=== PATIENT | male | born 1955 | race Caucasian/White ===

== ENCOUNTER 2016-11-12 00:33 | Emergency (ER) | payer MEDICARE ==
[2016-11-12 01:43] VITALS: BP 189/85
== END 2016-11-12 04:00 | disposition left against medical advice (07) ==
LOC: ER 00:33
DX: Z53.21 Procedure and treatment not carried out due to patient leaving prior to being seen by health care provider (principal)

== ENCOUNTER 2017-03-14 14:25 | Emergency (ER) | payer MEDICARE ==
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
[2017-03-14 16:35] LABS: ABSOLUTE BASOPHILS # (AUTO) 0.1 10^3/uL (0.0-0.2); ABSOLUTE EOSINOPHILS # (AUTO) 0.1 10^3/uL (0.0-0.6); ABSOLUTE LYMPHOCYTES (AUTO) 0.9 10^3/uL (0.5-4.7); ABSOLUTE MONOCYTES (AUTO) 0.7 10^3/uL (0.1-1.4); ABSOLUTE NEUT (AUTO) 6.6 10^3/uL (1.7-8.2); BASOPHILS % (AUTO) 0.9 % (0-2); EOSINOPHILS % (AUTO) 1.3 % (0-6); HEMATOCRIT 40.1 % (37.9-51.0); HEMOGLOBIN 13.3 g/dL (13.5-17.0); LYMPHOCYTES % (AUTO) 10.5 % (13-45); MEAN CORPUSCULAR HEMOGLOBIN 29.5 pg (27.0-33.4); MEAN CORPUSCULAR HGB CONC 33.2 g/dL (32.0-36.0); MEAN CORPUSCULAR VOLUME 89 fl (80-97); MONOCYTES % (AUTO) 8.5 % (3-13); PLATELET COUNT 389 10^3/uL (150-450); RED BLOOD COUNT 4.52 10^6/uL (4.35-5.55); RED CELL DISTRIBUTION WIDTH 15.3 % (11.5-14.0); SEGMENTED NEUTROPHILS % (AUTO) 78.8 % (42-78); TOTAL CELLS COUNTED % (AUTO) 100 %; WHITE BLOOD COUNT 8.3 10^3/uL (4.0-10.5)
--- NOTE | 2017-03-14 16:35 | RADIOLOGY REPORT (SQ) ---
EXAM DESCRIPTION: CT HEAD WITHOUT COMPLETED DATE/TIME: 03/14/2017 4:23 pm REASON FOR STUDY: altered COMPARISON: CT brain 06/07/2015 TECHNIQUE: Axial images acquired through the brain without intravenous contrast. Images reviewed wi th bone, brain and subdural windows. Images stored on PACS. All CT scanners at this facility use dose modulation, iterative reconstruction, and/or weight based d osing when appropriate to reduce radiation dose to as low as reasonably achievable (ALARA). [facility]: Dose Right [facility]: CareDose [facility]: Dose Right [facility]: Teradose 4D [facility]: Smart Technologies RADIATION DOSE: CT Rad equipment meets quality standard of care and radiation dose reduction techniq ues were employed. CTDIvol: 64.6 mGy. DLP: 1163 mGy-cm. mGy. LIMITATIONS: Motion artifact, particularly on images through the posterior fossa FINDINGS: VENTRICLES: Normal size and contour. CEREBRUM: No masses. No hemorrhage. No midline shift. No evidence for acute infarction. Normal gra y/white matter differentiation. No areas of low density in the white matter. CEREBELLUM: Motion artifact on images through the posterior fossa. Suspect an old lacunar infarct in the right middle cerebellar peduncle axial image 11. No gross hemorrhage in the posterior fossa or impingement on the 4th ventricle. EXTRAAXIAL SPACES: No fluid collections. No masses. ORBITS AND GLOBE: No intra- or extraconal masses. Normal contour of globe without masses. CALVARIUM: No fracture. PARANASAL SINUSES: No fluid or mucosal thickening. SOFT TISSUES: No mass or hematoma. OTHER: No other significant finding. IMPRESSION: Motion artifact. No acute changes. 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 EVIDENCE OF ACUTE STROKE: NO. COMMENT: Quality ID # [id number]: Final reports with documentation of one or more dose reduction techniques (e.g., Automated exposure control, adjustment of the mA and/or kV according to patient size, use of iterative reconstruction technique) TECHNICAL DOCUMENTATION: JOB ID: [id number]- All Rights Reserved
--- NOTE | 2017-03-14 16:48 | RADIOLOGY REPORT (SQ) ---
EXAM DESCRIPTION: CHEST PA/LAT COMPLETED DATE/TIME: 03/14/2017 4:39 pm REASON FOR STUDY: cough COMPARISON: AP chest 06/07/2015 EXAM PARAMETERS: NUMBER OF VIEWS: two views TECHNIQUE: Digital Frontal and Lateral radiographic views of the chest acquired. RADIATION DOSE: NA LIMITATIONS: none FINDINGS: LUNGS AND PLEURA: No opacities, masses or pneumothorax. No pleural effusion. MEDIASTINUM AND HILAR STRUCTURES: No masses or contour abnormalities. HEART AND VASCULAR STRUCTURES: Heart normal size. No evidence for failure. BONES: No acute findings. HARDWARE: None in the chest. OTHER: No other significant finding. IMPRESSION: NO SIGNIFICANT RADIOGRAPHIC FINDING IN THE CHEST. TECHNICAL DOCUMENTATION: JOB ID: [id number] [employer]- All Rights Reserved
[2017-03-14 16:55] LABS: ALANINE AMINOTRANSFERASE 27 U/L (21-72); ALBUMIN 3.5 g/dL (3.5-5.0); ALKALINE PHOSPHATASE 110 U/L (38-126); ANION GAP 9 (5-19); ASPARTATE AMINO TRANSFERASE 39 U/L (17-59); BILIRUBIN,DIRECT 0.4 mg/dL (0.0-0.4); BILIRUBIN,TOTAL 0.6 mg/dL (0.2-1.3); BLOOD UREA NITROGEN 47 mg/dL (7-20); CALCIUM 9.4 mg/dL (8.4-10.2); CARBON DIOXIDE 23 mmol/L (22-30); CHLORIDE 105 mmol/L (98-107); GLUCOSE 112 mg/dL (75-110); POTASSIUM 5.5 mmol/L (3.6-5.0); SODIUM 137.1 mmol/L (137-145); TOTAL PROTEIN 7.2 g/dL (6.3-8.2)
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
[2017-03-14] MEDS ORDERED: NORMAL SALINE 1000 ML 1,000 ML IV ONE (17:11)
[2017-03-14 17:40] LABS: CREATINE KINASE MB 4.27 ng/mL (<4.55)
[2017-03-14 17:43] LABS: TROPONIN I 0.05 ng/mL
[2017-03-14 17:54] LABS: APPEARANCE,URINE SLIGHTLY-CLOUDY; BILIRUBIN,URINE NEGATIVE (NEGATIVE); COLOR,URINE YELLOW; GLUCOSE, URINE 50 mg/dL (NEGATIVE); KETONES,URINE TRACE mg/dL (NEGATIVE); LEUKOCYTE ESTERASE,URINE NEGATIVE (NEGATIVE); NITRITE,URINE NEGATIVE (NEGATIVE); PROTEIN,URINE >=500 mg/dL (NEGATIVE); URINE SPECIFIC GRAVITY 1.013; UROBILINOGEN,URINE NEGATIVE mg/dL (<2.0)
[2017-03-14 18:09] LABS: URINE AMPHETAMINES SCREEN NEGATIVE; URINE BARBITURATES SCREEN NEGATIVE; URINE BENZODIAZEPINES SCREEN NEGATIVE; URINE COCAINE SCREEN NEGATIVE; URINE MARIJUANA (THC) SCREEN NEGATIVE; URINE METHADONE SCREEN NEGATIVE; URINE PHENCYCLIDINE SCREEN NEGATIVE
--- NOTE | 2017-03-14 19:56 | EKG REPORT ---
SEVERITY:- ABNORMAL ECG - SINUS RHYTHM CONSIDER LEFT VENTRICULAR HYPERTROPHY BORDERLINE INFERIOR Q WAVES ABNORMAL T, CONSIDER ISCHEMIA, LATERAL LEADS VS LVH RELATED : Confirmed by: Madalyn Walker 14-Mar-2017 19:55:30
[2017-03-14] MEDS ORDERED: CLONIDINE HCL 0.1 MG TABLET PO ONE (20:08)
[2017-03-14 20:44] LABS: ANION GAP 7 (5-19); BLOOD UREA NITROGEN 49 mg/dL (7-20); CALCIUM 8.8 mg/dL (8.4-10.2); CARBON DIOXIDE 23 mmol/L (22-30); CHLORIDE 106 mmol/L (98-107); GLUCOSE 148 mg/dL (75-110); POTASSIUM 4.7 mmol/L (3.6-5.0); SODIUM 136.2 mmol/L (137-145)
[2017-03-15] MEDS ORDERED: ACETAMINOPHEN 325 MG TABLET PO ONE (00:46)
--- NOTE | 2017-03-15 08:25 | ER Document Report ---
Doctor's Note Notes: 03/15/17 08:46 61-year-old male evaluted as the rounding physician for our psychiatric patients , I have reviewed the chart, vitals, lab work. Patient has been examined and noted to be well appearing . I am awaiting mental health in put. Repeat lab work has been ordered I am also awaiting family's presentation
[2017-03-15 09:24] LABS: ALANINE AMINOTRANSFERASE 22 U/L (21-72); ALBUMIN 3.4 g/dL (3.5-5.0); ALKALINE PHOSPHATASE 102 U/L (38-126); ANION GAP 8 (5-19); ASPARTATE AMINO TRANSFERASE 32 U/L (17-59); BILIRUBIN,DIRECT 0.3 mg/dL (0.0-0.4); BILIRUBIN,TOTAL 0.6 mg/dL (0.2-1.3); BLOOD UREA NITROGEN 47 mg/dL (7-20); CALCIUM 9.1 mg/dL (8.4-10.2); CARBON DIOXIDE 24 mmol/L (22-30); CHLORIDE 105 mmol/L (98-107); GLUCOSE 189 mg/dL (75-110); POTASSIUM 5.1 mmol/L (3.6-5.0); SODIUM 137.1 mmol/L (137-145)
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
[2017-03-15] MEDS ORDERED: HALOPERIDOL 5 MG TABLET PO SCH (10:15)
[2017-03-15] MEDS ORDERED: BENZTROPINE MESYLATE 1 MG TABLET PO SCH (10:15)
[2017-03-15] MEDS ORDERED: CLONIDINE HCL 0.1 MG TABLET PO SCH (10:15)
[2017-03-15] MEDS: BENZTROPINE MESYLATE 1 MG TABLET PO SCH (10:43)
[2017-03-15] MEDS ORDERED: HALOPERIDOL 5 MG TABLET PO ONE (11:00)
[2017-03-15] MEDS: CLONIDINE HCL 0.1 MG TABLET PO SCH ×2 (13:33→18:28)
[2017-03-15] MEDS: HALOPERIDOL 5 MG TABLET PO SCH (18:04)
[2017-03-16] MEDS: CLONIDINE HCL 0.1 MG TABLET PO SCH ×3 (09:34→18:24)
[2017-03-16] MEDS: HALOPERIDOL 5 MG TABLET PO SCH ×2 (09:34→18:24)
--- NOTE | 2017-03-16 09:39 | ER Document Report ---
Doctor's Note Notes: 03/16/17 09:38 As the rounding physician for our social patients, I have reviewed the chart, vitals, lab work. Patient has been examined and noted to be stable . I am awaiting mental health in put.
[2017-03-16] MEDS: BENZTROPINE MESYLATE 1 MG TABLET PO SCH (11:11)
--- NOTE | 2017-03-16 15:27 | PSYCHOLOGICAL NOTE ---
Psych Note - Psych Note Psych Note: Reason for consult: Altered Mental Status Consents given: None Patient is a 61 year old male who was brought to the Emergency Department by EMS. Patient was found by neighbors wandering around his house. Patient again explained he was locked out of his house and said he has issues with the locking mechanisms on his door and that's how he became locked out of his house. Patient denied he was evicted or locked out of his home by anyone else. He reported he has an issue of cleanliness at his house. He stated the freezer, refrigerator and stove do not work and his food becomes spoiled because he has no way to keep it. He stated he was "elias to be alive." He reported his car was parked in front of his house and it "wasn't doing good right now either." Patient made a statement this railroad accountant could not hear about medication. When this railroad accountant asked what he said he threw his fork into his eggs and stated "You keep asking about medicine!" Patient became agitated and wanted to eat his breakfast. Subsequent to leaving the room, the patient started making grunting noises and was angrily talking to himself in a low tone. Patient was more amenable after eating breakfast. Patient seems focused on his living situation but appears considerably clearer today. Patient's neighbor contacted the Emergency Department. She reported she was the neighbor who called EMS for the patient. She stated the patient visits her daily and she was worried about him because he had not returned. She reported the patient showed up at her house without shoes or a shirt on and sat on her chair outside and would not respond when she asked him if he was okay. She stated the patient was not evicted he had just locked himself out of his house. She stated when the patient stood up and began walking towards his home he had a very unsteady gait and almost fell, which is why she called EMS. Due to the patient's report of his living conditions (appliances not working, issues with running water, filth, being rat infested) a report was made to [facility]. The APS worker gathered the information and stated she would respond, via letter, to let us know the outcome of the report being taken. Referral was made to Emergency Department discharge nurse for a social consult to assist patient with living situation concerns. Patient was alert and oriented to person, place, time and circumstance. Mood was somewhat guarded with congruent affect. Patient denied suicidal/homicidal ideation, intent or plan. He did appear to be responding to internal stimuli as evidenced by not being able to maintain appropriate eye contact but patient was able to stay on topic more consistently. Patient continues to vacillate between engaging with this railroad accountant and becoming agitated by questions, but again his agitation is lessened. Thought processes were disorganized and tangential. Conversational speech was slow for rate, tone and prosody. Intellectual abilities were estimated in the average range. Insight, judgment and impulse control were fair. Although patient continues to have some response to internal stimuli and continues to be guarded, it is believed he is at baseline for his mental health. 1. 295.90 (F20.9) Schizophrenia Impression/Plan: Recommend rescind of IVC. Patient is psychiatrically clear. He no longer meets [place] G.S 122C IVC criteria. Patient denied suicidal/homicidal ideation, intent or plan. Patient is not considered a danger to himself or others at this time. Patient was encouraged to follow up with a community provider to continue medications once he is discharged from the hospital. Medication recommendations continue as Haldol 5mg BID, Cogentin 1mg daily and Clonidine 0.1mg TID. It is recommended for the patient to establish care in the community with a provider. Although patient continues to have some response to internal stimuli and continues to be guarded, it is believed he is at baseline for his mental health. Consulted with Dr. Burns regarding the care and management of this patient. ED physician in agreement with recommendation and disposition.
--- NOTE | 2017-03-17 09:37 | ER Document Report ---
Doctor's Note Notes: 03/17/17 09:37 As the rounding physician for our social patients, I have reviewed the chart, vitals, lab work. Patient has been examined and noted to be stable . I am awaiting mental health in put.
[2017-03-17] MEDS: BENZTROPINE MESYLATE 1 MG TABLET PO SCH (10:13)
[2017-03-17] MEDS: HALOPERIDOL 5 MG TABLET PO SCH (10:13)
[2017-03-17] MEDS: CLONIDINE HCL 0.1 MG TABLET PO SCH (10:14)
[2017-03-17 11:22] VITALS: BP 187/86
== END 2017-03-17 11:15 | disposition home or self-care (01) ==
LOC: ER 14:25
DX: F20.9 Schizophrenia, unspecified (principal); I10 Essential (primary) hypertension; N28.9 Disorder of kidney and ureter, unspecified; F17.210 Nicotine dependence, cigarettes, uncomplicated; Z60.2 Problems related to living alone; Z88.0 Allergy status to penicillin
CPT/HCPCS: 93005; 99285; 96360; 36415; 82553; 80307 ×2; 82550; 85025; 80048; 80053; 81001; 84484; 71046; 70450; 93010; A9270 ×11; J7030

== ENCOUNTER 2017-03-17 23:44 | Emergency (ER) | payer MEDICARE ==
--- NOTE | 2017-03-18 02:16 | RADIOLOGY REPORT (SQ) ---
EXAM DESCRIPTION: FOOT RIGHT COMPLETE CLINICAL HISTORY: pain COMPARISON: None. FINDINGS: 3 views of the right foot. No acute fracture or dislocation. Normal osseous mineralization. No destructive osseous lesions. No radiopaque foreign body. Atherosclerotic vascular calcification. IMPRESSION: No acute fracture or dislocation.
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
[2017-03-18] MEDS ORDERED: HALOPERIDOL 5 MG TABLET PO SCH (03:45)
[2017-03-18] MEDS ORDERED: CLONIDINE HCL 0.1 MG TABLET PO SCH (03:45)
[2017-03-18 03:58] LABS: ABSOLUTE BASOPHILS # (AUTO) 0.1 10^3/uL (0.0-0.2); ABSOLUTE EOSINOPHILS # (AUTO) 0.2 10^3/uL (0.0-0.6); ABSOLUTE LYMPHOCYTES (AUTO) 0.8 10^3/uL (0.5-4.7); ABSOLUTE MONOCYTES (AUTO) 0.8 10^3/uL (0.1-1.4); ABSOLUTE NEUT (AUTO) 6.5 10^3/uL (1.7-8.2); BASOPHILS % (AUTO) 0.9 % (0-2); EOSINOPHILS % (AUTO) 2.2 % (0-6); HEMATOCRIT 35.3 % (37.9-51.0); HEMOGLOBIN 11.7 g/dL (13.5-17.0); LYMPHOCYTES % (AUTO) 10.1 % (13-45); MEAN CORPUSCULAR HEMOGLOBIN 29.4 pg (27.0-33.4); MEAN CORPUSCULAR HGB CONC 33.1 g/dL (32.0-36.0); MEAN CORPUSCULAR VOLUME 89 fl (80-97); MONOCYTES % (AUTO) 9.3 % (3-13); PLATELET COUNT 360 10^3/uL (150-450); RED BLOOD COUNT 3.98 10^6/uL (4.35-5.55); RED CELL DISTRIBUTION WIDTH 15.1 % (11.5-14.0); SEGMENTED NEUTROPHILS % (AUTO) 77.5 % (42-78); TOTAL CELLS COUNTED % (AUTO) 100 %; WHITE BLOOD COUNT 8.4 10^3/uL (4.0-10.5)
[2017-03-18 04:09] LABS: ALANINE AMINOTRANSFERASE 34 U/L (21-72); ALBUMIN 3.6 g/dL (3.5-5.0); ALKALINE PHOSPHATASE 99 U/L (38-126); ANION GAP 10 (5-19); ASPARTATE AMINO TRANSFERASE 26 U/L (17-59); BILIRUBIN,DIRECT 0.2 mg/dL (0.0-0.4); BILIRUBIN,TOTAL 0.2 mg/dL (0.2-1.3); BLOOD UREA NITROGEN 52 mg/dL (7-20); CALCIUM 9.2 mg/dL (8.4-10.2); CARBON DIOXIDE 25 mmol/L (22-30); CHLORIDE 106 mmol/L (98-107); GLUCOSE 143 mg/dL (75-110); POTASSIUM 5.7 mmol/L (3.6-5.0); SODIUM 140.7 mmol/L (137-145); TOTAL PROTEIN 7.3 g/dL (6.3-8.2)
[2017-03-18 04:15] LABS: ACETAMINOPHEN < 10 ug/mL (10-30); ALCOHOL < 10 mg/dL (NONE DETECTED); SALICYLATE < 1.0 mg/dL (2.0-20.0)
[2017-03-18 04:25] LABS: APPEARANCE,URINE CLEAR; BILIRUBIN,URINE NEGATIVE (NEGATIVE); COLOR,URINE STRAW; GLUCOSE, URINE 50 mg/dL (NEGATIVE); KETONES,URINE NEGATIVE (NEGATIVE); LEUKOCYTE ESTERASE,URINE NEGATIVE (NEGATIVE); NITRITE,URINE NEGATIVE (NEGATIVE); PROTEIN,URINE 100 mg/dL (NEGATIVE); URINE SPECIFIC GRAVITY 1.005; UROBILINOGEN,URINE NEGATIVE mg/dL (<2.0)
[2017-03-18 04:32] LABS: URINE AMPHETAMINES SCREEN NEGATIVE; URINE BARBITURATES SCREEN NEGATIVE; URINE BENZODIAZEPINES SCREEN NEGATIVE; URINE COCAINE SCREEN NEGATIVE; URINE MARIJUANA (THC) SCREEN NEGATIVE; URINE METHADONE SCREEN NEGATIVE; URINE PHENCYCLIDINE SCREEN NEGATIVE
[2017-03-18] MEDS ORDERED: NORMAL SALINE 1000 ML 1,000 ML IV ONE (05:04)
[2017-03-18] MEDS ORDERED: BENZTROPINE MESYLATE 1 MG TABLET PO SCH (10:00)
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
--- NOTE | 2017-03-18 12:02 | EKG REPORT ---
SEVERITY:- ABNORMAL ECG - SINUS RHYTHM LEFT VENTRICULAR HYPERTROPHY ST ELEVATION SUGGESTS PERICARDITIS : Confirmed by: Madalyn Walker 18-Mar-2017 12:00:47
--- NOTE | 2017-03-18 12:10 | ER Document Report ---
Doctor's Note Notes: 03/18/17 12:08 Medical rounds: Patient evaluated briefly prior to discharge. Psychosocial evaluation and recommendations noted. Patient is alert, in no distress, vital signs are stable. He verbalizes multiple minor somatic complaints, none of which appeared to constitute an emergency medical condition. He is medically stable and will be discharged home with FS referral. He has prescriptions for medication pursuant to his discharge yesterday.
[2017-03-18 12:21] VITALS: BP 172/66
== END 2017-03-18 12:20 | disposition home or self-care (01) ==
LOC: ER 23:44
DX: F20.9 Schizophrenia, unspecified (principal); I10 Essential (primary) hypertension; T46.5X6A Underdosing of other antihypertensive drugs, initial encounter; Z91.14 Patient's other noncompliance with medication regimen; S90.812A Abrasion, left foot, initial encounter; S90.811A Abrasion, right foot, initial encounter; X58.XXXA Exposure to other specified factors, initial encounter; Z88.0 Allergy status to penicillin
CPT/HCPCS: 93005; 99285; 36415; 80307 ×4; 85025; 80053; 81001; 73630; 93010; A9270 ×3

== ENCOUNTER 2017-09-01 13:03 | Emergency (ER) | payer MEDICARE ==
[2017-09-01] MEDS ORDERED: METOCLOPRAMIDE HCL INJ/PF 10 MG/2 ML SDV IV ONE (13:36)
[2017-09-01] MEDS ORDERED: MORPHINE SULFATE 10 MG/ML INJ IV ONE (13:36)
[2017-09-01] MEDS ORDERED: NORMAL SALINE 1000 ML 1,000 ML IV ONE (13:37)
--- NOTE | 2017-09-01 13:37 | ER Document Report ---
ED GI/ - General Chief Complaint: Nausea/Vomiting/Diarrhea Stated Complaint: NAUSEA Time Seen by Provider: 09/01/17 13:32 Mode of Arrival: Ambulatory Information source: Patient Notes: Patient is a 61-year-old male with a history of schizophrenia who presents to the ER today from home for chills, nausea, vomiting and diarrhea since yesterday. Patient admits to abdominal pain "all over." Patient does not know if he has had a fever but has felt hot and cold with his chills. Patient has had 4 episodes of vomiting over the past day and at least 5 episodes of diarrhea that has been watery. He denies any recent antibiotics, he denies any abdominal history such as Crohn's or ulcerative colitis, he denies blood in his vomit or stool. TRAVEL OUTSIDE OF THE [place] IN LAST 30 DAYS: No - Related Data Allergies/Adverse Reactions: Penicillins Allergy (Verified 03/18/17 04:13) Past Medical History - General Information source: Patient - Social History Smoking Status: Current Every Day Smoker Chew tobacco use (# tins/day): No Frequency of alcohol use: None Drug Abuse: None Family History: Reviewed & Not Pertinent Patient has suicidal ideation: No Patient has homicidal ideation: No - Past Medical History Cardiac Medical History: Reports: Hx Hypertension Renal/ Medical History: Denies: Hx Peritoneal Dialysis Psychiatric Medical History: Reports: Hx Schizophrenia Past Surgical History: Reports: Hx Orthopedic Surgery - Immunizations Hx Diphtheria, Pertussis, Tetanus Vaccination: - unk Review of Systems - Review of Systems Constitutional: See HPI EENT: No symptoms reported Cardiovascular: No symptoms reported Respiratory: No symptoms reported Gastrointestinal: See HPI Genitourinary: No symptoms reported Male Genitourinary: No symptoms reported Musculoskeletal: No symptoms reported Skin: No symptoms reported Hematologic/Lymphatic: No symptoms reported Neurological/Psychological: No symptoms reported Physical Exam - Vital signs Vitals: Temp Pulse Resp BP Pulse Ox 98.1 F 81 22 H 142/87 H 95 09/01/17 13:10 09/01/17 13:10 09/01/17 13:10 09/01/17 13:10 09/01/17 13:10 - Notes Notes: PHYSICAL EXAMINATION: GENERAL: Having chills, otherwise in no acute distress. HEAD: Atraumatic, normocephalic. EYES: Pupils equal round and reactive to light, extraocular movements intact, sclera anicteric, conjunctiva are normal. ENT: ear canals without erythema or foreign body, TMs pearly kapoor with good bony landmarks, nares patent, oropharynx clear without exudates. Moist mucous membranes. Airway patent NECK: Normal range of motion, supple without lymphadenopathy LUNGS: CTAB and equal. No wheezes rales or rhonchi. HEART: Regular rate and rhythm without murmurs ABDOMEN: Soft, no tenderness. No guarding, no rebound BACK: no vertebral tenderness, normal ROM GI/: no CVA tenderness EXTREMITIES: Normal range of motion, no pitting edema. No cyanosis. NEUROLOGICAL: Cranial nerves grossly intact. Normal sensory/motor exams. PSYCH: Normal mood, normal affect. SKIN: Warm, Dry, normal turgor, no rashes or lesions noted Course - Re-evaluation Re-evalutation: 09/01/17 16:14 Patient feels better after pain medication, nausea medication and IV fluids. Patient is gotten up multiple times and walked by himself to the bathroom without any issues. Patient has a completely benign abdominal exam, normal white blood cell count although he does have some elevated bands. I believe that patient has a viral syndrome. I did offer admission and he declines stating that he feels better and would like to go home. I will send him home with nausea medication and advised that he drink plenty of fluids. He is to return with any worsening symptoms. 09/02/17 08:15 - Vital Signs Vital signs: Temp Pulse Resp BP Pulse Ox 101.8 F H 80 24 H 127/65 H 92 09/01/17 17:09 09/01/17 17:09 09/01/17 17:09 09/01/17 17:09 09/01/17 17:09 - Laboratory Result Diagrams: 09/01/17 13:54 09/01/17 13:54 Laboratory results interpreted by me: 09/01/17 09/01/17 09/01/17 13:54 13:54 15:12 RDW 14.8 H Seg Neuts % (Manual) 86 H Band Neutrophils % 10 H Lymphocytes % (Manual) 1 L Abs Neuts (Manual) 9.1 H Abs Lymphs (Manual) 0.1 L Sodium 146.2 H Potassium 5.2 H Chloride 111 H BUN 50 H Creatinine 2.54 H Est GFR ( Amer) 31 L Est GFR (Non-Af Amer) 26 L Glucose 154 H Urine Protein >=500 H Urine Glucose (UA) 50 H Urine Blood SMALL H Discharge - Discharge Clinical Impression: Nausea vomiting and diarrhea Condition: Stable Disposition: HOME, SELF-CARE Instructions: Diarrhea, Nonspecific ([facility]), Viral Syndrome ([facility]), Vomiting ([facility]) Additional Instructions: Return immediately for any new or worsening symptoms. Follow up with primary care provider, call tomorrow to make followup appointment. Drink plenty of fluids. Prescriptions: Ondansetron [Zofran Odt 4 mg Tablet] 1 - 2 tab PO Q4H PRN #15 tab.rapdis PRN Reason: For Nausea/Vomiting
[2017-09-01 14:14] LABS: HEMATOCRIT 41.3 % (37.9-51.0); HEMOGLOBIN 13.6 g/dL (13.5-17.0); MEAN CORPUSCULAR HEMOGLOBIN 29.5 pg (27.0-33.4); MEAN CORPUSCULAR HGB CONC 33.1 g/dL (32.0-36.0); MEAN CORPUSCULAR VOLUME 89 fl (80-97); PLATELET COUNT 288 10^3/uL (150-450); RED BLOOD COUNT 4.62 10^6/uL (4.35-5.55); RED CELL DISTRIBUTION WIDTH 14.8 % (11.5-14.0); WHITE BLOOD COUNT 9.5 10^3/uL (4.0-10.5)
[2017-09-01 14:33] LABS: ABSOLUTE LYMPHOCYTES# (MANUAL) 0.1 10^3/uL (0.5-4.7); ABSOLUTE MONOCYTES # (MANUAL) 0.3 10^3/uL (0.1-1.4); ABSOLUTE NEUTROPHILS# (MANUAL) 9.1 10^3/uL (1.7-8.2); BAND NEUTROPHILS % (MANUAL) 10 % (3-5); BASOPHILS % (MANUAL) 0 % (0-2); EOSINOPHILS % (MANUAL) 0 % (0-6); LYMPHOCYTES % (MANUAL) 1 % (13-45); MONOCYTES % (MANUAL) 3 % (3-13); SEGMENTED NEUTROPHILS % (MAN) 86 % (42-78); TOTAL CELLS COUNTED 100
[2017-09-01 14:36] LABS: ANISOCYTOSIS SLIGHT; OVALOCYTES SLIGHT; POIKILOCYTOSIS SLIGHT; TOXIC GRANULATION SLIGHT; TOXIC VACUOLATION PRESENT
[2017-09-01 14:37] LABS: PLATELET COMMENT ADEQUATE
[2017-09-01 14:45] LABS: ANION GAP 12 (5-19); BLOOD UREA NITROGEN 50 mg/dL (7-20); CALCIUM 8.8 mg/dL (8.4-10.2); CARBON DIOXIDE 23 mmol/L (22-30); CHLORIDE 111 mmol/L (98-107); GLUCOSE 154 mg/dL (75-110); LIPASE 168.2 U/L (23-300); POTASSIUM 5.2 mmol/L (3.6-5.0); SODIUM 146.2 mmol/L (137-145)
[2017-09-01 15:29] LABS: APPEARANCE,URINE CLEAR; BILIRUBIN,URINE NEGATIVE (NEGATIVE); COLOR,URINE YELLOW; GLUCOSE, URINE 50 mg/dL (NEGATIVE); KETONES,URINE NEGATIVE (NEGATIVE); LEUKOCYTE ESTERASE,URINE NEGATIVE (NEGATIVE); NITRITE,URINE NEGATIVE (NEGATIVE); PROTEIN,URINE >=500 mg/dL (NEGATIVE); URINE SPECIFIC GRAVITY 1.012; UROBILINOGEN,URINE NEGATIVE mg/dL (<2.0)
--- NOTE | 2017-09-01 16:43 | RADIOLOGY REPORT (SQ) ---
EXAM DESCRIPTION: CHEST SINGLE VIEW COMPLETED DATE/TIME: 09/01/2017 4:24 pm REASON FOR STUDY: n/v/ bandemia COMPARISON: February 2017 EXAM PARAMETERS: NUMBER OF VIEWS: One view. TECHNIQUE: Single frontal radiographic view of the chest acquired. RADIATION DOSE: NA LIMITATIONS: None. FINDINGS: LUNGS AND PLEURA: No opacities, masses or pneumothorax. No pleural effusion. MEDIASTINUM AND HILAR STRUCTURES: No masses. Contour normal. HEART AND VASCULAR STRUCTURES: The configuration of the heart mediastinal structures is unchanged. BONES: No acute findings. HARDWARE: None in the chest. OTHER: No other significant finding. IMPRESSION: NO ACUTE RADIOGRAPHIC FINDING IN THE CHEST. TECHNICAL DOCUMENTATION: JOB ID: [id number] [employer]- All Rights Reserved Reading location - IP/workstation name: [email or web address]
[2017-09-01] MEDS ORDERED: ACETAMINOPHEN 325 MG TABLET PO ONE (17:06)
[2017-09-01 17:16] VITALS: BP 127/65
== END 2017-09-01 17:35 | disposition home or self-care (01) ==
LOC: ER 13:03
DX: R11.2 Nausea with vomiting, unspecified (principal); R19.7 Diarrhea, unspecified; F17.200 Nicotine dependence, unspecified, uncomplicated; I10 Essential (primary) hypertension; Z88.0 Allergy status to penicillin
CPT/HCPCS: 99284; 96361; 96374; 96375; 36415; 87040; 83605; 83690; 85025; 80048; 81001; 71045; A9270; J2765; J2270; J7030

== ENCOUNTER 2018-01-03 06:40 | Inpatient (IN) | payer MEDICARE ==
[2018-01-03 07:04] LABS: ABSOLUTE BASOPHILS # (AUTO) 0.1 10^3/uL (0.0-0.2); ABSOLUTE EOSINOPHILS # (AUTO) 0.2 10^3/uL (0.0-0.6); ABSOLUTE LYMPHOCYTES (AUTO) 1.8 10^3/uL (0.5-4.7); ABSOLUTE MONOCYTES (AUTO) 1.2 10^3/uL (0.1-1.4); ABSOLUTE NEUT (AUTO) 8.4 10^3/uL (1.7-8.2); BASOPHILS % (AUTO) 0.6 % (0-2); HEMATOCRIT 40.5 % (37.9-51.0); HEMOGLOBIN 13.3 g/dL (13.5-17.0); LYMPHOCYTES % (AUTO) 15.2 % (13-45); MEAN CORPUSCULAR VOLUME 91 fl (80-97); MONOCYTES % (AUTO) 10.4 % (3-13); PLATELET COUNT 306 10^3/uL (150-450); RED BLOOD COUNT 4.45 10^6/uL (4.35-5.55); RED CELL DISTRIBUTION WIDTH 15.4 % (11.5-14.0); SEGMENTED NEUTROPHILS % (AUTO) 71.8 % (42-78); TOTAL CELLS COUNTED % (AUTO) 100 %; WHITE BLOOD COUNT 11.7 10^3/uL (4.0-10.5)
--- NOTE | 2018-01-03 07:24 | RADIOLOGY REPORT (SQ) ---
EXAM DESCRIPTION: XR CHEST 1 VIEW COMPLETED DATE/TME: 01/03/2018 06:43 CLINICAL HISTORY: 62 years Male, cp COMPARISON:09/01/2017 NUMBER OF VIEWS/TECHNIQUE: 1/AP FINDINGS: Adequate lung volume, clear parenchyma, normal cardiac silhouette, atherosclerosis, and intact bony thorax. IMPRESSION: No acute cardiopulmonary findings.
--- NOTE | 2018-01-03 07:35 | ER Document Report ---
ED General - General Chief Complaint: Chest Pain Stated Complaint: CHEST PAIN Time Seen by Provider: 01/03/18 07:28 TRAVEL OUTSIDE OF THE [place] IN LAST 30 DAYS: No - HPI Patient complains to provider of: Chest pain Notes: Patient coming in for chest pain radiating to his back starting approximately 1/ 2 hours prior to arrival. Patient does have a history of schizophrenia patient otherwise upon my discussion is a no x3 however does travel off making the HPI process somewhat difficult. Patient denies any trauma denies any fever chills nausea by diarrhea. Patient denies any cardiac issues in the past. Patient states PCP is in the [facility] states he is here living with his daughter. Denies any illicit drugs denies any smoking denies any alcohol. Patient otherwise resting comfortably upon my evaluation trying to place on the gown. This provided assist patient with placing on the ground. Patient is currently states chest pain-free denies any exacerbating or relieving factors of chest pain. Denies any improvement of chest pain with the nitroglycerin however states pain spontaneously resolved upon here in ER - Related Data Allergies/Adverse Reactions: Penicillins Allergy (Verified 01/03/18 08:13) Past Medical History - Social History Smoking Status: Current Every Day Smoker Family History: Reviewed & Not Pertinent Patient has suicidal ideation: No Patient has homicidal ideation: No - Past Medical History Cardiac Medical History: Reports: Hx Hypertension Renal/ Medical History: Denies: Hx Peritoneal Dialysis Psychiatric Medical History: Reports: Hx Schizophrenia Past Surgical History: Reports: Hx Orthopedic Surgery - Immunizations Hx Diphtheria, Pertussis, Tetanus Vaccination: - unk Review of Systems - Review of Systems Constitutional: No symptoms reported EENT: No symptoms reported Cardiovascular: Chest pain Respiratory: No symptoms reported Gastrointestinal: No symptoms reported Genitourinary: No symptoms reported Male Genitourinary: No symptoms reported Musculoskeletal: No symptoms reported Skin: No symptoms reported Hematologic/Lymphatic: No symptoms reported Neurological/Psychological: No symptoms reported -: Yes All other systems reviewed and negative Physical Exam - Vital signs Vitals: Pulse Ox 99 01/03/18 06:43 Interpretation: Normal - General General appearance: Appears well, Alert - HEENT Head: Normocephalic, Atraumatic Eyes: Normal Pupils: PERRL - Respiratory Respiratory status: No respiratory distress Chest status: Nontender Breath sounds: Normal Chest palpation: Normal - Cardiovascular Rhythm: Regular Heart sounds: Normal auscultation Murmur: No - Abdominal Inspection: Normal Distension: No distension Bowel sounds: Normal Tenderness: Nontender Organomegaly: No organomegaly - Back Back: Normal, Nontender - Extremities General upper extremity: Normal inspection, Nontender, Normal color, Normal ROM , Normal temperature General lower extremity: Normal inspection, Nontender, Normal color, Normal ROM , Normal temperature, Normal weight bearing. No: Feliciano's sign - Neurological Neuro grossly intact: Yes Cognition: Normal Orientation: AAOx4 Aislinn Coma Scale Eye Opening: Spontaneous [place]islinn Coma Scale Verbal: Oriented Aislinn Coma Scale Motor: Obeys Commands Ramey Coma Scale Total: 15 Speech: Normal Motor strength normal: LUE, RUE, LLE, RLE Sensory: Normal - Psychological Associated symptoms: Normal affect, Normal mood - Skin Skin Temperature: Warm Skin Moisture: Dry Skin Color: Normal Course - Re-evaluation Re-evalutation: 01/03/18 11:42 Patient presents today with chest pain stating going to his back. Patient states happened approximately an hour prior to arrival. Patient does have a history of schizophrenia and is somewhat difficult. Patient otherwise is pain- free upon my evaluation. Patient states that he does not take any medications at this time patient does have a history of hypertensive urgency in the past has been admitted and signed out AGAINST MEDICAL ADVICE. Patient states his primary care physician is at the "[facility]" patient states he is down here living with his daughter. Patient concerning for possible aneurysm or dissection discussed the case with the radiologist Dr. Rosas initially recommend dry scanning to look for any acute abnormality. CT scan of the chest abdomen and pelvis was performed without oral contrast or IV contrast showing no acute abnormality. Patient's troponin is otherwise negative patient remains chest pain-free discussed with the hospitalist Dr. Watson who did come down evaluate patient is still concerned about a possible dissection recommend an MRA. Dr. Rubio has ordered the MRA however the patient is unable to complete the necessary form by himself because of his underlying schizophrenia. Patient family members have been contacted. I discussed this with Dr. Campbell who states that now he would not accept the patient for admission until the MRA is performed that he ordered. Discussed with Dr. Rosas was able to review all the read radiological studies showing no metal in the patient's head chest or abdomen and recommended that we go ahead with the test. I discussed with the certified hyperbaric technologist who agrees I will sign off on the form personally as Dr. Rosas has cleared the patient for MRI 01/03/18 15:[address] Rubio will admit the patient - Vital Signs Vital signs: Temp Pulse Resp BP Pulse Ox 97.9 F 60 22 H 212/90 H 98 01/03/18 06:55 01/03/18 06:55 01/03/18 14:31 01/03/18 14:31 01/03/18 14:46 - Laboratory Result Diagrams: 01/03/18 06:50 01/03/18 06:50 Laboratory results interpreted by me: 01/03/18 01/03/18 01/03/18 06:50 06:50 06:50 WBC 11.7 H Hgb 13.3 L RDW 15.4 H Absolute Neutrophils 8.4 H Potassium 5.1 H Chloride 108 H BUN 50 H Creatinine 2.09 H Est GFR ( Amer) 39 L Est GFR (Non-Af Amer) 32 L Glucose 207 H ALT 14 L Urine Protein >=500 H Urine Glucose (UA) 50 H Urine Blood SMALL H Salicylates Acetaminophen 01/03/18 06:50 WBC Hgb RDW Absolute Neutrophils Potassium Chloride BUN Creatinine Est GFR ( Amer) Est GFR (Non-Af Amer) Glucose ALT Urine Protein Urine Glucose (UA) Urine Blood Salicylates < 1.0 L Acetaminophen < 10 L Critical Care Note - Critical Care Note Total time excluding time spent on procedures (mins): 35 Comments: Multiple evaluation patient with chest pain elevated blood pressure Discharge - Discharge Clinical Impression: Chest pain, rule out acute myocardial infarction, Hypertensive urgency Schizophrenia Qualifiers: Schizophrenia type: unspecified Qualified Code(s): F20.9 - Schizophrenia, unspecified Chronic renal failure Qualifiers: Chronic kidney disease stage: unspecified stage Qualified Code(s): N18.9 - Chronic kidney disease, unspecified Hypertension Qualifiers: Hypertension type: unspecified Qualified Code(s): I10 - Essential (primary) hypertension Disposition: ADMITTED OBSERVATION Admitting Provider: Sudarshan watson Unit Admitted: [facility]
[2018-01-03] MEDS ORDERED: NORMAL SALINE 500 ML IV ONE (07:36)
[2018-01-03 07:48] LABS: CREATINE KINASE MB 3.62 ng/mL (<4.55); TROPONIN I 0.023 ng/mL
[2018-01-03 07:54] LABS: ALANINE AMINOTRANSFERASE 14 U/L (21-72); ALBUMIN 3.8 g/dL (3.5-5.0); ALKALINE PHOSPHATASE 121 U/L (38-126); ANION GAP 11 (5-19); ASPARTATE AMINO TRANSFERASE 23 U/L (17-59); BILIRUBIN,DIRECT 0.3 mg/dL (0.0-0.4); BILIRUBIN,TOTAL 0.4 mg/dL (0.2-1.3); BLOOD UREA NITROGEN 50 mg/dL (7-20); CALCIUM 9.2 mg/dL (8.4-10.2); CARBON DIOXIDE 24 mmol/L (22-30); CHLORIDE 108 mmol/L (98-107); GLUCOSE 207 mg/dL (75-110); POTASSIUM 5.1 mmol/L (3.6-5.0); SODIUM 142.8 mmol/L (137-145)
[2018-01-03 07:55] LABS: CREATINE KINASE 128 U/L (55-170); TOTAL PROTEIN 7.8 g/dL (6.3-8.2)
[2018-01-03 08:06] LABS: APPEARANCE,URINE CLEAR; BILIRUBIN,URINE NEGATIVE (NEGATIVE); COLOR,URINE STRAW; GLUCOSE, URINE 50 mg/dL (NEGATIVE); KETONES,URINE NEGATIVE (NEGATIVE); LEUKOCYTE ESTERASE,URINE NEGATIVE (NEGATIVE); NITRITE,URINE NEGATIVE (NEGATIVE); PROTEIN,URINE >=500 mg/dL (NEGATIVE); URINE SPECIFIC GRAVITY 1.013; UROBILINOGEN,URINE NEGATIVE mg/dL (<2.0)
[2018-01-03 08:34] LABS: ALCOHOL < 10 mg/dL (NONE DETECTED)
[2018-01-03 08:35] LABS: ACETAMINOPHEN < 10 ug/mL (10-30); SALICYLATE < 1.0 mg/dL (2.0-20.0)
[2018-01-03 09:30] LABS: URINE AMPHETAMINES SCREEN NEGATIVE; URINE BARBITURATES SCREEN NEGATIVE; URINE COCAINE SCREEN NEGATIVE; URINE MARIJUANA (THC) SCREEN NEGATIVE; URINE METHADONE SCREEN NEGATIVE; URINE PHENCYCLIDINE SCREEN NEGATIVE
--- NOTE | 2018-01-03 09:30 | RADIOLOGY REPORT (SQ) ---
EXAM DESCRIPTION: CT CHEST WITHOUT; CT ABD/PELVIS NO ORAL OR IV COMPLETED DATE/TIME: 01/03/2018 9:09 am REASON FOR STUDY: chest back pain psychiatric patient, poor historian, evaluate for aortic aneurysm chest pain, back pain, low back pain COMPARISON: AP chest 01/03/2018 TECHNIQUE: CT scan of the chest performed without intravenous contrast using helical scanning techni que. Images reviewed with lung, soft tissue and bone windows. Reconstructed coronal and sagittal MPR images reviewed. All images stored on PACS. CT scan of the abdomen and pelvis performed without intravenous contrast and withoutoral contrast usi ng helical scanning technique with dynamic intravenous contrast injection. Images reviewed with lung , soft tissue and bone windows. Reconstructed coronal and sagittal MPR images reviewed. All images stored on PACS. All CT scanners at this facility use dose modulation, iterative reconstruction, and/or weight based d osing when appropriate to reduce radiation dose to as low as reasonably achievable (ALARA). [facility]: Dose Right [facility]: CareDose [facility]: Dose Right [facility]: Teradose 4D [facility]: Smart SocialGlimpz RADIATION DOSE: CT Rad equipment meets quality standard of care and radiation dose reduction techniq ues were employed. CTDIvol: 5.0 mGy. DLP: 409 mGy-cm. mGy. LIMITATIONS: No IV contrast, elevated creatinine and greater than 2.0 FINDINGS: CHEST: AXILLAE: No adenopathy. CHEST WALL: No masses. No subcutaneous air. LUNGS: No nodules or masses. No pneumothorax. No infiltrates. Mild upper lobe hyperinflation from obstructive lung disease PLEURA: No effusions. No calcifications. THYROID: No masses or significant asymmetry. HILAR AND MEDIASTINAL STRUCTURES: No identified masses or abnormal nodes. AORTA AND GREAT VESSELS: Descending thoracic aorta is 3.7 cm in diameter. Ascending thoracic aorta 4 .2 cm in diameter, could correlate with aortic stenosis or insufficiency. Thoracic aortic dissection cannot entirely be excluded by today's study, given the lack of IV contrast. These findings were di scussed with Dr. Hardin. HEART: No pericardial effusion. Moderate Coronary artery calcifications HARDWARE AND LIFELINES: None. BONES: No significant finding. OTHER: No other significant finding. ABDOMEN AND PELVIS: LIVER: Normal size. No masses. No dilated ducts. SPLEEN: Normal size. No focal lesions. PANCREAS: No masses. No significant calcifications. No adjacent inflammation or peripancreatic flui d collections. Pancreatic duct not dilated. GALLBLADDER: No identified stones by CT criteria. No inflammatory changes to suggest cholecystitis. ADRENAL GLANDS: No significant masses or asymmetry. RIGHT KIDNEY AND URETER: No solid masses. Assessment limited by lack of IV contrast. No significant calcifications. No hydronephrosis or hydroureter. LEFT KIDNEY AND URETER: No solid masses. Assessment limited by lack of IV contrast. No significant calcifications. No hydronephrosis or hydroureter. AORTA AND VESSELS: No infrarenal abdominal aortic aneurysm. RETROPERITONEUM: No retroperitoneal adenopathy, hemorrhage or masses. APPENDIX: Normal. LARGE AND SMALL BOWEL: No dilatation. No masses. No wall thickening. ABDOMINAL WALL: Left lower quadrant inguinal hernia containing nonobstructed sigmoid colon. PERITONEAL CAVITY: No free air. No free fluid. No peritoneal implants or masses. PELVIS: No mass or free fluid. Normal bladder. BONES: No significant or acute findings. OTHER: These findings were discussed with Dr. Hardin. IMPRESSION: No acute findings over the chest abdomen or pelvis. TECHNICAL DOCUMENTATION: JOB ID: [id number] Quality ID # [id number]: Final reports with documentation of one or more dose reduction techniques (e.g., Au tomated exposure control, adjustment of the mA and/or kV according to patient size, use of iterative reconstruction technique) 2010 [employer]- All Rights Reserved Reading location - IP/workstation name: [email or web address]
[2018-01-03 09:58] LABS: URINE BENZODIAZEPINES SCREEN NEGATIVE
--- NOTE | 2018-01-03 10:32 | EKG REPORT ---
SEVERITY:- NORMAL ECG - SINUS RHYTHM : Confirmed by: Madalyn Walker 03-Jan-2018 10:32:17
[2018-01-03] MEDS ORDERED: CLONIDINE HCL 0.1 MG TABLET PO ONE (11:09)
[2018-01-03] MEDS ORDERED: LORAZEPAM INJ 2 MG/1 ML VIAL IV ONE (11:44)
--- NOTE | 2018-01-03 12:57 | RADIOLOGY REPORT (SQ) ---
EXAM DESCRIPTION: MRA CHEST WITHOUT COMPLETED DATE/TIME: 01/03/2018 12:44 pm REASON FOR STUDY: MRA thoraci aorta,r/o dissection, discussed w/ Dr Cruz chest pain radiating through to the back, unable to give IV contrast because of elevated creatinine COMPARISON: Noncontrast CT chest abdomen pelvis earlier today TECHNIQUE: Set T1 and T2 weighted rapid motion attenuation sequences were utilized through the chest and abdomen to evaluate for thoracic aortic dissection. CONTRAST TYPE AND DOSE: No gadolinium contrast given RENAL FUNCTION: Estimated GFR 32 LIMITATIONS: None. FINDINGS: No MR evidence of acute thoracic aortic dissection. Mild luminal irregularity of the dist al thoracic aorta related to atherosclerotic calcification along the distal descending thoracic aorta . Limited imaging of the abdominal aorta to the iliac bifurcation was performed. No MR evidence of acu te dissection. No pleural or pericardial effusions. No ascites. IMPRESSION: No MR evidence of thoracic or abdominal aortic dissection Report called to Dr. Hernandez TECHNICAL DOCUMENTATION: JOB ID: [id number] [employer]- All Rights Reserved Reading location - IP/workstation name: [email or web address]
[2018-01-03] MEDS ORDERED: NITROGLYCERIN/D5W 50 MG/250 ML RTUINJ IV PRN (13:24)
[2018-01-03] MEDS: HEPARIN SOD (PORCINE) 5,000 UNIT/ML 1 ML SYRINGE SUBCUT SCH (13:51)
[2018-01-03] MEDS ORDERED: LABETALOL HCL INJ 20 MG/4 ML DISP.SYRIN IV ONE ×2 (15:52→15:57)
--- NOTE | 2018-01-03 16:00 | PSYCHOLOGICAL NOTE ---
Psych Note - Psych Note Date seen by psych provider: 01/03/18 Time seen by psych provider: 14:35 Psych Note: Reason for Consult: schizophrenia; not on meds, unreliable historian Patient presents today with chest pain stating going to his back. Clinician attempted to evaluate patient however patient was administered Ativan for his MRI. Patient's speech was mumbled and mostly unintelligible. Patient was asked if he has an outpatient mental health provider and he stated "yes" and then pointed to the sitter and said "her." It is unclear if the patient is altered from the Ativan or his mental health diagnosis as patient does have a significant mental health history. Medication recommendations per [facility]'s contracted psychiatrist Dr. Tena JACKSON are as follows Haldol 5mg twice daily Cogentin 1mg daily Clonidine 0.1mg three times daily 295.90 (F20.9) Schizophrenia Impression/plan: Patient is recommended for IVC petition for overnight mental health observation. Patient has a long history of schizophrenia and noncompliance with medications. Patient is currently unable to engage in mental health evaluation. Medication recommendations have been provided patient will be reevaluated first thing in the morning. Dr. Burns was consulted and the care management this patient; attending physician is agreement with recommendations and disposition.
[2018-01-03] MEDS ORDERED: HALOPERIDOL LACTATE INJ 5 MG/1 ML VIAL IV PRN (16:19)
[2018-01-03] MEDS: NICARDIPINE HCL RTU, ISO-OS 20 MG/200 ML RTUINJ IV PRN ×2 (17:14→20:43)
--- NOTE | 2018-01-03 17:23 | PDOC H&P ---
History of Present Illness Admission Date/PCP: 01/03/18 13:32 Patient complains of: chest pain History of Present Illness: Mr. Marie is a 62 year old male with a PMH of hypertension, CKD and schizophrenia who presented with chest pain. Patient is a poor historian. Upon my encounter in the ER room, he was lying down in bed using his cellphone but not in acute distress. Upon questioning, he says that he has been having chest pain and back pain. When asked to describe the chest pain, he says "it's just pain and the back pain" pointing to his upper mid back. He is not able to express if the chest pain radiates to the back. He denies SOB or palpitations. In the ER, blood pressure was elevated at 210/120. He denies dizziness or diaphoresis. He says he does not take any medications. Due to severely elevated blood pressures with complaints of chest and back pain, MRA of the chest was pursued and has ruled out a dissection. His troponins are mildly elevated at 0.02. Past Medical History Cardiac Medical History: Reports: Hypertension Psychiatric History Note: schizophrenia Past Surgical History Past Surgical History: Reports: Orthopedic Surgery Social History Smoking Status: Current Every Day Smoker Frequency of Alcohol Use: None Hx Recreational Drug Use: No Drugs: None Hx Prescription Drug Abuse: No Family History Family History: Reviewed & Not Pertinent Parental Family History Reviewed: Yes - no premature CAD Children Family History Reviewed: No Sibling(s) Family History Reviewed.: No Medication/Allergy Home Medications: No Home Medications 01/03/18 Allergies/Adverse Reactions: Penicillins Allergy (Verified 01/03/18 08:13) Review of Systems All systems: reviewed and no additional remarkable complaints except as stated - as mentioned in HPI Physical Exam Vital Signs: Temp Pulse Resp BP Pulse Ox 97.9 F 60 22 H 238/98 H 98 01/03/18 06:55 01/03/18 06:55 01/03/18 13:01 01/03/18 13:49 01/03/18 13:01 Intake & Output 01/02/18 01/03/18 01/04/18 06:59 06:59 06:59 Output Total 350 Balance -350 General appearance: PRESENT: no acute distress, well-developed, well-nourished Head exam: PRESENT: atraumatic, normocephalic Eye exam: PRESENT: conjunctiva pink, EOMI, PERRLA. ABSENT: scleral icterus Ear exam: PRESENT: normal external ear exam Mouth exam: PRESENT: moist, tongue midline Neck exam: ABSENT: carotid bruit, JVD, lymphadenopathy, thyromegaly Respiratory exam: PRESENT: clear to auscultation lyn. ABSENT: rales, rhonchi, wheezes Cardiovascular exam: PRESENT: RRR. ABSENT: diastolic murmur, rubs, systolic murmur Pulses: PRESENT: normal dorsalis pedis pul GI/Abdominal exam: PRESENT: normal bowel sounds, soft. ABSENT: distended, guarding, mass, organolmegaly, rebound, tenderness Rectal exam: PRESENT: deferred Neurological exam: PRESENT: alert, awake, oriented to person, oriented to place Psychiatric exam: PRESENT: anxious Results Impressions: Chest X-Ray 01/03/18 06:43 IMPRESSION: No acute cardiopulmonary findings. Abdomen/Pelvis CT 01/03/18 08:48 IMPRESSION: No acute findings over the chest abdomen or pelvis. Chest CT 01/03/18 08:48 IMPRESSION: No acute findings over the chest abdomen or pelvis. Chest MRA 01/03/18 11:01 IMPRESSION: No MR evidence of thoracic or abdominal aortic dissection Report called to Dr. Hernandez Assessment & Plan - Diagnosis (1) Hypertensive urgency Is this a current diagnosis for this admission?: Yes Plan: Patient was given a dose of clonidine in the ER but blood pressures remain elevated in the 200 systolic. Will start patient on nitro drip. Addendum; Patient's blood pressures were not controlled with nitro drip. BP went up to the 220s systolic whil on nitro drip. Will add nicardipine drip and will transfer patient to ICU. (2) Chest pain Is this a current diagnosis for this admission?: Yes Plan: Aortic dissection ruled out. Troponin is mildly elevated at 0.02. EKG is only remarkable for mild T wave inversion on aVL but not on contiguous leads. Will continue to cycle troponins and EKG. Will consult cardiology. (3) Schizophrenia Qualifiers: Schizophrenia type: unspecified Qualified Code(s): F20.9 - Schizophrenia, unspecified Is this a current diagnosis for this admission?: Yes Plan: Will consult psych for further evaluation and recommendations. - Time Time Spent: 30 to 50 Minutes
--- NOTE | 2018-01-03 19:21 | PDOC CONSULTATION ---
Consultation Consult Date: 01/03/18 Attending physician:: SILVIA HERNANDEZ Consult reason:: Chest pain and severe hypertension History of Present Illness Admission Date/PCP: 01/03/18 13:32 Patient complains of: Denies any complaints at this time History of Present Illness: QUANG VELAZQUEZ is a 62 year old male, a poor historian. Upon my encounter in the ER room, he was lying down in bed using his cellphone but not in acute distress. Upon questioning, he says that he has been having chest pain and back pain. When asked to describe the chest pain, he says "it's just pain and the back pain" pointing to his upper mid back. He is not able to express if the chest pain radiates to the back. He denies SOB or palpitations. In the ER, blood pressure was elevated at 210/120. He denies dizziness or diaphoresis. He says he does not take any medications. Due to severely elevated blood pressures with complaints of chest and back pain, MRA of the chest was pursued and has ruled out a dissection. His troponins are mildly elevated at 0.02. This history obtained by Hospitalist was reviewed. Patient was seen at around 6 PM. At that time he was noted to be comfortable. He actually denied any chest pain. He was not very keen on giving a history and was going to sleep each time I asked him any questions. It seems he has gotten some Ativan. He looked comfortable without any shortness of breath. Past Medical History Cardiac Medical History: Reports: Hypertension Past Surgical History Past Surgical History: Reports: Orthopedic Surgery Social History Information Source: Patient Smoking Status: Current Every Day Smoker Frequency of Alcohol Use: None Hx Recreational Drug Use: No Drugs: None Hx Prescription Drug Abuse: No - Advance Directive Resuscitation Status: Full Code Family History Family History: Reviewed & Not Pertinent Parental Family History Reviewed: Yes Children Family History Reviewed: Yes Sibling(s) Family History Reviewed.: Yes Medication/Allergy Home Medications: No Home Medications 01/03/18 Allergies/Adverse Reactions: Penicillins Allergy (Verified 01/03/18 08:13) Review of Systems Review of Systems: Please see history of present illness and past medical history as wall. Constitutional: No fever or chills reported. Head : No recent chronic headaches, recent head injury. Eyes: No recent eye pain, diplopia, redness, discharge, acute visual changes. Ears: No recent chronic ear pain, acute hearing loss, ear discharge. Oral cavity: No recent ulcerations, bleeding, oral cavity discomfort. Neck: No recent acute neck pain reported. Hematologic: No recent easy bruising or bleeding. Lymphatic: No recent lymph node enlargement reported. Cardiovascular system review: See history of present illness. Respiratory system review: No hemoptysis or blood clots in the lungs reported. Mild Shortness of breath on exertion Gastrointestinal system review: Negative for any recent acute hematemesis, melena. Genitourinary system review: No recent acute or chronic hematuria, flank pain, UTI etc. reported. Skin system review: Negative for any recent abnormal bruising, no rash, no pruritus reported. Neurologic: No prior history of strokes, mini strokes, seizure disorder. Psychologic: History of schizophrenia and bipolar disorder. Musculoskeletal: Minor aches and pains reported. No acute joint swelling reported. Endocrine: No recent polyuria, polydipsia, recent heat or cold intolerance. Physical Exam Vital Signs: Temp Pulse Resp BP Pulse Ox 99.4 F 77 26 H 162/85 H 97 01/03/18 15:13 01/03/18 18:00 01/03/18 18:00 01/03/18 18:00 01/03/18 18:00 Intake & Output 01/02/18 01/03/18 01/04/18 06:59 06:59 06:59 Intake Total 107 Output Total 450 Balance -343 Weight 67.3 kg Exam: GENERAL: well-nourished and in no acute distress. Alert and oriented x3 HEAD: Atraumatic, normocephalic. EYES: VANESA, sclera anicteric, conjunctiva are normal. ENT: Moist mucous membranes. No oral ulcerations or bleeding gums noted. No obvious ear, nose or throat abnormalities noted. NECK: supple without lymphadenopathy. Trachea is central. No cervical or axillary lymphadenopathy noted. Carotids are 2+, JVD WNL LUNGS: Breath sounds clear bilaterally. No wheezes rales or rhonchi noted. No significant dullness noted on percussion. CHEST: Palpation of the chest wall shows no significant chest wall tenderness. 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 ABDOMEN: Soft, no significant tenderness appreciated, normoactive bowel sounds. No guarding, no rebound. No rigidity noted . No masses appreciated. EXTREMITIES: Pedal pulses are 1-2+, no calf tenderness noted. No clubbing or cyanosis. negative pedal edema noted NEUROLOGICAL: Focused neurological exam showed no significant neurologic deficit. Normal speech, no focal weakness appreciated. PSYCH: Judgment and insight not checked. Patient mood seems to be normal but referred to psychiatrist note.. SKIN: No significant ecchymosis, skin is noted to be warm. MUSCULOSKELETAL EXAM: No significant acute joint swelling noted. Results EKG Comments: Sinus rhythm, no acute ST-T wave changes are noted Impressions: Chest X-Ray 01/03/18 06:43 IMPRESSION: No acute cardiopulmonary findings. Abdomen/Pelvis CT 01/03/18 08:48 IMPRESSION: No acute findings over the chest abdomen or pelvis. Chest CT 01/03/18 08:48 IMPRESSION: No acute findings over the chest abdomen or pelvis. Chest MRA 01/03/18 11:01 IMPRESSION: No MR evidence of thoracic or abdominal aortic dissection Report called to Dr. Hernandez Assessment & Plan - Diagnosis (1) Chest pain Is this a current diagnosis for this admission?: Yes (2) Hypertensive emergency Is this a current diagnosis for this admission?: Yes (3) Schizophrenia Qualifiers: Schizophrenia type: unspecified Qualified Code(s): F20.9 - Schizophrenia, unspecified Is this a current diagnosis for this admission?: Yes (4) Troponin level elevated Is this a current diagnosis for this admission?: Yes (5) Renal insufficiency Is this a current diagnosis for this admission?: Yes - Notes Notes: Chest pain: Patient does have risk factor. Will schedule patient for a nuclear stress test. Follow EKGs and cardiac enzymes. Hypertensive emergency: Blood pressure currently coming under better control. Beta-lópez, RAF inhibitor/ARB are preferred. Could use IV labetalol, Cardene drip etc. if needed. Schizophrenia: Patient being monitored by psychiatrist in hospital. Troponin I elevated: Will order a 2D echo. Patient also to have a stress test. Renal insufficiency: Possibly related to hypertensive kidney disease. May consider evaluation with ultrasound. - Time Time Spent: 30 to 50 Minutes - CODE STATUS was discussed, patient remains full code. Surrogate decision-maker not identified by the patient. Multiple medical problems were addressed. More than 50% of the time spent coordinating care, discussing management plans with involved caregivers. Management plans discussed with involved personnels. Medical decision making was of moderate to high complexity, patient's has multiple comorbidities. Medications reviewed and adjusted accordingly: Yes
--- NOTE | 2018-01-03 20:12 | EKG REPORT ---
SEVERITY:- NORMAL ECG - SINUS RHYTHM : Confirmed by: Madalyn Walker 03-Jan-2018 20:11:12
[2018-01-03] MEDS ORDERED: BENZTROPINE MESYLATE 1 MG TABLET PO SCH (22:00)
[2018-01-03] MEDS: HALOPERIDOL 5 MG TABLET PO SCH (22:36)
[2018-01-03] MEDS: CLONIDINE HCL 0.1 MG TABLET PO SCH (22:36)
[2018-01-04] MEDS: HEPARIN SOD (PORCINE) 5,000 UNIT/ML 1 ML SYRINGE SUBCUT SCH ×2 (00:22→14:45)
[2018-01-04] MEDS: NICARDIPINE HCL RTU, ISO-OS 20 MG/200 ML RTUINJ IV PRN ×2 (00:22→04:42)
[2018-01-04] MEDS: CLONIDINE HCL 0.1 MG TABLET PO SCH (06:35)
--- NOTE | 2018-01-04 08:08 | Physician Advisory Note ---
Physician Advisor ProgressNote .: Pursuant to the plan for Adri Yepez, I have reviewed the medical record for this patient. Physician Advisor Statement: Please document, if you agree: 1. "CP, likely due to " 2. If CP is felt to be due to angina caused by severe HTN, rather than due to some other cause, then dx of "hypertensive emergency, causing angina", rather than simply "hypertensive urgency", may capture more fully the pt severity. 3. "CKD stage 3-4" (GFR baseline = 20s-30s) 4. Medical necessity: if not felt safe for d/c home later today after testing , please document the ongoing clinical reasons/concerns, & may change to Inpt status. Thanks! CK
[2018-01-04] MEDS: HALOPERIDOL 5 MG TABLET PO SCH (09:32)
[2018-01-04] MEDS ORDERED: ASPIRIN 81 MG TABLET, CHEWABLE PO SCH (10:00)
--- NOTE | 2018-01-04 10:00 | EKG REPORT ---
SEVERITY:- ABNORMAL ECG - SINUS RHYTHM LEFT VENTRICULAR HYPERTROPHY ANTERIOR ST ELEVATION, PROBABLY DUE TO LVH : Confirmed by: Madalyn Walker 04-Jan-2018 09:59:57
--- NOTE | 2018-01-04 11:54 | PDOC DISCHARGE SUMMARY ---
General - Admit/Disc Date/PCP Admission Date/Primary Care Provider: 01/03/18 13:32 Discharge Date: 01/04/18 - Discharge Diagnosis (1) Chest pain Is this a current diagnosis for this admission?: Yes Summary: Patient's chest pain and back pain at the time of admission most likely represented angina secondary to his hypertensive emergency causing left heart strain and relative ischemia. With control of his blood pressure patient's chest pain is resolved completely and has not recurred since admission. Serial cardiac enzymes and EKGs were negative for acute cardiac injury or ischemia. (2) Hypertensive emergency Is this a current diagnosis for this admission?: Yes Summary: Patient was admitted to the ICU and started on nicardipine and nitroglycerin intravenous infusions for control of his blood pressure. These were gradually weaned and discontinued. Patient was started on amlodipine 10 mg p.o. daily for his hypertension prior to discharge. This will need to be reevaluated in follow-up with his primary care provider or the [facility] in 1-2 weeks. (3) Troponin level elevated Is this a current diagnosis for this admission?: Yes Summary: Patient was noted to have a elevated troponin level in the emergency room. His troponin levels have remained stable throughout his hospital course and the elevated troponin is most likely due to his chronic renal insufficiency and possibly due to some increased cardiac strain due to his hypertensive emergency. (4) Chronic renal failure Is this a current diagnosis for this admission?: Yes Summary: Patient has chronic renal failure with a stable creatinine of approximately 2.0. Due to his chronic renal failure a mild elevation of his troponin is present chronically and presents a diagnostic dilemma when evaluating patient for acute chest pain. (5) Schizophrenia Is this a current diagnosis for this admission?: Yes Summary: Mr. Velazquez discontinued his antipsychotic medications at some time prior to coming to the emergency room for evaluation. The duration of the patient's self prescribed medication holiday is unknown. Patient was restarted on Haldol and Cogentin during his hospital course and has been behaviorally and emotionally stable since initiation of therapy. - Additional Information Resuscitation Status: Full Code Discharge Diet: Regular Discharge Activity: Activity As Tolerated, Walk Frequently Prescriptions: Amlodipine Besylate [Norvasc 10 mg Tablet] 10 mg PO QHS #30 tablet Aspirin [Aspirin 81 mg Chewable Tablet] 81 mg PO QHS 30 Days #30 tab.chew Benztropine Mesylate [Cogentin 1 mg Tablet] 1 mg PO QHS 30 Days #30 tablet Haloperidol [Haldol 5 mg Tablet] 5 mg PO QHS 30 Days #30 tablet Home Medications: Amlodipine Besylate [Norvasc 10 mg Tablet] 10 mg PO QHS #30 tablet 01/04/18 Aspirin [Aspirin 81 mg Chewable Tablet] 81 mg PO QHS 30 Days #30 tab.chew Benztropine Mesylate [Cogentin 1 mg Tablet] 1 mg PO QHS 30 Days #30 tablet 01/04 Haloperidol [Haldol 5 mg Tablet] 5 mg PO QHS 30 Days #30 tablet 01/04/18 History of Present Illness Patient complains of: Chest pain History of Present Illness: QUANG VELAZQUEZ is a 62 year old male who presented to the emergency room with a history of chest pain beginning approximately 30 minutes prior to his arrival. Mr. Velazquez was a poor historian and described the pain as "a hurt" in the center part of his chest and in the upper thoracic area of the back. He was able to rate the pain as a 3 on a scale of 1-5 using a picture model. He denied accompanying symptoms such as dyspnea, palpitations, nausea, vomiting and syncope. He further denied prior similar episodes and he had not identified any aggravating or ameliorating factors for his chest pain and/or back pain. In the ER, blood pressure was elevated at 210/120. Due to the severely elevated blood pressures with complaints of chest and back pain, MRA of the chest was pursued and has ruled out a dissection. His troponins were mildly elevated at 0.02. He denied taking any medications at home with the time of his admission. He recently moved to the area and is living with his daughter. Hospital Course Hospital Course: After admission to the ICU patient was treated with IV infusions of nicardipine and nitroglycerin. His blood pressure was controlled and the IV infusions were gradually discontinued. He had initially been treated with clonidine orally and this was discontinued in favor of amlodipine 10 mg p.o. daily. His chest pain resolved in the emergency room, and has not recurred since admission. He is emotional and behavioral status have been well controlled with Haldol 5 mg twice daily and Cogentin 1 mg daily administered orally throughout last night and this morning. Because of his excellent response to therapy he was felt to be ready for discharge to home in improved and stable condition. Patient will follow up with the [facility] in 1-2 weeks for reevaluation and further treatment as required. Patient will be rechecked by psychiatry prior to discharge and additional psychiatric follow-up may be recommended. Physical Exam Vital Signs: Temp Pulse Resp BP Pulse Ox 98.3 F 61 22 H 141/55 H 96 01/04/18 10:00 01/04/18 10:00 01/04/18 10:00 01/04/18 10:00 01/04/18 10:00 Intake & Output 01/02/18 01/03/18 01/04/18 23:59 23:59 23:59 Intake Total 405 902 Output Total 1225 1100 Balance -820 -198 Weight 67.3 kg 67.8 kg General appearance: PRESENT: no acute distress, cooperative Head exam: PRESENT: atraumatic, normocephalic Eye exam: PRESENT: conjunctiva pink. ABSENT: nystagmus, scleral icterus Mouth exam: PRESENT: neck supple Neck exam: ABSENT: thyromegaly, tracheal deviation Respiratory exam: PRESENT: [place] [id number], symmetrical, unlabored Cardiovascular exam: PRESENT: RRR. ABSENT: clicks, diastolic murmur, gallop, rubs, systolic murmur Vascular exam: PRESENT: normal capillary refill. ABSENT: pallor GI/Abdominal exam: PRESENT: normal bowel sounds, soft Rectal exam: PRESENT: deferred Extremities exam: ABSENT: joint swelling, pedal edema Musculoskeletal exam: PRESENT: full ROM, normal inspection Neurological exam: PRESENT: alert, awake, oriented to person, oriented to place , oriented to time, oriented to situation Psychiatric exam: PRESENT: flat affect, normal mood Skin exam: ABSENT: jaundice, rash, urticaria Results Laboratory Results: 01/03/18 20:10 Troponin I 0.063 EKG Comments: EKG showed a normal sinus rhythm at 66 bpm with left ventricular hypertrophy and associated left ventricular strain. Impressions: Chest X-Ray 01/03/18 06:43 IMPRESSION: No acute cardiopulmonary findings. Abdomen/Pelvis CT 01/03/18 08:48 IMPRESSION: No acute findings over the chest abdomen or pelvis. Chest CT 01/03/18 08:48 IMPRESSION: No acute findings over the chest abdomen or pelvis. Chest MRA 01/03/18 11:01 IMPRESSION: No MR evidence of thoracic or abdominal aortic dissection Report called to Dr. Hernandez Qualifiers - * PATIENT BEING DISCHARGED WITH ANY OF THE FOLLOWING DIAGNOSIS: No Plan Discharge Plan: Discharged home in improved and stable condition. Time Spent: Greater than 30 Minutes
--- NOTE | 2018-01-04 13:53 | PSYCHOLOGICAL NOTE ---
Psych Note - Psych Note Date seen by psych provider: 01/04/18 Time seen by psych provider: 13:15 Psych Note: Reason for Consult: schizophrenia; not on meds, unreliable historian Patient presents today with chest pain stating going to his back. Patient reports that he does not have an outpatient provider and does not need one. Patient is noted to be very irritable not wanting to answer questions. He discloses that when EMS came to his home that all they seem to do is keep asking questions and he had difficulty answering them. He reports that he is tired of talking and just wants to go home. He continued to report that he does have things to do and while some other people may not be busy he is. He discloses he no longer lives with his daughter and has not for a very long time. Patient is alert and orientated to person, place, time and circumstance. Mood is irritable with congruent affect. Patient denies suicidal and homicidal ideation. Delusions are absent behaviors congruent with an intact reality based presentation i.e. organized and linear thought process. Eye contact was well-maintained. Conversational speech was short and clearly communicated his irritability. Intellectual abilities appear to be within the average range. Attention and concentration are fair. Insight, judgment, impulse control are fair. Medication recommendations per [facility]'s contracted psychiatrist Dr. Tena JACKSON are as follows Haldol 5mg twice daily Cogentin 1mg daily Clonidine 0.1mg three times daily 295.90 (F20.9) Schizophrenia Impression/plan: Patient is recommended for rescind of IVC and is clinically considered cleared from acute psychiatric services. Patient has a long history of schizophrenia and noncompliance with medications. Patient is recommended to continue medication recommendations and follow-up with outpatient services to continue treatment for his mental health. Patient is recommended to have a mobile crisis, IFS, contact information in case of emergencies. At this time patient is able to do his ADLs, last time he was seen by behavioral health team was almost 11 months ago (03/18/2017) and only needed emergency department services once in August (09/01/2017). Patient is organized and linear and while irritable is not demonstrating and behaviours indicating he is responding to internal stimuli. He does not meet IVC criteria per [place] GS 122C. Dr. Burns was consulted and the care management this patient; attending physician is agreement with recommendations and disposition.
[2018-01-04 15:09] VITALS: BP 164/82
--- NOTE | 2018-01-04 20:38 | PDOC PROGRESS REPORT ---
Subjective Progress Note for:: 01/04/18 Subjective:: Patient seems to be doing better with gradual improvement. Pt is denying any chest arm or neck discomfort. Patient denying any PND, orthopnea. Patient denied any sustained palpitations, dizziness, syncope, near syncope. Patient denying any fever chills. Patient denying any other significant discomfort. Patient is maintaining sinus rhythm. Review of systems: Rest review of systems negative. Medications: Medications have been reviewed. Reason For Visit: CHEST PAIN Physical Exam Vital Signs: Temp Pulse Resp BP Pulse Ox 98.2 F 64 22 H 164/82 H 97 01/04/18 15:08 01/04/18 15:08 01/04/18 15:08 01/04/18 15:08 01/04/18 15:08 Intake & Output 01/03/18 01/04/18 01/05/18 06:59 06:59 06:59 Intake Total 937 660 Output Total 1925 1000 Balance -988 -340 Weight 67.8 kg Exam: GENERAL: well-nourished and in no acute distress. Alert and oriented x3 HEAD: Atraumatic, normocephalic. EYES: VANESA, sclera anicteric, conjunctiva are normal. ENT: Moist mucous membranes. No oral ulcerations or bleeding gums noted. No obvious ear, nose or throat abnormalities noted. NECK: supple without lymphadenopathy. Trachea is central. No cervical or axillary lymphadenopathy noted. Carotids are 2+, JVD WNL LUNGS: Breath sounds clear bilaterally. No wheezes rales or rhonchi noted. No significant dullness noted on percussion. CHEST: Palpation of the chest wall shows no significant chest wall tenderness. 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 ABDOMEN: Soft, no significant tenderness appreciated, normoactive bowel sounds. No guarding, no rebound. No rigidity noted . No masses appreciated. EXTREMITIES: Pedal pulses are 1-2+, no calf tenderness noted. No clubbing or cyanosis. negative pedal edema noted NEUROLOGICAL: Focused neurological exam showed no significant neurologic deficit. Normal speech, no focal weakness appreciated. PSYCH: Patient has schizophrenia. Judgment and insight not checked. SKIN: No significant ecchymosis, skin is noted to be warm. MUSCULOSKELETAL EXAM: No significant acute joint swelling noted. Results Laboratory Results: 01/03/18 20:10 Troponin I 0.063 EKG Comments: Shows sinus rhythm without any sustained tachycardia or bradycardia. Impressions: Chest X-Ray 01/03/18 06:43 IMPRESSION: No acute cardiopulmonary findings. Abdomen/Pelvis CT 01/03/18 08:48 IMPRESSION: No acute findings over the chest abdomen or pelvis. Chest CT 01/03/18 08:48 IMPRESSION: No acute findings over the chest abdomen or pelvis. Chest MRA 01/03/18 11:01 IMPRESSION: No MR evidence of thoracic or abdominal aortic dissection Report called to Dr. Hernandez Assessment & Plan - Diagnosis (1) Chest pain Is this a current diagnosis for this admission?: Yes (2) Hypertensive emergency Is this a current diagnosis for this admission?: Yes (3) Schizophrenia Qualifiers: Schizophrenia type: unspecified Qualified Code(s): F20.9 - Schizophrenia, unspecified Is this a current diagnosis for this admission?: Yes (4) Troponin level elevated Is this a current diagnosis for this admission?: Yes (5) Renal insufficiency Is this a current diagnosis for this admission?: Yes - Notes Notes: 2D echocardiogram was performed. These results were discussed with the patient. 2D echocardiogram shows relatively well-preserved LVEF without any significant valvular abnormalities. Patient questions were answered. Patient was scheduled for a nuclear stress test but he was not very keen on pursuing it. Patient can follow-up with me as an outpatient. Currently stable for discharge from cardiac standpoint. Chest pain: Patient does have risk factor. Will schedule patient for a nuclear stress test. Follow EKGs and cardiac enzymes. Hypertensive emergency: Blood pressure currently under control. Beta-lópez, RAF inhibitor/ARB are preferred. Schizophrenia: Patient being monitored by psychiatrist in hospital. Troponin I elevated: [place] to be related to severe hypertension. EKGs were noted to be without acute ST-T wave changes. 2D echo results were noted to be satisfactory. Patient chest pain history was very inconsistent and has actually been denying at times. Patient does not want to pursue a stress test and is being discharged home. He can follow-up with me in the office if he wishes. Renal insufficiency: Possibly related to hypertensive kidney disease. May consider evaluation with ultrasound. - Time Time with patient: Greater than 35 minutes - More than 50% of the time spent coordinating care, discussing management plans with involved caregivers. Management plans discussed with involved personnels. Medical decision making was of moderate to high complexity, patient's has multiple comorbidities. Medications reviewed and adjusted accordingly: Yes
--- NOTE | 2018-01-05 11:08 | XCELERA REPORT ---
[address] [address] Transthoracic Echocardiogram Report Name: QUANG VELAZQUEZ Age: 62 yrs Gender: Male : 1955 Patient Status: In[facility] Study Date: 01/04/2018 12:19 PM Procedure: A complete two-dimensional transthoracic echocardiogram was performed (2D, M-mode, spectral and color flow Doppler). The study was technically adequate with some images being suboptimal in quality. Reason For Study: CP Ordering Physician: MADALYN CORRAL Performed By: Elizabeth Up Interpretation Summary The left ventricular ejection fraction is normal. There is mild concentric left ventricular hypertrophy. The left ventricle is grossly normal size. Doppler measurements suggest pseudonormalized left ventricular relaxation, which is associated with grade II/IV or mild to moderate diastolic dysfunction Wall motion cannot be accurately commented on, but no definite regional wall motion abnormalities noted. The right ventricular systolic function is normal. Borderline right ventricular enlargement. The left atrial size is normal. Borderline right atrial enlargement. There is a trace amount of mitral regurgitation There is no mitral valve stenosis. There is a trace amount of aortic regurgitation There is no aortic valve stenosis There is a trace to mild amount of tricuspid regurgitation Right ventricular systolic pressure is at the upper limits of normal The aortic root is not well visualized but is probably normal size. The inferior vena cava appeared normal and decreased > 50% with respiration (RAP 5-10 mmHg) Minimal pericardial effusion. MMode/2D Measurements & Calculations RVDd: 3.3 cm LVIDd: 4.9 cm FS: 40.2 % Ao root diam: 3.4 cm IVSd: 1.4 cm LVIDs: 2.9 cm EDV(Teich): 110.6 ml Ao root area: 8.9 cm2 LVPWd: 1.1 cm ESV(Teich): 32.3 ml EF(Teich): 70.8 % Doppler Measurements & Calculations MV E max pawan: MV dec slope: Ao V2 max: AI max pawan: 65.0 cm/sec 135.1 cm/sec 158.7 cm/sec MV A max pawan: 259.5 cm/sec2 Ao max PG: AI max P.0 cm/sec MV dec time: 7.3 mmHg 10.1 mmHg MV E/A: 0.79 0.25 sec AI dec slope: 87.3 cm/sec2 AI P1/2t: 532.4 msec LV V1 max PG: PA V2 max: TR max pawan: 5.1 mmHg 106.7 cm/sec 260.6 cm/sec LV V1 max: PA max P.6 mmHg TR max P.4 cm/sec 27.2 mmHg Left Ventricle The left ventricle is grossly normal size. There is mild concentric left ventricular hypertrophy. The left ventricular ejection fraction is normal. Doppler measurements suggest pseudonormalized left ventricular relaxation, which is associated with grade II/IV or mild to moderate diastolic dysfunction. Wall motion cannot be accurately commented on, but no definite regional wall motion abnormalities noted. Right Ventricle Borderline right ventricular enlargement. There is normal right ventricular wall thickness. The right ventricular systolic function is normal. Atria Borderline right atrial enlargement. The left atrial size is normal. Interarterial septum not well visualized and not well dopplered. Cannot comment on ASD/PFO presence. Mitral Valve The mitral valve leaflets are sclerotic, but show no functional abnormalities. There is no mitral valve stenosis. There is a trace amount of mitral regurgitation. Aortic Valve The aortic valve is not well visualized secondary to technical limitations. There is no aortic valve stenosis. There is a trace amount of aortic regurgitation. Tricuspid Valve The tricuspid valve is not well visualized, but is grossly normal. There is no tricuspid stenosis. There is a trace to mild amount of tricuspid regurgitation. Right ventricular systolic pressure is at the upper limits of normal. Pulmonic Valve The pulmonic valve is not well visualized. Great Vessels The aortic root is not well visualized but is probably normal size. The inferior vena cava appeared normal and decreased > 50% with respiration (RAP 5-10 mmHg). Effusions Minimal pericardial effusion. : MADALYN CORRAL > Madalyn Corral
== END 2018-01-04 15:25 | disposition home or self-care (01) | DRG 305 ==
LOC: ER 06:40 → UNDOADMOB 10:39 → EH 10:39 → OBSVTOIN 13:32 → 3S 15:01 → ICU 17:07
PROVIDERS: ADMIT Internal Medicine; ATTEND Internal Medicine
DX: I16.1 Hypertensive emergency (principal); I20.8 Other forms of angina pectoris; R07.89 Other chest pain; I12.9 Hypertensive chronic kidney disease with stage 1 through stage 4 chronic kidney disease, or unspecified chronic kidney disease; N18.9 Chronic kidney disease, unspecified; F20.9 Schizophrenia, unspecified; Z79.82 Long term (current) use of aspirin; Z79.899 Other long term (current) drug therapy; F17.200 Nicotine dependence, unspecified, uncomplicated; Z88.0 Allergy status to penicillin
CPT/HCPCS: 36415; 71045; 71250; 74176; 80053; 80307; 81001; 82550; 82553; 83690; 84484; 85025; 90471; 90686; 93005; 93010; 93306; 96361; 96374; 99291; C8910; G0008; J1630; J1644; J2060; J3490; J7040

== ENCOUNTER 2018-01-25 06:30 | Inpatient (IN) | payer MEDICARE ==
[2018-01-25] MEDS ORDERED: NORMAL SALINE 500 ML IV ONE (07:44)
[2018-01-25] MEDS ORDERED: ONDANSETRON HCL INJ/PF 4 MG/2 ML SDV IV ONE ×2 (07:44→11:02)
--- NOTE | 2018-01-25 07:59 | ER Document Report ---
ED General - General Chief Complaint: Nausea/Vomiting/Diarrhea Stated Complaint: DIARRHEA Time Seen by Provider: 01/25/18 07:15 Mode of Arrival: Medic Information source: Patient Notes: Patient is a 62-year-old male who presents to the emergency department via EMS for chief complaint of nausea and vomiting since yesterday. Patient reports he has vomited at least 8 times and has had an equal amount of diarrhea. Patient did not receive any intervention by EMS. Patient arrives actively vomiting. Patient denies any blood in his emesis or stools. TRAVEL OUTSIDE OF THE [place] IN LAST 30 DAYS: No - Related Data Allergies/Adverse Reactions: Penicillins Allergy (Verified 01/03/18 08:13) Past Medical History - General Information source: Patient - Social History Smoking Status: Current Every Day Smoker Drug Abuse: None Family History: Reviewed & Not Pertinent Patient has suicidal ideation: No Patient has homicidal ideation: No - Past Medical History Cardiac Medical History: Reports: Hx Hypertension Renal/ Medical History: Reports: Other - CKD. Denies: Hx Peritoneal Dialysis Psychiatric Medical History: Reports: Hx Schizophrenia Past Surgical History: Reports: Hx Orthopedic Surgery - Immunizations Hx Diphtheria, Pertussis, Tetanus Vaccination: - unk Review of Systems - Review of Systems Cardiovascular: Chest pain Respiratory: denies: Cough, Short of breath Gastrointestinal: Diarrhea, Nausea, Vomiting. denies: Blood streaked bowels, Blood in vomit -: Yes All other systems reviewed and negative Physical Exam - Vital signs Vitals: Resp 23 H 01/25/18 06:52 - Notes Notes: PHYSICAL EXAMINATION: GENERAL: No acute distress. HEAD: Atraumatic, normocephalic. EYES: Pupils equal round and reactive to light, extraocular movements intact, sclera anicteric, conjunctiva are normal. ENT: Nares patent, oropharynx clear without exudates. Moist mucous membranes. NECK: Normal range of motion, supple without lymphadenopathy LUNGS: Breath sounds clear to auscultation bilaterally and equal. No wheezes rales or rhonchi. HEART: Regular rate and rhythm without murmurs ABDOMEN: Soft, nontender, nondistended abdomen. No guarding, no rebound. No masses appreciated. Musculoskeletal: Normal range of motion, no pitting or edema. No cyanosis. NEUROLOGICAL: Cranial nerves grossly intact. Normal speech, normal gait. Normal sensory, motor exams PSYCH: Normal mood, normal affect. SKIN: Warm, Dry, normal turgor, no rashes or lesions noted. Course - Re-evaluation Re-evalutation: Patient is a poor historian however he continues to have active vomiting in the emergency department. He has leukocytosis of 26,000. He has significantly elevated BUN and creatinine which he has had in the past however this is higher than it was on recent admission. He has hyperkalemia with a potassium of 5.7. I will initiate IV calcium gluconate, IV dextrose, IV insulin and Kayexalate. Patient does not appear to be in any acute distress and in between vomiting he is sitting up doing something on his phone. His vital signs are stable. His EKG is unchanged from previous, no peaked T waves are noted despite his hyperkalemia. 01/25/18 11:[address] Balderas who agrees to accept patient for admission. - Vital Signs Vital signs: Temp Pulse Resp BP Pulse Ox 97.6 F 64 24 H 137/65 H 96 01/25/18 13:53 01/25/18 13:53 01/25/18 13:53 01/25/18 13:53 01/25/18 13:53 - Laboratory Result Diagrams: 01/25/18 14:50 01/25/18 14:50 Laboratory results interpreted by me: 01/25/18 01/25/18 01/25/18 06:59 06:59 08:30 WBC 26.6 H RBC 3.96 L Hgb 12.0 L Hct 35.5 L RDW 14.3 H Plt Count 800 H Seg Neuts % (Manual) 90 H Band Neutrophils % 6 H Lymphocytes % (Manual) 1 L Monocytes % (Manual) 2 L Metamyelocytes % 1 H Abs Neuts (Manual) 25.8 H Abs Lymphs (Manual) 0.3 L Potassium 5.6 H Carbon Dioxide 21 L BUN 56 H Creatinine 2.38 H Est GFR ( Amer) 33 L Est GFR (Non-Af Amer) 28 L Glucose 221 H POC Glucose ALT 20 L Albumin 3.3 L Urine Protein 30 H Urine Urobilinogen 2.0 H 01/25/18 09:36 WBC RBC Hgb Hct RDW Plt Count Seg Neuts % (Manual) Band Neutrophils % Lymphocytes % (Manual) Monocytes % (Manual) Metamyelocytes % Abs Neuts (Manual) Abs Lymphs (Manual) Potassium Carbon Dioxide BUN Creatinine Est GFR ( Amer) Est GFR (Non-Af Amer) Glucose POC Glucose 210 H ALT Albumin Urine Protein Urine Urobilinogen Discharge - Discharge Clinical Impression: Dehydration, Kidney function abnormal Vomiting Qualifiers: Vomiting type: unspecified Vomiting Intractability: unspecified Nausea presence : with nausea Qualified Code(s): R11.2 - Nausea with vomiting, unspecified Diarrhea Qualifiers: Diarrhea type: presumed infectious Qualified Code(s): R19.7 - Diarrhea, unspecified Condition: Stable Disposition: ADMITTED INPATIENT Admitting Provider: Hospitalist Unit Admitted: Telemetry
[2018-01-25 08:03] LABS: HEMATOCRIT 35.5 % (37.9-51.0); MEAN CORPUSCULAR HEMOGLOBIN 30.2 pg (27.0-33.4); MEAN CORPUSCULAR HGB CONC 33.7 g/dL (32.0-36.0); MEAN CORPUSCULAR VOLUME 90 fl (80-97); PLATELET COUNT 800 10^3/uL (150-450); RED BLOOD COUNT 3.96 10^6/uL (4.35-5.55); RED CELL DISTRIBUTION WIDTH 14.3 % (11.5-14.0); WHITE BLOOD COUNT 26.6 10^3/uL (4.0-10.5)
[2018-01-25 08:19] LABS: ALANINE AMINOTRANSFERASE 20 U/L (21-72); ALBUMIN 3.3 g/dL (3.5-5.0); ALKALINE PHOSPHATASE 119 U/L (38-126); ANION GAP 15 (5-19); ASPARTATE AMINO TRANSFERASE 22 U/L (17-59); BILIRUBIN,DIRECT 0.3 mg/dL (0.0-0.4); BILIRUBIN,TOTAL 0.3 mg/dL (0.2-1.3); BLOOD UREA NITROGEN 56 mg/dL (7-20); CARBON DIOXIDE 21 mmol/L (22-30); CHLORIDE 102 mmol/L (98-107); GLUCOSE 221 mg/dL (75-110); LIPASE 203.2 U/L (23-300); POTASSIUM 5.6 mmol/L (3.6-5.0); SODIUM 138.4 mmol/L (137-145); TOTAL PROTEIN 7.4 g/dL (6.3-8.2)
[2018-01-25 08:31] LABS: ABSOLUTE LYMPHOCYTES# (MANUAL) 0.3 10^3/uL (0.5-4.7); ABSOLUTE MONOCYTES # (MANUAL) 0.5 10^3/uL (0.1-1.4); ABSOLUTE NEUTROPHILS# (MANUAL) 25.8 10^3/uL (1.7-8.2); BAND NEUTROPHILS % (MANUAL) 6 % (3-5); BASOPHILS % (MANUAL) 0 % (0-2); EOSINOPHILS % (MANUAL) 0 % (0-6); LYMPHOCYTES % (MANUAL) 1 % (13-45); METAMYELOCYTES % (MANUAL) 1 % (0); MONOCYTES % (MANUAL) 2 % (3-13); SEGMENTED NEUTROPHILS % (MAN) 90 % (42-78); TOTAL CELLS COUNTED 100
[2018-01-25 08:32] LABS: ANISOCYTOSIS SLIGHT; OVALOCYTES 1+; PLATELET COMMENT INCREASED; POIKILOCYTOSIS 1+; POLYCHROMASIA SLIGHT; ROULEAUX 1+; TEAR DROP CELLS 1+
[2018-01-25 08:55] LABS: APPEARANCE,URINE CLEAR; BILIRUBIN,URINE NEGATIVE (NEGATIVE); COLOR,URINE YELLOW; GLUCOSE, URINE NEGATIVE (NEGATIVE); KETONES,URINE NEGATIVE (NEGATIVE); LEUKOCYTE ESTERASE,URINE NEGATIVE (NEGATIVE); NITRITE,URINE NEGATIVE (NEGATIVE); PROTEIN,URINE 30 mg/dL (NEGATIVE); URINE SPECIFIC GRAVITY 1.011
[2018-01-25] MEDS ORDERED: DEXTROSE 50%-WATER 25 GM/50 ML DISP.SYRIN IV ONE (09:19)
[2018-01-25] MEDS ORDERED: INSULIN REG, HUMAN 100 UNIT/ML 3 ML VIAL (PYX) IV ONE (09:19)
[2018-01-25] MEDS ORDERED: SODIUM POLYSTYRENE SULFONATE 15 GM/60 ML PO ONE (09:19)
[2018-01-25] MEDS ORDERED: CALCIUM GLUCONATE 1000 MG/10 ML INJ IV ONE (09:20)
[2018-01-25] MEDS ORDERED: NORMAL SALINE 1000 ML 1,000 ML IV ONE (09:20)
--- NOTE | 2018-01-25 11:22 | EKG REPORT ---
SEVERITY:- BORDERLINE ECG - SINUS RHYTHM BORDERLINE ST ELEVATION, INFERIOR LEADS : Confirmed by: Madalyn Walker 25-Jan-2018 11:22:32
[2018-01-25] MEDS ORDERED: ACETAMINOPHEN 325 MG TABLET PO PRN (12:57)
[2018-01-25] MEDS ORDERED: PROMETHAZINE HCL 25 MG TABLET PO PRN (13:11)
--- NOTE | 2018-01-25 13:45 | PDOC H&P ---
History of Present Illness Admission Date/PCP: 01/25/18 12:11 Patient complains of: Nausea, vomiting vomiting and diarrhea History of Present Illness: QUANG VELAZQUEZ is a 62 year old male who is a poor historian. Reports nausea , vomiting and diarrhea over the last 1-2 days. He went through a story about the places he is eaten but this onset did not seem to specifically correspond to any particular meal. He denies fever. He was also recently admitted to this hospital on January 03 for chest pain. (Workup was negative). During that hospitalization he was also seen by psychiatry who restarted his medication regimen of Cogentin and haloperidol for schizophrenia. Past Medical History Cardiac Medical History: Reports: Hypertension Cardiac History Note: Recent cardiac workup negative for myocardial infarction Pulmonary Medical History: Reports: None EENT Medical History: Reports: None Neurological Medical History: Reports: None Endocrine Medical History: Reports: None Renal/ Medical History: Reports: Chronic Kidney Disease Malignancy Medical History: Reports: None GI Medical History: Reports: None Musculoskeltal Medical History: Reports: Arthritis Skin Medical History: Reports: None Psychiatric Medical History: Reports: Other - Schizophrenia Traumatic Medical History: Reports: None Hematology: Reports: None Infectious Medical History: Reports: None Past Surgical History Past Surgical History: Reports: Orthopedic Surgery Social History Information Source: Patient - Patient is a poor historian. Lives with: Alone - I believe Smoking Status: Current Every Day Smoker Frequency of Alcohol Use: None Hx Recreational Drug Use: No Drugs: None Hx Prescription Drug Abuse: No - Advance Directive Resuscitation Status: Full Code Surrogate healthcare decision maker:: Unknown at this time Family History Family History: Reviewed & Not Pertinent Parental Family History Reviewed: Yes Children Family History Reviewed: Yes Sibling(s) Family History Reviewed.: Yes Medication/Allergy Home Medications: Amlodipine Besylate [Norvasc 10 mg Tablet] 10 mg PO QHS #30 tablet 01/04/18 Aspirin [Aspirin 81 mg Chewable Tablet] 81 mg PO QHS 30 Days #30 tab.chew Benztropine Mesylate [Cogentin 1 mg Tablet] 1 mg PO QHS 30 Days #30 tablet 01/04 Haloperidol [Haldol 5 mg Tablet] 5 mg PO QHS 30 Days #30 tablet 01/04/18 Allergies/Adverse Reactions: Penicillins Allergy (Verified 01/03/18 08:13) Review of Systems Review of Systems: Patient is a poor historian with a history of schizophrenia. Review of systems is limited. Constitutional: PRESENT: anorexia, fatigue, weakness Nose, Mouth, and Throat: PRESENT: other - Very poor dentition. Also reports soreness in his neck anteriorly. Cardiovascular: PRESENT: chest pain Gastrointestinal: PRESENT: abdominal pain, diarrhea, nausea, vomiting Integumentary: ABSENT: lesions Neurological: PRESENT: abnormal speech - Dysarthric Endocrine: PRESENT: cold intolerance Hematologic/Lymphatic: ABSENT: easy bleeding, easy bruising, lymphadenopathy Physical Exam Vital Signs: Temp Pulse Resp BP Pulse Ox 98.6 F 21 H 122/56 L 96 01/25/18 07:01 01/25/18 13:01 01/25/18 13:01 01/25/18 13:01 Intake & Output 01/24/18 01/25/18 01/26/18 06:59 06:59 06:59 Weight 67.8 kg General appearance: PRESENT: cooperative, mild distress, thin, well-developed Head exam: PRESENT: atraumatic, normocephalic Eye exam: PRESENT: conjunctiva pale, EOMI. ABSENT: scleral icterus Ear exam: PRESENT: normal external ear exam Mouth exam: PRESENT: dry mucosa, tongue midline Teeth exam: PRESENT: poor dentation Neck exam: PRESENT: carotid bruit - Faint on the right, lymphadenopathy - Soft slightly enlarged submandibular lymph node on the right Respiratory exam: PRESENT: clear to auscultation lyn, symmetrical, unlabored. ABSENT: chest wall tenderness, rales, rhonchi, wheezes Cardiovascular exam: PRESENT: RRR, +S1, +S2, systolic murmur - 3/6 Pulses: PRESENT: normal carotid pulses, normal radial pulses, normal dorsalis pedis pul GI/Abdominal exam: PRESENT: normal bowel sounds, soft, tenderness - Minimal diffuse nonspecific. ABSENT: distended, guarding, rebound Extremities exam: PRESENT: other - Decreased muscle mass. ABSENT: pedal edema Musculoskeletal exam: PRESENT: ambulatory Neurological exam: PRESENT: alert, awake, oriented to person, oriented to place , oriented to situation, other - Mild dysarthria Psychiatric exam: PRESENT: flat affect. ABSENT: agitated, anxious Focused psych exam: ABSENT: delusional, restlessness Skin exam: PRESENT: dry, normal color, warm Results Laboratory Results: Remarkable abnormal labs include potassium of 5.6, elevated glucose with elevated BUN and creatinine and an estimated GFR of 28. Platelet count is 800 with a white blood cell count of 26,000 and hemoglobin of 12. Assessment & Plan - Diagnosis (1) Dehydration Is this a current diagnosis for this admission?: Yes Plan: The patient appeared clinically dehydrated. He does have an elevated BUN and creatinine. He has received 2 L of fluid in the emergency department. He will continue on normal saline at 150 mL an hour. Recheck laboratory studies and follow blood pressure. (2) Diarrhea Qualifiers: Diarrhea type: presumed infectious Qualified Code(s): R19.7 - Diarrhea, unspecified Is this a current diagnosis for this admission?: Yes Plan: The patient does report eating at several places that he thinks might have been suspicious. Is somewhat hard to tell as he is not a good historian. I have ordered a stool for culture. Despite high white count at this time I do not have a focus of infection and so I I am holding off on antibiotic therapy. (3) Vomiting Qualifiers: Vomiting type: unspecified Vomiting Intractability: unspecified Nausea presence: with nausea Qualified Code(s): R11.2 - Nausea with vomiting, unspecified Is this a current diagnosis for this admission?: Yes Plan: With aggressive hydration he seems to be somewhat better. I have added Pepcid and antiemetics are available. (4) Chronic renal failure Qualifiers: Chronic kidney disease stage: unspecified stage Qualified Code(s): N18.9 - Chronic kidney disease, unspecified (5) Hypertension Qualifiers: Hypertension type: essential hypertension Qualified Code(s): I10 - Essential (primary) hypertension Is this a current diagnosis for this admission?: Yes Plan: He does have history of hypertension. I will continue his amlodipine at this time and monitor his blood pressure. (6) Schizophrenia Qualifiers: Schizophrenia type: unspecified Qualified Code(s): F20.9 - Schizophrenia, unspecified Is this a current diagnosis for this admission?: Yes Plan: Evidently the patient has a history of schizophrenia. He was seen by psychiatry in December during his recent admission. He was started on his " home medication regimen" of Cogentin 1 mg at bedtime and Haldol 5 mg at bedtime. (7) Leucocytosis Qualifiers: Leukocytosis type: bandemia Qualified Code(s): D72.825 - Bandemia Is this a current diagnosis for this admission?: Yes Plan: Significant left shift. There is no obvious focus of infection. I have ordered a urine culture and stool culture as well as blood cultures. This could be stress reaction from his acute illness. We will continue to monitor his white blood cell count at this time. (8) Hyperkalemia Is this a current diagnosis for this admission?: Yes Plan: His serum potassium was 5.6 on admission. He does have underlying chronic kidney failure. He was given IV fluids as well as glucose and insulin in the emergency department. I will recheck his potassium and follow it closely. - Time Time Spent: 50 to 70 Minutes Smoking Cessation Education: 3 to 10 minutes Medications reviewed and adjusted accordingly: Yes - Plan Summary Plan Summary: Patient will be admitted to observation status. Hopefully with aggressive fluids and negative cultures he will feel better and discharge tomorrow.
[2018-01-25] MEDS: NORMAL SALINE 1000 ML 1,000 ML IV PRN (14:18)
[2018-01-25] MEDS ORDERED: ENOXAPARIN SODIUM INJ 40 MG/0.4 ML DISP.SYRIN SUBCUT SCH (15:00)
[2018-01-25 15:27] LABS: HEMATOCRIT 30.9 % (37.9-51.0); HEMOGLOBIN 10.5 g/dL (13.5-17.0); MEAN CORPUSCULAR VOLUME 88 fl (80-97); PLATELET COUNT 780 10^3/uL (150-450); RED CELL DISTRIBUTION WIDTH 14.1 % (11.5-14.0)
[2018-01-25 15:36] LABS: ANION GAP 11 (5-19); BLOOD UREA NITROGEN 52 mg/dL (7-20); CALCIUM 8.5 mg/dL (8.4-10.2); CARBON DIOXIDE 24 mmol/L (22-30); CHLORIDE 106 mmol/L (98-107); GLUCOSE 179 mg/dL (75-110); SODIUM 140.5 mmol/L (137-145)
[2018-01-25 15:46] LABS: APPEARANCE,URINE CLEAR; BILIRUBIN,URINE NEGATIVE (NEGATIVE); COLOR,URINE YELLOW; GLUCOSE, URINE NEGATIVE (NEGATIVE); KETONES,URINE NEGATIVE (NEGATIVE); LEUKOCYTE ESTERASE,URINE NEGATIVE (NEGATIVE); NITRITE,URINE NEGATIVE (NEGATIVE); PROTEIN,URINE 30 mg/dL (NEGATIVE); URINE SPECIFIC GRAVITY 1.013; UROBILINOGEN,URINE NEGATIVE mg/dL (<2.0)
[2018-01-25 16:07] LABS: WHITE BLOOD COUNT 33.4 10^3/uL (4.0-10.5)
[2018-01-25] MEDS ORDERED: VANCOMYCIN HCL 0 MG in DEXTROSE 5%-WATER 250 ML IV NR (16:30)
[2018-01-25] MEDS: CEFTAZIDIME PENTAHYDRATE 1 GM in DEXTROSE 5%-WATER 50 ML IV SCH (17:10)
[2018-01-25] MEDS: ENOXAPARIN SODIUM INJ 30 MG/0.3 ML DISP.SYRIN SUBCUT SCH (17:15)
[2018-01-25] MEDS ORDERED: VANCOMYCIN HCL 1,500 MG in DEXTROSE 5%-WATER 250 ML IV ONE (17:30)
--- NOTE | 2018-01-25 18:11 | RADIOLOGY REPORT (SQ) ---
EXAM DESCRIPTION: CHEST 2 VIEWS COMPLETED DATE/TIME: 01/25/2018 5:30 pm REASON FOR STUDY: leukocytosis, r/o pneu COMPARISON: 01/03/2018 EXAM PARAMETERS: NUMBER OF VIEWS: two views TECHNIQUE: Digital Frontal and Lateral radiographic views of the chest acquired. RADIATION DOSE: NA LIMITATIONS: none FINDINGS: LUNGS AND PLEURA: There is left lower lobe infiltrate consistent with pneumonia. Lung fie lds are otherwise clear. No effusions or pneumothorax. MEDIASTINUM AND HILAR STRUCTURES: No masses or contour abnormalities. HEART AND VASCULAR STRUCTURES: Heart normal size. No evidence for failure. BONES: No acute findings. HARDWARE: None in the chest. OTHER: No other significant finding. IMPRESSION: Left lower lobe pneumonia. TECHNICAL DOCUMENTATION: JOB ID: [id number] [employer]- All Rights Reserved Reading location - IP/workstation name: [email or web address]
[2018-01-25] MEDS ORDERED: LORAZEPAM INJ 2 MG/1 ML VIAL ONE (21:40)
[2018-01-25] MEDS ORDERED: HALOPERIDOL LACTATE INJ 5 MG/1 ML VIAL IV PRN (21:43)
[2018-01-25] MEDS: AMLODIPINE BESYLATE 10 MG TABLET PO SCH (21:45)
[2018-01-25] MEDS: FAMOTIDINE 20 MG TABLET PO SCH (21:45)
[2018-01-25] MEDS: HALOPERIDOL 5 MG TABLET PO SCH (21:48)
[2018-01-25] MEDS: ASPIRIN 81 MG TABLET, CHEWABLE PO SCH (21:48)
[2018-01-25] MEDS: BENZTROPINE MESYLATE 1 MG TABLET PO SCH (21:51)
[2018-01-25] MEDS ORDERED: LORAZEPAM INJ 2 MG/1 ML VIAL IV ONE (22:00)
[2018-01-26] MEDS: NORMAL SALINE 1000 ML 1,000 ML IV PRN (02:30)
[2018-01-26 07:16] LABS: ABSOLUTE BASOPHILS # (AUTO) 0.1 10^3/uL (0.0-0.2); ABSOLUTE EOSINOPHILS # (AUTO) 0.2 10^3/uL (0.0-0.6); ABSOLUTE LYMPHOCYTES (AUTO) 0.9 10^3/uL (0.5-4.7); ABSOLUTE MONOCYTES (AUTO) 0.9 10^3/uL (0.1-1.4); ABSOLUTE NEUT (AUTO) 15.1 10^3/uL (1.7-8.2); BASOPHILS % (AUTO) 0.4 % (0-2); EOSINOPHILS % (AUTO) 1.3 % (0-6); HEMATOCRIT 28.2 % (37.9-51.0); HEMOGLOBIN 9.3 g/dL (13.5-17.0); LYMPHOCYTES % (AUTO) 5.1 % (13-45); MEAN CORPUSCULAR HEMOGLOBIN 29.6 pg (27.0-33.4); MEAN CORPUSCULAR HGB CONC 33.1 g/dL (32.0-36.0); MEAN CORPUSCULAR VOLUME 89 fl (80-97); MONOCYTES % (AUTO) 5.2 % (3-13); PLATELET COUNT 615 10^3/uL (150-450); RED BLOOD COUNT 3.15 10^6/uL (4.35-5.55); RED CELL DISTRIBUTION WIDTH 13.9 % (11.5-14.0); TOTAL CELLS COUNTED % (AUTO) 100 %; WHITE BLOOD COUNT 17.2 10^3/uL (4.0-10.5)
[2018-01-26 07:39] LABS: ANION GAP 10 (5-19); BLOOD UREA NITROGEN 46 mg/dL (7-20); CALCIUM 7.8 mg/dL (8.4-10.2); CARBON DIOXIDE 21 mmol/L (22-30); CHLORIDE 108 mmol/L (98-107); GLUCOSE 134 mg/dL (75-110); PHOSPHORUS 3.5 mg/dL (2.5-4.5); POTASSIUM 5.1 mmol/L (3.6-5.0); SODIUM 139.2 mmol/L (137-145)
[2018-01-26] MEDS: FAMOTIDINE 20 MG TABLET PO SCH ×2 (12:41→22:08)
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
[2018-01-26] MEDS: ENOXAPARIN SODIUM INJ 30 MG/0.3 ML DISP.SYRIN SUBCUT SCH (19:14)
[2018-01-26] MEDS: CEFTAZIDIME PENTAHYDRATE 1 GM in DEXTROSE 5%-WATER 50 ML IV SCH (20:05)
[2018-01-26] MEDS: AMLODIPINE BESYLATE 10 MG TABLET PO SCH (22:06)
[2018-01-26] MEDS: ASPIRIN 81 MG TABLET, CHEWABLE PO SCH (22:06)
[2018-01-26] MEDS: HALOPERIDOL 5 MG TABLET PO SCH (22:06)
[2018-01-26] MEDS: BENZTROPINE MESYLATE 1 MG TABLET PO SCH (22:07)
[2018-01-26] MEDS: VANCOMYCIN HCL 1,000 MG in DEXTROSE 5%-WATER 250 ML IV SCH (22:08)
[2018-01-27] MEDS: ENOXAPARIN SODIUM INJ 30 MG/0.3 ML DISP.SYRIN SUBCUT SCH (09:44)
[2018-01-27] MEDS: FAMOTIDINE 20 MG TABLET PO SCH ×2 (09:44→21:40)
[2018-01-27 10:51] LABS: PATH REVIEW PATHOLOGIST REVIEWED
[2018-01-27] MEDS: CLONIDINE HCL 0.1 MG TABLET PO SCH ×2 (13:29→21:39)
[2018-01-27 15:26] LABS: HEMATOCRIT 33.4 % (37.9-51.0); MEAN CORPUSCULAR HEMOGLOBIN 29.7 pg (27.0-33.4); MEAN CORPUSCULAR HGB CONC 32.9 g/dL (32.0-36.0); MEAN CORPUSCULAR VOLUME 90 fl (80-97); PLATELET COUNT 730 10^3/uL (150-450); RED CELL DISTRIBUTION WIDTH 14.2 % (11.5-14.0); WHITE BLOOD COUNT 16.9 10^3/uL (4.0-10.5)
[2018-01-27] MEDS: CEFTAZIDIME PENTAHYDRATE 1 GM in DEXTROSE 5%-WATER 50 ML IV SCH (17:39)
[2018-01-27] MEDS: BENZTROPINE MESYLATE 1 MG TABLET PO SCH (21:39)
[2018-01-27] MEDS: ASPIRIN 81 MG TABLET, CHEWABLE PO SCH (21:39)
[2018-01-27] MEDS: HALOPERIDOL 5 MG TABLET PO SCH (21:39)
[2018-01-27] MEDS: AMLODIPINE BESYLATE 10 MG TABLET PO SCH (21:40)
[2018-01-27] MEDS: VANCOMYCIN HCL 1,000 MG in DEXTROSE 5%-WATER 250 ML IV SCH (21:49)
[2018-01-28] MEDS: CLONIDINE HCL 0.1 MG TABLET PO SCH ×3 (05:10→21:10)
[2018-01-28 07:28] LABS: ABSOLUTE EOSINOPHILS # (AUTO) 0.1 10^3/uL (0.0-0.6); ABSOLUTE LYMPHOCYTES (AUTO) 0.8 10^3/uL (0.5-4.7); ABSOLUTE MONOCYTES (AUTO) 0.6 10^3/uL (0.1-1.4); BASOPHILS % (AUTO) 0.1 % (0-2); EOSINOPHILS % (AUTO) 1.5 % (0-6); HEMATOCRIT 29.3 % (37.9-51.0); HEMOGLOBIN 9.6 g/dL (13.5-17.0); LYMPHOCYTES % (AUTO) 9.2 % (13-45); MEAN CORPUSCULAR HEMOGLOBIN 29.4 pg (27.0-33.4); MEAN CORPUSCULAR HGB CONC 32.9 g/dL (32.0-36.0); MEAN CORPUSCULAR VOLUME 90 fl (80-97); PLATELET COUNT 635 10^3/uL (150-450); RED BLOOD COUNT 3.27 10^6/uL (4.35-5.55); RED CELL DISTRIBUTION WIDTH 13.8 % (11.5-14.0); SEGMENTED NEUTROPHILS % (AUTO) 82.2 % (42-78); TOTAL CELLS COUNTED % (AUTO) 100 %; WHITE BLOOD COUNT 8.6 10^3/uL (4.0-10.5)
[2018-01-28 08:53] LABS: ALANINE AMINOTRANSFERASE 16 U/L (21-72); ALBUMIN 2.3 g/dL (3.5-5.0); ALKALINE PHOSPHATASE 65 U/L (38-126); ANION GAP 10 (5-19); ASPARTATE AMINO TRANSFERASE 9 U/L (17-59); BILIRUBIN,DIRECT 0.1 mg/dL (0.0-0.4); BILIRUBIN,TOTAL 0.1 mg/dL (0.2-1.3); BLOOD UREA NITROGEN 38 mg/dL (7-20); CALCIUM 7.8 mg/dL (8.4-10.2); CARBON DIOXIDE 24 mmol/L (22-30); CHLORIDE 104 mmol/L (98-107); GLUCOSE 126 mg/dL (75-110); POTASSIUM 5.5 mmol/L (3.6-5.0); SODIUM 137.9 mmol/L (137-145); TOTAL PROTEIN 5.4 g/dL (6.3-8.2)
[2018-01-28] MEDS: ENOXAPARIN SODIUM INJ 30 MG/0.3 ML DISP.SYRIN SUBCUT SCH (09:01)
[2018-01-28] MEDS: FAMOTIDINE 20 MG TABLET PO SCH ×2 (09:01→21:10)
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
[2018-01-28] MEDS ORDERED: NORMAL SALINE 1000 ML 1,000 ML IV ONE (16:23)
--- NOTE | 2018-01-28 16:25 | PDOC PROGRESS REPORT ---
Subjective Progress Note for:: 01/28/18 - seen on rounds this morning Subjective:: patient is difficult to speak with as he keep interrupting everytime i try to explain something to him. discussed about his care . discussed about his pneumonia and continued medication. he showed me a inguinal hernia. tells me that he's had it for years now. tells me his surgeon in [place] has known about it. i advised that we can get surgery here evaluate it- he told me doesn' t want consult- tells me to call his surgeon in [place]- i called surgeon- the surgeon in [place] is his eye doctor - they do not know anything about his inguinal hernia. i told this to patient and he doesn't want a surgery consult here Reason For Visit: LEUCOCYTOSIS,SCHIZOPHRENIA Physical Exam Vital Signs: Temp Pulse Resp BP Pulse Ox 97.6 F 58 L 16 143/66 H 100 01/28/18 11:16 01/28/18 11:16 01/28/18 11:16 01/28/18 11:16 01/28/18 11:16 Intake & Output 01/27/18 01/28/18 01/29/18 06:59 06:59 06:59 Intake Total 300 2467 Balance 300 2467 Weight 147 lb 14.883 oz 147 lb 14.883 oz General appearance: PRESENT: no acute distress, disheveled Head exam: PRESENT: atraumatic, normocephalic Eye exam: PRESENT: EOMI. ABSENT: scleral icterus Ear exam: PRESENT: normal external ear exam Mouth exam: PRESENT: moist, tongue midline Teeth exam: PRESENT: poor dentation Neck exam: ABSENT: tracheal deviation Respiratory exam: PRESENT: clear to auscultation lyn, symmetrical Cardiovascular exam: PRESENT: +S1, +S2 Pulses: PRESENT: +2 pedal pulses bilateral GI/Abdominal exam: PRESENT: normal bowel sounds, soft. ABSENT: tenderness Gentrourinary exam: PRESENT: other - left sided inguinal hernia noted- limited exam- he told me not to touch it Extremities exam: ABSENT: pedal edema Neurological exam: PRESENT: alert, awake, oriented to person, oriented to place , oriented to time, oriented to situation, CN II-XII grossly intact Skin exam: PRESENT: dry, warm Results Laboratory Results: 01/28/18 06:26 01/28/18 06:26 01/28/18 01/28/18 06:26 06:26 WBC 8.6 RBC 3.27 L Hgb 9.6 L Hct 29.3 L MCV 90 MCH 29.4 MCHC 32.9 RDW 13.8 Plt Count 635 H Seg Neutrophils % 82.2 H Lymphocytes % 9.2 L Monocytes % 7.0 Eosinophils % 1.5 Basophils % 0.1 Absolute Neutrophils 7.0 Absolute Lymphocytes 0.8 Absolute Monocytes 0.6 Absolute Eosinophils 0.1 Absolute Basophils 0.0 Sodium 137.9 Potassium 5.5 H Chloride 104 Carbon Dioxide 24 Anion Gap 10 BUN 38 H Creatinine 1.50 H Est GFR ( Amer) 57 L Est GFR (Non-Af Amer) 47 L Glucose 126 H Calcium 7.8 L Total Bilirubin 0.1 L AST 9 L ALT 16 L Alkaline Phosphatase 65 Total Protein 5.4 L Albumin 2.3 L Impressions: Chest X-Ray 01/25/18 00:00 IMPRESSION: Left lower lobe pneumonia. Assessment & Plan - Diagnosis (1) Dehydration Is this a current diagnosis for this admission?: Yes (2) Left lower lobe pneumonia Qualifiers: Pneumonia type: due to unspecified organism Qualified Code(s): J18.1 - Lobar pneumonia, unspecified organism Is this a current diagnosis for this admission?: Yes (3) Chronic renal failure Qualifiers: Chronic kidney disease stage: unspecified stage Qualified Code(s): N18.9 - Chronic kidney disease, unspecified Is this a current diagnosis for this admission?: Yes (4) Hypertension Qualifiers: Hypertension type: essential hypertension Qualified Code(s): I10 - Essential (primary) hypertension Is this a current diagnosis for this admission?: Yes (5) Schizophrenia Qualifiers: Schizophrenia type: unspecified Qualified Code(s): F20.9 - Schizophrenia, unspecified Is this a current diagnosis for this admission?: Yes (7) Hyperkalemia Is this a current diagnosis for this admission?: Yes - Plan Summary Plan Summary: LLL PNA- c/w fortaz and Vanco for now. BCx so far negative. HTN- stable c/w norvasc schizophrenia- on cogentin and haldol- i have contacted psych to evaluate his meds for any changes that are necessary- he has no physicians he follows at this time inguinal hernia- i offered him surgery consult but he declines it at this time- will talk to him about it tomorrow. hyperkalemia- will give IV fluid bolus and repeat labs in AM
[2018-01-28] MEDS: CEFTAZIDIME PENTAHYDRATE 1 GM in DEXTROSE 5%-WATER 50 ML IV SCH (17:30)
[2018-01-28] MEDS: AMLODIPINE BESYLATE 10 MG TABLET PO SCH (21:10)
[2018-01-28] MEDS: BENZTROPINE MESYLATE 1 MG TABLET PO SCH (21:10)
[2018-01-28] MEDS: ASPIRIN 81 MG TABLET, CHEWABLE PO SCH (21:10)
[2018-01-28] MEDS: VANCOMYCIN HCL 1,000 MG in DEXTROSE 5%-WATER 250 ML IV SCH (21:11)
[2018-01-28] MEDS: HALOPERIDOL 5 MG TABLET PO SCH (21:11)
[2018-01-29] MEDS: CLONIDINE HCL 0.1 MG TABLET PO SCH ×3 (05:08→21:26)
[2018-01-29] MEDS: FAMOTIDINE 20 MG TABLET PO SCH ×2 (09:26→21:26)
[2018-01-29] MEDS: ENOXAPARIN SODIUM INJ 30 MG/0.3 ML DISP.SYRIN SUBCUT SCH (09:26)
[2018-01-29 09:31] LABS: ANION GAP 12 (5-19); BLOOD UREA NITROGEN 39 mg/dL (7-20); CALCIUM 8.1 mg/dL (8.4-10.2); CARBON DIOXIDE 23 mmol/L (22-30); CHLORIDE 105 mmol/L (98-107); GLUCOSE 148 mg/dL (75-110); POTASSIUM 5.4 mmol/L (3.6-5.0); SODIUM 140.1 mmol/L (137-145)
[2018-01-29] MEDS ORDERED: NORMAL SALINE 1000 ML 500 ML IV ONE (10:46)
[2018-01-29] MEDS: MAGNESIUM SULFATE/D5W 1 GM/100 ML RTUPB IV SCH ×2 (10:48→13:36)
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
[2018-01-29] MEDS: LEVOFLOXACIN 750 MG TABLET PO SCH (12:19)
[2018-01-29] MEDS ORDERED: CALCIUM GLUCONATE 1000 MG/10 ML INJ IV ONE (16:38)
--- NOTE | 2018-01-29 16:39 | PDOC PROGRESS REPORT ---
Subjective Progress Note for:: 01/29/18 - Seen on rounds this morning Subjective:: Went to see patient this morning and he was pleasant and he had no complaints with me. He denies chest pain, shortness of breath, abdominal pain or nausea or vomiting. Reason For Visit: LEUCOCYTOSIS,SCHIZOPHRENIA Physical Exam Vital Signs: Temp Pulse Resp BP Pulse Ox 97.7 F 73 20 147/59 H 97 01/29/18 15:36 01/29/18 15:36 01/29/18 15:36 01/29/18 15:36 01/29/18 15:36 Intake & Output 01/28/18 01/29/18 01/30/18 06:59 06:59 06:59 Intake Total 2467 3568 600 Balance 2467 3568 600 Weight 147 lb 14.883 oz 148 lb 9.465 oz General appearance: PRESENT: no acute distress Head exam: PRESENT: atraumatic, normocephalic Eye exam: PRESENT: EOMI. ABSENT: conjunctival injection, scleral icterus Ear exam: PRESENT: normal external ear exam Mouth exam: PRESENT: tongue midline Teeth exam: PRESENT: poor dentation Neck exam: ABSENT: tracheal deviation Respiratory exam: PRESENT: clear to auscultation lyn, symmetrical Cardiovascular exam: PRESENT: +S1, +S2 GI/Abdominal exam: PRESENT: normal bowel sounds, soft, other - I did not examine his inguinal hernia today. ABSENT: tenderness Extremities exam: ABSENT: pedal edema Neurological exam: PRESENT: alert, awake, oriented to person, oriented to place , oriented to time, oriented to situation, CN II-XII grossly intact Skin exam: PRESENT: dry, warm Results Laboratory Results: 01/28/18 06:26 01/29/18 08:23 Sodium 140.1 Potassium 5.4 H Chloride 105 Carbon Dioxide 23 Anion Gap 12 BUN 39 H Creatinine 1.78 H Est GFR ( Amer) 47 L Est GFR (Non-Af Amer) 39 L Glucose 148 H Calcium 8.1 L Magnesium 1.2 L* Impressions: Chest X-Ray 01/25/18 00:00 IMPRESSION: Left lower lobe pneumonia. Assessment & Plan - Diagnosis (1) Dehydration Is this a current diagnosis for this admission?: Yes (2) Left lower lobe pneumonia Qualifiers: Pneumonia type: due to unspecified organism Qualified Code(s): J18.1 - Lobar pneumonia, unspecified organism Is this a current diagnosis for this admission?: Yes (3) Chronic renal failure Qualifiers: Chronic kidney disease stage: unspecified stage Qualified Code(s): N18.9 - Chronic kidney disease, unspecified Is this a current diagnosis for this admission?: Yes (4) Hypertension Qualifiers: Hypertension type: essential hypertension Qualified Code(s): I10 - Essential (primary) hypertension Is this a current diagnosis for this admission?: Yes (5) Schizophrenia Qualifiers: Schizophrenia type: unspecified Qualified Code(s): F20.9 - Schizophrenia, unspecified Is this a current diagnosis for this admission?: Yes (7) Hyperkalemia Is this a current diagnosis for this admission?: Yes (8) Hypomagnesemia Is this a current diagnosis for this admission?: Yes - Plan Summary Plan Summary: LLL PNA-I have discontinued his IV Fortaz and Vanco. I have started on Levaquin p.o. in the hopes of discharging him soon HTN- stable c/w norvasc schizophrenia- on cogentin and haldol- i have contacted psych to evaluate his meds for any changes that are necessary-psych did evaluate him and I appreciate their assistance. They have not made any recommendations or changes to his medications. Will continue as noted above inguinal hernia-yesterday I offered him surgery consult but he declined it at this time-I did mention this to him again today and he has not made up his mind about seeing a surgeon. hyperkalemia-his potassium level is still elevated-I will give him some IV fluids today and if it does not correct I will give him some Kayexalate. At this time he is not complaining of any chest pain. I will consider giving him some calcium gluconate for cardioprotection Hypomagnesemia-I gave him 2 g IV magnesium and start him on magnesium 400 mg twice daily.
[2018-01-29 16:47] LABS: ANION GAP 13 (5-19); BLOOD UREA NITROGEN 38 mg/dL (7-20); CALCIUM 8.2 mg/dL (8.4-10.2); CARBON DIOXIDE 23 mmol/L (22-30); CHLORIDE 105 mmol/L (98-107); GLUCOSE 92 mg/dL (75-110); POTASSIUM 4.6 mmol/L (3.6-5.0); SODIUM 141.4 mmol/L (137-145)
[2018-01-29] MEDS: MAGNESIUM OXIDE 400 MG TABLET PO SCH (17:50)
[2018-01-29] MEDS: BENZTROPINE MESYLATE 1 MG TABLET PO SCH (21:26)
[2018-01-29] MEDS: HALOPERIDOL 5 MG TABLET PO SCH (21:26)
[2018-01-29] MEDS: AMLODIPINE BESYLATE 10 MG TABLET PO SCH (21:26)
[2018-01-29] MEDS: ASPIRIN 81 MG TABLET, CHEWABLE PO SCH (21:26)
[2018-01-29 23:27] LABS: VANCOMYCIN,TROUGH 11.5 ug/mL (5.0-20.0)
[2018-01-30] MEDS: CLONIDINE HCL 0.1 MG TABLET PO SCH ×3 (05:28→21:26)
--- NOTE | 2018-01-30 08:40 | RADIOLOGY REPORT (SQ) ---
EXAM DESCRIPTION: CHEST SINGLE VIEW COMPLETED DATE/TIME: 01/30/2018 7:42 am REASON FOR STUDY: follow up LLL pneumonia COMPARISON: 01/25/2018 EXAM PARAMETERS: NUMBER OF VIEWS: One view. TECHNIQUE: Single frontal radiographic view of the chest acquired. RADIATION DOSE: NA LIMITATIONS: None. FINDINGS: LUNGS AND PLEURA: Unchanged heterogeneous opacity of the left lower lobe and mild elevatio n of left hemidiaphragm. MEDIASTINUM AND HILAR STRUCTURES: No masses. Contour normal. HEART AND VASCULAR STRUCTURES: Heart normal in size. Normal vasculature. BONES: No acute findings. HARDWARE: None in the chest. OTHER: No other significant finding. IMPRESSION: Unchanged heterogeneous opacity of the left lower lobe and mild elevation of left hemidi aphragm, in keeping with infection or aspiration. Radiographic findings of pneumonia may require 6-8 weeks for complete resolution and should be followed at that interval to ensure complete radiographi c resolution. TECHNICAL DOCUMENTATION: JOB ID: [id number] [employer] ([employer] All Rights Reserved Reading location - IP/workstation name: [email or web address]
[2018-01-30] MEDS: FAMOTIDINE 20 MG TABLET PO SCH ×2 (10:01→21:26)
[2018-01-30] MEDS: ENOXAPARIN SODIUM INJ 30 MG/0.3 ML DISP.SYRIN SUBCUT SCH (10:01)
[2018-01-30] MEDS: MAGNESIUM OXIDE 400 MG TABLET PO SCH ×2 (10:01→17:13)
[2018-01-30] MEDS: LEVOFLOXACIN 750 MG TABLET PO SCH (10:01)
--- NOTE | 2018-01-30 13:28 | PDOC PROGRESS REPORT ---
Subjective Progress Note for:: 01/30/18 - Seen on rounds this morning Subjective:: Went to see patient this morning and he was laying in bed comfortably and was not in distress. Today he tells me that his daughter's house might have bugs in the room and they might be bedbugs. He asked me if it is a good idea to get some medications from [employer] to kill those bedbugs. Today I asked him about his inguinal hernia and if he wants to be consulted by surgery in the hospital. He tells me that he spoke with his daughter and they do not want to be consulted at this time until he knows which surgery is rehabilitation technician. I told him that the nurse will tell him what surgeon rehabilitation technician and he can talk to his daughter about whether he wants to be consulted or not and let me know. Reason For Visit: LEUCOCYTOSIS,SCHIZOPHRENIA Physical Exam Vital Signs: Temp Pulse Resp BP Pulse Ox 98.4 F 63 16 132/58 H 100 01/30/18 11:45 01/30/18 11:45 01/30/18 11:45 01/30/18 11:45 01/30/18 11:45 Intake & Output 01/29/18 01/30/18 01/31/18 06:59 06:59 06:59 Intake Total 3568 1439 Balance 3568 1439 Weight 148 lb 9.465 oz 148 lb 12.992 oz General appearance: PRESENT: no acute distress Head exam: PRESENT: atraumatic, normocephalic Eye exam: PRESENT: EOMI. ABSENT: conjunctival injection, scleral icterus Ear exam: PRESENT: normal external ear exam Mouth exam: PRESENT: tongue midline Neck exam: ABSENT: tracheal deviation Respiratory exam: PRESENT: clear to auscultation lyn, symmetrical Pulses: PRESENT: +2 pedal pulses bilateral GI/Abdominal exam: PRESENT: normal bowel sounds, soft. ABSENT: tenderness Extremities exam: ABSENT: pedal edema Neurological exam: PRESENT: alert, awake, oriented to person, oriented to place , oriented to time, oriented to situation, CN II-XII grossly intact Psychiatric exam: PRESENT: flat affect Results Laboratory Results: 01/28/18 06:26 01/29/18 16:18 01/29/18 01/30/18 16:18 08:20 Sodium 141.4 Potassium 4.6 Chloride 105 Carbon Dioxide 23 Anion Gap 13 BUN 38 H Creatinine 1.54 H Est GFR ( Amer) 55 L Est GFR (Non-Af Amer) 46 L Glucose 92 Calcium 8.2 L Magnesium 1.6 Impressions: Chest X-Ray 01/30/18 06:00 IMPRESSION: Unchanged heterogeneous opacity of the left lower lobe and mild elevation of left hemidiaphragm, in keeping with infection or aspiration. Radiographic findings of pneumonia may require 6-8 weeks for complete resolution and should be followed at that interval to ensure complete radiographic resolution. Assessment & Plan - Diagnosis (1) Dehydration Is this a current diagnosis for this admission?: Yes (2) Left lower lobe pneumonia Qualifiers: Pneumonia type: due to unspecified organism Qualified Code(s): J18.1 - Lobar pneumonia, unspecified organism Is this a current diagnosis for this admission?: Yes (3) Chronic renal failure Qualifiers: Chronic kidney disease stage: unspecified stage Qualified Code(s): N18.9 - Chronic kidney disease, unspecified Is this a current diagnosis for this admission?: Yes (4) Hypertension Qualifiers: Hypertension type: essential hypertension Qualified Code(s): I10 - Essential (primary) hypertension Is this a current diagnosis for this admission?: Yes (5) Schizophrenia Qualifiers: Schizophrenia type: unspecified Qualified Code(s): F20.9 - Schizophrenia, unspecified Is this a current diagnosis for this admission?: Yes (7) Hyperkalemia Is this a current diagnosis for this admission?: Yes (8) Hypomagnesemia Is this a current diagnosis for this admission?: Yes - Plan Summary Plan Summary: LLL PNA-I have discontinued his IV Fortaz and Vanco. I have started on Levaquin p.o. from 01/29/18 in the hopes of discharging him soon. I did get a repeat chest x-ray but did not show any improvement in the recommend repeat chest x-ray in 1-2 months for resolution. Cultures have remained negative. HTN- stable c/w norvasc schizophrenia- on cogentin and haldol- i have contacted psych to evaluate his meds for any changes that are necessary-psych did evaluate him and I appreciate their assistance. They have not made any recommendations or changes to his medications. inguinal hernia-he has left-sided hernia-I am not sure how long he has had it for-he does not seem to be in pain as he does not ask for any pain medicine. Once again I have asked him today if he would be okay for me to consult a surgeon for an evaluation but once again he has declined. Initially he has told me that he does not want any surgeons to be seen in the hospital. I did explain that the hernia may get strangulated or incarcerated in cause infection and he will lead to . He tells me that his surgeon in [place] had looked at it and it is fine. I did call the surgeon in [place] with a number he provided but this was an novelty chain maker office. I have asked him again today whether he wants to be seen by a surgeon here and he told me that his daughter and him decided that they do not want to consultation without knowing which surgeon it is. I told him that the nurse will tell him which surgeon is available today and then he should talk with his daughter about consultation. I encouraged him to get a consultation while he is here but he seems to be very reluctant. Psychiatry has deemed him appropriate with his mentation and coherence and hence I am unable to consult a surgeon without his permission. hyperkalemia-resolved at this time after IV fluid administration. At this time he is not complaining of any chest pain. I did give him some calcium gluconate yesterday for cardioprotection Hypomagnesemia-resolved. I gave him 2 g IV magnesium and start him on magnesium 400 mg twice daily. I think we can consider discharging him in 1-2 days if he remains asymptomatic and stable.
[2018-01-30] MEDS: HALOPERIDOL 5 MG TABLET PO SCH (21:26)
[2018-01-30] MEDS: BENZTROPINE MESYLATE 1 MG TABLET PO SCH (21:26)
[2018-01-30] MEDS: ASPIRIN 81 MG TABLET, CHEWABLE PO SCH (21:26)
[2018-01-30] MEDS: AMLODIPINE BESYLATE 10 MG TABLET PO SCH (21:26)
[2018-01-31] MEDS: CLONIDINE HCL 0.1 MG TABLET PO SCH (05:31)
--- NOTE | 2018-01-31 09:49 | PDOC CONSULTATION ---
Consultation Consult Date: 01/31/18 Consult reason:: Left inguinal hernia History of Present Illness Admission Date/PCP: 01/26/18 16:03 Patient complains of: Left inguinal hernia History of Present Illness: QUANG VELAZQUEZ is a 62 year old male Patient has a left inguinal hernia by physical exam. Because of patient's paranoid schizophrenia, he cannot provide a reliable HPI. Past Medical History Cardiac Medical History: Reports: Hypertension Pulmonary Medical History: Reports: None EENT Medical History: Reports: None Neurological Medical History: Reports: None Endocrine Medical History: Reports: None Renal/ Medical History: Reports: Chronic Kidney Disease, Other - CKD Malignancy Medical History: Reports: None GI Medical History: Reports: None Musculoskeltal Medical History: Reports: Arthritis Skin Medical History: Reports: None Psychiatric Medical History: Reports: Bipolar Disorder, Other - Schizophrenia Traumatic Medical History: Reports: None Hematology: Reports: None Infectious Medical History: Reports: None Past Surgical History Past Surgical History: Reports: Orthopedic Surgery Social History Lives with: Alone - I believe Smoking Status: Current Every Day Smoker Frequency of Alcohol Use: None Hx Recreational Drug Use: No Drugs: None Hx Prescription Drug Abuse: No - Advance Directive Resuscitation Status: Full Code Family History Family History: Reviewed & Not Pertinent Parental Family History Reviewed: Yes Children Family History Reviewed: Yes Sibling(s) Family History Reviewed.: Yes Medication/Allergy Home Medications: Amlodipine Besylate [Norvasc 10 mg Tablet] 10 mg PO QHS #30 tablet 01/04/18 Aspirin [Aspirin 81 mg Chewable Tablet] 81 mg PO QHS 30 Days #30 tab.chew Benztropine Mesylate [Cogentin 1 mg Tablet] 1 mg PO QHS 30 Days #30 tablet 01/04 Haloperidol [Haldol 5 mg Tablet] 5 mg PO QHS 30 Days #30 tablet 01/04/18 Allergies/Adverse Reactions: Penicillins Allergy (Verified 01/03/18 08:13) Review of Systems ROS unobtainable: Due to mental status, Other - Patient has paranoid schizophrenia and cannot provide a reliable review of systems Physical Exam Vital Signs: Temp Pulse Resp BP Pulse Ox 97.5 F 63 17 155/70 H 100 01/31/18 07:28 01/31/18 07:28 01/31/18 07:28 01/31/18 07:28 01/31/18 07:28 Intake & Output 01/30/18 01/31/18 02/01/18 06:59 06:59 06:59 Intake Total 1439 2165 Balance 1439 2165 Weight 67.5 kg 66.8 kg General appearance: PRESENT: no acute distress, other - Patient walking around the hallways. No acute distress Respiratory exam: PRESENT: other - Clear to auscultation bilaterally Cardiovascular exam: PRESENT: other - No murmur gallop GI/Abdominal exam: PRESENT: other - Abdomen not distended no peritoneal signs no rigidity. Rectal exam: PRESENT: deferred Gentrourinary exam: PRESENT: other - Penis circumcised; right testicle in the lower hemiscrotum Left hemiscrotum full of chronically incarcerated tissue, omentum versus portion of sigmoid colon. Is unable to reduce incarceration Results Laboratory Results: 01/28/18 06:26 01/29/18 16:18 Impressions: Chest X-Ray 01/30/18 06:00 IMPRESSION: Unchanged heterogeneous opacity of the left lower lobe and mild elevation of left hemidiaphragm, in keeping with infection or aspiration. Radiographic findings of pneumonia may require 6-8 weeks for complete resolution and should be followed at that interval to ensure complete radiographic resolution. Assessment & Plan - Diagnosis (1) Inguinal hernia of left side without obstruction or gangrene Is this a current diagnosis for this admission?: Yes Plan: Impression: Chronic, incarcerated left inguinal hernia in 62-year-old schizophrenic male recently hospitalized for dehydration and acute renal failure Recommendations 1. This is a chronic nonacute left inguinal hernia with incarceration. He can be managed on an outpatient basis. Patient can follow-up with Dr. Donato [facility] in the future after discharge from the hospital and acute medical issues stabilized.
[2018-01-31] MEDS ORDERED: DOCUSATE SODIUM 100 MG CAPSULE PO SCH (10:00)
[2018-01-31] MEDS: LEVOFLOXACIN 750 MG TABLET PO SCH (10:35)
[2018-01-31] MEDS: ENOXAPARIN SODIUM INJ 30 MG/0.3 ML DISP.SYRIN SUBCUT SCH (10:39)
[2018-01-31] MEDS: MAGNESIUM OXIDE 400 MG TABLET PO SCH (10:39)
[2018-01-31] MEDS: FAMOTIDINE 20 MG TABLET PO SCH (10:39)
[2018-01-31 12:11] VITALS: BP 166/68
--- NOTE | 2018-01-31 15:43 | PDOC DISCHARGE SUMMARY ---
General - Admit/Disc Date/PCP Admission Date/Primary Care Provider: 01/26/18 16:03 Discharge Date: 01/31/18 - Discharge Diagnosis (1) Hyperkalemia Is this a current diagnosis for this admission?: Yes Summary: Resolved with vitamin supplementation (2) Hypomagnesemia Is this a current diagnosis for this admission?: Yes Summary: Resolved with supplementation (3) Left lower lobe pneumonia Is this a current diagnosis for this admission?: Yes Summary: Completed a 7-day course of antibiotics - Additional Information Resuscitation Status: Full Code Discharge Diet: As Tolerated Discharge Activity: Activity As Tolerated, No Driving, No Lifting/Push/Pulling Home Medications: Amlodipine Besylate [Norvasc 10 mg Tablet] 10 mg PO QHS #30 tablet 01/04/18 Aspirin [Aspirin 81 mg Chewable Tablet] 81 mg PO QHS 30 Days #30 tab.chew Benztropine Mesylate [Cogentin 1 mg Tablet] 1 mg PO QHS 30 Days #30 tablet 01/04 Haloperidol [Haldol 5 mg Tablet] 5 mg PO QHS 30 Days #30 tablet 01/04/18 Docusate Sodium [Colace 100 mg Capsule] 100 mg PO DAILY capsule 01/31/18 History of Present Illness History of Present Illness: QUANG VELAZQUEZ is a 62 year old male who is a poor historian. Reports nausea , vomiting and diarrhea over the last 1-2 days. He went through a story about the places he is eaten but this onset did not seem to specifically correspond to any particular meal. He denies fever. He was also recently admitted to this hospital on January 03 for chest pain. (Workup was negative). During that hospitalization he was also seen by psychiatry who restarted his medication regimen of Cogentin and haloperidol for schizophrenia. Hospital Course Hospital Course: He had some electrolyte disturbances that were corrected with supplementation. He was put on empiric antibiotics and subsequently switched to Levaquin orally. Cultures were negative. He is completed a 7-day course of treatment. He had an inguinal hernia which is been a chronic issue surgery consultation was obtained but it was determined that this could be followed up as an outpatient and so this was arranged. He was discharged home with family in good condition. Physical Exam Vital Signs: Temp Pulse Resp BP Pulse Ox 97.5 F 63 17 138/72 H 100 01/31/18 11:47 01/31/18 11:47 01/31/18 11:47 01/31/18 11:47 01/31/18 11:47 Intake & Output 01/30/18 01/31/18 02/01/18 06:59 06:59 06:59 Intake Total 1439 2165 Balance 1439 2165 Weight 67.5 kg 66.8 kg General appearance: PRESENT: no acute distress Respiratory exam: PRESENT: clear to auscultation lyn, symmetrical Pulses: PRESENT: +2 pedal pulses bilateral GI/Abdominal exam: PRESENT: normal bowel sounds, soft. ABSENT: tenderness Extremities exam: ABSENT: pedal edema Neurological exam: PRESENT: alert, awake, oriented to person, oriented to place , ambulatory Psychiatric exam: PRESENT: flat affect, tangential speech and thought pattern Results Laboratory Results: 01/28/18 06:26 01/29/18 16:18 Impressions: Chest X-Ray 01/30/18 06:00 IMPRESSION: Unchanged heterogeneous opacity of the left lower lobe and mild elevation of left hemidiaphragm, in keeping with infection or aspiration. Radiographic findings of pneumonia may require 6-8 weeks for complete resolution and should be followed at that interval to ensure complete radiographic resolution. Qualifiers - * PATIENT BEING DISCHARGED WITH ANY OF THE FOLLOWING DIAGNOSIS: No
== END 2018-01-31 12:30 | disposition home or self-care (01) | DRG 195 ==
LOC: ER 06:30 → EH 12:11 → INTOOBSV 12:11 → 4W 13:48 → OBSVTOIN 01-26 16:03 → 4N 01-27 19:21
PROVIDERS: ADMIT Internal Medicine; ATTEND Internal Medicine
DX: J18.1 Lobar pneumonia, unspecified organism (principal); R11.2 Nausea with vomiting, unspecified; R19.7 Diarrhea, unspecified; E87.5 Hyperkalemia; E86.0 Dehydration; I12.9 Hypertensive chronic kidney disease with stage 1 through stage 4 chronic kidney disease, or unspecified chronic kidney disease; N18.9 Chronic kidney disease, unspecified; E83.42 Hypomagnesemia; K40.90 Unilateral inguinal hernia, without obstruction or gangrene, not specified as recurrent; D72.825 Bandemia; F20.9 Schizophrenia, unspecified; F17.210 Nicotine dependence, cigarettes, uncomplicated; Z60.2 Problems related to living alone
CPT/HCPCS: 36415; 71045; 71046; 80048; 80053; 80202; 81001; 82962; 83690; 83735; 84100; 85025; 85027; 87040; 87086; 93005; 93010; 96361; 96374; 96375; 96376; 99285; G0378; J0610; J0713; J1630; J1650; J1815; J2060; J2405; J3370; J3475; J3490; J7030; J7040; J7060

== ENCOUNTER 2018-02-02 22:22 | Emergency (ER) | payer MEDICARE ==
--- NOTE | 2018-02-03 00:38 | ER Document Report ---
ED Medical Screen (RME) - General Chief Complaint: Abdominal Pain Stated Complaint: ABDOMINAL PAIN Time Seen by Provider: 02/03/18 00:34 Notes: 62-year-old male comes emergency department for chief complaint of upper abdominal pain and nausea since yesterday. States she vomited once. States pain is in his left upper abdomen. Denies chest pain, shortness of breath, fever. He denies any surgeries or medical history. He denies any other complaints. Denies alcohol or drug use. TRAVEL OUTSIDE OF THE [place] IN LAST 30 DAYS: No - Related Data Allergies/Adverse Reactions: Penicillins Allergy (Verified 01/03/18 08:13) Past Medical History - Past Medical History Cardiac Medical History: Reports: Hx Hypertension Renal/ Medical History: Denies: Hx Peritoneal Dialysis Musculoskeltal Medical History: Reports Hx Arthritis Psychiatric Medical History: Reports: Hx Bipolar Disorder, Hx Schizophrenia Past Surgical History: Reports: Hx Orthopedic Surgery - Immunizations Hx Diphtheria, Pertussis, Tetanus Vaccination: - unk History of Influenza Vaccine for 11/2016 - 04/2017 Season: Yes Influenza Administration Date for 11/2016 - 04/2017 Season: 11/22/17 Physical Exam - Vital signs Vitals: Temp Pulse Resp BP Pulse Ox 98.0 F 70 20 163/61 H 97 02/02/18 23:13 02/02/18 23:13 02/02/18 23:13 02/02/18 23:13 02/02/18 23:13 - General General appearance: Other - Very unkempt, slightly unsteady on his feet - Cardiovascular Rhythm: Regular. No: Tachycardia Heart sounds: Normal auscultation, S1 appreciated, S2 appreciated - Abdominal Inspection: Normal Tenderness: Nontender Course - Vital Signs Vital signs: Temp Pulse Resp BP Pulse Ox 98.0 F 70 20 163/61 H 97 02/02/18 23:13 02/02/18 23:13 02/02/18 23:13 02/02/18 23:13 02/02/18 23:13
[2018-02-03 01:40] LABS: ABSOLUTE BASOPHILS # (AUTO) 0.1 10^3/uL (0.0-0.2); ABSOLUTE EOSINOPHILS # (AUTO) 0.9 10^3/uL (0.0-0.6); ABSOLUTE LYMPHOCYTES (AUTO) 1.3 10^3/uL (0.5-4.7); ABSOLUTE MONOCYTES (AUTO) 1.8 10^3/uL (0.1-1.4); ABSOLUTE NEUT (AUTO) 10.9 10^3/uL (1.7-8.2); BASOPHILS % (AUTO) 0.5 % (0-2); EOSINOPHILS % (AUTO) 5.9 % (0-6); HEMATOCRIT 30.7 % (37.9-51.0); HEMOGLOBIN 10.1 g/dL (13.5-17.0); LYMPHOCYTES % (AUTO) 8.4 % (13-45); MEAN CORPUSCULAR HEMOGLOBIN 29.1 pg (27.0-33.4); MEAN CORPUSCULAR HGB CONC 32.9 g/dL (32.0-36.0); MEAN CORPUSCULAR VOLUME 88 fl (80-97); MONOCYTES % (AUTO) 12.2 % (3-13); PLATELET COUNT 589 10^3/uL (150-450); RED BLOOD COUNT 3.48 10^6/uL (4.35-5.55); RED CELL DISTRIBUTION WIDTH 14.2 % (11.5-14.0); TOTAL CELLS COUNTED % (AUTO) 100 %
[2018-02-03 01:53] LABS: ALANINE AMINOTRANSFERASE 24 U/L (21-72); ALKALINE PHOSPHATASE 89 U/L (38-126); ANION GAP 12 (5-19); ASPARTATE AMINO TRANSFERASE 17 U/L (17-59); BILIRUBIN,DIRECT 0.2 mg/dL (0.0-0.4); BILIRUBIN,TOTAL 0.2 mg/dL (0.2-1.3); BLOOD UREA NITROGEN 53 mg/dL (7-20); CALCIUM 8.5 mg/dL (8.4-10.2); CARBON DIOXIDE 24 mmol/L (22-30); CHLORIDE 103 mmol/L (98-107); GLUCOSE 251 mg/dL (75-110); LIPASE 135.5 U/L (23-300); POTASSIUM 5.3 mmol/L (3.6-5.0); TOTAL PROTEIN 6.3 g/dL (6.3-8.2)
--- NOTE | 2018-02-03 04:45 | ER Document Report ---
ED General - General Chief Complaint: Abdominal Pain Stated Complaint: ABDOMINAL PAIN Time Seen by Provider: 02/03/18 00:34 Notes: Patient is a 62-year-old male who presents with complaint of intermittent abdominal pain in the suprapubic region. No vomiting. No diarrhea. No fevers. He was recently discharged from hospital after being treated for possible pneumonia for 7 days. He says he still has a mild cough but no recurrent fevers. He does have some previous psychiatric illness history per the hospital admission records. He says he is not currently seeing a doctor. Says he wants to be seen because of some of the intermittent abdominal pain. No chest pain. No shortness of breath. He is currently pain-free at this time. Patient does have a large left-sided inguinal hernia which she has had for a long time. This was evaluated by Dr. Sewell that his most recent admission. He supposed to see the surgery clinic on the to arrange for possible outpatient surgery. TRAVEL OUTSIDE OF THE [place] IN LAST 30 DAYS: No - Related Data Allergies/Adverse Reactions: Penicillins Allergy (Verified 01/03/18 08:13) Past Medical History - Social History Smoking Status: Unknown if Ever Smoked Frequency of alcohol use: None Drug Abuse: None Family History: Reviewed & Not Pertinent Patient has suicidal ideation: No Patient has homicidal ideation: No - Past Medical History Cardiac Medical History: Reports: Hx Hypertension Renal/ Medical History: Denies: Hx Peritoneal Dialysis Musculoskeletal Medical History: Reports Hx Arthritis Psychiatric Medical History: Reports: Hx Bipolar Disorder, Hx Schizophrenia Past Surgical History: Reports: Hx Orthopedic Surgery - Immunizations Hx Diphtheria, Pertussis, Tetanus Vaccination: - unk Review of Systems - Review of Systems Notes: My Normal Review Basic REVIEW OF SYSTEMS: CONSTITUTIONAL : Denies fever, chills, or sweats. Denies recent illness. CARDIOVASCULAR: Denies chest pain. RESPIRATORY: Mild intermittent cough. GASTROINTESTINAL: Intermittent periumbilical abdominal pain. Some nausea. No vomiting. GENITOURINARY: Denies difficulty urinating, painful urination, burning, frequency, or blood in urine. MUSCULOSKELETAL: Denies neck or back pain or joint pain or swelling. SKIN: Denies rash or skin lesions. NEUROLOGICAL: Denies altered mental status or loss of consciousness. Denies headache. Denies weakness or paralysis or loss of use of either side. Denies problems with gait or speech. Denies sensory or motor loss. PSYCHIATRIC: Denies anxiety or stress or depression. ALL OTHER SYSTEMS REVIEWED AND NEGATIVE. Physical Exam - Vital signs Vitals: Temp Pulse Resp BP Pulse Ox 98.0 F 70 20 163/61 H 97 02/02/18 23:13 02/02/18 23:13 02/02/18 23:13 02/02/18 23:13 02/02/18 23:13 - Notes Notes: General Appearance: Well nourished, alert, cooperative, no acute distress, no obvious discomfort. Well-appearing. Vitals: reviewed, See vital signs table. Head: no swelling or tenderness to the head Eyes: PERRL, EOMI, Conjuctiva clear Mouth: No decreasd moisture Throat: No tonsillar inflammation, No airway obstruction, No lymphadenopathy Lungs: No wheezing, No rales, No rhonci, No accessory muscle use, good air exchange bilaterally. Heart: Normal rate, Regular rythm, No murmur, no rub Abdomen: Normal BS, soft, No rigidity, no reproducible pain to palpation of the abdomen., No guarding, no rebound, no abdominal masses, no organomegaly Extremities: strength 5/5 in all extremities, good pulses in all extremities, no swelling or tenderness in the extremities, no edema. Skin: warm, dry, appropriate color, no rash Neuro: speech clear, oriented x 3, normal affect, responds appropriately to questions. Course - Re-evaluation Re-evalutation: 02/03/18 04:44 Reevaluation patient is currently sleeping. I did wake him up to talk to him. He continues to deny any recurrent pain. The only thing pending is a urinalysis. He says he does have to urinate. He is going to the bathroom to give us a urine sample. 02/03/18 06:23 02/03/18 06:43 I was going to discharge patient on reevaluation but he said he had some recurrence of pain on reassessment of his abdomen.. Reassessed his hernia. His hernia remains soft. I am able to partially reduce it. It is not significantly tender to palpation. The skin color over the hernia is normal- appearing. I obtain a CT scan. CT scan does not show any evidence of obstruction of the hernia. There is no inflammation. There is no evidence of intra-abdominal infection. Even though the patient has some repeat dull pain on examination it seems very mild as I have to push very hard over his left lower quadrant cause any pain. Remainder of his abdomen is nontender. At this time I feel the patient is safe to be discharged home. On the CT scan did mention some continued recurrence of what appears to be pneumonia in the left lower lobe. I think this is more likely scarring however being that he is having some recurrent leukocytosis we will place him on doxycycline. Reviewing his records it appears that he has a history of recurrent leukocytosis and that his last admission was as high as 33,000. He has an upcoming appointment with the clinic on the . Informed to keep this appointment but to have a low threshold to return to the ER if he has recurrent worsening pain in his abdomen , vomiting, fevers, any difficulty breathing, or if he feels unwell. Patient says he does not have a lot of money for antibiotic and therefore I told him I would print off a good Rx prescription at the cheapest local pharmacy to help him out. He is agreeable with this. Dictation of this chart was performed using voice recognition software; therefore, there may be some unintended grammatical errors. - Vital Signs Vital signs: Temp Pulse Resp BP Pulse Ox 98.5 F 70 17 178/87 H 96 02/03/18 01:18 02/02/18 23:13 02/03/18 04:31 02/03/18 04:31 02/03/18 06:00 - Laboratory Result Diagrams: 02/03/18 01:20 02/03/18 01:20 Laboratory results interpreted by me: 02/03/18 02/03/18 02/03/18 01:20 01:20 04:49 WBC 15.0 H RBC 3.48 L Hgb 10.1 L Hct 30.7 L RDW 14.2 H Plt Count 589 H Lymphocytes % 8.4 L Absolute Neutrophils 10.9 H Absolute Monocytes 1.8 H Absolute Eosinophils 0.9 H Potassium 5.3 H BUN 53 H Creatinine 1.95 H Est GFR ( Amer) 42 L Est GFR (Non-Af Amer) 35 L Glucose 251 H Albumin 3.0 L Urine Protein 30 H Discharge - Discharge Clinical Impression: Renal insufficiency, Inguinal hernia of left side without obstruction or gangrene Abdominal pain Qualifiers: Abdominal location: left lower quadrant Qualified Code(s): R10.32 - Left lower quadrant pain Leucocytosis Qualifiers: Leukocytosis type: unspecified Qualified Code(s): D72.829 - Elevated white blood cell count, unspecified Condition: Good Disposition: HOME, SELF-CARE Additional Instructions: Your blood work shows just a slightly elevated white blood cell count. Looking through your records it appears that you have a recurring elevated white blood cell count. You still have some evidence of pneumonia on your CT scan. This could just be related to your recent pneumonia however being that you do have a recurrent elevated white blood cell count we will place you back on an antibiotic called doxycycline. You have been given the first dose here. I printed off a coupon for you to use to fill the prescription at [facility]. This appeared to be the least expensive pharmacy in the area. Please follow-up with the surgery clinic on the as already scheduled. Please return to ER immediately if you have worsening abdominal pain, vomiting, or increasing pain in your hernia. Please return to the ER immediately if you have difficulty breathing. Doxycycline will make your skin more sensitive to the sun so please make sure you keep your skin covered or wear sunscreen whenever out in the sun. Prescriptions: Doxycycline Hyclate 100 mg PO BID #14 capsule Referrals: MADIHA SEWELL MD [ACTIVE STAFF] - 02/07/18
[2018-02-03 05:06] LABS: APPEARANCE,URINE CLEAR; BILIRUBIN,URINE NEGATIVE (NEGATIVE); COLOR,URINE COLORLESS; GLUCOSE, URINE NEGATIVE (NEGATIVE); KETONES,URINE NEGATIVE (NEGATIVE); LEUKOCYTE ESTERASE,URINE NEGATIVE (NEGATIVE); NITRITE,URINE NEGATIVE (NEGATIVE); PROTEIN,URINE 30 mg/dL (NEGATIVE); URINE SPECIFIC GRAVITY 1.008; UROBILINOGEN,URINE NEGATIVE mg/dL (<2.0)
--- NOTE | 2018-02-03 06:23 | RADIOLOGY REPORT (SQ) ---
EXAM DESCRIPTION: CT ABDOMEN PELVIS WITHOUT IV CONTRAST COMPLETED DATE/TME: 02/03/2018 05:27 CLINICAL HISTORY: 62 years, Male, LLQ abdominal pain. No surgical hx. COMPARISON: 01/03/2018 CT TECHNIQUE: 451 Images stored on PACS. All CT scanners at this facility use dose modulation, iterative reconstruction, and/or weight based dosing when appropriate to reduce radiation dose to as low as reasonably achievable (ALARA). [facility]: Dose Right [facility]: CareDose [facility]: Dose Right [facility]: Teradose 4D [facility]: [employer] LIMITATIONS: None. FINDINGS: Limited evaluation of the lung bases shows reticulonodular changes in the lung bases bilaterally and in the lingula with more extensive consolidative change in the posterior left lung base, worrisome for pneumonia. Tiny left pleural effusion. Osseous structures are grossly intact. Limited evaluation of the liver, spleen, adrenal glands, pancreas is unremarkable. The gallbladder is present. Rather extensive atheromatous changes are noted. Calcifications in the regions of the renal pelves bilaterally are likely vascular. No obstructing calculus or hydronephrosis. Large amount of stool in the colon. No gross evidence for bowel obstruction. Left inguinal hernia containing a portion of colon. Normal appendix. No free air or free fluid.. IMPRESSION: Vascular calcifications of the kidneys are noted however no discrete urinary tract calculus or hydronephrosis. Rather extensive atheromatous changes. Large amount of stool in the colon. Left inguinal hernia containing a portion of colon. No gross evidence for bowel obstruction. Reticulonodular changes in the lung bases bilaterally with more dense consolidative change in the posterior left lung base, worrisome for pneumonia. Tiny left pleural effusion. TECHNICAL DOCUMENTATION: Quality ID # [id number]: Final reports with documentation of one or more dose reduction techniques (e.g., Automated exposure control, adjustment of the mA and/or kV according to patient size, use of iterative reconstruction technique) copyright 2011 [employer]- All Rights Reserved
[2018-02-03] MEDS ORDERED: DOXYCYCLINE HYCLATE 100 MG TABLET PO ONE (06:36)
[2018-02-03 07:15] VITALS: BP 127/85
--- NOTE | 2018-02-03 21:27 | EKG REPORT ---
SEVERITY:- BORDERLINE ECG - SINUS RHYTHM BORDERLINE ST ELEVATION, INFERIOR LEADS : Confirmed by: Maeve Hayward MD 03-Feb-2018 21:26:24
== END 2018-02-03 07:00 | disposition home or self-care (01) ==
LOC: ER 22:22
DX: N28.9 Disorder of kidney and ureter, unspecified (principal); K40.90 Unilateral inguinal hernia, without obstruction or gangrene, not specified as recurrent; R10.32 Left lower quadrant pain; D72.829 Elevated white blood cell count, unspecified; R10.9 Unspecified abdominal pain; R10.30 Lower abdominal pain, unspecified; R05 Cough; I10 Essential (primary) hypertension
CPT/HCPCS: 93005; 99284; 36415; 83690; 85025; 80053; 81001; 84484; 74176; 93010; A9270

== ENCOUNTER 2018-10-07 21:12 | Emergency (ER) | payer MEDICARE ==
--- NOTE | 2018-10-07 21:38 | ER Document Report ---
ED General - General Chief Complaint: Foot Pain Stated Complaint: FOOT PAIN Time Seen by Provider: 10/07/18 21:23 TRAVEL OUTSIDE OF THE [place] IN LAST 30 DAYS: No - HPI Notes: 62-year-old male with a history of schizophrenia, presents with left foot pain and swelling. Patient also complains of groin swelling. Patient is a poor historian, apparently was at a bus stop, thinks he stepped on a snake but in dicates to me was wearing thick soled boots that are up to his lower calf. When questioned more at length he indicates he has had some pain and swelling in his left foot and has had some antibiotics for before. Also has left groin pain and swelling has been ongoing for several months. His history of prior hernia repair but thinks it is on the other side. Moderate intensity, gradual onset, nonradiating. No vomiting, no fever. Worse with weightbearing. - Related Data Allergies/Adverse Reactions: Penicillins Allergy (Verified 01/03/18 08:13) Past Medical History - Social History Smoking Status: Unknown if Ever Smoked Family History: Reviewed & Not Pertinent Patient has suicidal ideation: No Patient has homicidal ideation: No - Past Medical History Cardiac Medical History: Reports: Hx Hypertension Renal/ Medical History: Denies: Hx Peritoneal Dialysis Musculoskeletal Medical History: Reports Hx Arthritis Psychiatric Medical History: Reports: Hx Bipolar Disorder, Hx Schizophrenia Past Surgical History: Reports: Hx Orthopedic Surgery - Immunizations Hx Diphtheria, Pertussis, Tetanus Vaccination: - unk Review of Systems - Review of Systems Notes: Review of systems as in the history of present illness, otherwise negative x 10 systems. Physical Exam - Notes Notes: General: Well developed . HEENT: Normocephalic, atraumatic. Pupils equal round reactive to light. No JVD. Chest: No trauma. Respiratory: Good air exchange, normal excursion. Cardiac: Regular rhythm. No murmurs or gallops. Abdomen: Soft, benign. Nondistended. Nontender. There is a large left inguinal hernia that is easily reducible. No edema, erythema or induration. Back: No asymmetry or gross abnormality. Motor: Grossly normal power and tone. Neurologic: Alert, nonfocal. Cranial nerves II-12 are intact. Sensation intact. Vascular: Well perfused. Normal peripheral pulses. Skin: No petechiae or purpura. Extremities: Both feet are dirty. Left foot has some mild erythema distally over the dorsum. No open wound. No evidence of puncture wound. No abscess. Course - Re-evaluation Re-evalutation: 10/07/18 21:37 Well-appearing male with easily reducible hernia, no indication for emergent surgical work-up or evaluation. I instructed him with regard to the signs and symptoms of incarcerated hernia. With regard to his foot, difficult to ascertain if he has chronic inflammation and swelling versus an early cellulitis or an occult fracture. We will proceed with plain films, basic labs, reevaluate. 10/07/18 22:54 Labs reviewed. CBC unremarkable. Chemistries unremarkable except for mild renal insufficiency which is worse than a comparison from approximate 1 year ago. I see no medications that are nephrotoxic. Patient clinically appears to be dry and I suspect is not hydrating as appropriate. I see no indication for hospital admission at this time. He is received IV fluids in the ED, is encouraged to increase his fluid intake and will follow closely as an outpatient for recheck. X-ray of his foot shows no foreign body, no fracture. Wear the side of caution and cover for possible cellulitis. - Laboratory Result Diagrams: 10/07/18 21:40 10/07/18 21:40 Laboratory results interpreted by me: 10/07/18 10/07/18 21:40 21:40 RDW 15.3 H Monocytes % 14.4 H Sodium 136.3 L BUN 54 H Creatinine 2.46 H Est GFR ( Amer) 32 L Est GFR (Non-Af Amer) 27 L Glucose 127 H Discharge - Discharge Clinical Impression: Renal insufficiency Cellulitis Qualifiers: Site of cellulitis: extremity Laterality: left Condition: Stable Disposition: HOME, SELF-CARE Instructions: Cellulitis ([facility]), Dehydration ([facility]) Prescriptions: Cephalexin Monohydrate [Keflex 500 mg Capsule] 500 mg PO Q6H 7 Days #28 capsule
[2018-10-07 22:02] LABS: ABSOLUTE BASOPHILS # (AUTO) 0.1 10^3/uL (0.0-0.2); ABSOLUTE EOSINOPHILS # (AUTO) 0.2 10^3/uL (0.0-0.6); ABSOLUTE LYMPHOCYTES (AUTO) 1.3 10^3/uL (0.5-4.7); ABSOLUTE MONOCYTES (AUTO) 1.1 10^3/uL (0.1-1.4); ABSOLUTE NEUT (AUTO) 4.7 10^3/uL (1.7-8.2); BASOPHILS % (AUTO) 0.9 % (0-2); EOSINOPHILS % (AUTO) 3.2 % (0-6); HEMATOCRIT 43.9 % (37.9-51.0); HEMOGLOBIN 14.6 g/dL (13.5-17.0); LYMPHOCYTES % (AUTO) 17.6 % (13-45); MEAN CORPUSCULAR HEMOGLOBIN 29.2 pg (27.0-33.4); MEAN CORPUSCULAR HGB CONC 33.3 g/dL (32.0-36.0); MEAN CORPUSCULAR VOLUME 88 fl (80-97); MONOCYTES % (AUTO) 14.4 % (3-13); PLATELET COUNT 261 10^3/uL (150-450); RED CELL DISTRIBUTION WIDTH 15.3 % (11.5-14.0); SEGMENTED NEUTROPHILS % (AUTO) 63.9 % (42-78); TOTAL CELLS COUNTED % (AUTO) 100 %; WHITE BLOOD COUNT 7.3 10^3/uL (4.0-10.5)
--- NOTE | 2018-10-07 22:13 | RADIOLOGY REPORT (SQ) ---
XR FOOT 3 OR MORE VIEWS CLINICAL STATEMENT: Pain and swelling COMPARISON: None FINDINGS: Bony alignment is anatomic. There is no fracture or dislocation. The soft tissues are unremarkable. No radiopaque foreign body. No evidence for subcutaneous emphysema. IMPRESSION: No fracture. No suspicious findings.
[2018-10-07 22:16] LABS: ANION GAP 10 (5-19); BLOOD UREA NITROGEN 54 mg/dL (7-20); CALCIUM 9.1 mg/dL (8.4-10.2); CARBON DIOXIDE 22 mmol/L (22-30); CHLORIDE 104 mmol/L (98-107); GLUCOSE 127 mg/dL (75-110); POTASSIUM 4.9 mmol/L (3.6-5.0)
[2018-10-07] MEDS ORDERED: RINGERS SOLUTION,LACTATED 1,000 ML IV ONE (22:37)
== END 2018-10-07 23:55 | disposition home or self-care (01) ==
LOC: ER 21:12
DX: N28.9 Disorder of kidney and ureter, unspecified (principal); L03.116 Cellulitis of left lower limb; M79.672 Pain in left foot; I10 Essential (primary) hypertension; K40.90 Unilateral inguinal hernia, without obstruction or gangrene, not specified as recurrent; Z88.0 Allergy status to penicillin
CPT/HCPCS: 36415; 80048; 85025; 99284

== ENCOUNTER 2019-02-06 05:53 | Inpatient (IN) | payer MEDICARE ==
[2019-02-06] MEDS ORDERED: NORMAL SALINE 1000 ML 1,000 ML IV ONE ×2 (06:22→13:00)
[2019-02-06] MEDS ORDERED: ONDANSETRON HCL INJ/PF 4 MG/2 ML SDV IV ONE (06:22)
[2019-02-06] MEDS ORDERED: PANTOPRAZOLE SODIUM 40 MG VIAL IV ONE (06:31)
[2019-02-06 06:55] LABS: HEMATOCRIT 18.2 % (37.9-51.0); MEAN CORPUSCULAR HEMOGLOBIN 27.9 pg (27.0-33.4); MEAN CORPUSCULAR HGB CONC 30.7 g/dL (32.0-36.0); MEAN CORPUSCULAR VOLUME 91 fl (80-97); PLATELET COUNT 451 10^3/uL (150-450); RED CELL DISTRIBUTION WIDTH 15.8 % (11.5-14.0); WHITE BLOOD COUNT 15.7 10^3/uL (4.0-10.5)
[2019-02-06 06:56] LABS: INTERNATIONAL RATION (INR) 1.22; PROTHROMBIN TIME 15.5 SEC (11.4-15.4)
[2019-02-06 06:57] LABS: PARTIAL THROMBOPLASTIN TIME 39.5 SEC (23.5-35.8)
[2019-02-06 07:09] LABS: ALKALINE PHOSPHATASE 81 U/L (38-126); ASPARTATE AMINO TRANSFERASE 22 U/L (17-59); BILIRUBIN,DIRECT 0.3 mg/dL (0.0-0.4); BILIRUBIN,TOTAL 0.4 mg/dL (0.2-1.3); BLOOD UREA NITROGEN 95 mg/dL (7-20); CALCIUM 8.8 mg/dL (8.4-10.2); GLUCOSE 347 mg/dL (75-110); TOTAL PROTEIN 6.1 g/dL (6.3-8.2)
[2019-02-06 07:14] LABS: CHLORIDE 108 mmol/L (98-107)
[2019-02-06 07:16] LABS: HEMOGLOBIN 5.6 g/dL (13.5-17.0)
[2019-02-06 07:19] LABS: ALCOHOL < 10 mg/dL (NONE DETECTED)
[2019-02-06 07:21] LABS: ANION GAP 21 (5-19)
[2019-02-06 07:22] LABS: ABSOLUTE LYMPHOCYTES# (MANUAL) 2.4 10^3/uL (0.5-4.7); ABSOLUTE MONOCYTES # (MANUAL) 1.6 10^3/uL (0.1-1.4); ANISOCYTOSIS 1+; BAND NEUTROPHILS % (MANUAL) 3 % (3-5); BASOPHILS % (MANUAL) 0 % (0-2); EOSINOPHILS % (MANUAL) 0 % (0-6); LYMPHOCYTES % (MANUAL) 15 % (13-45); MONOCYTES % (MANUAL) 10 % (3-13); NUCLEATED RED BLOOD CELLS 1 /100 WBC (0); SEGMENTED NEUTROPHILS % (MAN) 72 % (42-78); TOTAL CELLS COUNTED 100
[2019-02-06 07:23] LABS: CARBON DIOXIDE 9 mmol/L (22-30); PLATELET COMMENT INCREASED; POTASSIUM 6.4 mmol/L (3.6-5.0)
[2019-02-06] MEDS ORDERED: NORMAL SALINE 250 ML IV PRN (07:57)
[2019-02-06] MEDS ORDERED: CALCIUM GLUCONATE 1000 MG/10 ML INJ IV ONE ×2 (08:09→13:53)
[2019-02-06 08:20] LABS: APPEARANCE,URINE SLIGHTLY-CLOUDY; BILIRUBIN,URINE NEGATIVE (NEGATIVE); COLOR,URINE YELLOW; GLUCOSE, URINE 50 mg/dL (NEGATIVE); KETONES,URINE NEGATIVE (NEGATIVE); LEUKOCYTE ESTERASE,URINE NEGATIVE (NEGATIVE); NITRITE,URINE NEGATIVE (NEGATIVE); PROTEIN,URINE 100 mg/dL (NEGATIVE); URINE SPECIFIC GRAVITY 1.013; UROBILINOGEN,URINE NEGATIVE mg/dL (<2.0)
[2019-02-06] MEDS: NORMAL SALINE 250 ML IV PRN (08:29)
--- NOTE | 2019-02-06 08:45 | RADIOLOGY REPORT (SQ) ---
EXAM DESCRIPTION: CHEST SINGLE VIEW COMPLETED DATE/TIME: 02/06/2019 8:11 am REASON FOR STUDY: sepsis COMPARISON: 01/30/2018. EXAM PARAMETERS: NUMBER OF VIEWS: One view. TECHNIQUE: Single frontal radiographic view of the chest acquired. RADIATION DOSE: NA LIMITATIONS: None. FINDINGS: LUNGS AND PLEURA: No opacities, masses or pneumothorax. No pleural effusion. MEDIASTINUM AND HILAR STRUCTURES: No masses. Contour normal. HEART AND VASCULAR STRUCTURES: Heart normal in size. Normal vasculature. BONES: No acute findings. HARDWARE: None in the chest. OTHER: No other significant finding. IMPRESSION: NO ACUTE RADIOGRAPHIC FINDING IN THE CHEST. TECHNICAL DOCUMENTATION: JOB ID: [id number] [employer]- All Rights Reserved Reading location - IP/workstation name: [email or web address]
[2019-02-06 13:19] LABS: HEMATOCRIT 20.2 % (37.9-51.0); MEAN CORPUSCULAR HGB CONC 33.2 g/dL (32.0-36.0); PLATELET COUNT 429 10^3/uL (150-450); RED BLOOD COUNT 2.31 10^6/uL (4.35-5.55); RED CELL DISTRIBUTION WIDTH 14.7 % (11.5-14.0); WHITE BLOOD COUNT 18.1 10^3/uL (4.0-10.5)
[2019-02-06 13:20] LABS: HEMOGLOBIN 6.7 g/dL (13.5-17.0)
[2019-02-06 13:27] LABS: MEAN CORPUSCULAR VOLUME 87 fl (80-97)
[2019-02-06 13:34] LABS: ANION GAP 10 (5-19); BLOOD UREA NITROGEN 100 mg/dL (7-20); CALCIUM 8.3 mg/dL (8.4-10.2); CARBON DIOXIDE 18 mmol/L (22-30); CHLORIDE 110 mmol/L (98-107); GLUCOSE 243 mg/dL (75-110)
[2019-02-06 13:50] LABS: POTASSIUM 6.8 mmol/L (3.6-5.0)
[2019-02-06] MEDS ORDERED: DEXTROSE 50%-WATER 25 GM/50 ML DISP.SYRIN IV ONE (13:53)
[2019-02-06] MEDS ORDERED: INSULIN REG, HUMAN 100 UNIT/ML 3 ML VIAL (PYX) IV ONE (13:54)
[2019-02-06] MEDS ORDERED: SODIUM POLYSTYRENE SULFONATE 15 GM/60 ML PO ONE (14:08)
--- NOTE | 2019-02-06 14:09 | ER Document Report ---
Entered by KAMALA CEDILLO SCRIBE 02/06/19 0628 Acting as scribe for:BYRON RICHTER DO ED General - General Chief Complaint: Nausea/Vomiting/Diarrhea Stated Complaint: DIARRHEA Time Seen by Provider: 02/06/19 06:20 Mode of Arrival: Ambulatory Information source: Patient Notes: This 63-year-old male patient presents via EMS to the emergency department today with complaints of nausea, vomiting, and diarrhea which has been going on for the last several days per patient. Nursing notes state that as soon as the patient arrived here, he immediately went to bathroom, having diarrhea and vomiting. Patient is disheveled and appears very unkempt. Patient is a very poor historian so history is limited. TRAVEL OUTSIDE OF THE [place] IN LAST 30 DAYS: No - Related Data Allergies/Adverse Reactions: Penicillins Allergy (Verified 01/03/18 08:13) Home Medications: ASA Past Medical History - General Information source: Patient - Social History Smoking Status: Current Every Day Smoker Cigarette use (# per day): Yes Chew tobacco use (# tins/day): No Drug Abuse: None Lives with: Family Family History: Reviewed & Not Pertinent Patient has suicidal ideation: No Patient has homicidal ideation: No - Past Medical History Cardiac Medical History: Reports: Hx Hypertension Musculoskeletal Medical History: Reports Hx Arthritis Psychiatric Medical History: Reports: Hx Bipolar Disorder, Hx Schizophrenia Past Surgical History: Reports: Hx Orthopedic Surgery - Immunizations Hx Diphtheria, Pertussis, Tetanus Vaccination: - unk Review of Systems - Review of Systems Constitutional: No symptoms reported EENT: No symptoms reported Cardiovascular: No symptoms reported Respiratory: No symptoms reported Gastrointestinal: See HPI, Abdominal pain, Diarrhea, Nausea, Vomiting Genitourinary: No symptoms reported Male Genitourinary: No symptoms reported Musculoskeletal: No symptoms reported Skin: See HPI, Change in color Hematologic/Lymphatic: No symptoms reported Neurological/Psychological: No symptoms reported -: Yes All other systems reviewed and negative Physical Exam - Vital signs Vitals: Pulse BP 91 153/63 H 02/06/19 06:09 02/06/19 06:09 Interpretation: Other - hypothermic - General General appearance: Alert Notes: Chronically ill-appearing - HEENT Head: Normocephalic, Atraumatic Mucous membranes: Dry - Respiratory Respiratory status: No respiratory distress Breath sounds: Normal - Cardiovascular Rhythm: Regular - Abdominal Inspection: Normal Tenderness: Nontender - Back Back: Normal, Nontender - Extremities General upper extremity: Normal inspection, Normal ROM General lower extremity: Normal ROM, Normal weight bearing - Neurological Neuro grossly intact: Yes Cognition: Confused [place] Coma Scale Eye Opening: Spontaneous [place] Coma Scale Verbal: Confused [place] Coma Scale Motor: Obeys Commands [place] Coma Scale Total: 14 Speech: Normal Motor strength normal: LUE, RUE, LLE, RLE - Psychological Associated symptoms: Confused - Skin Skin Temperature: Cool Skin Moisture: Dry Skin Color: Pale Course - Re-evaluation Re-evalutation: 02/06/19 08:[address] Bergman about admission to the ICU, he is unsure if there are any available ICU beds, states he will discuss with milk house worker. 02/06/19 09:56 Dr. Bergman is continuing to work on getting ICU bed. 02/06/19 12:49 No ICU bed. 02/06/19 14:09 Patient is a 63-year-old male that came in apparently from home. He initially was unable to provide much history. Patient states that he felt very weak and had had some vomiting. Coffee-ground emesis in room. Hemoglobin of 5.6. Patient with MARCE and hyperkalemia. Given calcium gluconate and fluids. Repeat potassium ordered but it was not done until after his blood transfusion. Repeat potassium is 6.8. Kayexalate, D50, insulin, calcium gluconate ordered. Patient is feeling better at this time. He is asking for a phone cosmetic sales consultant and if he can shave. Hypothermia has resolved with bear hugger. Per records, it appears the patient has had some renal insufficiency before, but not this bad. Gomez catheter placed and patient is putting out urine without any difficulty. Consultation has been done with Dr. Goodwin who will evaluate the patient. I have also spoken with Dr. Sewell who will scope the patient and is to remain n.p.o. Unfortunately, there have not been beds in the ICU. Dr. Bergman however has accepted the patient and will work on getting a bed in the ICU. Improving at the time of admission. I have ordered a repeat chemistry as the patient received his hyperkalemia cocktail at 1407. Vital signs have been stable. - Vital Signs Vital signs: Temp Pulse Resp BP Pulse Ox 98.4 F 84 22 H 129/56 H 100 02/06/19 09:40 02/06/19 09:40 02/06/19 13:01 02/06/19 14:36 02/06/19 14:36 - Laboratory Result Diagrams: 02/06/19 13:05 02/06/19 13:05 Laboratory results interpreted by me: 02/06/19 02/06/19 02/06/19 06:08 06:20 06:20 WBC 15.7 H RBC 2.00 L Hgb 5.6 L Hct 18.2 L MCHC 30.7 L RDW 15.8 H Plt Count 451 H Abs Neuts (Manual) 11.8 H Abs Monocytes (Manual) 1.6 H PT APTT Potassium 6.4 H* Chloride 108 H Carbon Dioxide 9 L* Anion Gap 21 H BUN 95 H Creatinine 3.40 H Est GFR ( Amer) 22 L Est GFR (MDRD) Non-Af 18 L Glucose 347 H POC Glucose 290 H Lactic Acid (Sepsis) Calcium Total Protein 6.1 L Albumin 3.0 L Urine Protein Urine Glucose (UA) Urine Blood Salicylates Crossmatch 02/06/19 02/06/19 02/06/19 06:20 06:20 06:20 WBC RBC Hgb Hct MCHC RDW Plt Count Abs Neuts (Manual) Abs Monocytes (Manual) PT 15.5 H APTT 39.5 H Potassium Chloride Carbon Dioxide Anion Gap BUN Creatinine Est GFR ( Amer) Est GFR (MDRD) Non-Af Glucose POC Glucose Lactic Acid (Sepsis) 11.6 H Calcium Total Protein Albumin Urine Protein Urine Glucose (UA) Urine Blood Salicylates Crossmatch See Detail 02/06/19 02/06/19 02/06/19 06:20 07:48 10:04 WBC RBC Hgb Hct MCHC RDW Plt Count Abs Neuts (Manual) Abs Monocytes (Manual) PT APTT Potassium Chloride Carbon Dioxide Anion Gap BUN Creatinine Est GFR ( Amer) Est GFR (MDRD) Non-Af Glucose POC Glucose Lactic Acid (Sepsis) 2.2 H Calcium Total Protein Albumin Urine Protein 100 H Urine Glucose (UA) 50 H Urine Blood SMALL H Salicylates 1.1 L Crossmatch 02/06/19 02/06/19 02/06/19 12:22 13:05 13:05 WBC 18.1 H RBC 2.31 L Hgb 6.7 L Hct 20.2 L MCHC RDW 14.7 H Plt Count Abs Neuts (Manual) Abs Monocytes (Manual) PT APTT Potassium 6.8 H* Chloride 110 H Carbon Dioxide 18 L Anion Gap BUN 100 H Creatinine 2.86 H Est GFR ( Amer) 27 L Est GFR (MDRD) Non-Af 22 L Glucose 243 H POC Glucose 299 H Lactic Acid (Sepsis) Calcium 8.3 L Total Protein Albumin Urine Protein Urine Glucose (UA) Urine Blood Salicylates Crossmatch 02/06/19 14:14 WBC RBC Hgb Hct MCHC RDW Plt Count Abs Neuts (Manual) Abs Monocytes (Manual) PT APTT Potassium Chloride Carbon Dioxide Anion Gap BUN Creatinine Est GFR ( Amer) Est GFR (MDRD) Non-Af Glucose POC Glucose 247 H Lactic Acid (Sepsis) Calcium Total Protein Albumin Urine Protein Urine Glucose (UA) Urine Blood Salicylates Crossmatch Critical Care Note - Critical Care Note Total time excluding time spent on procedures (mins): 60 - Evaluation and management of multiple system problems including acute renal insufficiency and GI bleed, coordination with specialist, coordination of admission Discharge - Discharge Clinical Impression: Hyperkalemia, Dehydration, Acute encephalopathy, Anemia requiring transfusions Acute renal failure Qualifiers: Acute renal failure type: unspecified Qualified Code(s): N17.9 - Acute kidney failure, unspecified Schizophrenia Qualifiers: Schizophrenia type: unspecified Qualified Code(s): F20.9 - Schizophrenia, unspecified GI bleed Qualifiers: GI bleed type/associated pathology: unspecified gastrointestinal hemorrhage type Qualified Code(s): K92.2 - Gastrointestinal hemorrhage, unspecified Condition: Stable Disposition: ADMITTED INPATIENT Admitting Provider: Pacheco (Java Xml Developer) Unit Admitted: ICU I personally performed the services described in the documentation, reviewed and edited the documentation which was dictated to the scribe in my presence, and it accurately records my words and actions.
[2019-02-06] MEDS ORDERED: DEXTROSE 5%-1/2 NORMAL SALINE 1,000 ML IV ONE (16:23)
[2019-02-06 16:38] LABS: ANION GAP 11 (5-19); BLOOD UREA NITROGEN 92 mg/dL (7-20); CALCIUM 8.6 mg/dL (8.4-10.2); CARBON DIOXIDE 17 mmol/L (22-30); CHLORIDE 115 mmol/L (98-107); GLUCOSE 84 mg/dL (75-110)
[2019-02-06 16:45] LABS: POTASSIUM 5.6 mmol/L (3.6-5.0)
[2019-02-06] MEDS ORDERED: DIPHENHYDRAMINE HCL 50 MG/ML VIAL ONE (17:15)
[2019-02-06] MEDS ORDERED: ONDANSETRON HCL INJ/PF 4 MG/2 ML SDV ONE (17:15)
[2019-02-06] MEDS ORDERED: FENTANYL CITRATE INJ/PF 100 MCG/2 ML AMPUL ONE (17:16)
[2019-02-06] MEDS ORDERED: NALOXONE HCL INJ/PF 0.4 MG/1 ML SDV ONE (17:17)
[2019-02-06] MEDS ORDERED: EPINEPHRINE INJ 1 MG/10 ML DISP.SYRIN ONE (17:17)
[2019-02-06] MEDS ORDERED: FLUMAZENIL INJ 0.5 MG/5 ML VIAL ONE (17:17)
[2019-02-06] MEDS ORDERED: GLUCAGON,HUMAN RECOMB 1 MG INJ ONE (17:17)
[2019-02-06] MEDS: MIDAZOLAM 2 MG/2 ML INJ ONE ×2 (17:53→18:03)
--- NOTE | 2019-02-06 18:34 | Operative Report ---
Operative Report DATE OF SURGERY: 02/06/19 PREOPERATIVE DIAGNOSIS: 1. Acute GI bleed. 2. Blood loss anemia. 3. history of schizophrenia POSTOPERATIVE DIAGNOSIS: Same;. 1. Grade 1 esophageal varices. 2. Mild antritis. 3. No upper endoscopic evidence of bleeding source OPERATION: Upper endoscopy, biopsy of gastric antrum SURGEON: MADIHA ALEXANDER ANESTHESIA: Moderate Sedation TISSUE REMOVED OR ALTERED: Mucosal biopsy of antrum COMPLICATIONS: none ESTIMATED BLOOD LOSS: None INTRAOPERATIVE FINDINGS: See below PROCEDURE: Patient was taken to the floor where monitoring devices were attached. Is placed in left lateral decubitus position. Surgical plan and surgical timeout were conducted. Oral mouthpiece inserted. The flexible adult upper endoscope was advanced to the oropharynx, down the esophagus through the stomach into the duodenum without difficulty. First and second portions of the duodenum were normal. The scope was withdrawn to the pylorus which was essentially unremarkable. Of note there was no evidence of bleeding ,tumor, or polyp. The scope was retroflexed in the stomach and there was no evidence of pathology in the cardia. There is a small hiatal hernia. There was mild gastritis of the antrum. A random biopsy was chosen of the gastric antrum and sent for ADRIANA testing. The scope was brought back through the GE junction which was at 40 cm from the incisor. There was no significant inflammation. There were grade 1 esophageal varix but no evidence of bleeding or clot. The scope was withdrawn from the patient's oropharynx. He tolerated the procedure well. Findings: Esophageal varix, grade 1; mild gastritis; no evidence of acute gastrointestinal bleeding source identified Recommendations: 1. Support patient, transfuse as indicated; correct metabolic abnormalities 2. Will sign off for now; reconsult surgery if further endoscopic evaluation warranted. 3. The above discussed with Dr. Jordan Bergman
[2019-02-06 23:01] LABS: HEMATOCRIT 18.5 % (37.9-51.0); MEAN CORPUSCULAR HEMOGLOBIN 28.5 pg (27.0-33.4); MEAN CORPUSCULAR HGB CONC 32.5 g/dL (32.0-36.0); MEAN CORPUSCULAR VOLUME 88 fl (80-97); PLATELET COUNT 392 10^3/uL (150-450); RED CELL DISTRIBUTION WIDTH 14.7 % (11.5-14.0); WHITE BLOOD COUNT 12.2 10^3/uL (4.0-10.5)
[2019-02-06 23:23] LABS: ANION GAP 11 (5-19); BLOOD UREA NITROGEN 81 mg/dL (7-20); CALCIUM 8.1 mg/dL (8.4-10.2); CARBON DIOXIDE 18 mmol/L (22-30); CHLORIDE 112 mmol/L (98-107); GLUCOSE 212 mg/dL (75-110); PHOSPHORUS 3.9 mg/dL (2.5-4.5); POTASSIUM 4.8 mmol/L (3.6-5.0)
[2019-02-06 23:43] LABS: URINE CREATININE 53.8 mg/dL (22-328)
[2019-02-07 00:01] LABS: ANION GAP 9 (5-19); BLOOD UREA NITROGEN 81 mg/dL (7-20); CALCIUM 8.2 mg/dL (8.4-10.2); CARBON DIOXIDE 19 mmol/L (22-30); CHLORIDE 113 mmol/L (98-107); GLUCOSE 210 mg/dL (75-110)
[2019-02-07 00:22] LABS: ERYTHROCYTE SEDIMENTATION RATE > 120 mm/hr (0-20)
[2019-02-07] MEDS ORDERED: NORMAL SALINE 250 ML IV PRN (00:31)
--- NOTE | 2019-02-07 00:31 | EKG REPORT ---
SEVERITY:- ABNORMAL ECG - SINUS RHYTHM NONSPECIFIC INTRAVENTRICULAR CONDUCTION DELAY BORDERLINE ST DEPRESSION, LATERAL LEADS LVH : Confirmed by: Madalyn Walker 07-Feb-2019 00:30:46
[2019-02-07] MEDS ORDERED: DEXTROSE 40% GEL 15 GM TUBE PO PRN ×4 (01:12→05:48)
[2019-02-07] MEDS ORDERED: GLUCAGON,HUMAN RECOMB 1 MG INJ SUBCUT PRN (01:12)
[2019-02-07] MEDS ORDERED: DEXTROSE 50%-WATER 25 GM/50 ML DISP.SYRIN IV PRN ×4 (01:12→05:48)
[2019-02-07] MEDS: NORMAL SALINE 250 ML IV PRN (01:34)
[2019-02-07] MEDS: PANTOPRAZOLE SODIUM 40 MG VIAL IV SCH ×3 (02:50→22:58)
[2019-02-07] MEDS ORDERED: GLUCAGON,HUMAN RECOMB 1 MG INJ IM PRN (05:48)
[2019-02-07] MEDS: INSULIN REG, HUMAN 100 UNIT/ML 3 ML VIAL (PYX) SUBCUT SCH ×3 (06:55→17:08)
--- NOTE | 2019-02-07 09:09 | CRITICAL CARE ADMISSION REPORT ---
HPI Date:: 02/06/19 Time:: 21:30 Reason for ICU Reason:: Acute anemia due to blood loss vs hemolysis, MARCE on CKD HPI: Mr. east is a 63-year-old male with a past medical history of hypertension, CKD, bipolar/schizophrenia, and current smoking tobacco abuse who presented with complaints of several days nausea, vomiting, diarrhea. Work-up in the ED demonstrated acute anemia with a hemoglobin of 5.6 for which the patient received 1 PRBC, with hemoglobin improvement to 6.7. Also with MARCE on CKD with the presence of hyperkalemia potassium 6.8 for which the patient was treated with insulin, D50, calcium and the potassium improved to 5.6. Patient denies chest pain or shortness of breath. Vital signs: Heart rate 77, BP 152/70, RR 14, 100% on room air and patient is in no acute distress. An EGD was performed by surgery demonstrating a nonbleeding grade 1 varix as well as mild gastritis. History obtained from:: ER physician, medical record, and patient (though extremely poor historian) - Diagnosis/Plan (1) Acute kidney injury superimposed on chronic kidney disease Is this a current diagnosis for this admission?: Yes Plan: Hydration with IV fluids. Repeat BMP PRN to trend serum BUN and creatinine. Gomez already in place by ED in setting of suspected GIB, strict I&O q1 hour. Monitor for electrolyte abnormalities. (2) Gastritis Qualifiers: Gastritis type: unspecified gastritis Chronicity: acute Gastritis bleeding: without bleeding Qualified Code(s): K29.00 - Acute gastritis without bleeding Is this a current diagnosis for this admission?: Yes Plan: PPI twice daily x48 hours, then evaluate for ongoing therapy based on clinical picture at that time. Monitor H&H, hematemesis, and abdominal pain. (3) Hyperglycemia Is this a current diagnosis for this admission?: Yes Plan: Start Accu-Cheks and insulin sliding scale for glucose control with goal less than 180 (4) Anemia requiring transfusions Is this a current diagnosis for this admission?: Yes Plan: Check H&H as needed to keep hemoglobin greater than 7, transfuse as needed. May need to target a hemoglobin of 8 depending on how briskly patient is losing/destroying red blood cells. Check ESR, haptoglobin, LDH evaluating for hemolysis. Has 2-20-gauge peripheral IVs in place; will place 18-gauge to have at least 1 large-bore IV access in case of emergency. Ideally, 2 large-bore IVs greater than 18-gauge would be preferred. No need for central line at this time. (5) Dehydration Is this a current diagnosis for this admission?: Yes Plan: Appears to be improving with hydration fluids and crystalloid boluses patient has already received. We will continue to monitor renal panel. Making good urine Via Gomez, strict I&O every hour (6) GI bleed Qualifiers: GI bleed type/associated pathology: unspecified gastrointestinal hemorrhage type Qualified Code(s): K92.2 - Gastrointestinal hemorrhage, unspecified Is this a current diagnosis for this admission?: Yes Plan: Suspect possible GI bleed, EGD with mild gastritis and grade 1 varix with no evidence of bleeding at this time. May need colonoscopy; will continue to evaluate Trend H&H, PPI twice daily for 48 hours with reevaluation at that time. Monitor for frequency of bowel movements with characteristics to identify melena or hematochezia. Monitor for further episodes of hematemesis. Patient has reportedly not had any further vomiting or diarrhea since initial presentation to the ED. (7) Hyperkalemia Is this a current diagnosis for this admission?: Yes Plan: Continue to trend BMP to follow renal function and potassium level. May require further medical management of hyperkalemia and potentially need hemodialysis if worsening (though anticipate that will not be the case hydration and staying on top of anemia). We will recheck another metabolic panel now to ensure potassium is not increasing at this time. (8) Diarrhea Qualifiers: Diarrhea type: presumed infectious Qualified Code(s): R19.7 - Diarrhea, unspecified Is this a current diagnosis for this admission?: Yes Plan: Has had no further episodes of diarrhea since initial presentation to ED. Patient denies recent antibiotic use. Will monitor for melena and hematochezia in setting of possible GI bleed. (9) Vomiting Qualifiers: Vomiting type: unspecified Vomiting Intractability: unspecified Nausea presence: with nausea Qualified Code(s): R11.2 - Nausea with vomiting, unspecified Is this a current diagnosis for this admission?: Yes Plan: Monitor for hematemesis. Avoid excessive retching as able. Will monitor need for antiemetics as needed. 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 (not acute) Neurological Medical History: Reports: None Renal/ Medical History: Reports: Chronic Kidney Disease Malignancy Medical History: Reports: None GI Medical History: Reports: None Musculoskeltal Medical History: Reports: Arthritis Skin Medical History: Reports: None Psychiatric Medical History: Reports: Schizoaffective Disorder Traumatic Medical History: Reports: None Hematology: Reports: Anemia - in CKD Infectious Medical History: Reports: None Past Surgical History Past Surgical History: Reports: Orthopedic Surgery Social/Family History - Social History Lives with: Alone Smoking Status: Current Every Day Smoker - 1/2 PPD Frequency of Alcohol Use: None Hx Recreational Drug Use: No Drugs: None Hx Prescription Drug Abuse: No - Medication/Allergies Home Medications: No Home Medications 02/06/19 Allergies/Adverse Reactions: Penicillins Allergy (Verified 01/03/18 08:13) Review of Systems ROS unobtainable: Other - ROS unreliable as patient answers with "I'm not sure" to nearly every single possible symptom. Will go with nausea/vomiting/diarrhea as symptoms given witnessed in ED. Gastrointestinal: PRESENT: diarrhea - denies recent antibiotic use, nausea, vomiting Physical Exam Vital Signs: Temp Pulse Resp BP Pulse Ox 98.8 F 64 7 L 157/77 H 100 02/07/19 07:30 02/07/19 07:30 02/07/19 07:30 02/07/19 07:10 02/07/19 07:30 Intake & Output 02/06/19 02/07/19 02/08/19 06:59 06:59 06:59 Intake Total 3906 360 Output Total 1135 Balance 2771 360 Weight 78.471 kg 73.7 kg Weight/Height Weight 73.7 kg Height 5 ft 11 in General appearance: PRESENT: no acute distress, cooperative, thin Head exam: PRESENT: atraumatic, normocephalic Eye exam: PRESENT: conjunctiva pink, EOMI, PERRLA - though unable to identify how many fingers holding up when testing left eye, confirming likely remote visual deficit as he reported.. ABSENT: scleral icterus Ear exam: PRESENT: normal external ear exam Mouth exam: PRESENT: moist, neck supple, tongue midline Teeth exam: PRESENT: poor dentation - only 3 teeth remaining Throat exam: ABSENT: post pharyngeal erythema, tonsillar erythema, tonsillar exudate Neck exam: PRESENT: full ROM. ABSENT: JVD, lymphadenopathy, tenderness, tracheal deviation Respiratory exam: PRESENT: clear to auscultation lyn, unlabored. ABSENT: accessory muscle use Cardiovascular exam: PRESENT: RRR, +S1, +S2. ABSENT: clicks, diastolic murmur, gallop, rubs, systolic murmur Pulses: PRESENT: normal carotid pulses, normal radial pulses, +2 pedal pulses bilateral Vascular exam: PRESENT: normal capillary refill, pallor GI/Abdominal exam: PRESENT: normal bowel sounds, soft. ABSENT: distended, tenderness Rectal exam: PRESENT: black stool Gentrourinary exam: PRESENT: indwelling catheter. ABSENT: ecchymosis, erythema, testicular tenderness Extremities exam: PRESENT: full ROM. ABSENT: calf tenderness, pedal edema, tenderness Musculoskeletal exam: PRESENT: full ROM, normal inspection. ABSENT: tenderness Neurological exam: PRESENT: alert, awake, oriented to person, oriented to place, oriented to situation, CN II-XII grossly intact Psychiatric exam: PRESENT: appropriate affect. ABSENT: homicidal ideation, suicidal ideation Skin exam: PRESENT: dry, pallor, warm. ABSENT: jaundice - Gomez catheter placed in ED Laboratory/Radiographs Laboratory Results: 02/06/19 23:27 02/06/19 23:27 02/06/19 02/06/19 02/06/19 06:20 13:05 13:05 WBC 18.1 H RBC 2.31 L Hgb 6.7 L Hct 20.2 L MCV 87 D MCH 29.0 MCHC 33.2 RDW 14.7 H Plt Count 429 Sodium 137.5 Potassium 6.8 H* Chloride 110 H Carbon Dioxide 18 L Anion Gap 10 BUN 100 H Creatinine 2.86 H Est GFR ( Amer) 27 L Glucose 243 H Calcium 8.3 L Phosphorus Magnesium Blood Type A POSITIVE Antibody Screen NEGATIVE 02/06/19 02/06/19 02/06/19 15:55 22:35 22:35 WBC 12.2 H RBC 2.10 L Hgb 6.0 L Hct 18.5 L MCV 88 MCH 28.5 MCHC 32.5 RDW 14.7 H Plt Count 392 Sodium 142.5 140.6 Potassium 5.6 H D 4.8 Chloride 115 H 112 H Carbon Dioxide 17 L 18 L Anion Gap 11 11 BUN 92 H 81 H Creatinine 2.84 H 2.72 H Est GFR ( Amer) 27 L 29 L Glucose 84 212 H Calcium 8.6 8.1 L Phosphorus 3.9 Magnesium 1.8 Blood Type Antibody Screen 02/06/19 02/06/19 23:27 23:27 WBC Cancelled RBC Cancelled Hgb Cancelled Hct Cancelled MCV Cancelled MCH Cancelled MCHC Cancelled RDW Cancelled Plt Count Cancelled Sodium 140.7 Potassium 5.0 Chloride 113 H Carbon Dioxide 19 L Anion Gap 9 BUN 81 H Creatinine 2.68 H Est GFR ( Amer) 29 L Glucose 210 H Calcium 8.2 L Phosphorus Magnesium Blood Type Antibody Screen Impressions: Chest X-Ray 02/06/19 00:00 IMPRESSION: NO ACUTE RADIOGRAPHIC FINDING IN THE CHEST. All labs, radiographs, diagnostic studies and EKGs were personally reviewed: Yes Critical Time Critical Time (minutes): 70 -: The care of a critically ill patient is dynamic. This note represents a static moment in the admission process. orders and treatments may be given simulataneously and urgentl, and time is not medical device sales representative of the treatment process. This patient requires Critical Care secondary to life threating organ or limb dysfunction. Without the need for Critical Care services, the patient is at risk for increasid mortality and morbidity.
[2019-02-07] MEDS ORDERED: WATER FOR INJECTION,STERILE 1,000 ML with SODIUM BICARBONATE 125 MEQ IV PRN ×2 (10:08)
[2019-02-07 10:29] LABS: INTERNATIONAL RATION (INR) 1.15; PROTHROMBIN TIME 14.8 SEC (11.4-15.4)
[2019-02-07 10:30] LABS: HEMATOCRIT 24.3 % (37.9-51.0); MEAN CORPUSCULAR HEMOGLOBIN 29.8 pg (27.0-33.4); MEAN CORPUSCULAR HGB CONC 34.2 g/dL (32.0-36.0); MEAN CORPUSCULAR VOLUME 87 fl (80-97); PARTIAL THROMBOPLASTIN TIME 34.1 SEC (23.5-35.8); RED BLOOD COUNT 2.78 10^6/uL (4.35-5.55); RED CELL DISTRIBUTION WIDTH 14.5 % (11.5-14.0); WHITE BLOOD COUNT 11.6 10^3/uL (4.0-10.5)
[2019-02-07 10:42] LABS: HEMOGLOBIN 8.3 g/dL (13.5-17.0)
[2019-02-07 10:46] LABS: ABSOLUTE LYMPHOCYTES# (MANUAL) 0.7 10^3/uL (0.5-4.7); ABSOLUTE MONOCYTES # (MANUAL) 0.5 10^3/uL (0.1-1.4); BASOPHILS % (MANUAL) 1 % (0-2); EOSINOPHILS % (MANUAL) 2 % (0-6); LYMPHOCYTES % (MANUAL) 6 % (13-45); MONOCYTES % (MANUAL) 4 % (3-13); NUCLEATED RED BLOOD CELLS 1 /100 WBC (0); SEGMENTED NEUTROPHILS % (MAN) 87 % (42-78); TOTAL CELLS COUNTED 100
[2019-02-07 10:50] LABS: ANISOCYTOSIS SLIGHT; POLYCHROMASIA SLIGHT; RBC MORPHOLOGY COMMENT NORMO-CYTIC/CHROMIC
[2019-02-07 10:51] LABS: PLATELET COMMENT ADEQUATE
[2019-02-07 10:52] LABS: PLATELET COUNT 365 10^3/uL (150-450)
[2019-02-07 11:01] LABS: ANION GAP 9 (5-19); BLOOD UREA NITROGEN 66 mg/dL (7-20); CALCIUM 8.1 mg/dL (8.4-10.2); CARBON DIOXIDE 18 mmol/L (22-30); CHLORIDE 115 mmol/L (98-107); GLUCOSE 150 mg/dL (75-110); POTASSIUM 4.7 mmol/L (3.6-5.0)
[2019-02-07 11:06] LABS: ABSOLUTE RETICS # 0.107 10^6/uL (0.028-0.122)
--- NOTE | 2019-02-07 14:45 | PDOC CONSULTATION ---
Consultation Consult Date: 02/07/19 Provider Consulted: Sparkle GOODWIN Consult reason:: MARCE History of Present Illness Admission Date/PCP: 02/06/19 14:27 POOJA TAYLOR MD History of Present Illness: QUANG VELAZQUEZ is a 63-year-old male with a past medical history of hypertension, CKD, bipolar/schizophrenia, and current smoking tobacco. He came to the hospital for several days of nausea, vomiting and diarrhea. Unfortunately he was not able to give an exact amount of days. In the ED he was found to be anemic with a hemoglobin of 5.6. He had also an MARCE on CKD with a creatinine of 3.2. Baseline looks to be 1.9 to 2.4. Potassium was also elevated at 6.8. Bicarb of 9. He was treated with insulin, D50, calcium and kayexelate. The potassium improved to 5.6. On recheck bicarb had also improved to 18. He was then given 1 PRBC, with hemoglobin improvement to 6.7. He has been receiving IV NS for the MARCE. In the hospital surgery was consulted for concerns of a GI bleed. An EGD was performed by surgery demonstrating a nonbleeding grade 1 varix as well as mild gastritis. Today his creatinine is down to 2.5. Potassium is 4.8. Hemoglobin is up to 8.3 after a 2 unit transfusion of PRBC. He denies chest pain, SOB. He still claims to have some nausea and diarrhea. History is questionable due to poor mental state. 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 (not acute) Neurological Medical History: Reports: None Denies: Seizures Complications of Diabetes: Reports: None Renal/ Medical History: Denies: Hematuria Malignancy Medical History: Reports: None GI Medical History: Reports: None Musculoskeltal Medical History: Reports: Arthritis Skin Medical History: Reports: None Psychiatric Medical History: Reports: Bipolar Disorder, Schizoaffective Disorder Traumatic Medical History: Reports: None Infectious Medical History: Reports: None Past Surgical History Past Surgical History: Reports: Orthopedic Surgery Social History Lives with: Alone Smoking Status: Current Every Day Smoker - 1/2 PPD Electronic Cigarette use?: No Frequency of Alcohol Use: None Hx Recreational Drug Use: No Drugs: None Hx Prescription Drug Abuse: No - Advance Directive Resuscitation Status: Full Code Family History Family History: Other Parental Family History Reviewed: Yes - poor historian Children Family History Reviewed: Unknown Sibling(s) Family History Reviewed.: Unknown Medication/Allergy Home Medications: RX: No Home Medications 02/06/19 Allergies/Adverse Reactions: Penicillins Allergy (Verified 01/03/18 08:13) Review of Systems Constitutional: ABSENT: anorexia, chills, fever(s), weakness Cardiovascular: ABSENT: chest pain, dyspnea on exertion, edema, orthropnea, palpitations Respiratory: ABSENT: cough, dyspnea Gastrointestinal: PRESENT: diarrhea, nausea, vomiting. ABSENT: abdominal pain, constipation Genitourinary: ABSENT: difficulty urinating, dysuria Neurological: ABSENT: dizziness, numbness, weakness Physical Exam Vital Signs: Temp Pulse Resp BP Pulse Ox 99.1 F 64 20 167/78 H 99 02/07/19 12:10 02/07/19 12:00 02/07/19 12:10 02/07/19 12:10 02/07/19 12:10 Intake & Output 02/06/19 02/07/19 02/08/19 06:59 06:59 06:59 Intake Total 3906 360 Output Total 1135 895 Balance 2771 -535 Weight 78.471 kg 73.7 kg General appearance: PRESENT: no acute distress, disheveled Mouth exam: PRESENT: dry mucosa, neck supple. ABSENT: moist Neck exam: ABSENT: JVD, tracheal deviation Respiratory exam: PRESENT: clear to auscultation lyn. ABSENT: accessory muscle use, crackles, rales, rhonchi, wheezes Cardiovascular exam: PRESENT: RRR, +S1, +S2 GI/Abdominal exam: PRESENT: soft. ABSENT: tenderness Extremities exam: ABSENT: pedal edema, tenderness, +1 edema, +2 edema Neurological exam: PRESENT: alert, awake, oriented to person, oriented to place, oriented to time, other - AOx3- was mentally order of words and thought process were abnormal Psychiatric exam: PRESENT: unusual affect, other - abnormal thought process. Skin exam: PRESENT: dry, intact, warm Results Laboratory Results: 02/07/19 10:08 02/07/19 10:08 02/06/19 02/06/19 02/06/19 06:20 15:55 22:35 WBC 12.2 H RBC 2.10 L Hgb 6.0 L Hct 18.5 L MCV 88 MCH 28.5 MCHC 32.5 RDW 14.7 H Plt Count 392 Seg Neutrophils % Retic Count (auto) Sodium 142.5 Potassium 5.6 H D Chloride 115 H Carbon Dioxide 17 L Anion Gap 11 BUN 92 H Creatinine 2.84 H Est GFR ( Amer) 27 L Glucose 84 Calcium 8.6 Phosphorus Magnesium Blood Type A POSITIVE Antibody Screen NEGATIVE 02/06/19 02/06/19 02/06/19 22:35 23:27 23:27 WBC Cancelled RBC Cancelled Hgb Cancelled Hct Cancelled MCV Cancelled MCH Cancelled MCHC Cancelled RDW Cancelled Plt Count Cancelled Seg Neutrophils % Retic Count (auto) Sodium 140.6 140.7 Potassium 4.8 5.0 Chloride 112 H 113 H Carbon Dioxide 18 L 19 L Anion Gap 11 9 BUN 81 H 81 H Creatinine 2.72 H 2.68 H Est GFR ( Amer) 29 L 29 L Glucose 212 H 210 H Calcium 8.1 L 8.2 L Phosphorus 3.9 Magnesium 1.8 Blood Type Antibody Screen 02/07/19 02/07/19 10:08 10:08 WBC 11.6 H RBC 2.78 L Hgb 8.3 L D Hct 24.3 L MCV 87 MCH 29.8 MCHC 34.2 RDW 14.5 H Plt Count 365 Seg Neutrophils % Not Reportable Retic Count (auto) 3.90 H Sodium 141.7 Potassium 4.7 Chloride 115 H Carbon Dioxide 18 L Anion Gap 9 BUN 66 H Creatinine 2.53 H Est GFR ( Amer) 31 L Glucose 150 H Calcium 8.1 L Phosphorus Magnesium Blood Type Antibody Screen Impressions: Chest X-Ray 02/06/19 00:00 IMPRESSION: NO ACUTE RADIOGRAPHIC FINDING IN THE CHEST. Assessment & Plan - Diagnosis (1) Acute kidney injury superimposed on chronic kidney disease Is this a current diagnosis for this admission?: Yes Plan: Nonoliguric MARCE due to dehydration. Looks to have underlining CKD4 related to HTN and possible DM. Patient claimed to have had long standing diabetes. Looks to have a baseline around 1.9 to 2.4. Near baseline. Still look dehydrated today. Continue on IV sterile water with bicarb drip to continue to hydrate. Follow up with labs in the AM. If at baseline then nephrology will be signing off on this case. please do not hesitate to consult back if he starts to worsen. (2) Dehydration Is this a current diagnosis for this admission?: Yes Plan: continue on current IV fluids (3) Hyperkalemia Is this a current diagnosis for this admission?: Yes Plan: Looks to have resolved. Most likely do to MARCE and dehydration. Continue to monitor with labs. Place on a renal diet. (4) Schizophrenia Qualifiers: Schizophrenia type: unspecified Qualified Code(s): F20.9 - Schizophrenia, unspecified Plan: per critical care (5) Diarrhea Qualifiers: Diarrhea type: presumed infectious Qualified Code(s): R19.7 - Diarrhea, unspecified Is this a current diagnosis for this admission?: Yes Plan: per critical care (6) Hypertension Qualifiers: Hypertension type: essential hypertension Qualified Code(s): I10 - Essential (primary) hypertension Plan: looks to be mostly controlled. (7) Metabolic acidosis Plan: continue on bicarb drip. When he is less nauseated he should be able to tolerate PO sodium bicarb. (8) Anemia requiring transfusions Is this a current diagnosis for this admission?: Yes Plan: follow up with labs, possible need from procrit with where his kidney function is at. (9) Gastritis Qualifiers: Gastritis type: unspecified gastritis Chronicity: acute Gastritis bleeding: without bleeding Qualified Code(s): K29.00 - Acute gastritis without bleeding Is this a current diagnosis for this admission?: Yes Plan: per critical care - Notes Notes: case was discussed with Dr. Goodwin.
--- NOTE | 2019-02-07 19:44 | Progress Note ---
Provider Note Provider Note: I personally saw and examined the patient after discussion with nurse practitioner Harry Edwards. Discussed case, care, findings and plan with SINDI Edwards. In agreement with those findings and his critical care admission note. I also evaluate the patient due to the complex nature of his anemia. Patient has a history of questionable schizophrenia and possible extensive alcohol and tobacco use. He is difficult to obtain a history from and any history he does give is not always concordant or congruent. He had an EGD yesterday which was positive for varicosities, grade 1, which were not bleeding and mild gastritis. This may have led to chronic anemia. His potassium has improved as well as his creatinine. He is undergoing work-up for hemolytic anemia and we await haptoglobin, LDH, ANCA. His ESR is extremely elevated raising the possibility of malignancy. We will check perfunctory tumor markers in preparation for colonoscopy. No need for dialysis. Total critical care time, in addition to SINDI Edwards, 45 minutes.
[2019-02-08] MEDS: INSULIN REG, HUMAN 100 UNIT/ML 3 ML VIAL (PYX) SUBCUT SCH ×3 (00:15→12:33)
[2019-02-08 03:34] LABS: ABSOLUTE BASOPHILS # (AUTO) 0.2 10^3/uL (0.0-0.2); ABSOLUTE EOSINOPHILS # (AUTO) 0.1 10^3/uL (0.0-0.6); ABSOLUTE LYMPHOCYTES (AUTO) 1.1 10^3/uL (0.5-4.7); ABSOLUTE MONOCYTES (AUTO) 1.3 10^3/uL (0.1-1.4); ABSOLUTE RETICS # 0.144 10^6/uL (0.028-0.122); BASOPHILS % (AUTO) 1.3 % (0-2); EOSINOPHILS % (AUTO) 0.9 % (0-6); HEMATOCRIT 26.8 % (37.9-51.0); HEMOGLOBIN 9.1 g/dL (13.5-17.0); LYMPHOCYTES % (AUTO) 9.4 % (13-45); MEAN CORPUSCULAR HEMOGLOBIN 29.9 pg (27.0-33.4); MEAN CORPUSCULAR VOLUME 88 fl (80-97); MONOCYTES % (AUTO) 11.4 % (3-13); PLATELET COUNT 413 10^3/uL (150-450); RED BLOOD COUNT 3.05 10^6/uL (4.35-5.55); RED CELL DISTRIBUTION WIDTH 14.7 % (11.5-14.0); RETICULOCYTE COUNT (AUTO) 4.72 % (0.66-2.85); TOTAL CELLS COUNTED % (AUTO) 100 %; WHITE BLOOD COUNT 11.8 10^3/uL (4.0-10.5)
[2019-02-08 03:55] LABS: ANION GAP 10 (5-19); BLOOD UREA NITROGEN 51 mg/dL (7-20); CALCIUM 8.1 mg/dL (8.4-10.2); CARBON DIOXIDE 23 mmol/L (22-30); CHLORIDE 109 mmol/L (98-107); GLUCOSE 116 mg/dL (75-110); IRON(TIBC) 21.8 ug/dL (49-181); PHOSPHORUS 3.6 mg/dL (2.5-4.5); POTASSIUM 4.4 mmol/L (3.6-5.0)
--- NOTE | 2019-02-08 08:25 | Progress Note ---
Provider Note Provider Note: Date/Time of encounter: 02/06/19 at 21:30 pm
[2019-02-08] MEDS ORDERED: HYDRALAZINE HCL INJ/PF 20 MG/1 ML SDV IV ONE (11:00)
[2019-02-08] MEDS: ZINC SULFATE 220 MG CAPSULE PO SCH (11:52)
[2019-02-08] MEDS: PANTOPRAZOLE SODIUM 40 MG VIAL IV SCH ×2 (11:53→21:45)
[2019-02-08] MEDS: THIAMINE HCL 500 MG in NORMAL SALINE 250 ML IV SCH ×2 (11:54→21:40)
[2019-02-08] MEDS: AMLODIPINE BESYLATE 5 MG TABLET PO SCH ×2 (11:55→21:43)
[2019-02-08] MEDS: FOLIC ACID 1 MG TABLET PO SCH (11:55)
[2019-02-08 12:22] LABS: ANION GAP 9 (5-19); BLOOD UREA NITROGEN 42 mg/dL (7-20); CARBON DIOXIDE 24 mmol/L (22-30); CHLORIDE 105 mmol/L (98-107); GLUCOSE 126 mg/dL (75-110); POTASSIUM 4.2 mmol/L (3.6-5.0)
--- NOTE | 2019-02-08 19:54 | PDOC CRITICAL CARE PROG REPORT ---
General Date:: 02/08/19 ICU Day:: 2 Hospital Day:: 2 Resuscitation Status: Full Code Events in the past 12 to 24 Hours:: Patient's creatinine has improved and he is maintaining strong urine output. Questionable history of schizophrenia and psychiatric disorders. Review of systems relevant to events:: Haptoglobin is not significantly low but reticulocyte count is high. Had no further GI bleeding. His hemoglobin has remained stable. Reason for ICU Addmission:: Acute anemia due to blood loss vs hemolysis, MARCE on CKD Physical Exam Vital Signs: Temp Pulse Resp BP Pulse Ox 100.0 F 72 27 H 150/66 H 100 02/08/19 13:00 02/08/19 15:00 02/08/19 18:00 02/08/19 17:42 02/08/19 18:00 Intake & Output 02/07/19 02/08/19 02/09/19 06:59 06:59 06:59 Intake Total 3906 2240 Output Total 1135 2905 755 Balance 2771 -665 -755 Weight 73.7 kg 74 kg Weight/Height Weight 74 kg Height 5 ft 11 in General appearance: PRESENT: no acute distress, disheveled, thin, well- developed, well-nourished Head exam: PRESENT: atraumatic, normocephalic Eye exam: PRESENT: conjunctiva pink, EOMI, PERRLA. ABSENT: conjunctival injection, nystagmus, scleral icterus Ear exam: PRESENT: normal external ear exam Mouth exam: PRESENT: moist, neck supple Neck exam: ABSENT: carotid bruit, JVD, lymphadenopathy, thyromegaly Respiratory exam: PRESENT: clear to auscultation lyn, unlabored. ABSENT: rales, rhonchi, tachypnea, wheezes Cardiovascular exam: PRESENT: RRR. ABSENT: diastolic murmur, rubs, systolic murmur Pulses: PRESENT: +1 pedal pulses bilateral GI/Abdominal exam: PRESENT: normal bowel sounds, soft. ABSENT: distended, guarding, mass, organolmegaly, rebound, tenderness Gentrourinary exam: PRESENT: indwelling catheter Extremities exam: ABSENT: pedal edema Musculoskeletal exam: ABSENT: deformity, dislocation Neurological exam: PRESENT: alert, awake, oriented to person, oriented to place, oriented to time, oriented to situation, CN II-XII grossly intact. ABSENT: motor sensory deficit Psychiatric exam: PRESENT: unusual affect. ABSENT: agitated, anxious Focused psych exam: ABSENT: pressured speech, psychomotor agitation, restlessness Skin exam: PRESENT: dry, intact, warm. ABSENT: cyanosis, mottled, normal color, rash Tubes/Lines: PRESENT: Other - Gomez catheter Laboratory/Radiographs Laboratory Results: 02/08/19 03:24 02/08/19 11:47 02/08/19 02/08/19 02/08/19 03:24 03:24 03:24 WBC 11.8 H RBC 3.05 L Hgb 9.1 L Hct 26.8 L MCV 88 MCH 29.9 MCHC 34.0 RDW 14.7 H Plt Count 413 Seg Neutrophils % 77.0 Retic Count (auto) 4.72 H Sodium 142.2 Potassium 4.4 Chloride 109 H Carbon Dioxide 23 Anion Gap 10 BUN 51 H Creatinine 2.24 H Est GFR ( Amer) 36 L Glucose 116 H Calcium 8.1 L Phosphorus 3.6 Magnesium 1.8 Iron 21.8 L TIBC 273 % Saturation 8 Ferritin 107.00 Ammonia < 8.7 L Vitamin B12 724.0 Folate 10.70 PTH Intact 02/08/19 02/08/19 03:24 11:47 WBC RBC Hgb Hct MCV MCH MCHC RDW Plt Count Seg Neutrophils % Retic Count (auto) Sodium 138.0 Potassium 4.2 Chloride 105 Carbon Dioxide 24 Anion Gap 9 BUN 42 H Creatinine 2.11 H Est GFR ( Amer) 38 L Glucose 126 H Calcium 8.0 L Phosphorus Magnesium Iron TIBC % Saturation Ferritin Ammonia Vitamin B12 Folate PTH Intact 137.7 H Impressions: Chest X-Ray 02/06/19 00:00 IMPRESSION: NO ACUTE RADIOGRAPHIC FINDING IN THE CHEST. All labs, radiographs, diagnostic studies and EKGs were personally reviewed: Yes In addition, reports of radiographic and diagnostic studies were read: Yes Assessment and Plan - Diagnosis (1) Acute encephalopathy Is this a current diagnosis for this admission?: Yes Plan: Improved. Appears to be at altered normal baseline state (2) Acute kidney injury superimposed on chronic kidney disease Is this a current diagnosis for this admission?: Yes Plan: Resolving. Continue free water intake. (3) Anemia requiring transfusions Is this a current diagnosis for this admission?: Yes Plan: No further bleeding. Plan is for colonoscopy which may be suitable as outpatient if no further issues occur. Had mild gastritis and non-bleeding grade 1 varices (4) Dehydration Is this a current diagnosis for this admission?: Yes (5) Gastritis Qualifiers: Gastritis type: unspecified gastritis Chronicity: acute Gastritis bleeding: without bleeding Qualified Code(s): K29.00 - Acute gastritis without bleeding Is this a current diagnosis for this admission?: Yes Plan: BID protonix (6) Metabolic acidosis Is this a current diagnosis for this admission?: Yes Plan: Resolved (7) Schizophrenia Qualifiers: Schizophrenia type: unspecified Qualified Code(s): F20.9 - Schizophrenia, unspecified Is this a current diagnosis for this admission?: Yes (8) Hypertension Qualifiers: Hypertension type: essential hypertension Qualified Code(s): I10 - Essential (primary) hypertension Is this a current diagnosis for this admission?: Yes Plan Summary: Patient's hemoglobin hematocrit have improved and he is no longer requiring any transfusion therapy. He has a history of alcohol use and schizophrenia in the past. He is at his normal altered baseline state. Have not been in contact with any family or caretakers however he states that his daughter would be the person he would want a contact if he were incapacitated.. The plan was to ultimately have colonoscopy especially if his hemoglobin hematocrit continued to decline. This is not been the case and patient may actually be a candidate for outpatient however given his schizophrenia and his altered baseline mental state it may be best that he have colonoscopy while he is an inpatient. His reticulocyte count is elevated there is no evidence of schistocytes and his haptoglobin is not excessively low. This appears to be indicative of blood loss anemia. He will will most definitely need a evaluation of the lower GI tract. Patient met suitability for downgrade. He will need antihypertensives which we have started. His renal failure has improved significantly and we have started free water and encourage p.o. intake. Need drug abuse social worker for safety before discharge. Critical Time Critical Time (minutes): 0 - [id number] Level of Care: MEDICAL Anticipated discharge: Acute Rehab Within: within 48 hours -: 1. The care of a critical patient is a dynamic process. This note is a route service representative synopsis but static in nature. The timeframe for treatments given in order is not necessary the actual time these treatments may have been done. 2. This patient requires critical care secondary to ongoing requirements for therapy not offered or safe outside the critical care environment. Transfer to a lower level of care with altered life or limb morbidity and mortality. 3. Multidisciplinary rounds completed. 4. ABCDE bundle addressed.
--- NOTE | 2019-02-09 03:59 | Progress Note ---
Provider Note Provider Note: Date/Time of Encounter: 02/06/19 at 21:30 pm HPI: Mr. Marie is a 63-year-old male with a past medical history of hypertension, CKD, bipolar/schizophrenia, and current smoking tobacco abuse who presented with complaints of several days nausea, vomiting, diarrhea. Work-up in the ED demon strated acute anemia with a hemoglobin of 5.6 for which the patient received 1 PRBC, with hemoglobin improvement to 6.7. Also with MARCE on CKD with the presence of hyperkalemia potassium 6.8 for which the patient was treated with insulin, D50, calcium and the potassium improved to 5.6. Patient denies chest pain or shortness of breath. An EGD was performed by surgery demonstrating a nonbleeding grade 1 varix as well as mild gastritis. ICU team was asked by ED physician to evaluate Mr. Marie for possible admission to the ICU, for which he was seen at 21:30 pm on 02/06/19. During the encounter, Mr Marie' vital signs were as follows: Heart rate 77, BP 152/70, RR 14, 100% on room air and patient is in no acute distress. He reportedly has not experienced any further nausea/vomiting/diarrhea since doing so immediately upon presentation to the ED. He is alert, conversive though a poor historian, lungs are clear to auscultation, s1s2 heart sounds with no M/R/G, normoactive bowel sounds without any abdominal tenderness to palpation, 2+ palpable radial/DP/PT pulses bilaterally. Reports "I feel fine" without any apparent distress. Patient does not appear to meet ICU criteria at this time, but repeating labs would provide further insight to ensure no continuing hyperkalemia or downtrending of H&H again. Plan: -repeat H&H, platelet count-if Hgb decreases from post-transfusion 6.7, will admit to ICU for serial H&H with blood transfusions prn -hemolytic anemia workup -repeat BMP assessing renal function & serum K+ -once labs result, will reevaluate patient in person and discuss with ED provider Update following above plan: Hgb decreased to 6, platelets continue to downtrend though not precipitously, potassium holding at 4.8 with BUN/Cr slowly improving. Will go ahead and admit patient to ICU and transfuse 2 PRBC's, repeating H&H post-transfusion.
[2019-02-09 04:12] LABS: ABSOLUTE BASOPHILS # (AUTO) 0.1 10^3/uL (0.0-0.2); ABSOLUTE EOSINOPHILS # (AUTO) 0.1 10^3/uL (0.0-0.6); ABSOLUTE MONOCYTES (AUTO) 1.3 10^3/uL (0.1-1.4); ABSOLUTE NEUT (AUTO) 11.5 10^3/uL (1.7-8.2); BASOPHILS % (AUTO) 0.6 % (0-2); EOSINOPHILS % (AUTO) 0.9 % (0-6); HEMATOCRIT 24.3 % (37.9-51.0); HEMOGLOBIN 8.4 g/dL (13.5-17.0); LYMPHOCYTES % (AUTO) 7.1 % (13-45); MEAN CORPUSCULAR HEMOGLOBIN 29.9 pg (27.0-33.4); MEAN CORPUSCULAR HGB CONC 34.5 g/dL (32.0-36.0); MEAN CORPUSCULAR VOLUME 87 fl (80-97); PLATELET COUNT 406 10^3/uL (150-450); RED BLOOD COUNT 2.81 10^6/uL (4.35-5.55); RED CELL DISTRIBUTION WIDTH 14.6 % (11.5-14.0); SEGMENTED NEUTROPHILS % (AUTO) 82.4 % (42-78); TOTAL CELLS COUNTED % (AUTO) 100 %; WHITE BLOOD COUNT 13.9 10^3/uL (4.0-10.5)
[2019-02-09 04:29] LABS: PHOSPHORUS 3.2 mg/dL (2.5-4.5)
[2019-02-09] MEDS ORDERED: MAGNESIUM SULFATE 4 GM/100 ML RTUPB IV ONE ×2 (05:29→06:00)
[2019-02-09] MEDS: AMLODIPINE BESYLATE 5 MG TABLET PO SCH ×2 (10:06→22:11)
[2019-02-09] MEDS: PANTOPRAZOLE SODIUM 40 MG VIAL IV SCH ×2 (10:06→22:11)
[2019-02-09] MEDS: FOLIC ACID 1 MG TABLET PO SCH (10:06)
[2019-02-09] MEDS: ZINC SULFATE 220 MG CAPSULE PO SCH (10:07)
[2019-02-09] MEDS: THIAMINE HCL 500 MG in NORMAL SALINE 250 ML IV SCH ×2 (10:07→23:37)
--- NOTE | 2019-02-09 14:53 | PDOC CRITICAL CARE PROG REPORT ---
General Date:: 02/09/19 ICU Day:: 3 - Floor status in ICU secondary to capacity Hospital Day:: 3 Resuscitation Status: Full Code Events in the past 12 to 24 Hours:: 02.09.19: Patient's overall status continues to improve and he has been downgraded. Unable to be transferred secondary to capacity issues on medical floor. 02.08.19:Patient's creatinine has improved and he is maintaining strong urine output. Questionable history of schizophrenia and psychiatric disorders. Review of systems relevant to events:: Haptoglobin is not significantly low but reticulocyte count is high. Had no further GI bleeding. His hemoglobin has remained stable. Reason for ICU Addmission:: Acute anemia due to blood loss vs hemolysis, MARCE on CKD Review of systems relevant to events:: Creatinine much improved. Patient's Gomez has been removed without difficulty. Had no further bleeding, hemoglobin/hematocrit have remained stable. Evidence to support hemolytic anemia Reason for ICU Addmission:: Acute anemia due to blood loss vs hemolysis, MARCE on CKD - Medications: Medications reviewed and adjusted accordingly: Yes Physical Exam Vital Signs: Temp Pulse Resp BP Pulse Ox 98.8 F 57 L 21 H 138/83 H 95 02/09/19 08:00 02/09/19 08:00 02/09/19 08:00 02/09/19 08:00 02/09/19 08:00 Intake & Output 02/08/19 02/09/19 02/10/19 06:59 06:59 06:59 Intake Total 2240 1010 Output Total 2905 1840 Balance -665 -830 Weight 74 kg 74.8 kg Weight/Height Weight 74.8 kg Height 5 ft 11 in General appearance: PRESENT: no acute distress, cooperative, disheveled, hard of hearing, thin, well-developed, well-nourished Exam: Pleasant nontoxic 63-year-old male no acute distress awake alert oriented to person, place Head exam: PRESENT: atraumatic, normocephalic Eye exam: PRESENT: conjunctiva pink, EOMI, PERRLA. ABSENT: conjunctival injection, scleral icterus Ear exam: PRESENT: normal external ear exam Mouth exam: PRESENT: moist, neck supple Teeth exam: PRESENT: edentulous - Nearly edentulous, poor dentation Neck exam: ABSENT: carotid bruit, JVD, lymphadenopathy, thyromegaly Respiratory exam: PRESENT: clear to auscultation lyn, unlabored. ABSENT: accessory muscle use, rales, rhonchi, wheezes Cardiovascular exam: PRESENT: RRR. ABSENT: diastolic murmur, rubs, systolic murmur Pulses: PRESENT: +1 pedal pulses bilateral Vascular exam: PRESENT: normal capillary refill. ABSENT: pallor GI/Abdominal exam: PRESENT: normal bowel sounds, soft. ABSENT: distended, guarding, mass, organolmegaly, rebound, tenderness Gentrourinary exam: ABSENT: indwelling catheter Extremities exam: ABSENT: pedal edema, tenderness Musculoskeletal exam: ABSENT: deformity, dislocation Neurological exam: PRESENT: alert, awake, oriented to person, oriented to place, oriented to time, CN II-XII grossly intact. ABSENT: motor sensory deficit, aphasic Psychiatric exam: PRESENT: appropriate affect, normal mood Focused psych exam: ABSENT: pressured speech, psychomotor agitation, restlessness Skin exam: PRESENT: dry, intact, warm. ABSENT: cyanosis, rash Laboratory/Radiographs Laboratory Results: 02/09/19 03:53 02/08/19 11:47 02/08/19 02/09/19 02/09/19 11:47 03:53 03:53 WBC 13.9 H RBC 2.81 L Hgb 8.4 L Hct 24.3 L MCV 87 MCH 29.9 MCHC 34.5 RDW 14.6 H Plt Count 406 Seg Neutrophils % 82.4 H Sodium 138.0 Potassium 4.2 Chloride 105 Carbon Dioxide 24 Anion Gap 9 BUN 42 H Creatinine 2.11 H Est GFR ( Amer) 38 L Glucose 126 H Calcium 8.0 L Phosphorus 3.2 Magnesium 1.4 L Impressions: Chest X-Ray 02/06/19 00:00 IMPRESSION: NO ACUTE RADIOGRAPHIC FINDING IN THE CHEST. All labs, radiographs, diagnostic studies and EKGs were personally reviewed: Yes In addition, reports of radiographic and diagnostic studies were read: Yes Assessment and Plan - Diagnosis (1) Acute encephalopathy Is this a current diagnosis for this admission?: Yes Plan: Resolved. Appears to be at altered normal baseline state (2) Acute kidney injury superimposed on chronic kidney disease Is this a current diagnosis for this admission?: Yes Plan: Resolving. Continue free water intake. (3) Anemia requiring transfusions Is this a current diagnosis for this admission?: Yes Plan: No bleeding since admission. Plan is for colonoscopy which may be suitable as outpatient if no further issues occur. Had mild gastritis and non-bleeding grade 1 varices (4) Dehydration Is this a current diagnosis for this admission?: Yes (5) Gastritis Qualifiers: Gastritis type: unspecified gastritis Chronicity: acute Gastritis bleeding: without bleeding Qualified Code(s): K29.00 - Acute gastritis without bleeding Is this a current diagnosis for this admission?: Yes Plan: Changed to daily protonix (6) Metabolic acidosis Is this a current diagnosis for this admission?: Yes Plan: Resolved. Secondary to acute renal failure (7) Schizophrenia Qualifiers: Schizophrenia type: unspecified Qualified Code(s): F20.9 - Schizophrenia, unspecified Is this a current diagnosis for this admission?: Yes (8) Hypertension Qualifiers: Hypertension type: essential hypertension Qualified Code(s): I10 - Essential (primary) hypertension Is this a current diagnosis for this admission?: Yes Plan Summary: 02.09.19 Patient's condition continues to stabilize. Hemoglobin and hematocrit have not decreased. He was noted to have gastritis on EGD which was mild. His varices were nonbleeding. His blood pressure is controlled with oral medications. He is still in need of an official colonoscopy. CEA level was ordered for today as a baseline. He met suitability for transfer to medical floor and had been downgraded yesterday. Due to medical floor capacity he was unable to be transferred. He has now been accepted to the hospitalist service. Follow-up with nephrology, and possibly hematology as needed. 02.08.19: Patient's hemoglobin hematocrit have improved and he is no longer requiring any transfusion therapy. He has a history of alcohol use and schizophrenia in the past. He is at his normal altered baseline state. Have not been in contact with any family or caretakers however he states that his daughter would be the person he would want a contact if he were incapacitated.. The plan was to ultimately have colonoscopy especially if his hemoglobin hematocrit continued to decline. This is not been the case and patient may actually be a candidate for outpatient however given his schizophrenia and his altered baseline mental state it may be best that he have colonoscopy while he is an inpatient. His reticulocyte count is elevated there is no evidence of schistocytes and his haptoglobin is not excessively low. This appears to be indicative of blood loss anemia. He will will most definitely need a evaluation of the lower GI tract. Patient met suitability for downgrade. He will need antihypertensives which we have started. His renal failure has improved significantly and we have started free water and encourage p.o. intake. Need manager social services for safety before discharge. Critical Time Critical Time (minutes): 0 - [id number] Level of Care: MEDICAL Anticipated discharge: Acute Rehab Within: within 48 hours -: 1. The care of a critical patient is a dynamic process. This note is a client account representative synopsis but static in nature. The timeframe for treatments given in order is not necessary the actual time these treatments may have been done. 2. This patient requires critical care secondary to ongoing requirements for therapy not offered or safe outside the critical care environment. Transfer to a lower level of care with altered life or limb morbidity and mortality. 3. Multidisciplinary rounds completed. 4. ABCDE bundle addressed.
[2019-02-09] MEDS: NORMAL SALINE 1000 ML 1,000 ML IV PRN (16:12)
--- NOTE | 2019-02-09 16:24 | RADIOLOGY REPORT (SQ) ---
EXAM DESCRIPTION: CT ABD/PELVIS NO ORAL OR IV COMPLETED DATE/TIME: 02/09/2019 4:04 pm REASON FOR STUDY: Abd pain COMPARISON: 02/03/2018 TECHNIQUE: CT scan of the abdomen and pelvis performed without intravenous or oral contrast. Images reviewed with lung, soft tissue, and bone windows. Reconstructed coronal and sagittal MPR images revi ewed. All images stored on PACS. All CT scanners at this facility use dose modulation, iterative reconstruction, and/or weight based d osing when appropriate to reduce radiation dose to as low as reasonably achievable (ALARA). [facility]: Dose Right [facility]: CareDose [facility]: Dose Right [facility]: Teradose 4D [facility]: Smart CompassMD RADIATION DOSE: CT Rad equipment meets quality standard of care and radiation dose reduction techniq ues were employed. CTDIvol: 4.7 mGy. DLP: 276 mGy-cm.mGy. LIMITATIONS: None. FINDINGS: LOWER CHEST: Trace pleural effusions. Cardiomegaly. NON-CONTRASTED LIVER, SPLEEN, ADRENALS: Evaluation limited by lack of IV contrast. No identified sign ificant masses. PANCREAS: No masses. No peripancreatic inflammatory changes. GALLBLADDER: No identified stones by CT criteria. No inflammatory changes to suggest cholecystitis. RIGHT KIDNEY AND URETER: No suspicious masses. Assessment limited by lack of IV contrast. Vascular calcifications. No hydronephrosis or hydroureter. LEFT KIDNEY AND URETER: No suspicious masses. Assessment limited by lack of IV contrast. Vascular c alcifications. No hydronephrosis or hydroureter. AORTA AND RETROPERITONEUM: Ectasia. Maximum aortic diameter 2.6 cm. BOWEL AND PERITONEAL CAVITY: No obvious masses or inflammatory changes. No free fluid. APPENDIX: Normal. PELVIS, BLADDER, AND ABDOMINAL WALL:Large left inguinal hernia containing sigmoid colon with divertic ulosis. Subtle inflammatory changes in the dependent hernia sac best seen on series 601, image 31 BONES: Nothing acute. OTHER: No other significant finding. IMPRESSION: Sigmoid diverticulitis within left inguinal hernia. No abscess or obstruction. COMMENT: Quality ID # [id number]: Final reports with documentation of one or more dose reduction techniques (e.g., Automated exposure control, adjustment of the mA and/or kV according to patient size, use of iterative reconstruction technique) TECHNICAL DOCUMENTATION: JOB ID: [id number] [employer]- All Rights Reserved Reading location - IP/workstation name: [email or web address]
--- NOTE | 2019-02-09 16:59 | Progress Note ---
Provider Note Provider Note: Patient was downgraded from ICU today. Case discussed with auditor medical claims. In summary, this is a 63-year-old male who presented with diarrhea and bloody stools. He was noted to be in acute renal failure and was found to have profound hyperkalemia. He was admitted to the ICU for severe hyperkalemia and GI bleed. He underwent EGD by surgery which did not show a definite source of active bleeding But did not show some grade 1 varices. Patient seen and examined. No acute event overnight. He does complain that he still has left-sided abdominal pain. He also reports of chronic discomfort that he feels on his toes. He denies chest pain or shortness of breath. He has very minimal direct tenderness in the left lower quadrant. We will pursue CT of the abdomen and pelvis to evaluate for diverticulitis.
[2019-02-09 17:36] LABS: ANTIMYELOPEROXIDASE (MPO) AB <9.0 U/mL (0.0-9.0); CYTOPLASMIC (C-ANCA) <1:20 titer (Neg:<1:20)
[2019-02-09] MEDS: METRONIDAZOLE 500 MG/NS RTU 500 MG/100 ML RTUPB IV SCH ×2 (17:49→23:38)
[2019-02-09] MEDS: CIPROFLOXACIN 200 MG/D5W RTU 200 MG/100 ML RTUPB IV SCH (22:11)
[2019-02-10] MEDS: NORMAL SALINE 1000 ML 1,000 ML IV PRN (05:12)
[2019-02-10] MEDS: METRONIDAZOLE 500 MG/NS RTU 500 MG/100 ML RTUPB IV SCH ×4 (05:12→23:10)
[2019-02-10] MEDS: PANTOPRAZOLE SODIUM 40 MG TABLET.DR PO SCH (05:12)
[2019-02-10 06:37] LABS: ABSOLUTE EOSINOPHILS # (AUTO) 0.2 10^3/uL (0.0-0.6); ABSOLUTE LYMPHOCYTES (AUTO) 0.9 10^3/uL (0.5-4.7); ABSOLUTE MONOCYTES (AUTO) 1.2 10^3/uL (0.1-1.4); ABSOLUTE NEUT (AUTO) 8.5 10^3/uL (1.7-8.2); BASOPHILS % (AUTO) 0.3 % (0-2); EOSINOPHILS % (AUTO) 1.7 % (0-6); HEMATOCRIT 24.1 % (37.9-51.0); HEMOGLOBIN 8.4 g/dL (13.5-17.0); LYMPHOCYTES % (AUTO) 8.4 % (13-45); MEAN CORPUSCULAR HEMOGLOBIN 29.9 pg (27.0-33.4); MEAN CORPUSCULAR HGB CONC 34.7 g/dL (32.0-36.0); MEAN CORPUSCULAR VOLUME 86 fl (80-97); MONOCYTES % (AUTO) 10.8 % (3-13); PLATELET COUNT 443 10^3/uL (150-450); RED CELL DISTRIBUTION WIDTH 14.8 % (11.5-14.0); SEGMENTED NEUTROPHILS % (AUTO) 78.8 % (42-78); TOTAL CELLS COUNTED % (AUTO) 100 %; WHITE BLOOD COUNT 10.8 10^3/uL (4.0-10.5)
[2019-02-10 07:02] LABS: ANION GAP 7 (5-19); BLOOD UREA NITROGEN 22 mg/dL (7-20); CALCIUM 7.3 mg/dL (8.4-10.2); CARBON DIOXIDE 26 mmol/L (22-30); CHLORIDE 104 mmol/L (98-107); GLUCOSE 151 mg/dL (75-110); POTASSIUM 4.5 mmol/L (3.6-5.0)
[2019-02-10 07:08] LABS: ATYPICAL PANCA <1:20 titer (Neg:<1:20)
[2019-02-10] MEDS: AMLODIPINE BESYLATE 5 MG TABLET PO SCH (09:21)
[2019-02-10] MEDS: FOLIC ACID 1 MG TABLET PO SCH (09:21)
[2019-02-10] MEDS: ZINC SULFATE 220 MG CAPSULE PO SCH (09:21)
[2019-02-10] MEDS: THIAMINE HCL 500 MG in NORMAL SALINE 250 ML IV SCH (09:23)
[2019-02-10] MEDS: CIPROFLOXACIN 200 MG/D5W RTU 200 MG/100 ML RTUPB IV SCH ×2 (09:23→21:57)
--- NOTE | 2019-02-10 12:40 | RADIOLOGY REPORT (SQ) ---
EXAM DESCRIPTION: CHEST SINGLE VIEW COMPLETED DATE/TIME: 02/10/2019 11:07 am REASON FOR STUDY: cough COMPARISON: None. EXAM PARAMETERS: NUMBER OF VIEWS: One view. TECHNIQUE: An AP view of the chest was obtained. RADIATION DOSE: NA LIMITATIONS: None. FINDINGS: LUNGS AND PLEURA: New bibasilar, left greater than right, and pleural and parenchymal opac ities that could represent a combination of pleural fluid, atelectasis and/or consolidation. There i s no pneumothorax. MEDIASTINUM AND HILAR STRUCTURES: No mediastinal or hilar contour abnormality. HEART AND VASCULAR STRUCTURES: Stable cardiac silhouette. BONES: No acute findings. HARDWARE: None in the chest. OTHER: No other finding. IMPRESSION: New bibasilar, left greater than right, pleural and parenchymal opacities that could rep resent a combination of pleural fluid, atelectasis and/or consolidation. TECHNICAL DOCUMENTATION: JOB ID: [id number] [employer]- All Rights Reserved Reading location - IP/workstation name: [email or web address]
--- NOTE | 2019-02-10 15:47 | PDOC PROGRESS REPORT ---
Subjective Progress Note for:: 02/10/19 Subjective:: This is a 63-year-old male who presented with diarrhea and bloody stools. He was noted to be in acute renal failure and was found to have profound hyperkalemia. He was admitted to the ICU for severe hyperkalemia and GI bleed. He underwent EGD by surgery which did not show a definite source of active bleeding but did not show some grade [address] of the abdomen and pelvis done yesterday which showed sigmoid diverticulitis (contained within the left inguinal hernia) likely as cause of his diarrhea and bloody stools. He was started on IV Flagyl and ciprofloxacin. No acute event overnight. No reported hematochezia or melena overnight. His hemoglobin remain stable. Creatinine remains high but continued to improve and trend down. He does complain of cough this morning. Denies chest pain or shortness of breath. He says that his left sided abdominal pain is very minimal today. Reason For Visit: ACUTE BLOOD LOSS ANEMIA,HYPERKALEMIA,MARCE ON CKD Physical Exam Vital Signs: Temp Pulse Resp BP Pulse Ox 98.9 F 61 15 144/62 H 98 02/10/19 00:57 02/10/19 00:57 02/10/19 00:57 02/10/19 00:57 02/10/19 00:57 Intake & Output 02/09/19 02/10/19 02/11/19 06:59 06:59 06:59 Intake Total 1010 2660 835 Output Total 1840 2075 450 Balance -830 585 385 Weight 164 lb 14.492 oz General appearance: PRESENT: no acute distress, well-developed, well-nourished Head exam: PRESENT: atraumatic, normocephalic Eye exam: PRESENT: conjunctiva pink, EOMI, PERRLA. ABSENT: scleral icterus Ear exam: PRESENT: normal external ear exam Mouth exam: PRESENT: moist, tongue midline Neck exam: ABSENT: carotid bruit, JVD, lymphadenopathy, thyromegaly Respiratory exam: PRESENT: clear to auscultation lyn. ABSENT: rales, rhonchi, wheezes Cardiovascular exam: PRESENT: RRR. ABSENT: diastolic murmur, rubs, systolic murmur Pulses: PRESENT: normal dorsalis pedis pul GI/Abdominal exam: PRESENT: normal bowel sounds, soft. ABSENT: distended, guarding, mass, organolmegaly, rebound, tenderness Rectal exam: PRESENT: deferred Extremities exam: PRESENT: full ROM. ABSENT: calf tenderness, clubbing, pedal edema Neurological exam: PRESENT: alert, awake, oriented to person, oriented to place, oriented to time, oriented to situation, CN II-XII grossly intact. ABSENT: motor sensory deficit Results Laboratory Results: 02/10/19 05:49 02/10/19 05:49 02/10/19 02/10/19 05:49 05:49 WBC 10.8 H RBC 2.80 L Hgb 8.4 L Hct 24.1 L MCV 86 MCH 29.9 MCHC 34.7 RDW 14.8 H Plt Count 443 Seg Neutrophils % 78.8 H Sodium 136.7 L Potassium 4.5 Chloride 104 Carbon Dioxide 26 Anion Gap 7 BUN 22 H Creatinine 1.94 H Est GFR ( Amer) 42 L Glucose 151 H Calcium 7.3 L Magnesium 1.9 Impressions: Abdomen/Pelvis CT 02/09/19 00:00 IMPRESSION: Sigmoid diverticulitis within left inguinal hernia. No abscess or obstruction. Chest X-Ray 02/10/19 09:40 IMPRESSION: New bibasilar, left greater than right, pleural and parenchymal op acities that could represent a combination of pleural fluid, atelectasis and/or consolidation. Assessment and Plan - Diagnosis (1) Sigmoid diverticulitis Is this a current diagnosis for this admission?: Yes Plan: CT of the abdomen and pelvis done yesterday which showed sigmoid diverticulitis (contained within the left inguinal hernia). This is the likely cause of his diarrhea and bloody stools. Started on IV Flagyl and ciprofloxacin. He is left paravertebral abdominal pain is very minimal today. No clinical signs of incarceration at this time. Will reconsult surgery if needed. Otherwise this may be closely followed up as outpatient with surgery. (2) Acute renal failure Qualifiers: Acute renal failure type: unspecified Qualified Code(s): N17.9 - Acute kidney failure, unspecified Is this a current diagnosis for this admission?: Yes Plan: Likely prerenal. Improved with IV fluids. Creatinine continue to trend down. (3) GI bleed Qualifiers: GI bleed type/associated pathology: unspecified gastrointestinal hemorrhage type Qualified Code(s): K92.2 - Gastrointestinal hemorrhage, unspecified Is this a current diagnosis for this admission?: Yes Plan: Likely diverticular bleed. S/P 3 units pRBC. Hb has been stable. (4) Acute blood loss anemia Is this a current diagnosis for this admission?: Yes Plan: As per number 3. (5) Hypertension Qualifiers: Hypertension type: essential hypertension Qualified Code(s): I10 - Essential (primary) hypertension Is this a current diagnosis for this admission?: Yes (6) Schizophrenia Qualifiers: Schizophrenia type: unspecified Qualified Code(s): F20.9 - Schizophrenia, unspecified Is this a current diagnosis for this admission?: Yes - Time Time Spent with patient: 25-34 minutes
[2019-02-11] MEDS: PANTOPRAZOLE SODIUM 40 MG TABLET.DR PO SCH (05:44)
[2019-02-11] MEDS: METRONIDAZOLE 500 MG/NS RTU 500 MG/100 ML RTUPB IV SCH ×3 (05:44→17:29)
[2019-02-11 06:48] LABS: ABSOLUTE BASOPHILS # (AUTO) 0.1 10^3/uL (0.0-0.2); ABSOLUTE EOSINOPHILS # (AUTO) 0.4 10^3/uL (0.0-0.6); ABSOLUTE LYMPHOCYTES (AUTO) 0.9 10^3/uL (0.5-4.7); ABSOLUTE MONOCYTES (AUTO) 1.1 10^3/uL (0.1-1.4); ABSOLUTE NEUT (AUTO) 8.2 10^3/uL (1.7-8.2); BASOPHILS % (AUTO) 0.8 % (0-2); EOSINOPHILS % (AUTO) 3.3 % (0-6); HEMATOCRIT 24.6 % (37.9-51.0); HEMOGLOBIN 8.4 g/dL (13.5-17.0); LYMPHOCYTES % (AUTO) 8.7 % (13-45); MEAN CORPUSCULAR HEMOGLOBIN 29.5 pg (27.0-33.4); MEAN CORPUSCULAR HGB CONC 33.9 g/dL (32.0-36.0); MEAN CORPUSCULAR VOLUME 87 fl (80-97); MONOCYTES % (AUTO) 10.6 % (3-13); PLATELET COUNT 450 10^3/uL (150-450); RED BLOOD COUNT 2.83 10^6/uL (4.35-5.55); RED CELL DISTRIBUTION WIDTH 14.7 % (11.5-14.0); SEGMENTED NEUTROPHILS % (AUTO) 76.6 % (42-78); TOTAL CELLS COUNTED % (AUTO) 100 %; WHITE BLOOD COUNT 10.7 10^3/uL (4.0-10.5)
[2019-02-11 07:07] LABS: ANION GAP 8 (5-19); BLOOD UREA NITROGEN 22 mg/dL (7-20); CALCIUM 7.8 mg/dL (8.4-10.2); CARBON DIOXIDE 24 mmol/L (22-30); CHLORIDE 104 mmol/L (98-107); GLUCOSE 168 mg/dL (75-110); POTASSIUM 5.2 mmol/L (3.6-5.0)
[2019-02-11] MEDS: ZINC SULFATE 220 MG CAPSULE PO SCH (09:20)
[2019-02-11] MEDS: FOLIC ACID 1 MG TABLET PO SCH (09:21)
[2019-02-11] MEDS: CIPROFLOXACIN 200 MG/D5W RTU 200 MG/100 ML RTUPB IV SCH ×2 (09:21→22:48)
[2019-02-11] MEDS: AMLODIPINE BESYLATE 5 MG TABLET PO SCH (09:21)
[2019-02-11] MEDS: THIAMINE HCL 100 MG TABLET PO SCH ×2 (09:21→22:48)
--- NOTE | 2019-02-11 11:21 | PDOC PROGRESS REPORT ---
Subjective Progress Note for:: 02/11/19 Subjective:: This is a 63-year-old male who presented with diarrhea and bloody stools. He was noted to be in acute renal failure and was found to have profound hyperkalemia. He was admitted to the ICU for severe hyperkalemia and GI bleed. He underwent EGD by surgery which did not show a definite source of active bleeding but did not show some grade 1 varices. 02/10: CT of the abdomen and pelvis done yesterday which showed sigmoid diverticulitis (contained within the left inguinal hernia) likely as cause of his diarrhea and bloody stools. He was started on IV Flagyl and ciprofloxacin. No reported hematochezia or melena overnight. His hemoglobin remain stable. Creatinine remains high but continued to improve and trend down. He does complain of cough this morning. Denies chest pain or shortness of breath. He says that his left sided abdominal pain is very minimal today. 02/11: No acute event overnight. No recurrence of diarrhea or bloody stools. Denies chest pain or shortness of breath. Denies abdominal pain. Reason For Visit: ACUTE BLOOD LOSS ANEMIA,HYPERKALEMIA,MARCE ON CKD Physical Exam Vital Signs: Temp Pulse Resp BP Pulse Ox 98.3 F 61 17 157/62 H 99 02/11/19 07:59 02/11/19 07:59 02/11/19 07:59 02/11/19 07:59 02/11/19 07:59 Intake & Output 02/10/19 02/11/19 02/12/19 06:59 06:59 06:59 Intake Total 2660 1235 Output Total 2075 800 Balance 585 435 General appearance: PRESENT: no acute distress, well-developed, well-nourished Head exam: PRESENT: atraumatic, normocephalic Eye exam: PRESENT: conjunctiva pink, EOMI, PERRLA. ABSENT: scleral icterus Ear exam: PRESENT: normal external ear exam Mouth exam: PRESENT: moist, tongue midline Neck exam: ABSENT: carotid bruit, JVD, lymphadenopathy, thyromegaly Respiratory exam: PRESENT: clear to auscultation lyn. ABSENT: rales, rhonchi, wheezes Cardiovascular exam: PRESENT: RRR. ABSENT: diastolic murmur, rubs, systolic murmur Pulses: PRESENT: normal dorsalis pedis pul GI/Abdominal exam: PRESENT: normal bowel sounds, soft, other - note of left inguinal hernia. ABSENT: distended, guarding, mass, organolmegaly, rebound, tenderness Rectal exam: PRESENT: deferred Neurological exam: PRESENT: alert, awake, oriented to person, oriented to place, CN II-XII grossly intact. ABSENT: motor sensory deficit Results Laboratory Results: 02/11/19 06:05 02/11/19 06:05 02/11/19 02/11/19 06:05 06:05 WBC 10.7 H RBC 2.83 L Hgb 8.4 L Hct 24.6 L MCV 87 MCH 29.5 MCHC 33.9 RDW 14.7 H Plt Count 450 Seg Neutrophils % 76.6 Sodium 136.1 L Potassium 5.2 H Chloride 104 Carbon Dioxide 24 Anion Gap 8 BUN 22 H Creatinine 1.98 H Est GFR ( Amer) 41 L Glucose 168 H Calcium 7.8 L Impressions: Abdomen/Pelvis CT 02/09/19 00:00 IMPRESSION: Sigmoid diverticulitis within left inguinal hernia. No abscess or obstruction. Chest X-Ray 02/10/19 09:40 IMPRESSION: New bibasilar, left greater than right, pleural and parenchymal opacities that could represent a combination of pleural fluid, atelectasis and/or consolidation. Assessment and Plan - Diagnosis (1) Sigmoid diverticulitis Is this a current diagnosis for this admission?: Yes Plan: 02/10: CT of the abdomen and pelvis done yesterday which showed sigmoid diverticulitis (contained within the left inguinal hernia). This is the likely cause of his diarrhea and bloody stools. Started on IV Flagyl and ciprofloxacin. He is left paravertebral abdominal pain is very minimal today. No clinical signs of incarceration at this time. Will reconsult surgery if needed. Otherwise this may be closely followed up as outpatient with surgery. 02/11: WCB improved. Continue Flagyl and Ciprofloxacin. (2) Acute renal failure Qualifiers: Acute renal failure type: unspecified Qualified Code(s): N17.9 - Acute kidney failure, unspecified Is this a current diagnosis for this admission?: Yes Plan: Likely prerenal. Improved with IV fluids. Creatinine continue to trend down. (3) GI bleed Qualifiers: GI bleed type/associated pathology: unspecified gastrointestinal hemorrhage type Qualified Code(s): K92.2 - Gastrointestinal hemorrhage, unspecified Is this a current diagnosis for this admission?: Yes Plan: Likely diverticular bleed. S/P 3 units pRBC. Hb has been stable. (4) Acute blood loss anemia Is this a current diagnosis for this admission?: Yes Plan: As per number 3. (5) Hypertension Qualifiers: Hypertension type: essential hypertension Qualified Code(s): I10 - Essential (primary) hypertension Is this a current diagnosis for this admission?: Yes (6) Schizophrenia Qualifiers: Schizophrenia type: unspecified Qualified Code(s): F20.9 - Schizophrenia, unspecified Is this a current diagnosis for this admission?: Yes - Time Time Spent with patient: 25-34 minutes
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
[2019-02-12] MEDS: METRONIDAZOLE 500 MG/NS RTU 500 MG/100 ML RTUPB IV SCH ×4 (00:13→17:21)
[2019-02-12] MEDS: PANTOPRAZOLE SODIUM 40 MG TABLET.DR PO SCH (05:51)
[2019-02-12] MEDS: FOLIC ACID 1 MG TABLET PO SCH (10:02)
[2019-02-12] MEDS: THIAMINE HCL 100 MG TABLET PO SCH ×2 (10:02→22:09)
[2019-02-12] MEDS: ZINC SULFATE 220 MG CAPSULE PO SCH (10:02)
[2019-02-12] MEDS: CIPROFLOXACIN 200 MG/D5W RTU 200 MG/100 ML RTUPB IV SCH ×2 (10:02→22:09)
[2019-02-12] MEDS: AMLODIPINE BESYLATE 5 MG TABLET PO SCH (10:02)
[2019-02-12] MEDS: RISPERIDONE 0.25 MG TABLET PO SCH ×2 (12:19→22:09)
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
--- NOTE | 2019-02-12 20:51 | PSYCHOLOGICAL NOTE ---
Psych Note - Psych Note Date seen by psych provider: 02/12/19 Time seen by psych provider: 19:30 Psych Note: Reason for consult: Possible Psych Issue Patient is a 63 year old male admitted into the hospital due to bleeding, nausea, and vomiting concerns. Per nurse report, patient's mental state decompensated between yesterday and today as evidenced by patient "talking to someone in the room." Patient was only oriented to person when he placed phone call to EMS. Chart review conducted. Clinician notes "Oscar" is the focus of patient's conversation. Patient spoke of being worried about Oscar because "he's not feeling good." Patient continued to speak of Oscar going to the [employer], Oscar going to [employer], and Oscar having a nasty home with bugs. Clinician observed tangential thought processes. Patient is not able to answer direct questions. Mood is normal with congruent affect. Patient is in pain due to a medical condition that influences engagement. There is no observed behavior that suggests patient is responding to internal stimuli. Eye contact is appropriate. Conversational speech is pressured and mumbled. DSM Diagnosis: NONE Medication recommendations per [facility] contracted psychiatrist Dr. Tena JACKSON is as follows: Discontinue Risperidone Add Haldol 2.5MG, twice per day Impression/Plan: Patient is cleared from acute psychiatric services. Patient does not meet IVC criteria per [place] GS 122C. At this time, patient's presentation is more likely the result of a medical condition. A review of patient's lab work is suggestive of possible delirium processes induced by anemia. Behavioral health will continue to follow. Dr. Burns was consulted on the care and management of this patient.
[2019-02-13] MEDS: METRONIDAZOLE 500 MG/NS RTU 500 MG/100 ML RTUPB IV SCH ×4 (00:56→18:27)
[2019-02-13] MEDS: PANTOPRAZOLE SODIUM 40 MG TABLET.DR PO SCH (05:19)
[2019-02-13] MEDS: THIAMINE HCL 100 MG TABLET PO SCH ×2 (09:18→22:12)
[2019-02-13] MEDS: FOLIC ACID 1 MG TABLET PO SCH (09:19)
[2019-02-13] MEDS: ZINC SULFATE 220 MG CAPSULE PO SCH (09:19)
[2019-02-13] MEDS: CIPROFLOXACIN 200 MG/D5W RTU 200 MG/100 ML RTUPB IV SCH ×2 (09:19→22:11)
[2019-02-13] MEDS: AMLODIPINE BESYLATE 5 MG TABLET PO SCH (09:19)
[2019-02-13] MEDS: RISPERIDONE 0.25 MG TABLET PO SCH (09:19)
[2019-02-13 14:32] LABS: ABSOLUTE BASOPHILS # (AUTO) 0.1 10^3/uL (0.0-0.2); ABSOLUTE EOSINOPHILS # (AUTO) 0.2 10^3/uL (0.0-0.6); ABSOLUTE LYMPHOCYTES (AUTO) 0.8 10^3/uL (0.5-4.7); ABSOLUTE MONOCYTES (AUTO) 1.4 10^3/uL (0.1-1.4); ABSOLUTE NEUT (AUTO) 10.1 10^3/uL (1.7-8.2); BASOPHILS % (AUTO) 0.7 % (0-2); HEMATOCRIT 27.9 % (37.9-51.0); HEMOGLOBIN 9.2 g/dL (13.5-17.0); LYMPHOCYTES % (AUTO) 6.6 % (13-45); MEAN CORPUSCULAR HEMOGLOBIN 28.7 pg (27.0-33.4); MEAN CORPUSCULAR HGB CONC 32.9 g/dL (32.0-36.0); MEAN CORPUSCULAR VOLUME 87 fl (80-97); MONOCYTES % (AUTO) 10.8 % (3-13); PLATELET COUNT 612 10^3/uL (150-450); SEGMENTED NEUTROPHILS % (AUTO) 79.9 % (42-78); TOTAL CELLS COUNTED % (AUTO) 100 %; WHITE BLOOD COUNT 12.6 10^3/uL (4.0-10.5)
[2019-02-13 14:56] LABS: ANION GAP 13 (5-19); BLOOD UREA NITROGEN 38 mg/dL (7-20); CARBON DIOXIDE 20 mmol/L (22-30); CHLORIDE 100 mmol/L (98-107); GLUCOSE 343 mg/dL (75-110)
[2019-02-13 14:58] LABS: POTASSIUM 6.2 mmol/L (3.6-5.0)
[2019-02-13] MEDS ORDERED: DEXTROSE 50%-WATER 25 GM/50 ML DISP.SYRIN IV ONE (15:02)
[2019-02-13] MEDS ORDERED: INSULIN REG, HUMAN 100 UNIT/ML 3 ML VIAL (PYX) IV ONE (15:02)
[2019-02-13] MEDS ORDERED: CALCIUM GLUCONATE 1000 MG/10 ML INJ IV ONE (15:02)
[2019-02-13] MEDS ORDERED: SODIUM POLYSTYRENE SULFONATE 15 GM/60 ML PO ONE (15:03)
[2019-02-13] MEDS ORDERED: NORMAL SALINE 1000 ML 1,000 ML IV PRN (15:05)
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
--- NOTE | 2019-02-13 15:56 | RADIOLOGY REPORT (SQ) ---
EXAM DESCRIPTION: CHEST SINGLE VIEW COMPLETED DATE/TIME: 02/13/2019 3:33 pm REASON FOR STUDY: reassess pleural effusion COMPARISON: 02/10/2019 EXAM PARAMETERS: NUMBER OF VIEWS: One view. TECHNIQUE: Single frontal radiographic view of the chest acquired. RADIATION DOSE: NA LIMITATIONS: None. FINDINGS: LUNGS AND PLEURA: No opacities, masses or pneumothorax. No pleural effusion. MEDIASTINUM AND HILAR STRUCTURES: No masses. Contour normal. HEART AND VASCULAR STRUCTURES: Heart size is borderline. No pulmonary edema. BONES: No acute findings. HARDWARE: None in the chest. OTHER: No other significant finding. IMPRESSION: Borderline cardiomegaly without pulmonary edema. No significant pleural effusion is pre sent. TECHNICAL DOCUMENTATION: JOB ID: [id number] [employer]- All Rights Reserved Reading location - IP/workstation name: [email or web address]
[2019-02-13] MEDS ORDERED: INSULIN REG, HUMAN 100 UNIT/ML 3 ML VIAL (PYX) ONE (16:30)
[2019-02-13 16:36] LABS: A/G RATIO 0.8 (0.7-1.7); ALBUMIN 2 2.3 g/dL (2.9-4.4); ALPHA-2-GLOBULIN 2 0.9 g/dL (0.4-1.0); BETA GLOBULINS 0.5 g/dL (0.7-1.3); GAMMA GLOBULIN 1.2 g/dL (0.4-1.8); MONOCLONAL SPIKE Not Observed g/dL (Not Observ); PROTEIN TOTAL SERUM 5.3 g/dL (6.0-8.5)
[2019-02-13] MEDS: HALOPERIDOL 5 MG TABLET PO SCH (22:08)
--- NOTE | 2019-02-13 22:32 | EKG REPORT ---
SEVERITY:- ABNORMAL ECG - SINUS RHYTHM SUPRAVENTRICULAR BIGEMINY PROBABLE LVH WITH SECONDARY REPOL ABNRM : Confirmed by: Maeve Hayward MD 13-Feb-2019 22:31:49
[2019-02-14] MEDS: METRONIDAZOLE 500 MG/NS RTU 500 MG/100 ML RTUPB IV SCH ×5 (00:44→23:53)
[2019-02-14] MEDS: PANTOPRAZOLE SODIUM 40 MG TABLET.DR PO SCH (05:11)
[2019-02-14 06:05] LABS: ANION GAP 11 (5-19); BLOOD UREA NITROGEN 40 mg/dL (7-20); CARBON DIOXIDE 23 mmol/L (22-30); CHLORIDE 100 mmol/L (98-107); GLUCOSE 267 mg/dL (75-110); POTASSIUM 5.7 mmol/L (3.6-5.0)
[2019-02-14] MEDS: ZINC SULFATE 220 MG CAPSULE PO SCH (11:19)
[2019-02-14] MEDS: HALOPERIDOL 5 MG TABLET PO SCH ×2 (11:20→22:05)
[2019-02-14] MEDS: THIAMINE HCL 100 MG TABLET PO SCH ×2 (11:20→22:03)
[2019-02-14] MEDS: FOLIC ACID 1 MG TABLET PO SCH (11:20)
[2019-02-14] MEDS: SODIUM POLYSTYRENE SULFONATE 15 GM/60 ML PO SCH ×2 (11:21→22:05)
[2019-02-14] MEDS: CIPROFLOXACIN 200 MG/D5W RTU 200 MG/100 ML RTUPB IV SCH ×2 (11:21→22:03)
[2019-02-14] MEDS: AMLODIPINE BESYLATE 5 MG TABLET PO SCH (11:21)
--- NOTE | 2019-02-14 13:07 | PDOC PROGRESS REPORT ---
Subjective Progress Note for:: 02/14/19 Subjective:: This is a 63-year-old male who presented with diarrhea and bloody stools. He was noted to be in acute renal failure and was found to have profound hyperkalemia. He was admitted to the ICU for severe hyperkalemia and GI bleed. He underwent EGD by surgery which did not show a definite source of active bleeding but did not show some grade 1 varices. 02/14/2019. No acute events overnight. Patient comfortably sitting in bed in no apparent distress, cooperative with physical examination, alert oriented x3, denies any fever, chills, nausea, vomiting, diarrhea, constipation or any urinary symptoms. P.o. tolerant, ambulatory and having normal bladder and bowel movements. Reason For Visit: ACUTE BLOOD LOSS ANEMIA,HYPERKALEMIA,MARCE ON CKD Physical Exam Vital Signs: Temp Pulse Resp BP Pulse Ox 97.6 F 78 16 136/71 H 97 02/14/19 08:00 02/14/19 08:00 02/14/19 08:00 02/14/19 08:00 02/14/19 08:00 Intake & Output 02/13/19 02/14/19 02/15/19 06:59 06:59 06:59 Intake Total 2330 2392 100 Output Total 1200 1100 Balance 1130 1292 100 Weight 69.9 kg 66.2 kg General appearance: PRESENT: no acute distress, well-developed, well-nourished Head exam: PRESENT: atraumatic, normocephalic Neck exam: ABSENT: carotid bruit, JVD, lymphadenopathy, thyromegaly Respiratory exam: PRESENT: clear to auscultation lyn. ABSENT: rales, rhonchi, wheezes Cardiovascular exam: PRESENT: RRR. ABSENT: diastolic murmur, rubs, systolic murmur GI/Abdominal exam: PRESENT: normal bowel sounds, soft. ABSENT: distended, guarding, mass, organolmegaly, rebound, tenderness Neurological exam: PRESENT: alert, awake, oriented to person, oriented to place, oriented to time, CN II-XII grossly intact. ABSENT: motor sensory deficit Results Laboratory Results: 02/13/19 14:15 02/14/19 04:37 02/08/19 02/13/19 02/13/19 03:24 14:15 14:15 WBC 12.6 H RBC 3.20 L Hgb 9.2 L Hct 27.9 L MCV 87 MCH 28.7 MCHC 32.9 RDW 15.0 H Plt Count 612 H Seg Neutrophils % 79.9 H Sodium 132.5 L Potassium 6.2 H* Chloride 100 Carbon Dioxide 20 L Anion Gap 13 BUN 38 H Creatinine 2.33 H Est GFR ( Amer) 34 L Glucose 343 H Calcium 8.0 L Total Protein 5.3 L Albumin 2.3 L 02/13/19 02/14/19 18:11 04:37 WBC RBC Hgb Hct MCV MCH MCHC RDW Plt Count Seg Neutrophils % Sodium 133.5 L Potassium 5.6 H 5.7 H Chloride 100 Carbon Dioxide 23 Anion Gap 11 BUN 40 H Creatinine 2.77 H Est GFR ( Amer) 28 L Glucose 267 H Calcium 8.0 L Total Protein Albumin Impressions: Abdomen/Pelvis CT 02/09/19 00:00 IMPRESSION: Sigmoid diverticulitis within left inguinal hernia. No abscess or obstruction. Chest X-Ray 02/13/19 15:06 IMPRESSION: Borderline cardiomegaly without pulmonary edema. No significant pleural effusion is present. Assessment and Plan - Diagnosis (1) Sigmoid diverticulitis Is this a current diagnosis for this admission?: Yes Plan: Improving. Denies any abdominal pain. Afebrile. WBC 12.6. No bandemia. CT abdomen on admission showed sigmoid diverticulitis (contained within the left inguinal hernia). Day 7 IV antibiotics. Day 7 IV ciprofloxacin. Day 7 IV metronidazole. Continue current regimen. (2) Acute kidney injury superimposed on chronic kidney disease Is this a current diagnosis for this admission?: Yes Plan: Improving. Nonoliguric. Prerenal. Most likely due to dehydration. Baseline creatinine 2-2.5. Does not see a production superintendent as outpatient. Still having persistent hyperkalemia otherwise electrolytes WNL. Continue cautious volume resuscitation guided by volume status. Avoid nephrotoxic meds. Nephrology consulted. Recommendations pending. (3) Acute blood loss anemia Is this a current diagnosis for this admission?: Yes Plan: As per number 3. (4) GI bleed Qualifiers: GI bleed type/associated pathology: unspecified gastrointestinal hemorrhage type Qualified Code(s): K92.2 - Gastrointestinal hemorrhage, unspecified Is this a current diagnosis for this admission?: Yes Plan: Likely diverticular bleed. S/P 3 units pRBC. Hb has been stable. (5) Hyperkalemia Is this a current diagnosis for this admission?: Yes Plan: Persistent hyperkalemia. No EKG changes. Likely due to MARCE/CKD. Continue telemetry, hyperkalemia protocol. CMP tomorrow. (6) Hypertension Qualifiers: Hypertension type: essential hypertension Qualified Code(s): I10 - Essential (primary) hypertension Is this a current diagnosis for this admission?: Yes Plan: Normotensive. Euvolemic. Continue calcium channel blockers. Adjust meds as needed. Outpatient PCP follow-up. (7) Left inguinal hernia Is this a current diagnosis for this admission?: Yes Plan: Evaluated by surgery. Outpatient follow-up for definitive repair. (8) Schizophrenia Qualifiers: Schizophrenia type: unspecified Qualified Code(s): F20.9 - Schizophrenia, unspecified Is this a current diagnosis for this admission?: Yes Plan: Denies any hallucinations, delusions or any internal swelling. Psychiatry has been consulted. Recommendations noted.
[2019-02-14] MEDS ORDERED: FUROSEMIDE INJ/PF 40 MG/4 ML SDV IV ONE (15:16)
--- NOTE | 2019-02-14 15:48 | PDOC PROGRESS REPORT ---
Subjective Progress Note for:: 02/14/19 Subjective:: This is a re-consult due to acute worsening of kidney function. The patient is a 63-year-old gentleman with history of hypertension, chronic kidney disease, bipolar disorder/schizophrenia who was admitted initially for severe dehydration and GI bleed associated with initial acute kidney injury and hyperkalemia. Patient was initially admitted in the intensive care unit. Our physician practice assistant, Roland Calderon has seen the patient on February 07 who assessed the patient to have acute kidney injury most likely secondary to prerenal azotemia due to dehydration with percent things symptoms of nausea, vomiting and diarrhea for several days along with GI bleed. Patient was hydrated. His initial creatinine was 3.4. His baseline creatinine ranges anywhere between 2-2.4. At the time of initial consult the patient's kidney function is already at baseline. Patient had work-up for the GI bleed in the ICU with EGD which showed grade 1 varix but no active bleeding. A CT scan of the abdomen showed large inguinal hernia and diverticulosis. Both kidneys has no note of any masses, hydronephrosis no hydroureter. There were findings also consistent with sigmoid diverticulitis. Patient is currently being treated with IV ciprofloxacin and Flagyl, today is day 7. His diarrhea and hematochezia has resolved. The patient's kidney function was noted to start to elevate again yesterday with BUN of 38, creatinine of 2.33 and EGFR of 28. Today he has a BUN of 40, creatinine of 2.77 with EGFR of 23. He also has been having hyperkalemia for the last couple of days requiring Kayexalate. Today his potassium is 5.7. Patient is not a very good historian and answers question tangentially. Although the nurse told me that he has not really had diarrhea anymore the patient could not tell me that. He did complain of some stinging in urination. He has some cough with sputum production. He admits that he has been drinking mostly juices. He said he is eating. He also has left leg swelling which I was told has been there since for the last few days and patient confirms is been there probably since admission. He has a large left inguinal hernia for which surgery was consulted but since it is reducible no surgical recommendation was made. The patient is making some urine about 11 100-12 100 daily but looking at his intake and output balance the patient has been on positive fluid balance since admission. His chest x-ray recently is clear without any pulmonary congestion. His blood pressure is within acceptable limits. During his hospitalization the patient did have protein electrophoresis which showed normal monoclonal spike. He also has negative ANCA serologies. Reason For Visit: HYPERKALEMIA,MARCE ON CKD Physical Exam Vital Signs: Temp Pulse Resp BP Pulse Ox 98.0 F 68 18 140/77 H 99 02/14/19 12:00 02/14/19 12:00 02/14/19 12:00 02/14/19 12:00 02/14/19 12:00 Intake & Output 02/13/19 02/14/19 02/15/19 06:59 06:59 06:59 Intake Total 2330 2392 780 Output Total 1200 1100 200 Balance 1130 1292 580 Weight 69.9 kg 66.2 kg Exam: General appearance: PRESENT: no acute distress, cooperative, well-developed, well-nourished Head exam: PRESENT: atraumatic, normocephalic Eye exam: PRESENT: conjunctiva pale, PERRLA. ABSENT: scleral icterus Neck exam: ABSENT: JVD Respiratory exam: PRESENT: Normal breath sounds. ABSENT: crackles, rales, rhonchi, unlabored, wheezes Cardiovascular exam: PRESENT: Regular rate rhythm -+S1, +S2. ABSENT: diastolic murmur, systolic murmur GI/Abdominal exam: PRESENT: normal bowel sounds, soft. ABSENT: guarding, mass, tenderness Extremities exam: Significant grade 2 left lower extremity edema and almost trace to 1 no edema on the right lower extremity Neurological exam: PRESENT: alert, awake, oriented to person, place and time. Answers questions but sometimes tangentially. Skin exam: PRESENT: dry, warm, Cardiovascular exam: PRESENT: RRR, +S1, +S2 GI/Abdominal exam: PRESENT: soft. ABSENT: tenderness Results Laboratory Results: 02/13/19 14:15 02/14/19 04:37 02/08/19 02/13/19 02/14/19 03:24 18:11 04:37 Sodium 133.5 L Potassium 5.6 H 5.7 H Chloride 100 Carbon Dioxide 23 Anion Gap 11 BUN 40 H Creatinine 2.77 H Est GFR ( Amer) 28 L Glucose 267 H Calcium 8.0 L Total Protein 5.3 L Albumin 2.3 L Impressions: Abdomen/Pelvis CT 02/09/19 00:00 IMPRESSION: Sigmoid diverticulitis within left inguinal hernia. No abscess or obstruction. Chest X-Ray 02/13/19 15:06 IMPRESSION: Borderline cardiomegaly without pulmonary edema. No significant pleural effusion is present. Assessment & Plan - Diagnosis (1) Acute kidney injury superimposed on chronic kidney disease Is this a current diagnosis for this admission?: Yes Plan: The patient has initial prerenal azotemia on admission. The patient is nonoliguric and is currently on positive fluid balance since admission. There does not seem to be any acute precipitating factors for the acute worsening of kidney function for the last couple of days. Initial CT scan of the abdomen showed no hydronephrosis. I will order urinalysis, urine eosinophils and urine microalbumin to creatinine ratio. Will order strict intake and output. The patient does have some lower extremity edema so I will give the patient a dose of Lasix 40 mg IV today. We will continue to monitor kidney function and electrolytes. No indication for renal replacement therapy at this time. (2) Hyperkalemia Is this a current diagnosis for this admission?: Yes Plan: Hospitalist has been managing this and has been giving the patient Kayexalate. I ordered a 1 dose of Lasix which can help the potassium as well. (3) Sigmoid diverticulitis Is this a current diagnosis for this admission?: Yes Plan: Continue IV ciprofloxacin and Flagyl per hospitalist. (4) Edema of left lower extremity Is this a current diagnosis for this admission?: Yes Plan: Need to rule out DVT versus obstructive venous flow because of the large left inguinal hernia. Will order Doppler of the lower extremities. (5) Hyponatremia Is this a current diagnosis for this admission?: Yes Plan: Possibly due to mild hypervolemic state. (6) Secondary hyperparathyroidism (of renal origin) Is this a current diagnosis for this admission?: Yes Plan: Mild. Monitor for now. (7) Acute blood loss anemia Is this a current diagnosis for this admission?: Yes Plan: With associated iron deficiency anemia. (8) GI bleed Qualifiers: GI bleed type/associated pathology: unspecified gastrointestinal hemorrhage type Qualified Code(s): K92.2 - Gastrointestinal hemorrhage, unspecified Is this a current diagnosis for this admission?: Yes Plan: Resolved. Status post EGD with grade [address] scan of the abdomen also showed diverticulosis. (9) Hyperglycemia Is this a current diagnosis for this admission?: Yes Plan: The patient has not been diagnosed with diabetes mellitus but his blood sugars has been elevated during his hospitalization. I think patient needs to be evaluated for diabetes. Will defer to the primary hospitalist service. (10) Hypertension Qualifiers: Hypertension type: essential hypertension Qualified Code(s): I10 - Essential (primary) hypertension Is this a current diagnosis for this admission?: Yes Plan: Currently acceptable. (11) Reducible left inguinal hernia Is this a current diagnosis for this admission?: Yes Plan: Evaluated by surgery. No surgery recommendation for now. (12) Schizophrenia Qualifiers: Schizophrenia type: unspecified Qualified Code(s): F20.9 - Schizophrenia, unspecified Is this a current diagnosis for this admission?: Yes - Time Time with patient: Greater than 35 minutes
[2019-02-14 17:02] LABS: APPEARANCE,URINE CLEAR; BILIRUBIN,URINE NEGATIVE (NEGATIVE); COLOR,URINE STRAW; GLUCOSE, URINE 150 mg/dL (NEGATIVE); KETONES,URINE NEGATIVE (NEGATIVE); LEUKOCYTE ESTERASE,URINE TRACE (NEGATIVE); NITRITE,URINE NEGATIVE (NEGATIVE); PROTEIN,URINE 100 mg/dL (NEGATIVE); URINE SPECIFIC GRAVITY 1.006; UROBILINOGEN,URINE NEGATIVE mg/dL (<2.0)
[2019-02-14 17:51] LABS: EOSINOPHIL SMEAR NO EOSINOPHILS SEEN; SPECIMEN TYPE URINE
--- NOTE | 2019-02-14 23:13 | RADIOLOGY REPORT (SQ) ---
EXAM DESCRIPTION: Left lower extremity venous duplex 02/14/2019 10:11 PM [facility] CLINICAL HISTORY: 63 years, 63 years, Left leg swelling COMPARISON: None TECHNIQUE: Utilizing a linear array transducer, real-time ultrasound evaluation of the left lower extremity was performed. Color Doppler imaging was used to assess vascular flow. FINDINGS: The left common femoral and proximal/mid/distal superficial femoral veins are normal in caliber and compressibility. There is normal directional flow. The left popliteal vein is normal in appearance. There is normal directional flow and normal compressibility. IMPRESSION: No evidence of left lower extremity deep venous thrombosis.
[2019-02-15] MEDS: PANTOPRAZOLE SODIUM 40 MG TABLET.DR PO SCH (05:41)
[2019-02-15] MEDS: METRONIDAZOLE 500 MG/NS RTU 500 MG/100 ML RTUPB IV SCH ×3 (05:41→18:10)
[2019-02-15 05:48] LABS: ABSOLUTE BASOPHILS # (AUTO) 0.1 10^3/uL (0.0-0.2); ABSOLUTE EOSINOPHILS # (AUTO) 0.2 10^3/uL (0.0-0.6); ABSOLUTE LYMPHOCYTES (AUTO) 0.9 10^3/uL (0.5-4.7); ABSOLUTE MONOCYTES (AUTO) 1.5 10^3/uL (0.1-1.4); ABSOLUTE NEUT (AUTO) 7.8 10^3/uL (1.7-8.2); BASOPHILS % (AUTO) 0.6 % (0-2); EOSINOPHILS % (AUTO) 2.3 % (0-6); HEMATOCRIT 26.1 % (37.9-51.0); HEMOGLOBIN 8.8 g/dL (13.5-17.0); LYMPHOCYTES % (AUTO) 8.7 % (13-45); MEAN CORPUSCULAR HEMOGLOBIN 28.8 pg (27.0-33.4); MEAN CORPUSCULAR HGB CONC 33.6 g/dL (32.0-36.0); MEAN CORPUSCULAR VOLUME 86 fl (80-97); MONOCYTES % (AUTO) 14.1 % (3-13); PLATELET COUNT 576 10^3/uL (150-450); RED BLOOD COUNT 3.04 10^6/uL (4.35-5.55); RED CELL DISTRIBUTION WIDTH 15.1 % (11.5-14.0); SEGMENTED NEUTROPHILS % (AUTO) 74.3 % (42-78); TOTAL CELLS COUNTED % (AUTO) 100 %; WHITE BLOOD COUNT 10.6 10^3/uL (4.0-10.5)
[2019-02-15 06:02] LABS: ANION GAP 13 (5-19); BLOOD UREA NITROGEN 41 mg/dL (7-20); CALCIUM 7.7 mg/dL (8.4-10.2); CARBON DIOXIDE 24 mmol/L (22-30); CHLORIDE 98 mmol/L (98-107); GLUCOSE 290 mg/dL (75-110); POTASSIUM 4.8 mmol/L (3.6-5.0)
[2019-02-15] MEDS: CIPROFLOXACIN 200 MG/D5W RTU 200 MG/100 ML RTUPB IV SCH ×2 (10:07→22:55)
[2019-02-15] MEDS: THIAMINE HCL 100 MG TABLET PO SCH ×2 (10:07→22:54)
[2019-02-15] MEDS: AMLODIPINE BESYLATE 5 MG TABLET PO SCH (10:08)
[2019-02-15] MEDS: HALOPERIDOL 5 MG TABLET PO SCH ×2 (10:08→22:54)
[2019-02-15] MEDS: ZINC SULFATE 220 MG CAPSULE PO SCH (10:08)
[2019-02-15] MEDS: FOLIC ACID 1 MG TABLET PO SCH (10:09)
[2019-02-15] MEDS ORDERED: FUROSEMIDE INJ/PF 40 MG/4 ML SDV IV ONE (10:44)
--- NOTE | 2019-02-15 10:55 | PDOC PROGRESS REPORT ---
Subjective Progress Note for:: 02/15/19 Subjective:: Patient complains of pain all over his right arm with an obvious infiltration of his IV site. He has increased urine output with the IV Lasix I gave yesterday amounting to 2375 mL. His venous Doppler showed no DVT on his left leg. He has no new complaints. Reason For Visit: ACUTE BLOOD LOSS ANEMIA,HYPERKALEMIA,MARCE ON CKD Physical Exam Vital Signs: Temp Pulse Resp BP Pulse Ox 98.3 F 70 19 133/65 H 100 02/15/19 07:51 02/15/19 07:51 02/15/19 07:51 02/15/19 07:51 02/15/19 07:51 Intake & Output 02/14/19 02/15/19 02/16/19 06:59 06:59 06:59 Intake Total 2392 1860 100 Output Total 1100 2375 Balance 1292 -515 100 Weight 66.2 kg 63 kg Exam: General appearance: PRESENT: no acute distress, cooperative, well-developed, well-nourished Head exam: PRESENT: atraumatic, normocephalic Eye exam: PRESENT: conjunctiva pale, PERRLA. ABSENT: scleral icterus Neck exam: ABSENT: JVD Respiratory exam: PRESENT: Normal breath sounds. ABSENT: crackles, rales, rhonchi, unlabored, wheezes Cardiovascular exam: PRESENT: Regular rate rhythm -+S1, +S2. ABSENT: diastolic murmur, systolic murmur GI/Abdominal exam: PRESENT: normal bowel sounds, soft. ABSENT: guarding, mass, tenderness Extremities exam: Improved left lower extremity grade 1 pitting edema, right arm is swollen due to IV infiltration with erythematous area on his right forearm Neurological exam: PRESENT: alert, awake, oriented to person, place and time. Skin exam: PRESENT: dry, warm, Cardiovascular exam: PRESENT: RRR, +S1, +S2 GI/Abdominal exam: PRESENT: soft. ABSENT: tenderness Results Laboratory Results: 02/15/19 05:19 02/15/19 05:19 02/14/19 02/15/19 02/15/19 16:27 05:19 05:19 WBC 10.6 H RBC 3.04 L Hgb 8.8 L Hct 26.1 L MCV 86 MCH 28.8 MCHC 33.6 RDW 15.1 H Plt Count 576 H Seg Neutrophils % 74.3 Sodium 134.8 L Potassium 4.8 Chloride 98 Carbon Dioxide 24 Anion Gap 13 BUN 41 H Creatinine 2.51 H Est GFR ( Amer) 31 L Glucose 290 H Calcium 7.7 L Urine Color STRAW Urine Appearance CLEAR Urine pH 7.0 Ur Specific [place] 1.006 Urine Protein 100 H Urine Glucose (UA) 150 H Urine Ketones NEGATIVE Urine Blood NEGATIVE Urine Nitrite NEGATIVE Ur Leukocyte Esterase TRACE H Urine WBC (Auto) 0 Impressions: Abdomen/Pelvis CT 02/09/19 00:00 IMPRESSION: Sigmoid diverticulitis within left inguinal hernia. No abscess or obstruction. Chest X-Ray 02/13/19 15:06 IMPRESSION: Borderline cardiomegaly without pulmonary edema. No significant pleural effusion is present. Venous Doppler Study 02/14/19 15:20 IMPRESSION: No evidence of left lower extremity deep venous thrombosis. Assessment & Plan - Diagnosis (1) Acute kidney injury superimposed on chronic kidney disease Is this a current diagnosis for this admission?: Yes Plan: The patient has initial prerenal azotemia on admission due to GI symptoms. The patient is non-oliguric and is currently on positive fluid balance since admission. There does not seem to be any acute precipitating factors for the a cute worsening of kidney function for the last couple of days. Initial CT scan of the abdomen showed no hydronephrosis. His urinalysis showed minimal protein of 100, glucose of 150 and no blood. Uri ne eosinophils is negative. Urine microalbumin to creatinine ratio is pending. Kidney function is a little improved today compared to yesterday with improvement of urine output. I will given another dose of Lasix 40 mg IV x1 dose today. No indication for renal replacement therapy at this time. Continue to monitor kidney function and electrolytes. (2) Hyperkalemia Is this a current diagnosis for this admission?: Yes Plan: Resolved. (3) Sigmoid diverticulitis Is this a current diagnosis for this admission?: Yes Plan: Continue IV ciprofloxacin and Flagyl per hospitalist. (4) Edema of left lower extremity Is this a current diagnosis for this admission?: Yes Plan: No DVT per Doppler. Improved with some diuresis. Patient also has a note of large left reducible inguinal hernia. (5) Hyponatremia Is this a current diagnosis for this admission?: Yes Plan: Possibly due to mild hypervolemic state. Slightly improved today. (6) Secondary hyperparathyroidism (of renal origin) Is this a current diagnosis for this admission?: Yes Plan: Mild. Monitor for now. (7) Diabetes mellitus type 2 in nonobese Is this a current diagnosis for this admission?: Yes Plan: New diagnosis. Hemoglobin A1c of 7.3. I think patient needs to be initiated on some medications. Will defer this to the hospitalist service. (8) Acute blood loss anemia Is this a current diagnosis for this admission?: Yes Plan: With associated iron deficiency anemia. (9) GI bleed Qualifiers: GI bleed type/associated pathology: unspecified gastrointestinal hemorrhage type Qualified Code(s): K92.2 - Gastrointestinal hemorrhage, unspecified Is this a current diagnosis for this admission?: Yes Plan: Resolved. Status post EGD with grade [address] scan of the abdomen also showed diverticulosis. (10) Hypertension Qualifiers: Hypertension type: essential hypertension Qualified Code(s): I10 - Essential (primary) hypertension Is this a current diagnosis for this admission?: Yes Plan: Currently acceptable. (11) Reducible left inguinal hernia Is this a current diagnosis for this admission?: Yes Plan: Evaluated by surgery. No surgery recommendation for now. (12) Schizophrenia Qualifiers: Schizophrenia type: unspecified Qualified Code(s): F20.9 - Schizophrenia, unspecified Is this a current diagnosis for this admission?: Yes - Time Time with patient: 15-25 minutes
--- NOTE | 2019-02-15 11:27 | PDOC PROGRESS REPORT ---
Subjective Progress Note for:: 02/15/19 Subjective:: This is a 63-year-old male who presented with diarrhea and bloody stools. He was noted to be in acute renal failure and was found to have profound hyperkalemia. He was admitted to the ICU for severe hyperkalemia and GI bleed. He underwent EGD by surgery which did not show a definite source of active bleeding but did not show some grade 1 varices. 02/14/2019. No acute events overnight. Patient comfortably sitting in bed in no apparent distress, cooperative with physical examination, alert oriented x3, denies any fever, chills, nausea, vomiting, diarrhea, constipation or any urinary symptoms. P.o. tolerant, ambulatory and having normal bladder and bowel movements. 02/15/2019. No acute events overnight. Patient comfortably sitting in bed, complaining of left lower extremity edema and mild pain otherwise denies any fever, chills, nausea, vomiting, diarrhea, constipation or any urinary symptoms. Reason For Visit: ACUTE BLOOD LOSS ANEMIA,HYPERKALEMIA,MARCE ON CKD Physical Exam Vital Signs: Temp Pulse Resp BP Pulse Ox 98.3 F 70 19 133/65 H 100 02/15/19 07:51 02/15/19 07:51 02/15/19 07:51 02/15/19 07:51 02/15/19 07:51 Intake & Output 02/14/19 02/15/19 02/16/19 06:59 06:59 06:59 Intake Total 2392 1860 100 Output Total 1100 2375 Balance 1292 -515 100 Weight 66.2 kg 63 kg General appearance: PRESENT: no acute distress, well-developed, well-nourished Head exam: PRESENT: atraumatic, normocephalic Respiratory exam: PRESENT: clear to auscultation lyn. ABSENT: rales, rhonchi, wheezes Cardiovascular exam: PRESENT: RRR. ABSENT: diastolic murmur, rubs, systolic murmur Pulses: PRESENT: normal dorsalis pedis pul Extremities exam: PRESENT: full ROM, tenderness - Left lower extremity below- knee tenderness., +1 edema - Left lower extremity below-knee.. ABSENT: calf tenderness, clubbing, pedal edema Neurological exam: PRESENT: alert, awake, oriented to person, oriented to place, CN II-XII grossly intact. ABSENT: motor sensory deficit Results Laboratory Results: 02/15/19 05:19 02/15/19 05:19 02/14/19 02/15/19 02/15/19 16:27 05:19 05:19 WBC 10.6 H RBC 3.04 L Hgb 8.8 L Hct 26.1 L MCV 86 MCH 28.8 MCHC 33.6 RDW 15.1 H Plt Count 576 H Seg Neutrophils % 74.3 Sodium 134.8 L Potassium 4.8 Chloride 98 Carbon Dioxide 24 Anion Gap 13 BUN 41 H Creatinine 2.51 H Est GFR ( Amer) 31 L Glucose 290 H Calcium 7.7 L Urine Color STRAW Urine Appearance CLEAR Urine pH 7.0 Ur Specific [place] 1.006 Urine Protein 100 H Urine Glucose (UA) 150 H Urine Ketones NEGATIVE Urine Blood NEGATIVE Urine Nitrite NEGATIVE Ur Leukocyte Esterase TRACE H Urine WBC (Auto) 0 Impressions: Abdomen/Pelvis CT 02/09/19 00:00 IMPRESSION: Sigmoid diverticulitis within left inguinal hernia. No abscess or obstruction. Chest X-Ray 02/13/19 15:06 IMPRESSION: Borderline cardiomegaly without pulmonary edema. No significant pleural effusion is present. Venous Doppler Study 02/14/19 15:20 IMPRESSION: No evidence of left lower extremity deep venous thrombosis. Assessment and Plan - Diagnosis (1) Sigmoid diverticulitis Is this a current diagnosis for this admission?: Yes Plan: Improving. Denies any abdominal pain. Afebrile. WBC 10. No bandemia. CT abdomen on admission showed sigmoid diverticulitis (contained within the left inguinal hernia). Day 8 IV antibiotics. Day 8 IV ciprofloxacin. Day 8 IV metronidazole. Continue current regimen. (2) Acute kidney injury superimposed on chronic kidney disease Is this a current diagnosis for this admission?: Yes Plan: Improving. Nonoliguric. Prerenal. Most likely due to dehydration. Baseline creatinine 2-2.5. Does not see a fiber optics engineer as outpatient. Electrolytes WNL. Continue cautious volume resuscitation guided by volume status. Avoid nephrotoxic meds. Nephrology consulted. Recommendations noted. (3) GI bleed Qualifiers: GI bleed type/associated pathology: unspecified gastrointestinal hemorrhage type Qualified Code(s): K92.2 - Gastrointestinal hemorrhage, unspecified Is this a current diagnosis for this admission?: Yes Plan: Likely diverticular bleed. S/P 3 units pRBC. Hb has been stable. (4) Acute blood loss anemia Is this a current diagnosis for this admission?: Yes Plan: As per number 3. (5) Hyperkalemia Is this a current diagnosis for this admission?: Yes Plan: Resolved. Likely due to MARCE/CKD. Continue telemetry. CMP tomorrow. (6) Hypertension Qualifiers: Hypertension type: essential hypertension Qualified Code(s): I10 - Es sential (primary) hypertension Is this a current diagnosis for this admission?: Yes Plan: Normotensive. Euvolemic. Continue calcium channel blockers. Adjust meds as needed. Outpatient PCP follow-up. (7) Left inguinal hernia Is this a current diagnosis for this admission?: Yes Plan: Evaluated by surgery. Outpatient follow-up for definitive repair. (8) Schizophrenia Qualifiers: Schizophrenia type: unspecified Qualified Code(s): F20.9 - Schizophrenia, unspecified Is this a current diagnosis for this admission?: Yes Plan: Denies any hallucinations, delusions or any internal swelling. Psychiatry has been consulted. Recommendations noted. (9) Edema of left lower extremity Is this a current diagnosis for this admission?: Yes Plan: Improving. Venous Doppler negative for DVT. Likely due to poor venous return caused by large left-sided reducible inguinal hernia. Continue ambulation and extremity elevation for mechanical DVT prophylaxis. No oral anticoagulation due to GI bleed. (10) Diabetes mellitus type 2 in nonobese Is this a current diagnosis for this admission?: Yes Plan: Newly diagnosed. Hemoglobin A1c 7.6. Diabetic diet, long-acting insulin, sliding scale insulin, pre-meal insulin, h ypoglycemia protocol, Accu-Chek. Not a candidate for metformin due to MARCE/CKD. Diabetic education. (11) Hyponatremia Is this a current diagnosis for this admission?: Yes Plan: Improving. CMP tomorrow.
[2019-02-16] MEDS: METRONIDAZOLE 500 MG/NS RTU 500 MG/100 ML RTUPB IV SCH ×3 (00:53→14:24)
[2019-02-16 05:26] LABS: ABSOLUTE BASOPHILS # (AUTO) 0.1 10^3/uL (0.0-0.2); ABSOLUTE EOSINOPHILS # (AUTO) 0.1 10^3/uL (0.0-0.6); ABSOLUTE LYMPHOCYTES (AUTO) 0.8 10^3/uL (0.5-4.7); ABSOLUTE MONOCYTES (AUTO) 1.4 10^3/uL (0.1-1.4); EOSINOPHILS % (AUTO) 1.4 % (0-6); HEMATOCRIT 26.2 % (37.9-51.0); HEMOGLOBIN 8.9 g/dL (13.5-17.0); LYMPHOCYTES % (AUTO) 8.7 % (13-45); MEAN CORPUSCULAR HEMOGLOBIN 29.5 pg (27.0-33.4); MEAN CORPUSCULAR HGB CONC 34.1 g/dL (32.0-36.0); MEAN CORPUSCULAR VOLUME 87 fl (80-97); MONOCYTES % (AUTO) 14.5 % (3-13); PLATELET COUNT 582 10^3/uL (150-450); RED BLOOD COUNT 3.02 10^6/uL (4.35-5.55); RED CELL DISTRIBUTION WIDTH 15.1 % (11.5-14.0); SEGMENTED NEUTROPHILS % (AUTO) 74.4 % (42-78); TOTAL CELLS COUNTED % (AUTO) 100 %; WHITE BLOOD COUNT 9.4 10^3/uL (4.0-10.5)
[2019-02-16] MEDS: PANTOPRAZOLE SODIUM 40 MG TABLET.DR PO SCH (05:53)
[2019-02-16 06:48] LABS: ANION GAP 12 (5-19); BLOOD UREA NITROGEN 39 mg/dL (7-20); CALCIUM 8.2 mg/dL (8.4-10.2); CARBON DIOXIDE 24 mmol/L (22-30); CHLORIDE 96 mmol/L (98-107); POTASSIUM 4.9 mmol/L (3.6-5.0)
[2019-02-16 06:59] LABS: GLUCOSE 451 mg/dL (75-110)
[2019-02-16] MEDS ORDERED: DEXTROSE 40% GEL 15 GM TUBE PO PRN ×2 (07:35)
[2019-02-16] MEDS ORDERED: DEXTROSE 50%-WATER 25 GM/50 ML DISP.SYRIN IV PRN ×2 (07:35)
[2019-02-16] MEDS ORDERED: GLUCAGON,HUMAN RECOMB 1 MG INJ IM PRN (07:35)
[2019-02-16] MEDS: INSULIN REG, HUMAN 100 UNIT/ML 3 ML VIAL (PYX) SUBCUT SCH ×4 (08:57→21:54)
[2019-02-16] MEDS ORDERED: MAGNESIUM SULFATE/D5W 1 GM/100 ML RTUPB IV ONE (09:45)
[2019-02-16] MEDS ORDERED: INSULIN GLARGINE,HUM.REC.ANLOG 1,000 UNIT/10 ML VIAL SUBCUT SCH (10:00)
[2019-02-16] MEDS: HALOPERIDOL 5 MG TABLET PO SCH ×2 (10:39→21:54)
[2019-02-16] MEDS: FOLIC ACID 1 MG TABLET PO SCH (10:39)
[2019-02-16] MEDS: AMLODIPINE BESYLATE 5 MG TABLET PO SCH (10:39)
[2019-02-16] MEDS: THIAMINE HCL 100 MG TABLET PO SCH ×2 (10:39→21:54)
[2019-02-16] MEDS: ZINC SULFATE 220 MG CAPSULE PO SCH (10:43)
--- NOTE | 2019-02-16 11:34 | PDOC PROGRESS REPORT ---
Subjective Progress Note for:: 02/16/19 Subjective:: Patient was asleep when I entered the room but he woke up and answered few questions. He states that he is feeling ill a bit better. He does back to sleep after that. He has made about 1600 mL of urine output for the past 24 hours. Reason For Visit: ACUTE BLOOD LOSS ANEMIA,HYPERKALEMIA,MARCE ON CKD Physical Exam Vital Signs: Temp Pulse Resp BP Pulse Ox 97.8 F 66 18 152/56 H 100 02/16/19 08:00 02/16/19 08:00 02/16/19 08:00 02/16/19 08:00 02/16/19 08:00 Intake & Output 02/15/19 02/16/19 02/17/19 06:59 06:59 06:59 Intake Total 1860 2882 100 Output Total 2375 1600 Balance -515 1282 100 Weight 63 kg 65.9 kg Exam: General appearance: PRESENT: no acute distress, cooperative, well-developed, well-nourished Head exam: PRESENT: atraumatic, normocephalic Eye exam: PRESENT: conjunctiva pale, PERRLA. ABSENT: scleral icterus Neck exam: ABSENT: JVD Respiratory exam: PRESENT: Normal breath sounds. ABSENT: crackles, rales, rhonchi, unlabored, wheezes Cardiovascular exam: PRESENT: Regular rate rhythm -+S1, +S2. ABSENT: diastolic murmur, systolic murmur GI/Abdominal exam: PRESENT: normal bowel sounds, soft. ABSENT: guarding, mass, tenderness Extremities exam: Grade 1 left lower extremity pitting edema Neurological exam: PRESENT: alert, awake, oriented to person, place and time. Skin exam: PRESENT: dry, warm, Cardiovascular exam: PRESENT: RRR, +S1, +S2 GI/Abdominal exam: PRESENT: soft. ABSENT: tenderness Results Laboratory Results: 02/16/19 04:51 02/16/19 06:19 02/16/19 02/16/19 02/16/19 04:51 04:51 06:19 WBC 9.4 RBC 3.02 L Hgb 8.9 L Hct 26.2 L MCV 87 MCH 29.5 MCHC 34.1 RDW 15.1 H Plt Count 582 H Seg Neutrophils % 74.4 Sodium Cancelled 132.2 L Potassium Cancelled 4.9 Chloride Cancelled 96 L Carbon Dioxide Cancelled 24 Anion Gap Cancelled 12 BUN Cancelled 39 H Creatinine Cancelled 2.59 H Est GFR ( Amer) Cancelled 30 L Est GFR (Non-Af Amer) Cancelled Glucose Cancelled 451 H* Calcium Cancelled 8.2 L Magnesium Cancelled 1.5 L Impressions: Abdomen/Pelvis CT 02/09/19 00:00 IMPRESSION: Sigmoid diverticulitis within left inguinal hernia. No abscess or obstruction. Chest X-Ray 02/13/19 15:06 IMPRESSION: Borderline cardiomegaly without pulmonary edema. No significant pleural effusion is present. Venous Doppler Study 02/14/19 15:20 IMPRESSION: No evidence of left lower extremity deep venous thrombosis. Assessment & Plan - Diagnosis (1) Acute kidney injury superimposed on chronic kidney disease Is this a current diagnosis for this admission?: Yes Plan: The patient has initial prerenal azotemia on admission due to GI symptoms. The patient is non-oliguric and is currently on positive fluid balance since admission. There does not seem to be any acute precipitating factors for the acute worsening of kidney function for the last few days. Initial CT scan of the abdomen showed no hydronephrosis. His urinalysis showed minimal protein of 100, glucose of 150 and no blood. Urine eosinophils is negative. Urine microalbumin to creatinine ratio is pending. Kidney function is not significantly change with improvement of urine output. We will start furosemide 40 mg p.o. daily. No indication for renal replacement therapy at this time. Continue to monitor kidney function and electrolytes. (2) Hyperkalemia Is this a current diagnosis for this admission?: Yes Plan: Resolved. (3) Sigmoid diverticulitis Is this a current diagnosis for this admission?: Yes Plan: Continue IV ciprofloxacin and Flagyl per hospitalist. (4) Edema of left lower extremity Is this a current diagnosis for this admission?: Yes Plan: No DVT per Doppler. Improved with some diuresis. Patient also has a note of large left reducible inguinal hernia. (5) Hyponatremia Is this a current diagnosis for this admission?: Yes Plan: Possibly due to mild hypervolemic state. Mild. (6) Secondary hyperparathyroidism (of renal origin) Is this a current diagnosis for this admission?: Yes Plan: Mild. Monitor for now. (7) Diabetes mellitus type 2 in nonobese Is this a current diagnosis for this admission?: Yes Plan: New diagnosis. Hemoglobin A1c of 7.3. I think patient needs to be initiated on some medications. Will defer this to the hospitalist service. (8) Acute blood loss anemia Is this a current diagnosis for this admission?: Yes Plan: With associated iron deficiency anemia. Currently without any active bleeding. I will give a dose of IV Injectafer. (9) GI bleed Qualifiers: GI bleed type/associated pathology: unspecified gastrointestinal hemorrhage type Qualified Code(s): K92.2 - Gastrointestinal hemorrhage, unspecified Is this a current diagnosis for this admission?: Yes Plan: Resolved. Status post EGD with grade [address] scan of the abdomen also showed diverticulosis. (10) Hypertension Qualifiers: Hypertension type: essential hypertension Qualified Code(s): I10 - Essential (primary) hypertension Is this a current diagnosis for this admission?: Yes Plan: Currently acceptable. (11) Reducible left inguinal hernia Is this a current diagnosis for this admission?: Yes Plan: Evaluated by surgery. No surgery recommendation for now. (12) Schizophrenia Qualifiers: Schizophrenia type: unspecified Qualified Code(s): F20.9 - Schizophrenia, unspecified Is this a current diagnosis for this admission?: Yes - Time Time with patient: 15-25 minutes
[2019-02-16] MEDS: CIPROFLOXACIN 200 MG/D5W RTU 200 MG/100 ML RTUPB IV SCH (11:56)
[2019-02-16] MEDS: FUROSEMIDE 40 MG TABLET PO SCH (11:57)
[2019-02-16] MEDS ORDERED: FERRIC CARBOXYMALTOSE 750 MG in NORMAL SALINE 100 ML IV ONE (12:30)
--- NOTE | 2019-02-16 12:43 | PDOC PROGRESS REPORT ---
Subjective Progress Note for:: 02/16/19 Subjective:: This is a 63-year-old male who presented with diarrhea and bloody stools. He was noted to be in acute renal failure and was found to have profound hyperkalemia. He was admitted to the ICU for severe hyperkalemia and GI bleed. He underwent EGD by surgery which did not show a definite source of active bleeding but did not show some grade 1 varices. 02/14/2019. No acute events overnight. Patient comfortably sitting in bed in no apparent distress, cooperative with physical examination, alert oriented x3, denies any fever, chills, nausea, vomiting, diarrhea, constipation or any urinary symptoms. P.o. tolerant, ambulatory and having normal bladder and bowel movements. 02/15/2019. No acute events overnight. Patient comfortably sitting in bed, complaining of left lower extremity edema and mild pain otherwise denies any fever, chills, nausea, vomiting, diarrhea, constipation or any urinary symptoms. 02/16/2019. No acute events overnight. Patient sleeping comfortably, easily arousable, answering questions appropriately, stating that he could not get good sleep last night. Otherwise denies any fever, chills, nausea, vomiting, diarrhea, constipation or any urinary symptoms. Patient is p.o. tolerant, ambulatory and having normal bowel and bladder movements. Reason For Visit: ACUTE BLOOD LOSS ANEMIA,HYPERKALEMIA,MARCE ON CKD Physical Exam Vital Signs: Temp Pulse Resp BP Pulse Ox 97.8 F 66 18 152/56 H 100 02/16/19 08:00 02/16/19 08:00 02/16/19 08:00 02/16/19 08:00 02/16/19 08:00 Intake & Output 02/15/19 02/16/19 02/17/19 06:59 06:59 06:59 Intake Total 1860 2882 200 Output Total 2375 1600 Balance -515 1282 200 Weight 63 kg 65.9 kg General appearance: PRESENT: no acute distress, well-developed, well-nourished Head exam: PRESENT: atraumatic, normocephalic Respiratory exam: PRESENT: clear to auscultation lyn. ABSENT: rales, rhonchi, wheezes Cardiovascular exam: PRESENT: RRR. ABSENT: diastolic murmur, rubs, systolic murmur GI/Abdominal exam: PRESENT: normal bowel sounds, soft. ABSENT: distended, guarding, mass, organolmegaly, rebound, tenderness Extremities exam: PRESENT: full ROM, +1 edema - Left lower extremity below- knee.. ABSENT: calf tenderness, clubbing, pedal edema Neurological exam: PRESENT: alert, awake, oriented to person, oriented to place, CN II-XII grossly intact. ABSENT: motor sensory deficit Results Laboratory Results: 02/16/19 04:51 02/16/19 06:19 02/16/19 02/16/19 02/16/19 04:51 04:51 06:19 WBC 9.4 RBC 3.02 L Hgb 8.9 L Hct 26.2 L MCV 87 MCH 29.5 MCHC 34.1 RDW 15.1 H Plt Count 582 H Seg Neutrophils % 74.4 Sodium Cancelled 132.2 L Potassium Cancelled 4.9 Chloride Cancelled 96 L Carbon Dioxide Cancelled 24 Anion Gap Cancelled 12 BUN Cancelled 39 H Creatinine Cancelled 2.59 H Est GFR ( Amer) Cancelled 30 L Est GFR (Non-Af Amer) Cancelled Glucose Cancelled 451 H* Calcium Cancelled 8.2 L Magnesium Cancelled 1.5 L Impressions: Abdomen/Pelvis CT 02/09/19 00:00 IMPRESSION: Sigmoid diverticulitis within left inguinal hernia. No abscess or obstruction. Chest X-Ray 02/13/19 15:06 IMPRESSION: Borderline cardiomegaly without pulmonary edema. No significant pleural effusion is present. Venous Doppler Study 02/14/19 15:20 IMPRESSION: No evidence of left lower extremity deep venous thrombosis. Assessment and Plan - Diagnosis (1) Sigmoid diverticulitis Is this a current diagnosis for this admission?: Yes Plan: Improving. Denies any abdominal pain. P.o. tolerant. Normal bowel movement. CT abdomen on admission showed sigmoid diverticulitis (contained within the left inguinal hernia). Day 9 IV antibiotics. Day 9 IV ciprofloxacin. Day 9 IV metronidazole. Continue current regimen. (2) Acute kidney injury superimposed on chronic kidney disease Is this a current diagnosis for this admission?: Yes Plan: Improving. Nonoliguric. Creatinine at baseline. Prerenal. Most likely due to dehydration. Baseline creatinine 2-2.5. 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 Electrolytes WNL. Continue cautious volume resuscitation guided by volume status. Avoid nephrotoxic meds. Nephrology consulted. Recommendations noted. (3) GI bleed Qualifiers: GI bleed type/associated pathology: unspecified gastrointestinal hemorrhage type Qualified Code(s): K92.2 - Gastrointestinal hemorrhage, unspecified Is this a current diagnosis for this admission?: Yes Plan: Likely diverticular bleed. S/P 3 units pRBC. Hb has been stable. (4) Acute blood loss anemia Is this a current diagnosis for this admission?: Yes Plan: As per number 3. Started on Injectafer infusion by nephrology. (5) Hyperkalemia Is this a current diagnosis for this admission?: Yes Plan: Resolved. Likely due to MARCE/CKD. Continue telemetry. CMP tomorrow. (6) Hypertension Qualifiers: Hypertension type: essential hypertension Qualified Code(s): I10 - Essential (primary) hypertension Is this a current diagnosis for this admission?: Yes Plan: Normotensive. Euvolemic. Continue calcium channel blockers. Adjust meds as needed. Outpatient PCP follow-up. (7) Left inguinal hernia Is this a current diagnosis for this admission?: Yes Plan: Evaluated by surgery. Reducible. Nontender. Outpatient follow-up for definitive repair. (8) Schizophrenia Qualifiers: Schizophrenia type: unspecified Qualified Code(s): F20.9 - Schizophrenia, unspecified Is this a current diagnosis for this admission?: Yes Plan: Denies any hallucinations, delusions or any internal swelling. Psychiatry has been consulted. Recommendations noted. (9) Edema of left lower extremity Is this a current diagnosis for this admission?: Yes Plan: Improving. Venous Doppler negative for DVT. Likely due to poor venous return caused by large left-sided reducible inguinal hernia. Continue ambulation and extremity elevation for mechanical DVT prophylaxis. No oral anticoagulation due to GI bleed. Patient is ambulatory. (10) Diabetes mellitus type 2 in nonobese Is this a current diagnosis for this admission?: Yes Plan: Newly diagnosed. Hemoglobin A1c 7.6. Diabetic diet, long-acting insulin, sliding scale insulin, pre-meal insulin, hypoglycemia protocol, Accu-Chek. Not a candidate for metformin due to MARCE/CKD. Diabetic education. (11) Hyponatremia Is this a current diagnosis for this admission?: Yes Plan: Improving. CMP tomorrow.
[2019-02-17] MEDS: PANTOPRAZOLE SODIUM 40 MG TABLET.DR PO SCH (05:16)
[2019-02-17 05:35] LABS: ABSOLUTE BASOPHILS # (AUTO) 0.1 10^3/uL (0.0-0.2); ABSOLUTE EOSINOPHILS # (AUTO) 0.2 10^3/uL (0.0-0.6); ABSOLUTE MONOCYTES (AUTO) 1.3 10^3/uL (0.1-1.4); ABSOLUTE NEUT (AUTO) 6.9 10^3/uL (1.7-8.2); BASOPHILS % (AUTO) 0.7 % (0-2); EOSINOPHILS % (AUTO) 2.1 % (0-6); HEMATOCRIT 27.6 % (37.9-51.0); HEMOGLOBIN 9.4 g/dL (13.5-17.0); LYMPHOCYTES % (AUTO) 10.3 % (13-45); MEAN CORPUSCULAR HEMOGLOBIN 29.2 pg (27.0-33.4); MEAN CORPUSCULAR VOLUME 86 fl (80-97); MONOCYTES % (AUTO) 14.1 % (3-13); PLATELET COUNT 604 10^3/uL (150-450); RED BLOOD COUNT 3.21 10^6/uL (4.35-5.55); RED CELL DISTRIBUTION WIDTH 15.1 % (11.5-14.0); SEGMENTED NEUTROPHILS % (AUTO) 72.8 % (42-78); TOTAL CELLS COUNTED % (AUTO) 100 %; WHITE BLOOD COUNT 9.5 10^3/uL (4.0-10.5)
[2019-02-17 05:46] LABS: ANION GAP 12 (5-19); BLOOD UREA NITROGEN 41 mg/dL (7-20); CALCIUM 8.6 mg/dL (8.4-10.2); CARBON DIOXIDE 25 mmol/L (22-30); CHLORIDE 99 mmol/L (98-107); GLUCOSE 269 mg/dL (75-110); POTASSIUM 4.8 mmol/L (3.6-5.0)
[2019-02-17] MEDS: INSULIN REG, HUMAN 100 UNIT/ML 3 ML VIAL (PYX) SUBCUT SCH ×4 (07:43→21:32)
[2019-02-17] MEDS: THIAMINE HCL 100 MG TABLET PO SCH ×2 (09:34→21:32)
[2019-02-17] MEDS: HALOPERIDOL 5 MG TABLET PO SCH ×2 (09:35→21:32)
[2019-02-17] MEDS: AMLODIPINE BESYLATE 5 MG TABLET PO SCH (09:35)
[2019-02-17] MEDS: FOLIC ACID 1 MG TABLET PO SCH (09:35)
[2019-02-17] MEDS: FUROSEMIDE 40 MG TABLET PO SCH (09:35)
[2019-02-17] MEDS: INSULIN GLARGINE,HUM.REC.ANLOG 1,000 UNIT/10 ML VIAL SUBCUT SCH (09:54)
[2019-02-17 10:36] LABS: MICROALBUMIN URINE 211.9 ug/mL (Not Estab.)
[2019-02-17] MEDS ORDERED: CARVEDILOL 6.25 MG TABLET PO ONE (13:45)
--- NOTE | 2019-02-17 17:58 | PDOC PROGRESS REPORT ---
Subjective Progress Note for:: 02/17/19 Subjective:: This is a 63-year-old male who presented with diarrhea and bloody stools. He was noted to be in acute renal failure and was found to have profound hyperkalemia. He was admitted to the ICU for severe hyperkalemia and GI bleed. He underwent EGD by surgery which did not show a definite source of active bleeding but did not show some grade 1 varices. 02/14/2019. No acute events overnight. Patient comfortably sitting in bed in no apparent distress, cooperative with physical examination, alert oriented x3, denies any fever, chills, nausea, vomiting, diarrhea, constipation or any urinary symptoms. P.o. tolerant, ambulatory and having normal bladder and bowel movements. 02/15/2019. No acute events overnight. Patient comfortably sitting in bed, complaining of left lower extremity edema and mild pain otherwise denies any fever, chills, nausea, vomiting, diarrhea, constipation or any urinary symptoms. 02/16/2019. No acute events overnight. Patient sleeping comfortably, easily arousable, answering questions appropriately, stating that he could not get good sleep last night. Otherwise denies any fever, chills, nausea, vomiting, diarrhea, constipation or any urinary symptoms. Patient is p.o. tolerant, ambulatory and having normal bowel and bladder movements. 02/17/2018. No acute events overnight. Patient was going to be discharged home however noted to have uncontrolled blood sugars and diabetic education was provided but unfortunately due to patient's poor vision stated that he could not read the numbers very well and will not be able to accurately administer the right amount of insulin. Unfortunately patient has CKD and not a candidate for oral antidiabetic at this point. It was decided to try to send patient to SNF for the moment. Patient has agreed to stay until transfer to SNF. Reason For Visit: ACUTE BLOOD LOSS ANEMIA,HYPERKALEMIA,MARCE ON CKD Physical Exam Vital Signs: Temp Pulse Resp BP Pulse Ox 98.6 F 64 19 152/93 H 97 02/17/19 13:15 02/17/19 13:15 02/17/19 13:15 02/17/19 13:15 02/17/19 13:15 Intake & Output 02/16/19 02/17/19 02/18/19 06:59 06:59 06:59 Intake Total 2882 929 970 Output Total 1600 1300 Balance 1282 -371 970 Weight 65.9 kg 64.3 kg General appearance: PRESENT: no acute distress, well-developed, well-nourished Head exam: PRESENT: atraumatic, normocephalic Respiratory exam: PRESENT: clear to auscultation lyn. ABSENT: rales, rhonchi, wheezes Cardiovascular exam: PRESENT: RRR. ABSENT: diastolic murmur, rubs, systolic murmur GI/Abdominal exam: PRESENT: normal bowel sounds, soft. ABSENT: distended, guarding, mass, organolmegaly, rebound, tenderness Extremities exam: PRESENT: full ROM, +1 edema - Left lower extremity below the knee. Neurovascularly intact.. ABSENT: calf tenderness, clubbing, pedal edema Neurological exam: PRESENT: alert, awake, oriented to person, oriented to place, CN II-XII grossly intact. ABSENT: motor sensory deficit Results Laboratory Results: 02/17/19 04:43 02/17/19 04:43 02/17/19 02/17/19 04:43 04:43 WBC 9.5 RBC 3.21 L Hgb 9.4 L Hct 27.6 L MCV 86 MCH 29.2 MCHC 34.0 RDW 15.1 H Plt Count 604 H Seg Neutrophils % 72.8 Sodium 136.0 L Potassium 4.8 Chloride 99 Carbon Dioxide 25 Anion Gap 12 BUN 41 H Creatinine 2.64 H Est GFR ( Amer) 30 L Glucose 269 H Calcium 8.6 Impressions: Abdomen/Pelvis CT 02/09/19 00:00 IMPRESSION: Sigmoid diverticulitis within left inguinal hernia. No abscess or obstruction. Chest X-Ray 02/13/19 15:06 IMPRESSION: Borderline cardiomegaly without pulmonary edema. No significant pleural effusion is present. Venous Doppler Study 02/14/19 15:20 IMPRESSION: No evidence of left lower extremity deep venous thrombosis. Assessment and Plan - Diagnosis (1) Sigmoid diverticulitis Is this a current diagnosis for this admission?: Yes Plan: Improving. Denies any abdominal pain. P.o. tolerant. Normal bowel movement. CT abdomen on admission showed sigmoid diverticulitis (contained within the left inguinal hernia). Day 10 IV antibiotics. Day 10 IV ciprofloxacin. Day 10 IV metronidazole. Continue current regimen. (2) Acute kidney injury superimposed on chronic kidney disease Is this a current diagnosis for this admission?: Yes Plan: Improving. Nonoliguric. Creatinine at baseline. Prerenal. Most likely due to dehydration. Baseline creatinine 2-2.5. Does not see a library circulation clerk as outpatient. Electrolytes WNL. Continue cautious volume resuscitation guided by volume status. Avoid nephrotoxic meds. Nephrology consulted. Recommendations noted. (3) GI bleed Qualifiers: GI bleed type/associated pathology: unspecified gastrointestinal hemorrhage type Qualified Code(s): K92.2 - Gastrointestinal hemorrhage, unspecified Is this a current diagnosis for this admission?: Yes Plan: Likely diverticular bleed. S/P 3 units pRBC. Hb has been stable. (4) Acute blood loss anemia Is this a current diagnosis for this admission?: Yes Plan: As per number 3. Started on Injectafer infusion by nephrology. (5) Hyperkalemia Is this a current diagnosis for this admission?: Yes Plan: Resolved. Likely due to MARCE/CKD. Continue telemetry. CMP tomorrow. (6) Hypertension Qualifiers: Hypertension type: essential hypertension Qualified Code(s): I10 - Essential (primary) hypertension Is this a current diagnosis for this admission?: Yes Plan: Euvolemic. Not optimized. Continue Lasix, calcium channel lópez. We will add low-dose beta-blockers. Continue monitoring vitals. Adjust meds as needed. Outpatient PCP follow-up. (7) Left inguinal hernia Is this a current diagnosis for this admission?: Yes Plan: Evaluated by surgery. Reducible. Nontender. Outpatient follow-up for definitive repair. (8) Schizophrenia Qualifiers: Schizophrenia type: unspecified Qualified Code(s): F20.9 - Schizophrenia, unspecified Is this a current diagnosis for this admission?: Yes Plan: Denies any hallucinations, delusions or any internal swelling. Psychiatry has been consulted. Recommendations noted. (9) Edema of left lower extremity Is this a current diagnosis for this admission?: Yes Plan: Improving. Venous Doppler negative for DVT. Likely due to poor venous return caused by large left-sided reducible inguinal hernia. Continue ambulation and extremity elevation for mechanical DVT prophylaxis. No oral anticoagulation due to GI bleed. Patient is ambulatory. (10) Diabetes mellitus type 2 in nonobese Is this a current diagnosis for this admission?: Yes Plan: Newly diagnosed. Hemoglobin A1c 7.6. Diabetic diet, long-acting insulin, sliding scale insulin, pre-meal insulin, hypoglycemia protocol, Accu-Chek. Not a candidate for metformin due to MARCE/CKD. Diabetic education. (11) Hyponatremia Is this a current diagnosis for this admission?: Yes Plan: Improving. CMP tomorrow.
[2019-02-17] MEDS: CARVEDILOL 6.25 MG TABLET PO SCH (21:32)
--- NOTE | 2019-02-17 22:06 | PDOC PROGRESS REPORT ---
Subjective Progress Note for:: 02/17/19 Subjective:: Patient remained stable. His urine output for the last 24 hours is 1300 mL. I started him on oral Lasix which I think he needs to be discharged with. Patient is supposed to go home but he has a problem with insulin administration and so it was deemed that he is better off to be in rehab facility which the vp digital marketing social media and crm is working on. Reason For Visit: ACUTE BLOOD LOSS ANEMIA,HYPERKALEMIA,MARCE ON CKD Physical Exam Vital Signs: Temp Pulse Resp BP Pulse Ox 98.6 F 64 19 152/93 H 97 02/17/19 13:15 02/17/19 13:15 02/17/19 13:15 02/17/19 13:15 02/17/19 13:15 Intake & Output 02/16/19 02/17/19 02/18/19 06:59 06:59 06:59 Intake Total 2882 929 970 Output Total 1600 1300 Balance 1282 -371 970 Weight 65.9 kg 64.3 kg Exam: General appearance: PRESENT: no acute distress, cooperative, well-developed, well-nourished Head exam: PRESENT: atraumatic, normocephalic Eye exam: PRESENT: conjunctiva pale, PERRLA. ABSENT: scleral icterus Neck exam: ABSENT: JVD Respiratory exam: PRESENT: Diminished breath sounds. ABSENT: crackles, rales, rhonchi, unlabored, wheezes Cardiovascular exam: PRESENT: Regular rate rhythm -+S1, +S2. ABSENT: diastolic murmur, systolic murmur GI/Abdominal exam: PRESENT: normal bowel sounds, soft. ABSENT: guarding, mass, tenderness Extremities exam: Unchanged grade 2 left lower extremity pitting edema Neurological exam: PRESENT: alert, awake, oriented to person, place and time. Skin exam: PRESENT: dry, warm, Cardiovascular exam: PRESENT: RRR, +S1, +S2 GI/Abdominal exam: PRESENT: soft. ABSENT: tenderness Results Laboratory Results: 02/17/19 04:43 02/17/19 04:43 02/17/19 02/17/19 04:43 04:43 WBC 9.5 RBC 3.21 L Hgb 9.4 L Hct 27.6 L MCV 86 MCH 29.2 MCHC 34.0 RDW 15.1 H Plt Count 604 H Seg Neutrophils % 72.8 Sodium 136.0 L Potassium 4.8 Chloride 99 Carbon Dioxide 25 Anion Gap 12 BUN 41 H Creatinine 2.64 H Est GFR ( Amer) 30 L Glucose 269 H Calcium 8.6 Impressions: Abdomen/Pelvis CT 02/09/19 00:00 IMPRESSION: Sigmoid diverticulitis within left inguinal hernia. No abscess or obstruction. Chest X-Ray 02/13/19 15:06 IMPRESSION: Borderline cardiomegaly without pulmonary edema. No significant pleural effusion is present. Venous Doppler Study 02/14/19 15:20 IMPRESSION: No evidence of left lower extremity deep venous thrombosis. Assessment & Plan - Diagnosis (1) Acute kidney injury superimposed on chronic kidney disease Is this a current diagnosis for this admission?: Yes Plan: The patient has initial prerenal azotemia on admission due to GI symptoms. The patient is non-oliguric and is currently on positive fluid balance since admission. There does not seem to be any acute precipitating factors for the acute worsening of kidney function for the last few days. Initial CT scan of the abdomen showed no hydronephrosis. His urinalysis showed minimal protein of 100, glucose of 150 and no blood. Urine eosinophils is negative. Urine microalbumin to creatinine ratio is 730.7. Kidney function is not significantly change with improvement of urine output. Yesterday started furosemide 40 mg p.o. daily. No indication for renal replacement therapy at this time. Continue to monitor kidney function and electrolytes. (2) Hyperkalemia Is this a current diagnosis for this admission?: Yes Plan: Resolved. (3) Sigmoid diverticulitis Is this a current diagnosis for this admission?: Yes Plan: Resolved clinically. Treated with ciprofloxacin and metronidazole. (4) Edema of left lower extremity Is this a current diagnosis for this admission?: Yes Plan: No DVT per Doppler. Improved with some diuresis. Patient also has a note of large left reducible inguinal hernia. (5) Hyponatremia Is this a current diagnosis for this admission?: Yes Plan: Resolved. (6) Secondary hyperparathyroidism (of renal origin) Is this a current diagnosis for this admission?: Yes Plan: Mild. Monitor for now. (7) Diabetes mellitus type 2 in nonobese Is this a current diagnosis for this admission?: Yes Plan: New diagnosis. Hemoglobin A1c of 7.3. Patient was a started on insulin. (8) Acute blood loss anemia Is this a current diagnosis for this admission?: Yes Plan: With associated iron deficiency anemia. Currently without any active bleeding. Yesterday he received a dose of IV Injectafer. (9) GI bleed Qualifiers: GI bleed type/associated pathology: unspecified gastrointestinal hemorrhage type Qualified Code(s): K92.2 - Gastrointestinal hemorrhage, unspecified Is this a current diagnosis for this admission?: Yes Plan: Resolved. Status post EGD with grade [address] scan of the abdomen also showed diverticulosis. (10) Hypertension Qualifiers: Hypertension type: essential hypertension Qualified Code(s): I10 - Essential (primary) hypertension Is this a current diagnosis for this admission?: Yes Plan: Currently acceptable. (11) Reducible left inguinal hernia Is this a current diagnosis for this admission?: Yes Plan: Evaluated by surgery. No surgery recommendation for now. (12) Schizophrenia Qualifiers: Schizophrenia type: unspecified Qualified Code(s): F20.9 - Schizophrenia, unspecified Is this a current diagnosis for this admission?: Yes - Time Time with patient: 15-25 minutes
[2019-02-18 05:12] LABS: ABSOLUTE BASOPHILS # (AUTO) 0.1 10^3/uL (0.0-0.2); ABSOLUTE EOSINOPHILS # (AUTO) 0.2 10^3/uL (0.0-0.6); ABSOLUTE LYMPHOCYTES (AUTO) 0.9 10^3/uL (0.5-4.7); ABSOLUTE MONOCYTES (AUTO) 1.3 10^3/uL (0.1-1.4); HEMATOCRIT 27.8 % (37.9-51.0); HEMOGLOBIN 9.5 g/dL (13.5-17.0); LYMPHOCYTES % (AUTO) 9.9 % (13-45); MEAN CORPUSCULAR HEMOGLOBIN 29.2 pg (27.0-33.4); MEAN CORPUSCULAR VOLUME 86 fl (80-97); MONOCYTES % (AUTO) 13.5 % (3-13); PLATELET COUNT 618 10^3/uL (150-450); RED BLOOD COUNT 3.23 10^6/uL (4.35-5.55); RED CELL DISTRIBUTION WIDTH 15.4 % (11.5-14.0); SEGMENTED NEUTROPHILS % (AUTO) 73.6 % (42-78); TOTAL CELLS COUNTED % (AUTO) 100 %; WHITE BLOOD COUNT 9.5 10^3/uL (4.0-10.5)
[2019-02-18] MEDS: PANTOPRAZOLE SODIUM 40 MG TABLET.DR PO SCH (05:14)
[2019-02-18 05:33] LABS: ANION GAP 12 (5-19); BLOOD UREA NITROGEN 45 mg/dL (7-20); CALCIUM 8.8 mg/dL (8.4-10.2); CARBON DIOXIDE 26 mmol/L (22-30); CHLORIDE 99 mmol/L (98-107); GLUCOSE 187 mg/dL (75-110); POTASSIUM 5.5 mmol/L (3.6-5.0)
[2019-02-18] MEDS: INSULIN REG, HUMAN 100 UNIT/ML 3 ML VIAL (PYX) SUBCUT SCH ×4 (07:35→21:10)
[2019-02-18] MEDS: HALOPERIDOL 5 MG TABLET PO SCH ×2 (09:08→21:10)
[2019-02-18] MEDS: FUROSEMIDE 40 MG TABLET PO SCH (09:09)
[2019-02-18] MEDS: THIAMINE HCL 100 MG TABLET PO SCH ×2 (09:09→21:10)
[2019-02-18] MEDS: AMLODIPINE BESYLATE 5 MG TABLET PO SCH (09:09)
[2019-02-18] MEDS: CARVEDILOL 6.25 MG TABLET PO SCH ×2 (09:09→21:10)
[2019-02-18] MEDS: FOLIC ACID 1 MG TABLET PO SCH (09:10)
[2019-02-18] MEDS: INSULIN GLARGINE,HUM.REC.ANLOG 1,000 UNIT/10 ML VIAL SUBCUT SCH (09:10)
--- NOTE | 2019-02-18 10:50 | PDOC PROGRESS REPORT ---
Subjective Progress Note for:: 02/18/19 Subjective:: This is a 63-year-old male who presented with diarrhea and bloody stools. He was noted to be in acute renal failure and was found to have profound hyperkalemia. He was admitted to the ICU for severe hyperkalemia and GI bleed. He underwent EGD by surgery which did not show a definite source of active bleeding but did not show some grade 1 varices. 02/14/2019. No acute events overnight. Patient comfortably sitting in bed in no apparent distress, cooperative with physical examination, alert oriented x3, denies any fever, chills, nausea, vomiting, diarrhea, constipation or any urinary symptoms. P.o. tolerant, ambulatory and having normal bladder and bowel movements. 02/15/2019. No acute events overnight. Patient comfortably sitting in bed, complaining of left lower extremity edema and mild pain otherwise denies any fever, chills, nausea, vomiting, diarrhea, constipation or any urinary symptoms. 02/16/2019. No acute events overnight. Patient sleeping comfortably, easily arousable, answering questions appropriately, stating that he could not get good sleep last night. Otherwise denies any fever, chills, nausea, vomiting, diarrhea, constipation or any urinary symptoms. Patient is p.o. tolerant, ambulatory and having normal bowel and bladder movements. 02/17/2018. No acute events overnight. Patient was going to be discharged home however noted to have uncontrolled blood sugars and diabetic education was provided but unfortunately due to patient's poor vision stated that he could not read the numbers very well and will not be able to accurately administer the right amount of insulin. Unfortunately patient has CKD and not a candidate for oral antidiabetic at this point. It was decided to try to send patient to SNF for the moment. Patient has agreed to stay until transfer to SNF. 02/10/2018. No acute events overnight. Denies any fever, chills, nausea, vomiting, diarrhea, constipation or any urinary symptoms. Blood sugars are improving. Patient pending for placement. Reason For Visit: ACUTE BLOOD LOSS ANEMIA,HYPERKALEMIA,MARCE ON CKD Physical Exam Vital Signs: Temp Pulse Resp BP Pulse Ox 99.5 F 68 16 147/77 H 93 02/18/19 07:41 02/18/19 07:41 02/18/19 07:41 02/18/19 07:41 02/18/19 07:41 Intake & Output 02/17/19 02/18/19 02/19/19 06:59 06:59 06:59 Intake Total 929 1720 Output Total 1300 Balance -371 1720 Weight 64.3 kg 65 kg Results Laboratory Results: 02/18/19 04:36 02/18/19 04:36 02/18/19 02/18/19 04:36 04:36 WBC 9.5 RBC 3.23 L Hgb 9.5 L Hct 27.8 L MCV 86 MCH 29.2 MCHC 34.0 RDW 15.4 H Plt Count 618 H Seg Neutrophils % 73.6 Sodium 136.6 L Potassium 5.5 H Chloride 99 Carbon Dioxide 26 Anion Gap 12 BUN 45 H Creatinine 2.68 H Est GFR ( Amer) 29 L Glucose 187 H Calcium 8.8 Magnesium 1.6 Impressions: Abdomen/Pelvis CT 02/09/19 00:00 IMPRESSION: Sigmoid diverticulitis within left inguinal hernia. No abscess or obstruction. Chest X-Ray 02/13/19 15:06 IMPRESSION: Borderline cardiomegaly without pulmonary edema. No significant pleural effusion is present. Venous Doppler Study 02/14/19 15:20 IMPRESSION: No evidence of left lower extremity deep venous thrombosis. Assessment and Plan - Diagnosis (1) Sigmoid diverticulitis Is this a current diagnosis for this admission?: Yes Plan: Resolved. Denies any abdominal pain. P.o. tolerant. Normal bowel movement. CT abdomen on admission showed sigmoid diverticulitis (contained within the left inguinal hernia). Received 10 days of empiric antibiotics. Received 10 days of ciprofloxacin. Received 10 days of metronidazole. DC antibiotics. Monitor vitals. (2) Acute kidney injury superimposed on chronic kidney disease Is this a current diagnosis for this admission?: Yes Plan: Improving. Nonoliguric. Creatinine at baseline. Prerenal. Most likely due to dehydration. Baseline creatinine 2-2.5. Does not see a fishing boat mate as outpatient. Electrolytes WNL. Continue cautious volume resuscitation guided by volume status. Avoid nephrotoxic meds. Nephrology consulted. Recommendations noted. (3) GI bleed Qualifiers: GI bleed type/associated pathology: unspecified gastrointestinal hemorrhage type Qualified Code(s): K92.2 - Gastrointestinal hemorrhage, unspecified Is this a current diagnosis for this admission?: Yes Plan: Likely diverticular bleed. S/P 3 units pRBC. Hb has been stable. (4) Acute blood loss anemia Is this a current diagnosis for this admission?: Yes Plan: As per number 3. Started on Injectafer infusion by nephrology. (5) Hyperkalemia Is this a current diagnosis for this admission?: Yes Plan: Likely due to MARCE/CKD. Hyperkalemia protocol Continue telemetry. CMP tomorrow. (6) Hypertension Qualifiers: Hypertension type: essential hypertension Qualified Code(s): I10 - Essential (primary) hypertension Is this a current diagnosis for this admission?: Yes Plan: Euvolemic. Not optimized. Continue Lasix, calcium channel lópez. We will add low-dose beta-blockers. Continue monitoring vitals. Adjust meds as needed. Outpatient PCP follow-up. (7) Left inguinal hernia Is this a current diagnosis for this admission?: Yes Plan: Evaluated by surgery. Reducible. Nontender. Outpatient follow-up for definitive repair. (8) Schizophrenia Qualifiers: Schizophrenia type: unspecified Qualified Code(s): F20.9 - Schizophrenia, unspecified Is this a current diagnosis for this admission?: Yes Plan: Denies any hallucinations, delusions or any internal swelling. Psychiatry has been consulted. Recommendations noted. (9) Edema of left lower extremity Is this a current diagnosis for this admission?: Yes Plan: Improving. Venous Doppler negative for DVT. Likely due to poor venous return caused by large left-sided reducible inguinal hernia. Continue ambulation and extremity elevation for mechanical DVT prophylaxis. No oral anticoagulation due to GI bleed. Patient is ambulatory. (10) Diabetes mellitus type 2 in nonobese Is this a current diagnosis for this admission?: Yes Plan: Newly diagnosed. Hemoglobin A1c 7.6. Diabetic diet, long-acting insulin, sliding scale insulin, pre-meal insulin, hypoglycemia protocol, Accu-Chek. Not a candidate for metformin due to MARCE/CKD. Diabetic education. (11) Hyponatremia Is this a current diagnosis for this admission?: Yes Plan: Improving. CMP tomorrow.
[2019-02-18] MEDS ORDERED: SODIUM POLYSTYRENE SULFONATE 15 GM/60 ML PO SCH (22:00)
[2019-02-19] MEDS: PANTOPRAZOLE SODIUM 40 MG TABLET.DR PO SCH (05:52)
[2019-02-19 06:27] LABS: ABSOLUTE BASOPHILS # (AUTO) 0.1 10^3/uL (0.0-0.2); ABSOLUTE EOSINOPHILS # (AUTO) 0.2 10^3/uL (0.0-0.6); ABSOLUTE LYMPHOCYTES (AUTO) 1.1 10^3/uL (0.5-4.7); ABSOLUTE MONOCYTES (AUTO) 1.1 10^3/uL (0.1-1.4); ABSOLUTE NEUT (AUTO) 6.5 10^3/uL (1.7-8.2); BASOPHILS % (AUTO) 1.2 % (0-2); EOSINOPHILS % (AUTO) 2.5 % (0-6); HEMATOCRIT 28.3 % (37.9-51.0); HEMOGLOBIN 9.5 g/dL (13.5-17.0); LYMPHOCYTES % (AUTO) 12.4 % (13-45); MEAN CORPUSCULAR HGB CONC 33.6 g/dL (32.0-36.0); MEAN CORPUSCULAR VOLUME 86 fl (80-97); MONOCYTES % (AUTO) 12.3 % (3-13); PLATELET COUNT 619 10^3/uL (150-450); RED BLOOD COUNT 3.27 10^6/uL (4.35-5.55); RED CELL DISTRIBUTION WIDTH 15.5 % (11.5-14.0); SEGMENTED NEUTROPHILS % (AUTO) 71.6 % (42-78); TOTAL CELLS COUNTED % (AUTO) 100 %; WHITE BLOOD COUNT 9.1 10^3/uL (4.0-10.5)
[2019-02-19 06:53] LABS: ANION GAP 10 (5-19); BLOOD UREA NITROGEN 53 mg/dL (7-20); CALCIUM 8.6 mg/dL (8.4-10.2); CARBON DIOXIDE 26 mmol/L (22-30); CHLORIDE 102 mmol/L (98-107); GLUCOSE 136 mg/dL (75-110); POTASSIUM 5.8 mmol/L (3.6-5.0)
[2019-02-19] MEDS: INSULIN REG, HUMAN 100 UNIT/ML 3 ML VIAL (PYX) SUBCUT SCH ×4 (08:13→21:37)
[2019-02-19] MEDS: FOLIC ACID 1 MG TABLET PO SCH (09:38)
[2019-02-19] MEDS: HALOPERIDOL 5 MG TABLET PO SCH ×2 (09:38→21:37)
[2019-02-19] MEDS: SODIUM POLYSTYRENE SULFONATE 15 GM/60 ML PO SCH ×2 (09:39→21:37)
[2019-02-19] MEDS: CARVEDILOL 6.25 MG TABLET PO SCH ×2 (09:39→21:37)
[2019-02-19] MEDS: THIAMINE HCL 100 MG TABLET PO SCH ×2 (09:40→21:37)
[2019-02-19] MEDS: AMLODIPINE BESYLATE 5 MG TABLET PO SCH (09:40)
[2019-02-19] MEDS: FUROSEMIDE 40 MG TABLET PO SCH (09:40)
[2019-02-19] MEDS: INSULIN GLARGINE,HUM.REC.ANLOG 1,000 UNIT/10 ML VIAL SUBCUT SCH (09:43)
--- NOTE | 2019-02-19 14:47 | PDOC PROGRESS REPORT ---
Subjective Progress Note for:: 02/19/19 Subjective:: This is a 63-year-old male who presented with diarrhea and bloody stools. He was noted to be in acute renal failure and was found to have profound hyperkalemia. He was admitted to the ICU for severe hyperkalemia and GI bleed. He underwent EGD by surgery which did not show a definite source of active bleeding but did not show some grade 1 varices. 02/14/2019. No acute events overnight. Patient comfortably sitting in bed in no apparent distress, cooperative with physical examination, alert oriented x3, denies any fever, chills, nausea, vomiting, diarrhea, constipation or any urinary symptoms. P.o. tolerant, ambulatory and having normal bladder and bowel movements. 02/15/2019. No acute events overnight. Patient comfortably sitting in bed, complaining of left lower extremity edema and mild pain otherwise denies any fever, chills, nausea, vomiting, diarrhea, constipation or any urinary symptoms. 02/16/2019. No acute events overnight. Patient sleeping comfortably, easily arousable, answering questions appropriately, stating that he could not get good sleep last night. Otherwise denies any fever, chills, nausea, vomiting, diarrhea, constipation or any urinary symptoms. Patient is p.o. tolerant, ambulatory and having normal bowel and bladder movements. 02/17/2018. No acute events overnight. Patient was going to be discharged home however noted to have uncontrolled blood sugars and diabetic education was provided but unfortunately due to patient's poor vision stated that he could not read the numbers very well and will not be able to accurately administer the right amount of insulin. Unfortunately patient has CKD and not a candidate for oral antidiabetic at this point. It was decided to try to send patient to SNF for the moment. Patient has agreed to stay until transfer to SNF. 02/18/2018. No acute events overnight. Denies any fever, chills, nausea, vomiting, diarrhea, constipation or any urinary symptoms. Blood sugars are improving. Patient pending for placement. 02/19/2018. No acute events overnight. Denies any fever, chills, nausea, vomiting, diarrhea, constipation or any urinary symptoms. Blood sugars are improving. Patient pending for placement. Reason For Visit: ACUTE BLOOD LOSS ANEMIA,HYPERKALEMIA,MARCE ON CKD Physical Exam Vital Signs: Temp Pulse Resp BP Pulse Ox 97.5 F 78 20 148/63 H 98 02/19/19 11:33 02/19/19 11:33 02/19/19 11:33 02/19/19 11:33 02/19/19 11:33 Intake & Output 02/18/19 02/19/19 02/20/19 06:59 06:59 06:59 Intake Total 1720 2876 600 Output Total 250 Balance 1720 2876 350 Weight 65 kg 65.9 kg General appearance: PRESENT: no acute distress, well-developed, well-nourished Head exam: PRESENT: atraumatic, normocephalic Respiratory exam: PRESENT: clear to auscultation lyn. ABSENT: rales, rhonchi, wheezes Cardiovascular exam: PRESENT: RRR. ABSENT: diastolic murmur, rubs, systolic murmur GI/Abdominal exam: PRESENT: normal bowel sounds, soft, other - Left inguinal hernia, reducible.. ABSENT: distended, guarding, mass, organolmegaly, rebound, tenderness Extremities exam: PRESENT: full ROM, +2 edema - Left lower extremity below the knee., other. ABSENT: calf tenderness, clubbing, pedal edema Neurological exam: PRESENT: alert, awake, oriented to person, oriented to place, CN II-XII grossly intact. ABSENT: motor sensory deficit Results Laboratory Results: 02/19/19 05:50 02/19/19 05:50 02/19/19 02/19/19 05:50 05:50 WBC 9.1 RBC 3.27 L Hgb 9.5 L Hct 28.3 L MCV 86 MCH 29.0 MCHC 33.6 RDW 15.5 H Plt Count 619 H Seg Neutrophils % 71.6 Sodium 137.9 Potassium 5.8 H Chloride 102 Carbon Dioxide 26 Anion Gap 10 BUN 53 H Creatinine 2.61 H Est GFR ( Amer) 30 L Glucose 136 H Calcium 8.6 Impressions: Abdomen/Pelvis CT 02/09/19 00:00 IMPRESSION: Sigmoid diverticulitis within left inguinal hernia. No abscess or obstruction. Chest X-Ray 02/13/19 15:06 IMPRESSION: Borderline cardiomegaly without pulmonary edema. No significant pleural effusion is present. Venous Doppler Study 02/14/19 15:20 IMPRESSION: No evidence of left lower extremity deep venous thrombosis. Assessment and Plan - Diagnosis (1) Acute kidney injury superimposed on chronic kidney disease Is this a current diagnosis for this admission?: Yes Plan: Improving. Nonoliguric. Creatinine at baseline. Prerenal. Most likely due to dehydration. Baseline creatinine 2-2.5. Does not see a machine strap buckler as outpatient. Electrolytes WNL. Continue cautious volume resuscitation guided by volume status. Avoid nephrotoxic meds. Nephrology consulted. Recommendations noted. (2) GI bleed Qualifiers: GI bleed type/associated pathology: unspecified gastrointestinal hemorrhage type Qualified Code(s): K92.2 - Gastrointestinal hemorrhage, unspecified Is this a current diagnosis for this admission?: Yes Plan: Likely diverticular bleed. S/P 3 units pRBC. Hb has been stable. (3) Acute blood loss anemia Is this a current diagnosis for this admission?: Yes Plan: As above. Received 1 dose of Injectafer by machine strap buckler. H&H stable. Monitor H&H. Supportive transfusions. Outpatient PCP and nephrology follow-up. (4) Hyperkalemia Is this a current diagnosis for this admission?: Yes Plan: Likely due to MARCE/CKD. Kayexalate. Low potassium diet. Hyperkalemia protocol. Continue telemetry. CMP tomorrow. (5) Hypertension Qualifiers: Hypertension type: essential hypertension Qualified Code(s): I10 - Essential (primary) hypertension Is this a current diagnosis for this admission?: Yes Plan: Euvolemic. Improving. Not optimized. Continue Lasix, calcium channel lópez. We will add low-dose beta-blockers. Continue monitoring vitals. Adjust meds as needed. Outpatient PCP follow-up. (6) Left inguinal hernia Is this a current diagnosis for this admission?: Yes Plan: Evaluated by surgery. Reducible. Nontender. Outpatient follow-up for definitive repair. (7) Schizophrenia Qualifiers: Schizophrenia type: unspecified Qualified Code(s): F20.9 - Schizophrenia, unspecified Is this a current diagnosis for this admission?: Yes Plan: Denies any hallucinations, delusions or any internal swelling. Psychiatry has been consulted. Recommendations noted. (8) Edema of left lower extremity Is this a current diagnosis for this admission?: Yes Plan: Improving. Venous Doppler negative for DVT. Likely due to poor venous return caused by large left-sided reducible inguinal hernia. Continue ambulation and extremity elevation for mechanical DVT prophylaxis. No oral anticoagulation due to GI bleed. Patient is ambulatory. (9) Diabetes mellitus type 2 in nonobese Is this a current diagnosis for this admission?: Yes Plan: Newly diagnosed. Blood sugars improving. Hemoglobin A1c 7.6. Diabetic diet, long-acting insulin, sliding scale insulin, pre-meal insulin, hypoglycemia protocol, Accu-Chek. Not a candidate for metformin due to MARCE/CKD. Diabetic education. (10) Hyponatremia Is this a current diagnosis for this admission?: Yes Plan: Resolved. (11) Sigmoid diverticulitis Is this a current diagnosis for this admission?: Yes Plan: Resolved. Denies any abdominal pain. P.o. tolerant. Normal bowel movement. CT abdomen on admission showed sigmoid diverticulitis (contained within the left inguinal hernia). Received 10 days of empiric antibiotics. Received 10 days of ciprofloxacin. Received 10 days of metronidazole. DC antibiotics. Monitor vitals. (12) Poor vision Is this a current diagnosis for this admission?: Yes Plan: Chronic. Patient was found to have poor vision when receiving diabetic education. He was stating that he could see did not see the numbers and insulin pen. When asked about his vision is stating that he has had poor vision for a while but has never been evaluated by an clinical asst. Patient will greatly benefit from an ophthalmology visit and possible corrective lenses. Continue supportive measures. Continue fall precautions.
[2019-02-20] MEDS: PANTOPRAZOLE SODIUM 40 MG TABLET.DR PO SCH (05:19)
[2019-02-20 05:55] LABS: ANION GAP 14 (5-19); BLOOD UREA NITROGEN 52 mg/dL (7-20); CALCIUM 8.5 mg/dL (8.4-10.2); CARBON DIOXIDE 26 mmol/L (22-30); CHLORIDE 99 mmol/L (98-107); GLUCOSE 182 mg/dL (75-110)
[2019-02-20 06:16] LABS: POTASSIUM 4.5 mmol/L (3.6-5.0)
[2019-02-20] MEDS: INSULIN REG, HUMAN 100 UNIT/ML 3 ML VIAL (PYX) SUBCUT SCH ×2 (07:18→11:30)
[2019-02-20] MEDS ORDERED: DEXTROSE 40% GEL 15 GM TUBE PO PRN ×6 (08:01→15:50)
[2019-02-20] MEDS ORDERED: DEXTROSE 50%-WATER 25 GM/50 ML DISP.SYRIN IV PRN ×6 (08:01→15:50)
[2019-02-20] MEDS ORDERED: GLUCAGON,HUMAN RECOMB 1 MG INJ IM PRN ×3 (08:01→15:50)
[2019-02-20] MEDS: FUROSEMIDE 40 MG TABLET PO SCH (09:07)
[2019-02-20] MEDS: THIAMINE HCL 100 MG TABLET PO SCH ×2 (09:07→21:24)
[2019-02-20] MEDS: CARVEDILOL 6.25 MG TABLET PO SCH ×2 (09:08→21:24)
[2019-02-20] MEDS: FOLIC ACID 1 MG TABLET PO SCH (09:08)
[2019-02-20] MEDS: HALOPERIDOL 5 MG TABLET PO SCH ×2 (09:09→21:24)
[2019-02-20] MEDS: AMLODIPINE BESYLATE 10 MG TABLET PO SCH (09:15)
[2019-02-20] MEDS ORDERED: INSULIN GLARGINE,HUM.REC.ANLOG 1,000 UNIT/10 ML VIAL SUBCUT SCH ×2 (10:00)
[2019-02-20] MEDS ORDERED: AMLODIPINE BESYLATE 5 MG TABLET PO SCH (10:00)
--- NOTE | 2019-02-20 16:13 | PDOC PROGRESS REPORT ---
Subjective Progress Note for:: 02/20/19 Subjective:: This is a 63-year-old male who presented with diarrhea and bloody stools. He was noted to be in acute renal failure and was found to have profound hyperkalemia. He was admitted to the ICU for severe hyperkalemia and GI bleed. He underwent EGD by surgery which did not show a definite source of active bleeding but did not show some grade 1 varices. 02/14/2019. No acute events overnight. Patient comfortably sitting in bed in no apparent distress, cooperative with physical examination, alert oriented x3, denies any fever, chills, nausea, vomiting, diarrhea, constipation or any urinary symptoms. P.o. tolerant, ambulatory and having normal bladder and bowel movements. 02/15/2019. No acute events overnight. Patient comfortably sitting in bed, complaining of left lower extremity edema and mild pain otherwise denies any fever, chills, nausea, vomiting, diarrhea, constipation or any urinary symptoms. 02/16/2019. No acute events overnight. Patient sleeping comfortably, easily arousable, answering questions appropriately, stating that he could not get good sleep last night. Otherwise denies any fever, chills, nausea, vomiting, diarrhea, constipation or any urinary symptoms. Patient is p.o. tolerant, ambulatory and having normal bowel and bladder movements. 02/17/2018. No acute events overnight. Patient was going to be discharged home however noted to have uncontrolled blood sugars and diabetic education was provided but unfortunately due to patient's poor vision stated that he could not read the numbers very well and will not be able to accurately administer the right amount of insulin. Unfortunately patient has CKD and not a candidate for oral antidiabetic at this point. It was decided to try to send patient to SNF for the moment. Patient has agreed to stay until transfer to SNF. 02/18/2018. No acute events overnight. Denies any fever, chills, nausea, vomiting, diarrhea, constipation or any urinary symptoms. Blood sugars are improving. Patient pending for placement. 02/19/2018. No acute events overnight. Denies any fever, chills, nausea, vomiting, diarrhea, constipation or any urinary symptoms. Blood sugars are improving. Patient pending for placement. 02/20/2019. No acute events overnight. Patient ambulatory, p.o. tolerant having normal bowel and bladder movement. Denies any fever, chills, nausea, vomiting, diarrhea, constipation or any urinary symptoms. Unfortunately patient could not be sent to rehab as he does not qualify. Reason For Visit: ACUTE BLOOD LOSS ANEMIA,HYPERKALEMIA,MARCE ON CKD Physical Exam Vital Signs: Temp Pulse Resp BP Pulse Ox 97.5 F 63 17 137/75 H 98 02/20/19 10:43 02/20/19 10:43 02/20/19 10:43 02/20/19 10:43 02/20/19 10:43 Intake & Output 02/19/19 02/20/19 02/21/19 06:59 06:59 06:59 Intake Total 2876 3020 Output Total 250 Balance 2876 2770 Weight 65.9 kg 52.9 kg General appearance: PRESENT: no acute distress, well-developed, well-nourished Head exam: PRESENT: atraumatic, normocephalic Respiratory exam: PRESENT: clear to auscultation lyn. ABSENT: rales, rhonchi, wheezes Cardiovascular exam: PRESENT: RRR. ABSENT: diastolic murmur, rubs, systolic murmur GI/Abdominal exam: PRESENT: normal bowel sounds, soft. ABSENT: distended, guarding, mass, organolmegaly, rebound, tenderness Neurological exam: PRESENT: alert, awake, oriented to person, CN II-XII grossly intact. ABSENT: motor sensory deficit Results Laboratory Results: 02/19/19 05:50 02/20/19 05:17 02/20/19 05:17 Sodium 138.6 Potassium 4.5 D Chloride 99 Carbon Dioxide 26 Anion Gap 14 BUN 52 H Creatinine 2.68 H Est GFR ( Amer) 29 L Glucose 182 H Calcium 8.5 Impressions: Abdomen/Pelvis CT 02/09/19 00:00 IMPRESSION: Sigmoid diverticulitis within left inguinal hernia. No abscess or obstruction. Chest X-Ray 02/13/19 15:06 IMPRESSION: Borderline cardiomegaly without pulmonary edema. No significant pleural effusion is present. Venous Doppler Study 02/14/19 15:20 IMPRESSION: No evidence of left lower extremity deep venous thrombosis. Assessment and Plan - Diagnosis (1) Diabetes mellitus type 2 in nonobese Is this a current diagnosis for this admission?: Yes Plan: Newly diagnosed. Blood sugars improving. Hemoglobin A1c 7.6. Unfortunately patient cannot be sent home on insulin and as he has poor vision and cannot properly inject himself the right amount of insulin. Patient does has corrective lenses at home as per friend he does not use it. Attempt was made to get his friend to bring his glasses to the hospital so he could get his diabetic education however they could not find it. Patient also has a daughter who will not be able to oversee his insulin administration. Patient's hemoglobin A1c is 7.6 which could be managed with oral hypoglycemic but unfortunately patient has history of CKD. As patient could not be sent to rehab and and family was unable to find his corrective lenses and is not safe for him to go home with insulin with no supervision for his insulin admin istration as he has very poor vision. Will DC insulin and start patient on renally dosed sitagliptin and glipizide. Once blood sugars are optimized patient can hopefully be sent home with oral hypoglycemics to follow-up with PCP for evaluation of his kidney function and adjustment of his insulin dosage. Diabetic diet, sitagliptin, glipizide, sliding scale insulin, pre-meal insulin, hypoglycemia protocol, Accu-Chek. DC long-acting insulin. (2) Acute kidney injury superimposed on chronic kidney disease Is this a current diagnosis for this admission?: Yes Plan: Improving. Nonoliguric. Creatinine at baseline and stable. Prerenal. Most likely due to dehydration. Baseline creatinine 2-2.5. Does not see a forger helper as outpatient. Electrolytes WNL. Continue cautious volume resuscitation guided by volume status. Avoid nephrotoxic meds. Nephrology consulted. Recommendations noted. (3) GI bleed Qualifiers: GI bleed type/associated pathology: unspecified gastrointestinal hemorrhage type Qualified Code(s): K92.2 - Gastrointestinal hemorrhage, unspecified Is this a current diagnosis for this admission?: Yes Plan: Likely diverticular bleed. S/P 3 units pRBC. Hb has been stable. (4) Acute blood loss anemia Is this a current diagnosis for this admission?: Yes Plan: As above. Received 1 dose of Injectafer by forger helper. H&H stable. Monitor H&H. Supportive transfusions. Outpatient PCP and nephrology follow-up. (5) Hyperkalemia Is this a current diagnosis for this admission?: Yes Plan: Likely due to MARCE/CKD. Kayexalate. Low potassium diet. Hyperkalemia protocol. Continue telemetry. CMP tomorrow. (6) Hypertension Qualifiers: Hypertension type: essential hypertension Qualified Code(s): I10 - Essential (primary) hypertension Is this a current diagnosis for this admission?: Yes Plan: Euvolemic. Improving. Not optimized. Continue Lasix, calcium channel lópez. We will add low-dose beta-blockers. Continue monitoring vitals. Adjust meds as needed. Outpatient PCP follow-up. (7) Left inguinal hernia Is this a current diagnosis for this admission?: Yes Plan: Evaluated by surgery. Reducible. Nontender. Outpatient follow-up for definitive repair. (8) Schizophrenia Qualifiers: Schizophrenia type: unspecified Qualified Code(s): F20.9 - Schizophrenia, unspecified Is this a current diagnosis for this admission?: Yes Plan: Denies any hallucinations, delusions or any internal swelling. Psychiatry has been consulted. Recommendations noted. (9) Edema of left lower extremity Is this a current diagnosis for this admission?: Yes Plan: Improving. Venous Doppler negative for DVT. Likely due to poor venous return caused by large left-sided reducible inguinal hernia. Continue ambulation and extremity elevation for mechanical DVT prophylaxis. No oral anticoagulation due to GI bleed. Patient is ambulatory. (10) Hyponatremia Is this a current diagnosis for this admission?: Yes Plan: Resolved. (11) Sigmoid diverticulitis Is this a current diagnosis for this admission?: Yes Plan: Resolved. Denies any abdominal pain. P.o. tolerant. Normal bowel movement. CT abdomen on admission showed sigmoid diverticulitis (contained within the left inguinal hernia). Received 10 days of empiric antibiotics. Received 10 days of ciprofloxacin. Received 10 days of metronidazole. DC antibiotics. Monitor vitals. (12) Poor vision Is this a current diagnosis for this admission?: Yes Plan: Chronic. Apparently patient has corrective lenses at home and as per patient's friend he refuses to use them. Note: Patient was found to have poor vision when receiving diabetic education. He was stating that he could see did not see the numbers and insulin pen. When asked about his vision is stating that he has had poor vision for a while but has never been evaluated by an technical training manager. Continue supportive measures. Continue fall precautions.
[2019-02-20] MEDS: INSULIN LISPRO 100 UNIT/ML 3 ML VIAL SUBCUT SCH ×2 (16:43→21:24)
[2019-02-20] MEDS: GLIPIZIDE 5 MG TABLET PO SCH (16:43)
[2019-02-20] MEDS: SITAGLIPTIN PHOSPHATE 50 MG TABLET PO SCH (16:43)
[2019-02-21] MEDS: PANTOPRAZOLE SODIUM 40 MG TABLET.DR PO SCH (05:54)
[2019-02-21] MEDS: INSULIN LISPRO 100 UNIT/ML 3 ML VIAL SUBCUT SCH ×3 (07:41→17:32)
[2019-02-21] MEDS: GLIPIZIDE 5 MG TABLET PO SCH (08:38)
[2019-02-21] MEDS: FUROSEMIDE 40 MG TABLET PO SCH (09:38)
[2019-02-21] MEDS: THIAMINE HCL 100 MG TABLET PO SCH (09:38)
[2019-02-21] MEDS: HALOPERIDOL 5 MG TABLET PO SCH (09:39)
[2019-02-21] MEDS: CARVEDILOL 6.25 MG TABLET PO SCH (09:39)
[2019-02-21] MEDS: FOLIC ACID 1 MG TABLET PO SCH (09:39)
[2019-02-21] MEDS: AMLODIPINE BESYLATE 10 MG TABLET PO SCH (09:40)
[2019-02-21] MEDS: SITAGLIPTIN PHOSPHATE 50 MG TABLET PO SCH (09:41)
[2019-02-21] MEDS ORDERED: INSULIN LISPRO 100 UNIT/ML 3 ML VIAL SUBCUT ONE (15:30)
[2019-02-21 18:24] VITALS: BP 146/63
--- NOTE | 2019-02-23 18:25 | PDOC DISCHARGE SUMMARY ---
Impression - Admit/DC Date/PCP Admission Date/Primary Care Provider: 02/06/19 14:27 POOJA TAYLOR MD Discharge Date: 02/21/19 - Discharge Diagnosis (1) Diabetes mellitus type 2 in nonobese Is this a current diagnosis for this admission?: Yes (2) Acute kidney injury superimposed on chronic kidney disease Is this a current diagnosis for this admission?: Yes (3) GI bleed Is this a current diagnosis for this admission?: Yes (4) Acute blood loss anemia Is this a current diagnosis for this admission?: Yes (5) Hyperkalemia Is this a current diagnosis for this admission?: Yes (6) Hypertension Is this a current diagnosis for this admission?: Yes (7) Left inguinal hernia Is this a current diagnosis for this admission?: Yes (8) Schizophrenia Is this a current diagnosis for this admission?: Yes (9) Edema of left lower extremity Is this a current diagnosis for this admission?: Yes (10) Hyponatremia Is this a current diagnosis for this admission?: Yes (11) Sigmoid diverticulitis Is this a current diagnosis for this admission?: Yes (12) Poor vision Is this a current diagnosis for this admission?: Yes - Additional Information Resuscitation Status: Full Code Discharge Diet: Diabetic Discharge Activity: Activity As Tolerated Referrals: POOJA TAYLOR MD [Primary Care Provider] - 03/03/19 2:10 pm (PLEASE BRING A PHOTO ID, YOUR MEDICARE CARD AND ALL OF YOUR MEDICATIONS IN THE BOTTLE TO YOUR APPOINTMENT) Prescriptions: Glipizide [Glucotrol 5 mg Tablet] 5 mg PO QAM 30 Days #30 tablet Haloperidol [Haldol 5 mg Tablet] 2.5 mg PO Q12 30 Days #15 tablet Sitagliptin Phosphate [Januvia 50 mg Tablet] 50 mg PO DAILY 30 Days #30 tablet Furosemide [Lasix 40 mg Tablet] 40 mg PO DAILY 30 Days #30 tablet Amlodipine Besylate [Norvasc 10 mg Tablet] 10 mg PO DAILY 30 Days #30 tablet Home Medications: Amlodipine Besylate [Norvasc 10 mg Tablet] 10 mg PO DAILY 30 Days #30 tablet 02/21/19 Furosemide [Lasix 40 mg Tablet] 40 mg PO DAILY 30 Days #30 tablet 02/21/19 Glipizide [Glucotrol 5 mg Tablet] 5 mg PO QAM 30 Days #30 tablet 12/31/19 Haloperidol [Haldol 5 mg Tablet] 2.5 mg PO Q12 30 Days #15 tablet 02/21/19 Sitagliptin Phosphate [Januvia 50 mg Tablet] 50 mg PO DAILY 30 Days #30 tablet 02/21/19 History of Present Illiness History of Present Illness: This is a 63-year-old male who presented with diarrhea and bloody stools. He was noted to be in acute renal failure and was found to have profound hyperkalemia. He was admitted to the ICU for severe hyperkalemia and GI bleed. He underwent EGD by surgery which did not show a definite source of active bleeding but did not show some grade 1 varices. Hospital Course Hospital Course: (1) Diabetes mellitus type 2 in nonobese Newly diagnosed. Blood sugars improving. Hemoglobin A1c 7.6. Unfortunately patient cannot be sent home on insulin and as he has poor vision and cannot properly inject himself the right amount of insulin. Patient does has corrective lenses at home as per friend he does not use it. Attempt was made to get his friend to bring his glasses to the hospital so he could get his diabetic education however they could not find it. Patient also has a daughter who will not be able to oversee his insulin administration. Patient's hemoglobin A1c is 7.6 which could be managed with oral hypoglycemic but unfortunately patient has history of CKD. As patient could not be sent to rehab and and family was unable to find his corrective lenses and is not safe for him to go home with insulin with no supervision for his insulin administration as he has very poor vision. Will DC insulin and start patient on renally dosed sitagliptin and glipizide. Once blood sugars are optimized patient can hopefully be sent home with oral hypoglycemics to follow-up with PCP for evaluation of his kidney function and adjustment of his insulin dosage. Diabetic diet, sitagliptin, glipizide, sliding scale insulin, pre-meal insulin, hypoglycemia protocol, Accu-Chek. DC long-acting insulin. (2) Acute kidney injury superimposed on chronic kidney disease Improving. Nonoliguric. Creatinine at baseline and stable. Prerenal. Most likely due to dehydration. Baseline creatinine 2-2.5. Does not see a power brake operator as outpatient. Electrolytes WNL. Continue cautious volume resuscitation guided by volume status. Avoid nephrotoxic meds. Nephrology consulted. Recommendations noted. (3) GI bleed Likely diverticular bleed. S/P 3 units pRBC. Hb has been stable. (4) Acute blood loss anemia As above. Received 1 dose of Injectafer by power brake operator. H&H stable. Monitor H&H. Supportive transfusions. Outpatient PCP and nephrology follow-up. (5) Hyperkalemia Likely due to MARCE/CKD. Kayexalate. Low potassium diet. Hyperkalemia protocol. Continue telemetry. CMP tomorrow. (6) Hypertension Euvolemic. Improving. Not optimized. Continue Lasix, calcium channel lópez. We will add low-dose beta-blockers. Continue monitoring vitals. Adjust meds as needed. Outpatient PCP follow-up. (7) Left inguinal hernia Evaluated by surgery. Reducible. Nontender. Outpatient follow-up for definitive repair. (8) Schizophrenia Denies any hallucinations, delusions or any internal swelling. Psychiatry has been consulted. Recommendations noted. (9) Edema of left lower extremity Improving. Venous Doppler negative for DVT. Likely due to poor venous return caused by large left-sided reducible inguinal hernia. Continue ambulation and extremity elevation for mechanical DVT prophylaxis. No oral anticoagulation due to GI bleed. Patient is ambulatory. (10) Hyponatremia Resolved. (11) Sigmoid diverticulitis Resolved. Denies any abdominal pain. P.o. tolerant. Normal bowel movement. CT abdomen on admission showed sigmoid diverticulitis (contained within the left inguinal hernia). Received 10 days of empiric antibiotics. Received 10 days of ciprofloxacin. Received 10 days of metronidazole. DC antibiotics. Monitor vitals. (12) Poor vision Chronic. Apparently patient has corrective lenses at home and as per patient's friend he refuses to use them. Note: Patient was found to have poor vision when receiving diabetic education. He was stating that he could see did not see the numbers and insulin pen. When asked about his vision is stating that he has had poor vision for a while but has never been evaluated by an talend etl developer. Continue supportive measures. Continue fall precautions. Physical Exam Vital Signs: Temp Pulse Resp BP Pulse Ox 98.1 F 73 18 146/63 H 98 02/21/19 18:22 02/21/19 18:22 02/21/19 18:22 02/21/19 18:22 02/21/19 18:22 Intake & Output 02/22/19 02/23/1920 06:59 06:59 06:59 Intake Total 720 Balance 720 General appearance: PRESENT: no acute distress, well-developed, well-nourished Head exam: PRESENT: atraumatic, normocephalic Respiratory exam: PRESENT: clear to auscultation lyn. ABSENT: rales, rhonchi, wheezes Cardiovascular exam: PRESENT: RRR. ABSENT: diastolic murmur, rubs, systolic murmur GI/Abdominal exam: PRESENT: normal bowel sounds, soft, other - Left inguinal hernia reducible.. ABSENT: distended, guarding, mass, organolmegaly, rebound, tenderness Extremities exam: PRESENT: +1 edema - Left lower extremity below the knee. Neurological exam: PRESENT: alert, awake, oriented to person, oriented to place, CN II-XII grossly intact. ABSENT: motor sensory deficit Results Laboratory Results: WBC 9.1 10^3/uL (4.0-10.5) 02/19/19 05:50 RBC 3.27 10^6/uL (4.35-5.55) L 02/19/19 05:50 Hgb 9.5 g/dL (13.5-17.0) L 02/19/19 05:50 Hct 28.3 % (37.9-51.0) L 02/19/19 05:50 MCV 86 fl (80-97) 02/19/19 05:50 MCH 29.0 pg (27.0-33.4) 02/19/19 05:50 MCHC 33.6 g/dL (32.0-36.0) 02/19/19 05:50 RDW 15.5 % (11.5-14.0) H 02/19/19 05:50 Plt Count 619 10^3/uL (150-450) H 02/19/19 05:50 Lymph % (Auto) 12.4 % (13-45) L 02/19/19 05:50 [place] % (Auto) 12.3 % (3-13) 02/19/19 05:50 Eos % (Auto) 2.5 % (0-6) 02/19/19 05:50 Baso % (Auto) 1.2 % (0-2) 02/19/19 05:50 Reticulocyte # 0.144 10^6/uL (0.028-0.122) H 02/08/19 03:24 Absolute Neuts (auto) 6.5 10^3/uL (1.7-8.2) 02/19/19 05:50 Absolute Lymphs (auto) 1.1 10^3/uL (0.5-4.7) 02/19/19 05:50 Absolute Monos (auto) 1.1 10^3/uL (0.1-1.4) 02/19/19 05:50 Absolute Eos (auto) 0.2 10^3/uL (0.0-0.6) 02/19/19 05:50 Absolute Basos (auto) 0.1 10^3/uL (0.0-0.2) 02/19/19 05:50 Total Counted 100 02/07/19 10:08 Seg Neutrophils % 71.6 % (42-78) 02/19/19 05:50 Seg Neuts % (Manual) 87 % (42-78) H 02/07/19 10:08 Band Neutrophils % 3 % (3-5) 02/06/19 06:20 Lymphocytes % (Manual) 6 % (13-45) L 02/07/19 10:08 Monocytes % (Manual) 4 % (3-13) 02/07/19 10:08 Eosinophils % (Manual) 2 % (0-6) 02/07/19 10:08 Basophils % (Manual) 1 % (0-2) 02/07/19 10:08 Abs Neuts (Manual) 10.1 10^3/uL (1.7-8.2) H 02/07/19 10:08 Abs Lymphs (Manual) 0.7 10^3/uL (0.5-4.7) 02/07/19 10:08 Abs Monocytes (Manual) 0.5 10^3/uL (0.1-1.4) 02/07/19 10:08 Absolute Eos (Manual) 0.2 10^3/uL (0.0-0.6) 02/07/19 10:08 Abs Basophils (Manual) 0.1 10^3/uL (0.0-0.2) 02/07/19 10:08 Nucleated RBCs 1 /100 WBC (0) 02/07/19 10:08 Platelet Estimate Cancelled 02/06/19 23:27 Platelet Comment ADEQUATE 02/07/19 10:08 Polychromasia SLIGHT 02/07/19 10:08 Anisocytosis SLIGHT 02/07/19 10:08 RBC Morph Comment NORMO-CYTIC/CHROMIC 02/07/19 10:08 ESR > 120 mm/hr (0-20) H 02/06/19 22:35 Retic Count (auto) 4.72 % (0.66-2.85) H 02/08/19 03:24 Eos Smear Source URINE 02/14/19 16:26 Eosinophil Smear NO EOSINOPHILS SEEN 02/14/19 16:26 Haptoglobin 219 mg/dL (32-363) 02/06/19 22:35 PT 14.8 SEC (11.4-15.4) 02/07/19 10:08 INR 1.15 02/07/19 10:08 APTT 34.1 SEC (23.5-35.8) 02/07/19 10:08 Sodium 138.6 mmol/L (137-145) 02/20/19 05:17 Potassium 4.5 mmol/L (3.6-5.0) D 02/20/19 05:17 Chloride 99 mmol/L (98-107) 02/20/19 05:17 Carbon Dioxide 26 mmol/L (22-30) 02/20/19 05:17 Anion Gap 14 (5-19) 02/20/19 05:17 BUN 52 mg/dL (7-20) H 02/20/19 05:17 Creatinine 2.68 mg/dL (0.52-1.25) H 02/20/19 05:17 Est GFR ( Amer) 29 (>60) L 02/20/19 05:17 Est GFR (Non-Af Amer) Cancelled 02/16/19 04:51 Est GFR (MDRD) Non-Af 24 (>60) L 02/20/19 05:17 Glucose 182 mg/dL (75-110) H 02/20/19 05:17 POC Glucose 129 mg/dL (70-110) H 02/21/19 16:32 Hemoglobin A1c % 7.3 % (4.7-6.0) H 02/15/19 05:19 Lactic Acid (Sepsis) 2.2 mmol/L (0.7-2.1) H 02/06/19 10:04 Calcium 8.5 mg/dL (8.4-10.2) 02/20/19 05:17 Phosphorus 3.2 mg/dL (2.5-4.5) 02/09/19 03:53 Magnesium 1.6 mg/dL (1.6-2.3) 02/18/19 04:36 Iron 21.8 ug/dL (49-181) L 02/08/19 03:24 TIBC 273 ug/dL (250-450) 02/08/19 03:24 % Saturation 8 % 02/08/19 03:24 Ferritin 107.00 ng/mL (17.9-464.0) 02/08/19 03:24 Total Bilirubin 0.4 mg/dL (0.2-1.3) 02/06/19 06:20 Direct Bilirubin 0.3 mg/dL (0.0-0.4) 02/06/19 06:20 Neonat Total Bilirubin Not Reportable 02/06/19 06:20 Neonat Direct Bilirubin Not Reportable 02/06/19 06:20 Neonat Indirect Bili Not Reportable 02/06/19 06:20 AST 22 U/L (17-59) 02/06/19 06:20 ALT 20 U/L (<50) 02/06/19 06:20 Alkaline Phosphatase 81 U/L (38-126) 02/06/19 06:20 Ammonia < 8.7 umol/L (9-33) L 02/08/19 03:24 Lactate Dehydrogenase 280 U/L (120-246) H 02/06/19 22:35 Total Protein 5.3 g/dL (6.0-8.5) L 02/08/19 03:24 Albumin 2.3 g/dL (2.9-4.4) L 02/08/19 03:24 Globulin 3.0 g/dL (2.2-3.9) 02/08/19 03:24 Albumin/Globulin Ratio 0.8 (0.7-1.7) 02/08/19 03:24 [id number]-[id number] 0.3 g/dL (0.0-0.4) 02/08/19 03:24 Beta Globulins 0.5 g/dL (0.7-1.3) L 02/08/19 03:24 Gamma Globulins 1.2 g/dL (0.4-1.8) 02/08/19 03:24 M-Rene Not Observed g/dL (Not Observ) 02/08/19 03:24 PEP Note Comment (.) 02/08/19 03:24 PEP Interpretation Comment (.) 02/08/19 03:24 Lipase 169.4 U/L (23-300) 02/06/19 06:20 EGFR Cancelled 02/16/19 04:51 Vitamin B12 724.0 pg/mL (239-931) 02/08/19 03:24 Folate 10.70 ng/mL (>2.76) 02/08/19 03:24 PTH Intact 137.7 pg/mL (10.0-65.0) H 02/08/19 03:24 Urine Color STRAW 02/14/19 16:27 Urine Appearance CLEAR 02/14/19 16:27 Urine pH 7.0 (5.0-9.0) 02/14/19 16:27 Ur Specific [place] 1.006 02/14/19 16:27 Urine Protein 100 mg/dL (NEGATIVE) H 02/14/19 16:27 Urine Glucose (UA) 150 mg/dL (NEGATIVE) H 02/14/19 16:27 Urine Ketones NEGATIVE mg/dL (NEGATIVE) 02/14/19 16:27 Urine Blood NEGATIVE (NEGATIVE) 02/14/19 16:27 Urine Nitrite NEGATIVE (NEGATIVE) 02/14/19 16:27 Urine Bilirubin NEGATIVE (NEGATIVE) 02/14/19 16:27 Urine Urobilinogen NEGATIVE mg/dL (<2.0) 02/14/19 16:27 Ur Leukocyte Esterase TRACE (NEGATIVE) H 02/14/19 16:27 Urine WBC (Auto) 0 /HPF 02/14/19 16:27 Urine RBC (Auto) 1 /HPF 02/06/19 07:48 U Hyaline Cast (Auto) 1 /LPF 02/06/19 07:48 Squamous Epi Cells Auto <1 /HPF 02/06/19 07:48 Urine Mucus (Auto) RARE /LPF 02/14/19 16:27 Urine Creatinine 29.0 mg/dL (Not Estab.) 02/14/19 16:27 Urine Microalbumin 211.9 ug/mL (Not Estab.) 02/14/19 16:27 Microalb/Creat Ratio 730.7 mg/g creat (0.0-30.0) H 02/14/19 16:27 Urine Sodium 64 mmol/L (30-90) 02/06/19 22:35 Urine Ascorbic Acid NEGATIVE (NEGATIVE) 02/14/19 16:27 Salicylates 1.1 mg/dL (2.0-20.0) L 02/06/19 06:20 Serum Alcohol < 10 mg/dL (NONE DETECTED) 02/06/19 06:20 [id number] ROLANDO 0.9 g/dL (0.4-1.0) 02/08/19 03:24 c-ANCA Antibody <1:20 titer (Neg:<1:20) 02/08/19 03:24 Anti-Proteinase 3 Intrp <3.5 U/mL (0.0-3.5) 02/08/19 03:24 Atypical p-ANCA <1:20 titer (Neg:<1:20) 02/08/19 03:24 p-ANCA Antibody <1:20 titer (Neg:<1:20) 02/08/19 03:24 Myeloperoxidase Ab <9.0 U/mL (0.0-9.0) 02/08/19 03:24 Slides for Path Review Cancelled 02/06/19 23:27 Blood Type A POSITIVE 02/06/19 06:20 Blood Type Confirm A POSITIVE 02/06/19 06:30 Antibody Screen NEGATIVE 02/06/19 06:20 Crossmatch See Detail 02/06/19 06:20 Impressions: Chest X-Ray 02/06/19 00:00 IMPRESSION: NO ACUTE RADIOGRAPHIC FINDING IN THE CHEST. Abdomen/Pelvis CT 02/09/19 00:00 IMPRESSION: Sigmoid diverticulitis within left inguinal hernia. No abscess or obstruction. Chest X-Ray 02/10/19 09:40 IMPRESSION: New bibasilar, left greater than right, pleural and parenchymal opacities that could represent a combination of pleural fluid, atelectasis and/or consolidation. Chest X-Ray 02/13/19 15:06 IMPRESSION: Borderline cardiomegaly without pulmonary edema. No significant pleural effusion is present. Venous Doppler Study 02/14/19 15:20 IMPRESSION: No evidence of left lower extremity deep venous thrombosis. Stroke Is this a Stroke Patient?: No Acute Heart Failure - Is this a Heart Failure Patient?: No
== END 2019-02-21 18:55 | disposition home or self-care (01) | DRG 683 ==
LOC: ER 05:53 → EH 14:27 → ICU 02-07 03:12 → 4S 02-09 12:54
PROVIDERS: ADMIT Internal Medicine; ATTEND Internal Medicine
PROC: 30233N1 Transfusion of Nonautologous Red Blood Cells into Peripheral Vein, Percutaneous Approach (ICD-10-PCS; 2019-02-06)
PROC: 0DD78ZX Extraction of Stomach, Pylorus, Via Natural or Artificial Opening Endoscopic, Diagnostic (ICD-10-PCS; principal; 2019-02-06 15:00)
DX: N17.9 Acute kidney failure, unspecified (principal); K57.32 Diverticulitis of large intestine without perforation or abscess without bleeding; I85.00 Esophageal varices without bleeding; K92.2 Gastrointestinal hemorrhage, unspecified; G93.40 Encephalopathy, unspecified; E87.2 Acidosis; D62 Acute posthemorrhagic anemia; E87.1 Hypo-osmolality and hyponatremia; N25.81 Secondary hyperparathyroidism of renal origin; I12.9 Hypertensive chronic kidney disease with stage 1 through stage 4 chronic kidney disease, or unspecified chronic kidney disease; K29.00 Acute gastritis without bleeding; N18.9 Chronic kidney disease, unspecified; E87.5 Hyperkalemia; E86.0 Dehydration; R68.0 Hypothermia, not associated with low environmental temperature; D64.9 Anemia, unspecified; R11.2 Nausea with vomiting, unspecified; K40.90 Unilateral inguinal hernia, without obstruction or gangrene, not specified as recurrent; R19.7 Diarrhea, unspecified; F31.9 Bipolar disorder, unspecified; F20.9 Schizophrenia, unspecified; F17.210 Nicotine dependence, cigarettes, uncomplicated
CPT/HCPCS: 36415; 36430; 43239; 51702; 71045; 74176; 80048; 80053; 80307; 81001; 82043; 82140; 82570; 82607; 82728; 82746; 82962; 83010; 83036; 83516; 83540; 83550; 83605; 83615; 83690; 83735; 83970; 84100; 84132; 84165; 84300; 85025; 85045; 85610; 85652; 85730; 86256; 86850; 86900; 86901; 86920; 88305; 89190; 93005; 93010; 93971; 96361; 96374; 96375; 96376; 99291; 99292; A4315; C9113; J0171; J0360; J0610; J0744; J1200; J1439; J1610; J1815; J1940; J2250; J2310; J2405; J3010; J3411; J3475; J3490; J7030; J7050; P9016

== ENCOUNTER 2019-03-06 20:43 | Emergency (ER) | payer MEDICARE ==
--- NOTE | 2019-03-06 22:26 | ER Document Report ---
ED Medical Screen (RME) - General Stated Complaint: ELEVATED POTASSIUM Time Seen by Provider: 03/06/19 22:24 Primary Care Provider: POOJA TAYLOR MD [Primary Care Provider] - Follow up as needed Information source: Patient Notes: Patient states he had outpatient lab work performed today when his doctor got the results of his tests he advised him to come to the emergency department for further evaluation as his potassium was elevated. Review of outpatient labs demonstrates patient had a potassium of 6.0. Patient denies any complaints at this time. Patient is hypertensive in triage. Patient states that he was not able to take his blood pressure medicine as he was not able to open the bottle as they put his medicine in a new style of bottle. Patient was shown how to open the bottle in triage and then patient proceeded to take Lasix 20 as well as amlodipine for his blood pressure. I have greeted and performed a rapid initial assessment of this patient. A comprehensive ED assessment and evaluation of the patient, analysis of test results and completion of the medical decision making process will be conducted by additional ED providers. TRAVEL OUTSIDE OF THE [place] IN LAST 30 DAYS: No - Related Data Allergies/Adverse Reactions: Penicillins Allergy (Verified 01/03/18 08:13) Past Medical History - Past Medical History Cardiac Medical History: Reports: Hx Hypertension Neurological Medical History: Denies: Hx Seizures Renal/ Medical History: Denies: Hx Peritoneal Dialysis Musculoskeltal Medical History: Reports Hx Arthritis Psychiatric Medical History: Reports: Hx Bipolar Disorder, Hx Schizoaffective Disorder, Hx Schizophrenia Past Surgical History: Reports: Hx Orthopedic Surgery - Immunizations Hx Diphtheria, Pertussis, Tetanus Vaccination: - unk Physical Exam - Vital signs Vitals: Temp Pulse Resp BP Pulse Ox 98.5 F 72 18 207/99 H 98 03/06/19 20:56 03/06/19 20:56 03/06/19 20:56 03/06/19 20:56 03/06/19 20:56 - General General appearance: Appears well, Alert In distress: None - Respiratory Respiratory status: No respiratory distress Breath sounds: Normal Course - Vital Signs Vital signs: Temp Pulse Resp BP Pulse Ox 98.5 F 72 18 207/99 H 98 03/06/19 20:56 03/06/19 20:56 03/06/19 20:56 03/06/19 20:56 03/06/19 20:56 Doctor's Discharge - Discharge Referrals: POOJA TAYLOR MD [Primary Care Provider] - Follow up as needed
[2019-03-06 23:08] LABS: ABSOLUTE BASOPHILS # (AUTO) 0.1 10^3/uL (0.0-0.2); ABSOLUTE EOSINOPHILS # (AUTO) 0.2 10^3/uL (0.0-0.6); ABSOLUTE LYMPHOCYTES (AUTO) 1.1 10^3/uL (0.5-4.7); ABSOLUTE MONOCYTES (AUTO) 0.9 10^3/uL (0.1-1.4); ABSOLUTE NEUT (AUTO) 6.2 10^3/uL (1.7-8.2); EOSINOPHILS % (AUTO) 2.8 % (0-6); HEMATOCRIT 34.8 % (37.9-51.0); HEMOGLOBIN 11.7 g/dL (13.5-17.0); MEAN CORPUSCULAR HEMOGLOBIN 30.2 pg (27.0-33.4); MEAN CORPUSCULAR HGB CONC 33.6 g/dL (32.0-36.0); MEAN CORPUSCULAR VOLUME 90 fl (80-97); MONOCYTES % (AUTO) 10.6 % (3-13); PLATELET COUNT 376 10^3/uL (150-450); RED BLOOD COUNT 3.87 10^6/uL (4.35-5.55); RED CELL DISTRIBUTION WIDTH 18.4 % (11.5-14.0); SEGMENTED NEUTROPHILS % (AUTO) 72.6 % (42-78); TOTAL CELLS COUNTED % (AUTO) 100 %; WHITE BLOOD COUNT 8.5 10^3/uL (4.0-10.5)
[2019-03-06 23:12] LABS: APPEARANCE,URINE CLEAR; BILIRUBIN,URINE NEGATIVE (NEGATIVE); COLOR,URINE YELLOW; GLUCOSE, URINE >=500 mg/dL (NEGATIVE); KETONES,URINE NEGATIVE (NEGATIVE); LEUKOCYTE ESTERASE,URINE NEGATIVE (NEGATIVE); NITRITE,URINE NEGATIVE (NEGATIVE); PROTEIN,URINE >=500 mg/dL (NEGATIVE); URINE SPECIFIC GRAVITY 1.015; UROBILINOGEN,URINE NEGATIVE mg/dL (<2.0)
[2019-03-06 23:25] LABS: ALBUMIN 3.6 g/dL (3.5-5.0); ALKALINE PHOSPHATASE 113 U/L (38-126); ANION GAP 11 (5-19); ASPARTATE AMINO TRANSFERASE 19 U/L (17-59); BILIRUBIN,DIRECT 0.3 mg/dL (0.0-0.4); BILIRUBIN,TOTAL 0.4 mg/dL (0.2-1.3); BLOOD UREA NITROGEN 36 mg/dL (7-20); CALCIUM 8.9 mg/dL (8.4-10.2); CARBON DIOXIDE 21 mmol/L (22-30); CHLORIDE 104 mmol/L (98-107); GLUCOSE 388 mg/dL (75-110); POTASSIUM 5.3 mmol/L (3.6-5.0); TOTAL PROTEIN 7.3 g/dL (6.3-8.2)
[2019-03-07] MEDS ORDERED: NORMAL SALINE 1000 ML 1,000 ML IV ONE (02:05)
--- NOTE | 2019-03-07 02:11 | ER Document Report ---
ED General - General Chief Complaint: Abnormal Lab Results Stated Complaint: ELEVATED POTASSIUM Time Seen by Provider: 03/06/19 22:24 Primary Care Provider: POOJA TAYLOR MD [Primary Care Provider] - Follow up as needed Mode of Arrival: Ambulatory Information source: Patient Notes: 63-year-old male presented to ED for complaint of elevated potassium level when his doctor took his labs. He stated that it was 6.0. He denies any pain or discomfort at the time. He did have elevated blood pressure when he was seen in triage but he had not taken his blood pressure medicine because he said it was a new bottle and he cannot open it. The bottle was opened and he was instructed how to take the blood pressure medicine and he then proceeded to take Lasix and amlodipine. He states she does not know who his kidney doctor is but he knows he has 1. He states he knows he has diabetes and he takes insulin but he does not know the dose he takes. He also has a kidney doctor for renal insufficiency. States he does not know if he has high cholesterol but he does have high blood pressure. TRAVEL OUTSIDE OF THE [place] IN LAST 30 DAYS: No - HPI Onset: This afternoon - Lab work showed a elevated potassium so he was sent by the primary care care to the ED. His potassium according to outpatient was 6.0. It was 5.3 when he was seen earlier this evening. He has since taken Lasix and I will recheck the potassium Quality of pain: No pain Severity: None Pain Level: Denies Associated symptoms: Other - Elevated potassium Exacerbated by: Denies Relieved by: Denies Similar symptoms previously: Yes Recently seen / treated by doctor: Yes - Related Data Allergies/Adverse Reactions: Penicillins Allergy (Verified 03/06/19 22:32) Home Medications: LASIX, AMLODIPINE, GLIPIZIDE. Past Medical History - General Information source: Patient - Social History Smoking Status: Never Smoker Frequency of alcohol use: None Drug Abuse: None Lives with: Alone Family History: Reviewed & Not Pertinent Patient has suicidal ideation: No Patient has homicidal ideation: No - Past Medical History Cardiac Medical History: Reports: Hx Hypertension Pulmonary Medical History: Reports: None EENT Medical History: Reports: None Neurological Medical History: Reports: None Endocrine Medical History: Reports: Hx Diabetes Mellitus Type 2 Renal/ Medical History: Reports: Hx Renal Insufficiency Malignancy Medical History: Reports None GI Medical History: Reports: None Musculoskeletal Medical History: Reports Hx Arthritis Skin Medical History: Reports None Psychiatric Medical History: Reports: Hx Bipolar Disorder, Hx Schizoaffective Disorder, Hx Schizophrenia Traumatic Medical History: Reports: None Infectious Medical History: Reports: None Past Surgical History: Reports: Hx Orthopedic Surgery - Immunizations Hx Diphtheria, Pertussis, Tetanus Vaccination: - unk Review of Systems - Review of Systems Constitutional: No symptoms reported EENT: No symptoms reported Cardiovascular: No symptoms reported Respiratory: No symptoms reported Gastrointestinal: No symptoms reported Genitourinary: No symptoms reported Male Genitourinary: No symptoms reported Musculoskeletal: No symptoms reported Skin: No symptoms reported Hematologic/Lymphatic: No symptoms reported Neurological/Psychological: No symptoms reported -: Yes All other systems reviewed and negative Physical Exam - Vital signs Vitals: Temp Pulse Resp BP Pulse Ox 98.5 F 72 18 207/99 H 98 03/06/19 20:56 03/06/19 20:56 03/06/19 20:56 03/06/19 20:56 03/06/19 20:56 Interpretation: Normal - General General appearance: Appears well, Alert - HEENT Head: Normocephalic, Atraumatic Eyes: Normal Pupils: PERRL - Respiratory Respiratory status: No respiratory distress Chest status: Nontender Breath sounds: Normal Chest palpation: Normal - Cardiovascular Rhythm: Regular Heart sounds: Normal auscultation Murmur: No - Abdominal Inspection: Normal Distension: No distension Bowel sounds: Normal Tenderness: Nontender Organomegaly: No organomegaly - Back Back: Normal, Nontender - Extremities General upper extremity: Normal inspection, Nontender, Normal color, Normal ROM, Normal temperature General lower extremity: Normal inspection, Nontender, Normal color, Normal ROM, Normal temperature, Normal weight bearing. No: Feliciano's sign - Neurological Neuro grossly intact: Yes Cognition: Normal Orientation: AAOx4 [place] Coma Scale Eye Opening: Spontaneous [place] Coma Scale Verbal: Oriented [place] Coma Scale Motor: Obeys Commands [place] Coma Scale Total: 15 Speech: Normal Motor strength normal: LUE, RUE, LLE, RLE Sensory: Normal - Psychological Associated symptoms: Normal affect, Normal mood - Skin Skin Temperature: Warm Skin Moisture: Dry Skin Color: Normal Course - Re-evaluation Re-evalutation: 03/07/19 05:25 Patient was treated with a liter of fluids his potassium is down to 5.0 sodium and chloride both have improved. Patient is voiding freely over 2 L while he is here. He was treated with a liter of fluids. He can go home and take his diabetic medicines at home. He will be discharged home to follow-up with his primary care provider. 03/07/19 05:29 Discussed labs and exam with Dr. Vasquez. He states patient could be discharged home. Labs results sent home with patient to follow-up with primary care doctor. Patient was discharged home - Vital Signs Vital signs: Temp Pulse Resp BP Pulse Ox 98.5 F 72 17 174/83 H 97 03/06/19 20:56 03/06/19 20:56 03/07/19 05:01 03/07/19 05:01 03/07/19 04:01 - Laboratory Result Diagrams: 03/06/19 22:46 03/07/19 04:25 Laboratory results interpreted by me: 03/06/19 03/06/19 03/06/19 22:36 22:46 22:46 RBC 3.87 L Hgb 11.7 L Hct 34.8 L RDW 18.4 H Sodium 135.5 L Potassium 5.3 H Carbon Dioxide 21 L BUN 36 H Creatinine 2.13 H Est GFR ( Amer) 38 L Est GFR (MDRD) Non-Af 31 L Glucose 388 H Urine Protein >=500 H Urine Glucose (UA) >=500 H 03/07/19 04:25 RBC Hgb Hct RDW Sodium 136.2 L Potassium Carbon Dioxide BUN 35 H Creatinine 1.82 H Est GFR ( Amer) 45 L Est GFR (MDRD) Non-Af 38 L Glucose 371 H Urine Protein Urine Glucose (UA) Discharge - Discharge Clinical Impression: Hyperglycemia, Hyperkalemia, Diabetes mellitus type 2 in nonobese Chronic renal failure Qualifiers: Chronic kidney disease stage: stage 3 (moderate) Qualified Code(s): N18.3 - Chronic kidney disease, stage 3 (moderate) Condition: Stable Disposition: HOME, SELF-CARE Additional Instructions: Your potassium has come down to 5.0. These monitor your diet as you have been instructed by your kidney doctor and your primary doctor to prevent your potassium from going up again. Hypokalemia You have an abnormally decreased level of serum potassium. Hypokalemia may cause weakness, fatigue, or heart rhythm abnormalities. Sometimes there are no symptoms at all. Usually, low serum potassium is due to taking diuretics (water pills). It can also be due to excessive vomiting or diarrhea. If no obvious cause is evident, further evaluation will be necessary. Treatment is usually oral potassium supplements. Take these exactly as prescribed. You may also want to select foods which are naturally high in potassium -- fruits (such as bananas, cantaloupe, grapes, oranges, prunes, tomatoes), fresh vegetables (potatoes, spinach, beans, peas), orange or tomato juice, tomato pasta sauce, milk, fish (halibut, tuna, salmon, jasmina) A follow-up blood test is usually performed to assure that the potassium is returning to normal. Call the physician if you suffer severe weakness, muscle twitching or cramping, palpitations (pounding or irregular heartbeat), or any other new or alarming symptoms. Please stay on your diabetic diet to prevent your sugars from going up. Take your diabetic medicines as prescribed Take your blood pressure medicines as prescribed FOLLOW-UP CARE: If you have been referred to a physician for follow-up care, call the physicians office for an appointment as you were instructed or within the next two days. If you experience worsening or a significant change in your symptoms, notify the physician immediately or return to the Emergency Department at any time for re-evaluation. Forms: Elevated Blood Pressure Referrals: POOJA TAYLOR MD [Primary Care Provider] - Follow up as needed
[2019-03-07 04:53] LABS: ANION GAP 8 (5-19); BLOOD UREA NITROGEN 35 mg/dL (7-20); CALCIUM 8.4 mg/dL (8.4-10.2); CARBON DIOXIDE 22 mmol/L (22-30); CHLORIDE 106 mmol/L (98-107); GLUCOSE 371 mg/dL (75-110)
[2019-03-07 05:52] VITALS: BP 174/83
--- NOTE | 2019-03-07 11:22 | EKG REPORT ---
SEVERITY:- ABNORMAL ECG - SINUS RHYTHM CONSIDER LEFT VENTRICULAR HYPERTROPHY BORDERLINE PROLONGED QT INTERVAL : Confirmed by: Maeve Hayward MD 07-Mar-2019 11:21:51
== END 2019-03-07 05:45 | disposition home or self-care (01) ==
LOC: ER 20:43
DX: E11.65 Type 2 diabetes mellitus with hyperglycemia (principal); I12.9 Hypertensive chronic kidney disease with stage 1 through stage 4 chronic kidney disease, or unspecified chronic kidney disease; E11.22 Type 2 diabetes mellitus with diabetic chronic kidney disease; N18.3 Chronic kidney disease, stage 3 (moderate); E87.5 Hyperkalemia; Z79.899 Other long term (current) drug therapy; Z79.4 Long term (current) use of insulin
CPT/HCPCS: 93005; 99285; 96360; 36415; 83735; 87070; 80048; 81001; 93010; J7030; 80053; 85025

== ENCOUNTER → 2019-03-06 | Outpatient (CLI) | payer MEDICARE ==
[2019-03-06 10:40] LABS: ABSOLUTE BASOPHILS # (AUTO) 0.1 10^3/uL (0.0-0.2); ABSOLUTE EOSINOPHILS # (AUTO) 0.1 10^3/uL (0.0-0.6); ABSOLUTE LYMPHOCYTES (AUTO) 0.9 10^3/uL (0.5-4.7); ABSOLUTE MONOCYTES (AUTO) 0.7 10^3/uL (0.1-1.4); ABSOLUTE NEUT (AUTO) 5.9 10^3/uL (1.7-8.2); BASOPHILS % (AUTO) 1.3 % (0-2); EOSINOPHILS % (AUTO) 1.9 % (0-6); HEMATOCRIT 34.9 % (37.9-51.0); HEMOGLOBIN 11.6 g/dL (13.5-17.0); LYMPHOCYTES % (AUTO) 12.1 % (13-45); MEAN CORPUSCULAR HEMOGLOBIN 29.6 pg (27.0-33.4); MEAN CORPUSCULAR HGB CONC 33.1 g/dL (32.0-36.0); MEAN CORPUSCULAR VOLUME 89 fl (80-97); MONOCYTES % (AUTO) 9.2 % (3-13); PLATELET COUNT 363 10^3/uL (150-450); RED BLOOD COUNT 3.91 10^6/uL (4.35-5.55); RED CELL DISTRIBUTION WIDTH 18.9 % (11.5-14.0); SEGMENTED NEUTROPHILS % (AUTO) 75.5 % (42-78); TOTAL CELLS COUNTED % (AUTO) 100 %; WHITE BLOOD COUNT 7.7 10^3/uL (4.0-10.5)
[2019-03-06 11:04] LABS: ALBUMIN 3.5 g/dL (3.5-5.0); ALKALINE PHOSPHATASE 104 U/L (38-126); ANION GAP 8 (5-19); ASPARTATE AMINO TRANSFERASE 20 U/L (17-59); BILIRUBIN,DIRECT 0.2 mg/dL (0.0-0.4); BILIRUBIN,TOTAL 0.4 mg/dL (0.2-1.3); BLOOD UREA NITROGEN 32 mg/dL (7-20); CALCIUM 8.8 mg/dL (8.4-10.2); CARBON DIOXIDE 22 mmol/L (22-30); CHLORIDE 107 mmol/L (98-107); GLUCOSE 325 mg/dL (75-110); TOTAL PROTEIN 7.1 g/dL (6.3-8.2)
== END ==
LOC: OD 10:04
PROVIDERS: ATTEND Family Medicine
DX: I12.9 Hypertensive chronic kidney disease with stage 1 through stage 4 chronic kidney disease, or unspecified chronic kidney disease (principal); N18.3 Chronic kidney disease, stage 3 (moderate)
CPT/HCPCS: 36415; 80053; 85025

== ENCOUNTER 2019-03-21 10:23 | Emergency (ER) | payer MEDICARE ==
--- NOTE | 2019-03-21 10:59 | ER Document Report ---
ED Medical Screen (RME) - General Chief Complaint: Dizziness Stated Complaint: DIZZINESS Time Seen by Provider: 03/21/19 10:54 Primary Care Provider: POOJA TAYLOR MD [Primary Care Provider] - Follow up as needed Mode of Arrival: Wheelchair Information source: Parent Notes: 62-year-old gentleman presents to ED for complaint of abdominal pain nausea vomiting with history of diabetes and renal failure. He is drinking a sugar- free drink in the emergency room. He is a patient of Dr. Taylor his sugar was 373 last and he has not had any insulin. He states he does not want to pay for the insulin so he has not been paying for it and has not been taking it. His APS worker is with him because he has been neglecting to take his medicationsen going to his dialysis as ordered.. He does have schizophrenia is not taking those medications he was recently admitted for hypokalemia he is supposed to go to the kidney doctor on . He has not yet been scheduled for dialysis. He is wearing a helmet because he feels like he is going to fall he has not fallen yet but he states he feels like he is going to fall. I have greeted and performed a rapid initial assessment of this patient. A comprehensive ED assessment and evaluation of the patient, analysis of test results and completion of medical decision making process will be conducted by an additional ED providers. TRAVEL OUTSIDE OF THE [place] IN LAST 30 DAYS: No - Related Data Allergies/Adverse Reactions: Penicillins Allergy (Verified 03/06/19 22:32) Past Medical History - Past Medical History Cardiac Medical History: Reports: Hx Hypertension Neurological Medical History: Denies: Hx Seizures Endocrine Medical History: Reports: Hx Diabetes Mellitus Type 2 Renal/ Medical History: Reports: Hx Renal Insufficiency. Denies: Hx Peritoneal Dialysis Musculoskeltal Medical History: Reports Hx Arthritis Psychiatric Medical History: Reports: Hx Bipolar Disorder, Hx Schizoaffective Disorder, Hx Schizophrenia Past Surgical History: Reports: Hx Orthopedic Surgery - Immunizations Hx Diphtheria, Pertussis, Tetanus Vaccination: - unk Physical Exam - Vital signs Vitals: Temp Pulse Resp BP Pulse Ox 97.3 F 84 16 123/64 99 03/21/19 10:42 03/21/19 10:42 03/21/19 10:42 03/21/19 10:42 03/21/19 10:42 Course - Vital Signs Vital signs: Temp Pulse Resp BP Pulse Ox 97.3 F 84 16 123/64 99 03/21/19 10:42 03/21/19 10:42 03/21/19 10:42 03/21/19 10:42 03/21/19 10:42 Doctor's Discharge - Discharge Referrals: POOJA TAYLOR MD [Primary Care Provider] - Follow up as needed
[2019-03-21 12:02] LABS: VENOUS BLOOD BASE EXCESS -7.2 mmol/L; VENOUS BLOOD HCO3 20.6 mmol/L (20-32); VENOUS BLOOD PCO2 50.9 mmHg (35-63); VENOUS BLOOD PH 7.23 (7.30-7.42)
[2019-03-21 12:05] LABS: ABSOLUTE EOSINOPHILS # (AUTO) 0.4 10^3/uL (0.0-0.6); ABSOLUTE NEUT (AUTO) 8.9 10^3/uL (1.7-8.2); BASOPHILS % (AUTO) 0.4 % (0-2); EOSINOPHILS % (AUTO) 3.8 % (0-6); HEMATOCRIT 40.2 % (37.9-51.0); HEMOGLOBIN 13.3 g/dL (13.5-17.0); LYMPHOCYTES % (AUTO) 8.5 % (13-45); MEAN CORPUSCULAR HEMOGLOBIN 29.5 pg (27.0-33.4); MEAN CORPUSCULAR VOLUME 89 fl (80-97); MONOCYTES % (AUTO) 9.1 % (3-13); PLATELET COUNT 300 10^3/uL (150-450); RED CELL DISTRIBUTION WIDTH 17.3 % (11.5-14.0); SEGMENTED NEUTROPHILS % (AUTO) 78.2 % (42-78); TOTAL CELLS COUNTED % (AUTO) 100 %; WHITE BLOOD COUNT 11.3 10^3/uL (4.0-10.5)
[2019-03-21 12:22] LABS: ALBUMIN 4.1 g/dL (3.5-5.0); ALKALINE PHOSPHATASE 96 U/L (38-126); ANION GAP 12 (5-19); ASPARTATE AMINO TRANSFERASE 19 U/L (17-59); BILIRUBIN,TOTAL 0.6 mg/dL (0.2-1.3); BLOOD UREA NITROGEN 54 mg/dL (7-20); CALCIUM 9.3 mg/dL (8.4-10.2); CARBON DIOXIDE 21 mmol/L (22-30); CHLORIDE 107 mmol/L (98-107); GLUCOSE 155 mg/dL (75-110); POTASSIUM 5.3 mmol/L (3.6-5.0); TOTAL PROTEIN 7.6 g/dL (6.3-8.2)
[2019-03-21 12:30] LABS: APPEARANCE,URINE SLIGHTLY-CLOUDY; BILIRUBIN,URINE NEGATIVE (NEGATIVE); COLOR,URINE YELLOW; GLUCOSE, URINE NEGATIVE (NEGATIVE); KETONES,URINE NEGATIVE (NEGATIVE); PROTEIN,URINE >=500 mg/dL (NEGATIVE); URINE SPECIFIC GRAVITY 1.015; UROBILINOGEN,URINE NEGATIVE mg/dL (<2.0)
[2019-03-21] MEDS ORDERED: NORMAL SALINE 1000 ML 1,000 ML IV ONE (13:03)
--- NOTE | 2019-03-21 13:29 | ER Document Report ---
ED General - General Chief Complaint: Abdominal Pain Stated Complaint: DIZZINESS Time Seen by Provider: 03/21/19 10:54 Primary Care Provider: POOJA TAYLOR MD [Primary Care Provider] - Follow up as needed Mode of Arrival: Wheelchair Information source: Patient TRAVEL OUTSIDE OF THE [place] IN LAST 30 DAYS: No - HPI Onset: Other - over the last several weeks Onset/Duration: Gradual Quality of pain: No pain Severity: Mild Pain Level: Denies Associated symptoms: Other - dizziness, mild abdominal pain Exacerbated by: Denies Relieved by: Denies Similar symptoms previously: Yes - patient has Diabetes and is only on oral agents Recently seen / treated by doctor: Yes - patient has seen his PCP Notes: 63 year old male with a history of hypertension, CKD, bipolar/schizophrenia, and current smoking brought in by [facility] [email or web address] since the patient is complaining of dizziness, weakness, nausea, and abdominal pains. The patient was eating crackers with peanut butter when I was examining the patient. The patient is denying abdominal pains to me but does endore dizziness, weakness, and nausea. The patient's APS worker tells me the patient has outpatient appointments with Nephrology and Psychiatry in the next several days. The patient's PCP is Dr. Taylor and he has admitted the patient recently for similar symptoms. - Related Data Allergies/Adverse Reactions: Penicillins Allergy (Verified 03/21/19 10:54) Past Medical History - General Information source: Parent - Social History Smoking Status: Current Every Day Smoker Frequency of alcohol use: None Drug Abuse: None Lives with: Alone Family History: Reviewed & Not Pertinent Patient has suicidal ideation: No Patient has homicidal ideation: No - Past Medical History Cardiac Medical History: Reports: Hx Hypertension Pulmonary Medical History: Reports: Hx Pneumonia Neurological Medical History: Denies: Hx Seizures Endocrine Medical History: Reports: Hx Diabetes Mellitus Type 2 Renal/ Medical History: Reports: Hx End Stage Renal Disease, Hx Renal Insufficiency. Denies: Hx Peritoneal Dialysis Musculoskeletal Medical History: Reports Hx Arthritis Psychiatric Medical History: Reports: Hx Bipolar Disorder, Hx Schizoaffective Disorder, Hx Schizophrenia Past Surgical History: Reports: Hx Orthopedic Surgery - Immunizations Hx Diphtheria, Pertussis, Tetanus Vaccination: - unk Physical Exam - Vital signs Vitals: Temp Pulse Resp BP Pulse Ox 97.3 F 84 16 123/64 99 03/21/19 10:42 03/21/19 10:42 03/21/19 10:42 03/21/19 10:42 03/21/19 10:42 - Notes Notes: GENERAL: Well-appearing, well-nourished and in no acute distress. HEAD: Atraumatic, normocephalic. EYES: Pupils equal round and reactive to light, extraocular movements intact, sclera anicteric, conjunctiva are normal. ENT: TMs normal, nares patent, oropharynx clear without exudates. Moist mucous membranes. NECK: Normal range of motion, supple without lymphadenopathy or JVD. LUNGS: Breath sounds clear to auscultation bilaterally and equal. No wheezes rales or rhonchi. HEART: Regular rate and rhythm without murmurs, rubs or gallops. ABDOMEN: Soft, nontender, normoactive bowel sounds. No guarding, no rebound. No masses appreciated. EXTREMITIES: Normal range of motion, no pitting or edema. No clubbing or cyanosis. NEUROLOGICAL: Cranial nerves II through XII grossly intact. Normal speech, normal gait. PSYCH: Normal mood, normal affect. SKIN: Warm, Dry, normal turgor, no rashes or lesions noted. Course - Vital Signs Vital signs: Temp Pulse Resp BP Pulse Ox 97.3 F 84 16 123/64 99 03/21/19 10:42 03/21/19 10:42 03/21/19 10:42 03/21/19 10:42 03/21/19 10:42 - Laboratory Result Diagrams: 03/21/19 11:39 03/21/19 11:39 Laboratory results interpreted by me: 03/21/19 03/21/19 03/21/19 11:39 11:39 11:39 WBC 11.3 H Hgb 13.3 L RDW 17.3 H Lymph % (Auto) 8.5 L Absolute Neuts (auto) 8.9 H Seg Neutrophils % 78.2 H VBG pH 7.23 L Potassium 5.3 H Carbon Dioxide 21 L BUN 54 H Creatinine 3.08 H Est GFR ( Amer) 25 L Est GFR (MDRD) Non-Af 20 L Glucose 155 H Urine Protein Leukocyte Esterase Rfl 03/21/19 12:12 WBC Hgb RDW Lymph % (Auto) Absolute Neuts (auto) Seg Neutrophils % VBG pH Potassium Carbon Dioxide BUN Creatinine Est GFR ( Amer) Est GFR (MDRD) Non-Af Glucose Urine Protein >=500 H Leukocyte Esterase Rfl MODERATE H Discharge - Discharge Clinical Impression: Non-compliance Chronic kidney disease (CKD) Qualifiers: Chronic kidney disease stage: unspecified stage Qualified Code(s): N18.9 - Chronic kidney disease, unspecified Diabetes Qualifiers: Diabetes mellitus type: due to underlying condition Diabetes mellitus intermission coordinator insulin use: without intermission coordinator use Diabetes mellitus complication status: without complication Qualified Code(s): E08.9 - Diabetes mellitus due to underlying condition without complications Condition: Stable Disposition: HOME, SELF-CARE Instructions: Kidney Failure ([facility]), Dizziness ([facility]) Additional Instructions: Follow up with your primary care doctor for further treatment and care. Also follow up with Nephrology for your chronic kidney disease. Follow up with Psychiatry for help with deciding if you have Capacity. You have acute on chronic kidney failure today with an elevated BUN which can sometimes cause confusion. You also could have early dementia (this needs to be further worked up). Consider follow up with Neurology. Drink plenty of water in the days to come. Take your medications as prescribed. Referrals: POOJA TAYLOR MD [Primary Care Provider] - Follow up as needed
[2019-03-21 16:08] VITALS: BP 124/65
--- NOTE | 2019-03-22 14:26 | EKG REPORT ---
SEVERITY:- BORDERLINE ECG - SINUS RHYTHM BORDERLINE T WAVE ABNORMALITIES : Confirmed by: Madalyn Walker 22-Mar-2019 14:25:45
== END 2019-03-21 16:08 | disposition home or self-care (01) ==
LOC: ER 10:23
DX: R10.9 Unspecified abdominal pain (principal); R42 Dizziness and giddiness; I12.9 Hypertensive chronic kidney disease with stage 1 through stage 4 chronic kidney disease, or unspecified chronic kidney disease; E11.22 Type 2 diabetes mellitus with diabetic chronic kidney disease; N18.9 Chronic kidney disease, unspecified; Z79.84 Long term (current) use of oral hypoglycemic drugs; Z91.14 Patient's other noncompliance with medication regimen
CPT/HCPCS: 93005; 99284; 96360; 36415; 87086; 82962; 83690; 85025; 80053; 81001; 84484; 82803; 93010; J7030

== ENCOUNTER 2019-03-31 16:01 | Inpatient (IN) | payer MEDICARE ==
[2019-03-31] MEDS ORDERED: CLONIDINE HCL 0.1 MG TABLET PO ONE (16:49)
[2019-03-31 17:09] LABS: ABSOLUTE BASOPHILS # (AUTO) 0.1 10^3/uL (0.0-0.2); ABSOLUTE EOSINOPHILS # (AUTO) 0.4 10^3/uL (0.0-0.6); ABSOLUTE LYMPHOCYTES (AUTO) 0.7 10^3/uL (0.5-4.7); ABSOLUTE MONOCYTES (AUTO) 0.7 10^3/uL (0.1-1.4); ABSOLUTE NEUT (AUTO) 9.8 10^3/uL (1.7-8.2); BASOPHILS % (AUTO) 1.2 % (0-2); EOSINOPHILS % (AUTO) 3.5 % (0-6); HEMATOCRIT 35.7 % (37.9-51.0); HEMOGLOBIN 12.2 g/dL (13.5-17.0); LYMPHOCYTES % (AUTO) 6.3 % (13-45); MEAN CORPUSCULAR HEMOGLOBIN 30.1 pg (27.0-33.4); MEAN CORPUSCULAR HGB CONC 34.1 g/dL (32.0-36.0); MEAN CORPUSCULAR VOLUME 88 fl (80-97); MONOCYTES % (AUTO) 5.9 % (3-13); PLATELET COUNT 464 10^3/uL (150-450); RED BLOOD COUNT 4.04 10^6/uL (4.35-5.55); RED CELL DISTRIBUTION WIDTH 17.6 % (11.5-14.0); SEGMENTED NEUTROPHILS % (AUTO) 83.1 % (42-78); TOTAL CELLS COUNTED % (AUTO) 100 %; WHITE BLOOD COUNT 11.8 10^3/uL (4.0-10.5)
[2019-03-31 17:11] LABS: ALBUMIN 3.8 g/dL (3.5-5.0); ALKALINE PHOSPHATASE 95 U/L (38-126); ANION GAP 9 (5-19); ASPARTATE AMINO TRANSFERASE 20 U/L (17-59); BILIRUBIN,DIRECT 0.1 mg/dL (0.0-0.4); BILIRUBIN,TOTAL 0.3 mg/dL (0.2-1.3); BLOOD UREA NITROGEN 35 mg/dL (7-20); CALCIUM 9.4 mg/dL (8.4-10.2); CARBON DIOXIDE 23 mmol/L (22-30); CHLORIDE 107 mmol/L (98-107); GLUCOSE 116 mg/dL (75-110); POTASSIUM 4.6 mmol/L (3.6-5.0); TOTAL PROTEIN 7.2 g/dL (6.3-8.2)
[2019-03-31 17:44] LABS: ALCOHOL < 10 mg/dL (NONE DETECTED)
--- NOTE | 2019-03-31 17:50 | RADIOLOGY REPORT (SQ) ---
EXAM DESCRIPTION: CT HEAD WITHOUT COMPLETED DATE/TIME: 03/31/2019 4:14 pm REASON FOR STUDY: ams COMPARISON: 03/14/2017 TECHNIQUE: Axial images acquired through the brain without intravenous contrast. Images reviewed wi th bone, brain and subdural windows. Images stored on PACS. All CT scanners at this facility use dose modulation, iterative reconstruction, and/or weight based d osing when appropriate to reduce radiation dose to as low as reasonably achievable (ALARA). [facility]: Dose Right [facility]: CareDose [facility]: Dose Right [facility]: Teradose 4D [facility]: [employer] RADIATION DOSE: CT Rad equipment meets quality standard of care and radiation dose reduction techniq ues were employed. CTDIvol: 53.2 mGy. DLP: 991 mGy-cm. mGy. LIMITATIONS: None. FINDINGS: VENTRICLES: Normal size and contour. CEREBRUM: No masses. No hemorrhage. No midline shift. No evidence for acute infarction. Normal gra y-white matter differentiation. Mild patchy periventricular and deep white matter hypodense attenuat ion consistent with mild chronic small vessel ischemic change. There is intracranial atherosclerosis . CEREBELLUM: No masses. No hemorrhage. No alteration of density. No evidence for acute infarction. EXTRAAXIAL SPACES: No fluid collections. No masses. ORBITS AND GLOBE: No intra- or extraconal masses. Normal contour of globe without masses. CALVARIUM: No fracture. PARANASAL SINUSES: No fluid or mucosal thickening. SOFT TISSUES: No mass or hematoma. OTHER: No other significant finding. IMPRESSION: 1. No acute intracranial hemorrhage, mass, or evidence of acute territorial infarct. 2. Mild chronic small vessel ischemic change and intracranial atherosclerosis. EVIDENCE OF ACUTE STROKE: NO. COMMENT: Quality ID # [id number]: Final reports with documentation of one or more dose reduction techniques (e.g., Automated exposure control, adjustment of the mA and/or kV according to patient size, use of iterative reconstruction technique) TECHNICAL DOCUMENTATION: JOB ID: [id number] [employer]- All Rights Reserved Reading location - IP/workstation name: [email or web address]
--- NOTE | 2019-03-31 18:01 | ER Document Report ---
ED General - General Chief Complaint: High Blood Pressure Stated Complaint: BLOOD PRESSURE ISSUES Time Seen by Provider: 03/31/19 16:16 Primary Care Provider: POOJA TAYLOR MD [Primary Care Provider] - Follow up as needed TRAVEL OUTSIDE OF THE [place] IN LAST 30 DAYS: No - HPI Notes: Mr. Marie is a 63-year-old male brought in today by court appointed guardian requesting that we evaluate his blood pressure and consider admission for jail placement. This gentleman has a longstanding history of schizophrenia and is noncompliant with his medications for treatment of his medical conditions as well as those for his mental health. He has a history of renal insufficiency. He has been seeing Dr. Taylor locally for medical care. He was evaluated by the court system and declared mentally incompetent today. His guardian has brought him here requesting admission to the hospital and jail placement. The patient is totally confused as to dosing of his medication and says that he was "told to stop "all of his medications. The guardian says this is clearly no t the case. Patient denies chest pain, shortness of breath, fever or vomiting. - Related Data Allergies/Adverse Reactions: Penicillins Allergy (Verified 03/21/19 10:54) Past Medical History - General Information source: Patient, [facility] Records - Social History Smoking Status: Current Every Day Smoker Frequency of alcohol use: None Drug Abuse: None Family History: Reviewed & Not Pertinent Patient has suicidal ideation: No Patient has homicidal ideation: No - Past Medical History Cardiac Medical History: Reports: Hx Hypertension Pulmonary Medical History: Reports: Hx Pneumonia Neurological Medical History: Denies: Hx Seizures Endocrine Medical History: Reports: Hx Diabetes Mellitus Type 2 Renal/ Medical History: Reports: Hx End Stage Renal Disease, Hx Renal Insufficiency. Denies: Hx Peritoneal Dialysis Musculoskeletal Medical History: Reports Hx Arthritis Psychiatric Medical History: Reports: Hx Bipolar Disorder, Hx Schizoaffective Disorder, Hx Schizophrenia Past Surgical History: Reports: Hx Orthopedic Surgery - Immunizations Hx Diphtheria, Pertussis, Tetanus Vaccination: - unk Review of Systems - Review of Systems Notes: Constitutional: Negative for fever. HENT: Negative for sore throat. Eyes: Negative for visual changes. Cardiovascular: Negative for chest pain. Respiratory: Negative for shortness of breath. Gastrointestinal: Negative for abdominal pain, vomiting or diarrhea. Genitourinary: Negative for dysuria. Musculoskeletal: Negative for back pain. Skin: Negative for rash. Neurological: Negative for headaches, weakness or numbness. 10 point ROS negative except as marked above and in HPI. Physical Exam - Vital signs Vitals: Temp Pulse Resp BP Pulse Ox 98.4 F 67 24 H 200/88 H 99 03/31/19 16:15 03/31/19 16:15 03/31/19 16:15 03/31/19 16:15 03/31/19 16:15 - Notes Notes: GENERAL: Well-developed well-nourished appearing in no acute distress. SKIN: Good turgor no rashes. HEAD: Normocephalic atraumatic. EYES: PERRLA. EOMI. Conjunctivae and sclerae clear. EARS: CANALS AND TMS CLEAR. NOSE: CLEAR. MOUTH: Moist mucosa. Good dentition. No stridor or edema. No drooling. NECK: Supple. No masses or thyromegaly. No adenopathy. Carotids 2+ without bruits. No JVD. BACK: Symmetrical without tenderness. CHEST: Respirations unlabored. Breath sounds clear and symmetrical. HEART: Regular rhythm. No murmur gallop or rub. ABDOMEN: Soft nontender without masses, organomegaly or rebound. Bowel sounds normally active. No bruits. GENITALIA: Deferred. EXTREMITIES: Bilateral 1+ pretibial edema. No calf tenderness. Cap refill less than 1.5 seconds. Dorsalis pedis and posterior tibial pulses 3+ and symmetrical. NEUROLOGICAL: GCS 15. Alert and oriented x3. Normal gait. Fluent speech. Cranial nerves II through XII intact. Sensorimotor and cerebellar normal. Normal tone. PSYCHIATRIC: Flat affect. Course - Re-evaluation Re-evalutation: 03/31/19 19:34 I have given this man some oral clonidine and his most recent blood pressure at the bedside for me is 170/100. His head CT showed only some chronic-looking microvascular changes. He has no focal neurologic findings. His creatinine is close to his usual baseline at 1.8. Case was discussed with Dr. Akins who is covering for Dr. Taylor at this time. The guardian clearly wants this man to be admitted to a jail if possible. Dr. Akins will admit the patient at this time. - Vital Signs Vital signs: Temp Pulse Resp BP Pulse Ox 98.4 F 67 22 H 187/94 H 100 03/31/19 16:15 03/31/19 16:15 03/31/19 19:08 03/31/19 19:08 03/31/19 19:08 - Laboratory Result Diagrams: 03/31/19 16:30 03/31/19 16:30 Laboratory results interpreted by me: 03/31/19 03/31/19 03/31/19 16:30 16:30 17:20 WBC 11.8 H RBC 4.04 L Hgb 12.2 L Hct 35.7 L RDW 17.6 H Plt Count 464 H Lymph % (Auto) 6.3 L Absolute Neuts (auto) 9.8 H Seg Neutrophils % 83.1 H BUN 35 H Creatinine 1.80 H Est GFR ( Amer) 46 L Est GFR (MDRD) Non-Af 38 L Glucose 116 H Urine Protein 100 H Urine Blood SMALL H Discharge - Discharge Clinical Impression: Hypertensive urgency, Kidney function abnormal Condition: Fair Disposition: ADMITTED INPATIENT Admitting Provider: Theo Unit Admitted: Medical Floor Referrals: POOJA TAYLOR MD [Primary Care Provider] - Follow up as needed
[2019-03-31 18:21] LABS: APPEARANCE,URINE CLEAR; BILIRUBIN,URINE NEGATIVE (NEGATIVE); COLOR,URINE STRAW; GLUCOSE, URINE NEGATIVE (NEGATIVE); KETONES,URINE NEGATIVE (NEGATIVE); PROTEIN,URINE 100 mg/dL (NEGATIVE); URINE SPECIFIC GRAVITY 1.008; UROBILINOGEN,URINE NEGATIVE mg/dL (<2.0)
[2019-03-31 18:25] LABS: URINE AMPHETAMINES SCREEN NEGATIVE; URINE BARBITURATES SCREEN NEGATIVE; URINE BENZODIAZEPINES SCREEN NEGATIVE; URINE COCAINE SCREEN NEGATIVE; URINE MARIJUANA (THC) SCREEN NEGATIVE; URINE METHADONE SCREEN NEGATIVE; URINE PHENCYCLIDINE SCREEN NEGATIVE
--- NOTE | 2019-03-31 21:18 | RADIOLOGY REPORT (SQ) ---
EXAM DESCRIPTION: US EXTREMITY VEINS UNILATERAL COMPLETED DATE/TME: 03/31/2019 19:28 CLINICAL HISTORY: 63 years Male swelling LLE COMPARISON: None. TECHNIQUE: Duplex and color Doppler imaging performed to evaluate the extremity deep venous structures. Compression imaging and augmentation imaging performed. FINDINGS: No thrombus is identified in the deep venous structures imaged. There is normal flow, compressibility, and augmentation throughout. IMPRESSION: No DVT is identified.
[2019-03-31] MEDS ORDERED: INFLUENZA QUAD (6MOS+) 2019-20 VAC 0.5 ML SYR IM ONE (21:50)
--- NOTE | 2019-03-31 22:00 | EKG REPORT ---
SEVERITY:- NORMAL ECG - SINUS RHYTHM : Confirmed by: Maeve Hayward MD 31-Mar-2019 21:59:44
[2019-03-31] MEDS ORDERED: DEXTROSE 40% GEL 15 GM TUBE PO PRN ×2 (22:23)
[2019-03-31] MEDS ORDERED: DEXTROSE 50%-WATER 25 GM/50 ML DISP.SYRIN IV PRN ×2 (22:23)
[2019-03-31] MEDS ORDERED: GLUCAGON,HUMAN RECOMB 1 MG INJ IM PRN (22:23)
[2019-03-31 22:57] LABS: UR PRO/CREAT RATIO RESULT 2.4 mg/mg (0.0-0.2); URINE CREATININE 28.5 mg/dL (22-328); URINE PROTEIN 67.8 mg/dL (<12)
[2019-03-31] MEDS: OXYCODONE-ACETAMINOPHEN 5-325 MG TABLET PO PRN (23:22)
[2019-03-31] MEDS: HEPARIN SOD (PORCINE) 5,000 UNIT/ML 1 ML VIAL SUBCUT SCH (23:22)
[2019-03-31] MEDS: AMLODIPINE BESYLATE 10 MG TABLET PO SCH (23:23)
[2019-03-31] MEDS: ENALAPRILAT DIHYDRATE INJ/PF 2.5 MG/2 ML SDV IV SCH (23:25)
[2019-03-31] MEDS: INSULIN REG, HUMAN 100 UNIT/ML 3 ML VIAL (PYX) SUBCUT SCH (23:55)
[2019-04-01 00:05] LABS: INTERNATIONAL RATION (INR) 0.91; PROTHROMBIN TIME 12.2 SEC (11.4-15.4)
[2019-04-01 00:06] LABS: PARTIAL THROMBOPLASTIN TIME 37.1 SEC (23.5-35.8)
[2019-04-01 00:22] LABS: AMYLASE 79 U/L (30-110); ANION GAP 8 (5-19); BLOOD UREA NITROGEN 33 mg/dL (7-20); CALCIUM 8.7 mg/dL (8.4-10.2); CARBON DIOXIDE 26 mmol/L (22-30); CHLORIDE 103 mmol/L (98-107); GLUCOSE 315 mg/dL (75-110); PHOSPHORUS 3.9 mg/dL (2.5-4.5); POTASSIUM 3.9 mmol/L (3.6-5.0)
[2019-04-01 00:48] LABS: CREATINE KINASE MB 2.17 ng/mL (<4.55); TROPONIN I 0.025 ng/mL
[2019-04-01 00:52] LABS: FREE T4 (FREE THYROXINE) 0.97 ng/dL (0.78-2.19)
[2019-04-01 01:06] LABS: THYROID STIMULATING HORMONE 2.14 uIU/mL (0.47-4.68)
--- NOTE | 2019-04-01 01:45 | RADIOLOGY REPORT (SQ) ---
CLINICAL HISTORY: acute kidney injury COMPARISON: None. 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 There is no nephrolithiasis or hydronephrosis. Bladder is unremarkable. IMPRESSION: Normal study.
[2019-04-01 02:10] LABS: ARTERIAL BLOOD BASE EXCESS -1.4 mmol/L; ARTERIAL BLOOD HCO3 24.1 mmol/L (20-24); ARTERIAL BLOOD O2 SATURATION 94.8 % (94-98); ARTERIAL BLOOD PCO2 43.3 mmHg (35-45); ARTERIAL BLOOD PH 7.36 (7.35-7.45); ARTERIAL BLOOD TOTAL CO2 25.4 mmol/L (23-27)
[2019-04-01 02:11] LABS: ARTERIAL BLOOD FIO2 ROOM AIR
[2019-04-01 02:13] LABS: APPEARANCE,URINE CLEAR; BILIRUBIN,URINE NEGATIVE (NEGATIVE); COLOR,URINE YELLOW; GLUCOSE, URINE 50 mg/dL (NEGATIVE); KETONES,URINE NEGATIVE (NEGATIVE); LEUKOCYTE ESTERASE,URINE NEGATIVE (NEGATIVE); NITRITE,URINE NEGATIVE (NEGATIVE); PROTEIN,URINE 100 mg/dL (NEGATIVE); URINE SPECIFIC GRAVITY 1.012; UROBILINOGEN,URINE NEGATIVE mg/dL (<2.0)
[2019-04-01 02:30] LABS: URINE AMPHETAMINES SCREEN NEGATIVE; URINE BARBITURATES SCREEN NEGATIVE; URINE BENZODIAZEPINES SCREEN NEGATIVE; URINE COCAINE SCREEN NEGATIVE; URINE MARIJUANA (THC) SCREEN NEGATIVE; URINE METHADONE SCREEN NEGATIVE; URINE PHENCYCLIDINE SCREEN NEGATIVE
[2019-04-01 06:09] LABS: CHOLESTEROL 128.99 mg/dL (0-200); TRIGLYCERIDES 153 mg/dL (<150)
[2019-04-01 06:16] LABS: ABSOLUTE BASOPHILS # (AUTO) 0.1 10^3/uL (0.0-0.2); ABSOLUTE EOSINOPHILS # (AUTO) 0.8 10^3/uL (0.0-0.6); ABSOLUTE MONOCYTES (AUTO) 0.8 10^3/uL (0.1-1.4); ABSOLUTE NEUT (AUTO) 5.5 10^3/uL (1.7-8.2); BASOPHILS % (AUTO) 0.9 % (0-2); EOSINOPHILS % (AUTO) 9.6 % (0-6); HEMATOCRIT 33.8 % (37.9-51.0); HEMOGLOBIN 11.3 g/dL (13.5-17.0); LYMPHOCYTES % (AUTO) 12.6 % (13-45); MEAN CORPUSCULAR HEMOGLOBIN 29.6 pg (27.0-33.4); MEAN CORPUSCULAR HGB CONC 33.4 g/dL (32.0-36.0); MEAN CORPUSCULAR VOLUME 89 fl (80-97); MONOCYTES % (AUTO) 9.9 % (3-13); PLATELET COUNT 390 10^3/uL (150-450); RED BLOOD COUNT 3.82 10^6/uL (4.35-5.55); RED CELL DISTRIBUTION WIDTH 17.1 % (11.5-14.0); TOTAL CELLS COUNTED % (AUTO) 100 %; WHITE BLOOD COUNT 8.3 10^3/uL (4.0-10.5)
[2019-04-01] MEDS: HEPARIN SOD (PORCINE) 5,000 UNIT/ML 1 ML VIAL SUBCUT SCH ×3 (06:19→22:29)
[2019-04-01 06:20] LABS: DIRECT LDL 88 mg/dL (<100)
[2019-04-01] MEDS: ENALAPRILAT DIHYDRATE INJ/PF 2.5 MG/2 ML SDV IV SCH ×4 (06:20→23:19)
[2019-04-01 06:21] LABS: CREATINE KINASE MB 2.08 ng/mL (<4.55); TROPONIN I 0.024 ng/mL; VLDL CHOLESTEROL 30.6 mg/dL (10-31)
[2019-04-01] MEDS: OXYCODONE-ACETAMINOPHEN 5-325 MG TABLET PO PRN (06:23)
[2019-04-01] MEDS: INSULIN REG, HUMAN 100 UNIT/ML 3 ML VIAL (PYX) SUBCUT SCH ×4 (09:06→22:03)
[2019-04-01] MEDS: AMLODIPINE BESYLATE 10 MG TABLET PO SCH (10:03)
[2019-04-01 13:15] LABS: CREATINE KINASE MB 3.09 ng/mL (<4.55); TROPONIN I 0.017 ng/mL
--- NOTE | 2019-04-01 21:46 | PDOC H&P ---
History of Present Illness Admission Date/PCP: 03/31/19 19:46 POOJA TAYLOR MD History of Present Illness: QUANG VELAZQUEZ is a 63 year old male,He was brought to the emergency room by the court appointed guardian, the guardian is requesting that patient should be evaluated for his blood pressure because he has history of hypertension and he is poorly adherent with his medication usage for the control blood pressure. He was just declared mentally incompetent but the Judiciary, the guardian is the POA and is surrogate for medical decision and other matters, he wants him admitted to the hospital and probably have him transferred to correction for placement. The blood pressure recorded in the emergency room was about 200 systolic, he has a history of schizophrenia, history taking was a challenge, I could not obtain any reasonable history from this patient.In the emergency room CT head was done, it demonstrated no acute intracranial hemorrhage, no mass no evidence of cerebral infarction. Patient seems to be taking glipizide I assume is a diabetic, the serum creatinine is 1.8, he probably has CKD, will request ultrasound of his kidney Past Medical History Cardiac Medical History: Reports: Hypertension Pulmonary Medical History: Reports: Pneumonia Neurological Medical History: Denies: Seizures Endocrine Medical History: Reports: Diabetes Mellitus Type 2 Renal/ Medical History: Reports: Chronic Kidney Disease Musculoskeltal Medical History: Reports: Arthritis Psychiatric Medical History: Reports: Bipolar Disorder, Schizoaffective Disorder Hematology: Reports: Anemia - in CKD Past Surgical History Past Surgical History: Reports: Orthopedic Surgery Social History Smoking Status: Current Every Day Smoker Frequency of Alcohol Use: None Hx Recreational Drug Use: No Drugs: None Hx Prescription Drug Abuse: No Family History Family History: Reviewed & Not Pertinent Parental Family History Reviewed: Yes Children Family History Reviewed: Yes Sibling(s) Family History Reviewed.: Yes Medication/Allergy Home Medications: Amlodipine Besylate [Norvasc 10 mg Tablet] 10 mg PO DAILY 03/31/19 Furosemide [Lasix 20 mg Tablet] 20 mg PO DAILY 03/31/19 Glipizide [Glucotrol] 5 mg PO Q12 03/31/19 Allergies/Adverse Reactions: Penicillins Allergy (Verified 03/21/19 10:54) Review of Systems ROS unobtainable: Due to mental status Physical Exam Vital Signs: Temp Pulse Resp BP Pulse Ox 97.6 F 68 24 H 141/63 H 96 04/01/19 16:04 04/01/19 16:04 04/01/19 16:04 04/01/19 16:04 04/01/19 16:04 Intake & Output 03/31/19 04/01/19 04/02/19 06:59 06:59 06:59 Intake Total 1462 Balance 1462 Weight 73.1 kg General appearance: PRESENT: no acute distress Eye exam: PRESENT: PERRLA Respiratory exam: PRESENT: clear to auscultation lyn Cardiovascular exam: PRESENT: +S1, +S2 GI/Abdominal exam: PRESENT: soft Neurological exam: PRESENT: alert Results Laboratory Results: 04/01/19 05:23 03/31/19 23:14 03/31/19 03/31/19 04/01/19 23:14 23:14 01:55 WBC RBC Hgb Hct MCV MCH MCHC RDW Plt Count Seg Neutrophils % Carbonic Acid HCO3/H2CO3 Ratio ABG pH ABG pCO2 ABG pO2 ABG HCO3 ABG O2 Saturation ABG Base Excess FiO2 Sodium 137.3 Potassium 3.9 Chloride 103 Carbon Dioxide 26 Anion Gap 8 BUN 33 H Creatinine 1.74 H Est GFR ( Amer) 48 L Glucose 315 H Calcium 8.7 Phosphorus 3.9 Magnesium 1.7 Triglycerides Cholesterol LDL Cholesterol Direct VLDL Cholesterol HDL Cholesterol Amylase 79 Lipase 420.9 H TSH 2.14 Free T4 0.97 Urine Color YELLOW Urine Appearance CLEAR Urine pH 5.0 Ur Specific [place] 1.012 Urine Protein 100 H Urine Glucose (UA) 50 H Urine Ketones NEGATIVE Urine Blood SMALL H Urine Nitrite NEGATIVE Ur Leukocyte Esterase NEGATIVE Urine WBC (Auto) 1 Urine RBC (Auto) 1 04/01/19 04/01/19 04/01/19 01:55 05:23 05:23 WBC 8.3 RBC 3.82 L Hgb 11.3 L Hct 33.8 L MCV 89 MCH 29.6 MCHC 33.4 RDW 17.1 H Plt Count 390 Seg Neutrophils % 67.0 Carbonic Acid 1.30 HCO3/H2CO3 Ratio 18:1 ABG pH 7.36 ABG pCO2 43.3 ABG pO2 76.0 L ABG HCO3 24.1 H ABG O2 Saturation 94.8 ABG Base Excess -1.4 FiO2 ROOM AIR Sodium Potassium Chloride Carbon Dioxide Anion Gap BUN Creatinine Est GFR ( Amer) Glucose Calcium Phosphorus Magnesium Triglycerides 153 H Cholesterol 128.99 LDL Cholesterol Direct 88 VLDL Cholesterol 30.6 HDL Cholesterol 31 L Amylase Lipase TSH Free T4 Urine Color Urine Appearance Urine pH Ur Specific [place] Urine Protein Urine Glucose (UA) Urine Ketones Urine Blood Urine Nitrite Ur Leukocyte Esterase Urine WBC (Auto) Urine RBC (Auto) 03/31/19 03/31/19 03/31/19 23:14 23:14 23:14 Creatine Kinase 41 L CK-MB (CK-2) 2.17 Troponin I 0.025 NT-Pro-B Natriuret Pep 2660 H 04/01/19 04/01/19 04/01/19 05:23 05:23 12:33 Creatine Kinase 41 L 50 L CK-MB (CK-2) 2.08 Troponin I 0.024 NT-Pro-B Natriuret Pep 04/01/19 12:33 Creatine Kinase CK-MB (CK-2) 3.09 Troponin I 0.017 NT-Pro-B Natriuret Pep Impressions: Renal Ultrasound 03/31/19 00:00 IMPRESSION: Normal study. Head CT 03/31/19 16:46 IMPRESSION: 1. No acute intracranial hemorrhage, mass, or evidence of acute territorial infarct. 2. Mild chronic small vessel ischemic change and intracranial atherosclerosis. EVIDENCE OF ACUTE STROKE: NO. Venous Doppler Study 03/31/19 19:28 IMPRESSION: No DVT is identified. Assessment & Plan - Diagnosis (1) Hypertensive emergency Is this a current diagnosis for this admission?: Yes Plan: Start Vasotec IV (2) CKD stage 3 due to type 2 diabetes mellitus Is this a current diagnosis for this admission?: Yes Plan: He probably has CKD from diabetes, ultrasound of the kidney to be ordered to rule out obstructive uropathy and also to assess kidney size
[2019-04-02] MEDS: HEPARIN SOD (PORCINE) 5,000 UNIT/ML 1 ML VIAL SUBCUT SCH ×3 (05:39→22:33)
[2019-04-02] MEDS: ENALAPRILAT DIHYDRATE INJ/PF 2.5 MG/2 ML SDV IV SCH ×4 (05:40→23:49)
[2019-04-02 05:52] LABS: ABSOLUTE EOSINOPHILS # (AUTO) 0.3 10^3/uL (0.0-0.6); ABSOLUTE LYMPHOCYTES (AUTO) 0.8 10^3/uL (0.5-4.7); ABSOLUTE MONOCYTES (AUTO) 0.8 10^3/uL (0.1-1.4); ABSOLUTE NEUT (AUTO) 6.9 10^3/uL (1.7-8.2); BASOPHILS % (AUTO) 0.1 % (0-2); EOSINOPHILS % (AUTO) 3.7 % (0-6); HEMATOCRIT 36.6 % (37.9-51.0); LYMPHOCYTES % (AUTO) 8.7 % (13-45); MEAN CORPUSCULAR HEMOGLOBIN 29.2 pg (27.0-33.4); MEAN CORPUSCULAR HGB CONC 32.7 g/dL (32.0-36.0); MEAN CORPUSCULAR VOLUME 89 fl (80-97); MONOCYTES % (AUTO) 8.6 % (3-13); PLATELET COUNT 415 10^3/uL (150-450); RED CELL DISTRIBUTION WIDTH 17.2 % (11.5-14.0); SEGMENTED NEUTROPHILS % (AUTO) 78.9 % (42-78); TOTAL CELLS COUNTED % (AUTO) 100 %; WHITE BLOOD COUNT 8.8 10^3/uL (4.0-10.5)
[2019-04-02] MEDS: INSULIN REG, HUMAN 100 UNIT/ML 3 ML VIAL (PYX) SUBCUT SCH ×4 (08:30→22:18)
[2019-04-02] MEDS: AMLODIPINE BESYLATE 10 MG TABLET PO SCH (09:11)
--- NOTE | 2019-04-02 19:22 | PDOC PROGRESS REPORT ---
Subjective Progress Note for:: 04/02/19 Subjective:: Patient probably have dementia he does not communicate coherently Reason For Visit: HYPERTENSIVE EMERGENCY Physical Exam Vital Signs: Temp Pulse Resp BP Pulse Ox 98.3 F 66 20 145/60 H 97 04/02/19 12:00 04/02/19 16:00 04/02/19 16:00 04/02/19 17:42 04/02/19 16:00 Intake & Output 04/01/19 04/02/19 04/03/19 06:59 06:59 06:59 Intake Total 1400 1462 1338 Output Total 700 Balance 700 1462 1338 Weight 73.1 kg 73.1 kg General appearance: PRESENT: no acute distress Eye exam: PRESENT: PERRLA Respiratory exam: PRESENT: clear to auscultation lyn Cardiovascular exam: PRESENT: +S1, +S2 GI/Abdominal exam: PRESENT: soft Results Laboratory Results: 04/02/19 05:18 03/31/19 23:14 04/02/19 05:18 WBC 8.8 RBC 4.10 L Hgb 12.0 L Hct 36.6 L MCV 89 MCH 29.2 MCHC 32.7 RDW 17.2 H Plt Count 415 Seg Neutrophils % 78.9 H 03/31/19 03/31/19 03/31/19 23:14 23:14 23:14 Creatine Kinase 41 L CK-MB (CK-2) 2.17 Troponin I 0.025 NT-Pro-B Natriuret Pep 2660 H 04/01/19 04/01/19 04/01/19 05:23 05:23 12:33 Creatine Kinase 41 L 50 L CK-MB (CK-2) 2.08 Troponin I 0.024 NT-Pro-B Natriuret Pep 04/01/19 12:33 Creatine Kinase CK-MB (CK-2) 3.09 Troponin I 0.017 NT-Pro-B Natriuret Pep Impressions: Renal Ultrasound 03/31/19 00:00 IMPRESSION: Normal study. Head CT 03/31/19 16:46 IMPRESSION: 1. No acute intracranial hemorrhage, mass, or evidence of acute territorial infarct. 2. Mild chronic small vessel ischemic change and intracranial atherosclerosis. EVIDENCE OF ACUTE STROKE: NO. Venous Doppler Study 03/31/19 19:28 IMPRESSION: No DVT is identified. Assessment & Plan - Diagnosis (1) Hypertensive emergency Is this a current diagnosis for this admission?: Yes Plan: Continue treatment (2) CKD stage 3 due to type 2 diabetes mellitus Is this a current diagnosis for this admission?: Yes Plan: He has significant proteinuria suggesting he has intrinsic kidney disease, A1c 7.4 - Time Time Spent with patient: 25-34 minutes Level of Care: TELE
[2019-04-03] MEDS: HEPARIN SOD (PORCINE) 5,000 UNIT/ML 1 ML VIAL SUBCUT SCH ×3 (05:03→22:14)
[2019-04-03] MEDS: ENALAPRILAT DIHYDRATE INJ/PF 2.5 MG/2 ML SDV IV SCH (05:03)
[2019-04-03 05:57] LABS: ABSOLUTE EOSINOPHILS # (AUTO) 0.6 10^3/uL (0.0-0.6); ABSOLUTE LYMPHOCYTES (AUTO) 0.8 10^3/uL (0.5-4.7); ABSOLUTE MONOCYTES (AUTO) 0.9 10^3/uL (0.1-1.4); BASOPHILS % (AUTO) 0.2 % (0-2); EOSINOPHILS % (AUTO) 7.8 % (0-6); HEMATOCRIT 32.9 % (37.9-51.0); LYMPHOCYTES % (AUTO) 9.7 % (13-45); MEAN CORPUSCULAR HEMOGLOBIN 29.4 pg (27.0-33.4); MEAN CORPUSCULAR HGB CONC 33.4 g/dL (32.0-36.0); MEAN CORPUSCULAR VOLUME 88 fl (80-97); MONOCYTES % (AUTO) 10.3 % (3-13); PLATELET COUNT 372 10^3/uL (150-450); RED BLOOD COUNT 3.73 10^6/uL (4.35-5.55); TOTAL CELLS COUNTED % (AUTO) 100 %; WHITE BLOOD COUNT 8.3 10^3/uL (4.0-10.5)
[2019-04-03 08:19] LABS: ANION GAP 7 (5-19); BLOOD UREA NITROGEN 41 mg/dL (7-20); CALCIUM 8.1 mg/dL (8.4-10.2); CARBON DIOXIDE 22 mmol/L (22-30); CHLORIDE 107 mmol/L (98-107); GLUCOSE 154 mg/dL (75-110); POTASSIUM 4.7 mmol/L (3.6-5.0)
[2019-04-03] MEDS: INSULIN REG, HUMAN 100 UNIT/ML 3 ML VIAL (PYX) SUBCUT SCH ×4 (08:39→22:19)
[2019-04-03] MEDS: AMLODIPINE BESYLATE 10 MG TABLET PO SCH (09:49)
--- NOTE | 2019-04-03 10:11 | PDOC PROGRESS REPORT ---
Subjective Progress Note for:: 04/03/19 Subjective:: This is a 63-year-old male's very noncompliance not taking the medications as prescribed seen by Dr. Barrett week patient was prescribed a medication usually do not take any medication including the diabetes medications blood pressure medications At this point patient was actually discharged from my practice as per discussed with the social workers nothing much I can help patient is not taking medications even the sexual assault social worker try to go to the court gets authority Patients came with the same altered mental status elevated blood pressures Patient is currently doing fair Any chest pain no short of breath Currently on IV Vasotec Reason For Visit: HYPERTENSIVE EMERGENCY Physical Exam Vital Signs: Temp Pulse Resp BP Pulse Ox 97.7 F 64 16 150/68 H 96 04/03/19 08:00 04/03/19 08:00 04/03/19 08:00 04/03/19 08:00 04/03/19 08:00 Intake & Output 04/02/19 04/03/19 04/04/19 06:59 06:59 06:59 Intake Total 1462 2238 Balance 1462 2238 Weight 73.1 kg 70.7 kg General appearance: PRESENT: no acute distress, well-developed, well-nourished Head exam: PRESENT: atraumatic, normocephalic Eye exam: PRESENT: conjunctiva pink, EOMI, PERRLA. ABSENT: scleral icterus Ear exam: PRESENT: normal external ear exam Mouth exam: PRESENT: moist, tongue midline Neck exam: PRESENT: full ROM. ABSENT: carotid bruit, JVD, lymphadenopathy, thyromegaly Respiratory exam: PRESENT: clear to auscultation lyn Cardiovascular exam: PRESENT: RRR. ABSENT: diastolic murmur, rubs, systolic murmur Pulses: PRESENT: normal dorsalis pedis pul, +2 pedal pulses bilateral Vascular exam: PRESENT: normal capillary refill GI/Abdominal exam: PRESENT: normal bowel sounds, soft. ABSENT: distended, guarding, mass, organolmegaly, rebound, tenderness Rectal exam: PRESENT: deferred Neurological exam: PRESENT: alert, awake, oriented to person, oriented to place, oriented to time. ABSENT: motor sensory deficit Psychiatric exam: PRESENT: appropriate affect, normal mood. ABSENT: homicidal ideation, suicidal ideation Skin exam: PRESENT: dry, intact, warm. ABSENT: cyanosis, rash Results Laboratory Results: 04/03/19 04:29 04/03/19 04:29 04/03/19 04/03/19 04:29 04:29 WBC 8.3 RBC 3.73 L Hgb 11.0 L Hct 32.9 L MCV 88 MCH 29.4 MCHC 33.4 RDW 17.0 H Plt Count 372 Seg Neutrophils % 72.0 Sodium 136.3 L Potassium 4.7 Chloride 107 Carbon Dioxide 22 Anion Gap 7 BUN 41 H Creatinine 1.86 H Est GFR ( Amer) 44 L Glucose 154 H Calcium 8.1 L 04/01/19 01:55 Clean Catch Midstream Urine Culture - Final NO GROWTH 2 DAYS 03/31/19 03/31/19 03/31/19 23:14 23:14 23:14 Creatine Kinase 41 L CK-MB (CK-2) 2.17 Troponin I 0.025 NT-Pro-B Natriuret Pep 2660 H 04/01/19 04/01/19 04/01/19 05:23 05:23 12:33 Creatine Kinase 41 L 50 L CK-MB (CK-2) 2.08 Troponin I 0.024 NT-Pro-B Natriuret Pep 04/01/19 12:33 Creatine Kinase CK-MB (CK-2) 3.09 Troponin I 0.017 NT-Pro-B Natriuret Pep Impressions: Renal Ultrasound 03/31/19 00:00 IMPRESSION: Normal study. Head CT 03/31/19 16:46 IMPRESSION: 1. No acute intracranial hemorrhage, mass, or evidence of acute territorial infarct. 2. Mild chronic small vessel ischemic change and intracranial atherosclerosis. EVIDENCE OF ACUTE STROKE: NO. Venous Doppler Study 03/31/19 19:28 IMPRESSION: No DVT is identified. Assessment & Plan - Diagnosis (1) Hypertensive urgency Is this a current diagnosis for this admission?: Yes Plan: Continues on Norvasc 10 mg daily we will start the losartan 50 mg we will consult the nephrology patient have issue with the hyperkalemia as he needs to be watched may be consider hydralazine instead of the losartan if his issue with the potassiums Again the patient is not taking the medicines he only prescribes there is no make any sense to get corrected the patient's problems patients definitely needs to go to someplace where the somebody can supervise (2) Schizophrenia Qualifiers: Schizophrenia type: unspecified Qualified Code(s): F20.9 - Schizophrenia, unspecified Is this a current diagnosis for this admission?: Yes Plan: I think patient have underlying some psych problems definitely needs some evaluations patient seen the psychiatrist as outpatients but not sure what the prescribes (3) CKD stage 3 due to type 2 diabetes mellitus Is this a current diagnosis for this admission?: Yes Plan: Consult the nephrology (4) Gastritis Qualifiers: Gastritis type: unspecified gastritis Chronicity: acute Gastritis bleeding: without bleeding Qualified Code(s): K29.00 - Acute gastritis without bleeding Is this a current diagnosis for this admission?: Yes Plan: Continues the Pepcid twice a day - Time Time Spent with patient: 15-24 minutes Level of Care: TELE Medications reviewed and adjusted accordingly: Yes Anticipated discharge: SNF Within: Other - Plan Summary Plan Summary: Continues to current medications check of blood work
[2019-04-03] MEDS: LOSARTAN POTASSIUM 50 MG TABLET PO SCH ×2 (11:06→22:19)
[2019-04-03] MEDS: GLIPIZIDE XL 2.5 MG TAB.ER.24 PO SCH (16:58)
[2019-04-03] MEDS: FAMOTIDINE 20 MG TABLET PO SCH (22:19)
--- NOTE | 2019-04-04 00:58 | PDOC CONSULTATION ---
Consultation Consult Date: 04/03/19 Provider Consulted: FAUSTO BRAVO Consult reason:: CKD and HTN History of Present Illness Admission Date/PCP: 03/31/19 19:46 POOJA TAYLOR MD History of Present Illness: QUANG VELAZQUEZ is a 63 year old male with history of chronic kidney disease baseline stage III, hypertension, diabetes mellitus type 2 and bipolar disorder/schizophrenia who was admitted on 03/31/2019 because of hypertension. Patient is a poor historian. From records patient was apparently brought into the emergency room by his court court appointed guardian for management of hypertension due to poor adherence to medications and possible placement to [facility] facility. Upon presentation the patient systolic blood pressure was in the 200s. Patient's blood pressure medication, amlodipine was restarted with initiation of losartan 50 mg every 12 hours. Currently the patient's blood pressure appears to be better controlled. Patient states that he feels okay. The only concern he has is the left groin mass that he has for a while. Otherwise he denies any chest pains, shortness of breath, nausea, vomiting, diarrhea nor significant leg swelling. He states that he got off his medications a while back but could not really tell me any specifics. He does not verbalize any problems with urination either. In terms of his kidney function he came in with a BUN of 33, creatinine of 1.74 with estimated GFR of 38. Today he has a BUN of 41, creatinine of 1.86 with EGFR of 37. Review of records showed that the patient's baseline creatinine ranges anywhere between 1.8-2.4 for the last few months. He has proteinuria with urine protein to creatinine ratio of 2.4. His urine output is not being quantified. His kidney ultrasound showed normal size kidneys and unremarkable findings. Past Medical History Cardiac Medical History: Reports: Hypertension-primary Pulmonary Medical History: Reports: Pneumonia Neurological Medical History: Denies: Seizures Endocrine Medical History: Reports: Diabetes Mellitus Type 2 Renal/ Medical History: Reports: Chronic Kidney Disease Stage III Musculoskeltal Medical History: Reports: Arthritis Psychiatric Medical History: Reports: Bipolar Disorder, Schizoaffective Disorder Hematology Medical History: Reports Anemia Past Surgical History Past Surgical History: Reports: Orthopedic Surgery - Bilateral knee laparoscopies Social History Information Source: Patient Lives with: Alone Smoking Status: Current Every Day Smoker Frequency of Alcohol Use: None Hx Recreational Drug Use: No Drugs: None Hx Prescription Drug Abuse: No Family History Family History: Patient unable to give any family history at all. Parental Family History Reviewed: No Children Family History Reviewed: No Sibling(s) Family History Reviewed.: No Medication/Allergy Home Medications: Amlodipine Besylate [Norvasc 10 mg Tablet] 10 mg PO DAILY 03/31/19 Furosemide [Lasix 20 mg Tablet] 20 mg PO DAILY 03/31/19 Glipizide [Glucotrol] 5 mg PO Q12 03/31/19 Allergies/Adverse Reactions: Penicillins Allergy (Verified 03/21/19 10:54) Review of Systems All systems: reviewed and no additional remarkable complaints except as stated Review of Systems: Constitutional: ABSENT: chills, fatigue, fever(s), headache(s), weight gain, weight loss Eyes: ABSENT: visual disturbances Ears: ABSENT: hearing changes Cardiovascular: ABSENT: chest pain, dyspnea on exertion, edema, orthropnea, palpitations Respiratory: ABSENT: cough, dyspnea, hemoptysis Gastrointestinal: ABSENT: abdominal pain, constipation, diarrhea, hematemesis, hematochezia, nausea, vomiting Genitourinary: ABSENT: dysuria, hematuria Musculoskeletal: ABSENT: joint swelling Integumentary: ABSENT: rash, wounds Neurological: ABSENT: abnormal gait, abnormal speech, confusion, dizziness, focal weakness, numbness, syncope Psychiatric: ABSENT: anxiety, depression Endocrine: ABSENT: cold intolerance, heat intolerance, polydipsia, polyuria Hematologic/Lymphatic: ABSENT: easy bleeding, easy bruising, lymphadenopathy Physical Exam Vital Signs: Temp Pulse Resp BP Pulse Ox 97.7 F 64 16 150/68 H 96 04/03/19 08:00 04/03/19 08:00 04/03/19 08:00 04/03/19 08:00 04/03/19 08:00 Intake & Output 04/02/19 04/03/19 04/04/19 06:59 06:59 06:59 Intake Total 1462 2238 Balance 1462 2238 Weight 73.1 kg 70.7 kg Exam: General appearance: No acute distress, cooperative, well-developed, well- nourished Head exam: PRESENT: atraumatic, normocephalic Eye exam: PRESENT: Conjunctiva [place], EOMI, PERRLA. ABSENT: conjunctival injection, scleral icterus Mouth exam: PRESENT: moist, neck supple, tongue midline Neck exam: PRESENT: full ROM. ABSENT: carotid bruit, JVD, lymphadenopathy, thyromegaly Respiratory exam: PRESENT: clear to auscultation bilaterally. ABSENT: rales, rhonchi, stridor, wheezes Cardiovascular exam: PRESENT: Irregular with premature beats occasionally, +S1, +S2. ABSENT: systolic murmur Pulses: PRESENT: normal radial pulses, normal dorsalis pedis pulses GI/Abdominal exam: PRESENT: normal bowel sounds, soft. Left inguinal soft mass likely inguinal hernia ABSENT: guarding, tenderness Rectal exam: Deferred Extremities exam: PRESENT: full ROM. ABSENT: calf tenderness, pedal edema Musculoskeletal: PRESENT: full ROM. ABSENT: deformity Neurological exam: PRESENT: alert, Awake, Oriented to person, Oriented to place, Oriented to time, reflexes normal, CN II-XII grossly intact. ABSENT: motor sensory deficit Psychiatric exam: PRESENT: appropriate affect, normal mood. ABSENT: homicidal ideation, suicidal ideation Skin exam: PRESENT: intact, dry, warm. ABSENT: rash Results Laboratory Results: 04/03/19 04:29 04/03/19 04:29 04/03/19 04/03/19 04:29 04:29 WBC 8.3 RBC 3.73 L Hgb 11.0 L Hct 32.9 L MCV 88 MCH 29.4 MCHC 33.4 RDW 17.0 H Plt Count 372 Seg Neutrophils % 72.0 Sodium 136.3 L Potassium 4.7 Chloride 107 Carbon Dioxide 22 Anion Gap 7 BUN 41 H Creatinine 1.86 H Est GFR ( Amer) 44 L Glucose 154 H Calcium 8.1 L 04/01/19 01:55 Clean Catch Midstream Urine Culture - Final NO GROWTH 2 DAYS 03/31/19 03/31/19 03/31/19 23:14 23:14 23:14 Creatine Kinase 41 L CK-MB (CK-2) 2.17 Troponin I 0.025 NT-Pro-B Natriuret Pep 2660 H 04/01/19 04/01/19 04/01/19 05:23 05:23 12:33 Creatine Kinase 41 L 50 L CK-MB (CK-2) 2.08 Troponin I 0.024 NT-Pro-B Natriuret Pep 04/01/19 12:33 Creatine Kinase CK-MB (CK-2) 3.09 Troponin I 0.017 NT-Pro-B Natriuret Pep Impressions: Renal Ultrasound 03/31/19 00:00 IMPRESSION: Normal study. Head CT 03/31/19 16:46 IMPRESSION: 1. No acute intracranial hemorrhage, mass, or evidence of acute territorial infarct. 2. Mild chronic small vessel ischemic change and intracranial atherosclerosis. EVIDENCE OF ACUTE STROKE: NO. Venous Doppler Study 03/31/19 19:28 IMPRESSION: No DVT is identified. Assessment & Plan - Diagnosis (1) Chronic kidney disease, stage 3 Is this a current diagnosis for this admission?: Yes Plan: Associated with nonnephrotic range proteinuria likely due to a combination of diabetic nephropathy and hypertensive nephrosclerosis. Patient is currently actually at his baseline kidney function without any worsening. Patient needs to continue to follow-up as an outpatient with a supercalender operator helper. We will be happy to see the patient in the clinic once discharge. (2) Hypertension Qualifiers: Hypertension type: essential hypertension Qualified Code(s): I10 - Ess ential (primary) hypertension Is this a current diagnosis for this admission?: Yes Plan: Blood pressure currently improving. Continue current blood pressure regimen. If due to blood pressure medications are insufficient may add additional beta- lópez or diuretics. (3) Diabetes mellitus type 2 in nonobese Is this a current diagnosis for this admission?: Yes Plan: Uncontrolled. Defer to primary service. (4) Anemia in chronic kidney disease (CKD) Is this a current diagnosis for this admission?: Yes (5) Reducible left inguinal hernia Is this a current diagnosis for this admission?: Yes (6) Schizophrenia Qualifiers: Schizophrenia type: unspecified Qualified Code(s): F20.9 - Schizophrenia, unspecified Is this a current diagnosis for this admission?: Yes - Notes Notes: Thank you very much for this consultation. - Time Time Spent: 50 to 70 Minutes
[2019-04-04 04:44] LABS: ABSOLUTE EOSINOPHILS # (AUTO) 0.6 10^3/uL (0.0-0.6); ABSOLUTE LYMPHOCYTES (AUTO) 0.9 10^3/uL (0.5-4.7); BASOPHILS % (AUTO) 0.5 % (0-2); EOSINOPHILS % (AUTO) 6.7 % (0-6); HEMATOCRIT 37.6 % (37.9-51.0); HEMOGLOBIN 12.5 g/dL (13.5-17.0); LYMPHOCYTES % (AUTO) 9.6 % (13-45); MEAN CORPUSCULAR HEMOGLOBIN 29.5 pg (27.0-33.4); MEAN CORPUSCULAR HGB CONC 33.3 g/dL (32.0-36.0); MEAN CORPUSCULAR VOLUME 89 fl (80-97); MONOCYTES % (AUTO) 10.1 % (3-13); PLATELET COUNT 395 10^3/uL (150-450); RED BLOOD COUNT 4.24 10^6/uL (4.35-5.55); SEGMENTED NEUTROPHILS % (AUTO) 73.1 % (42-78); TOTAL CELLS COUNTED % (AUTO) 100 %; WHITE BLOOD COUNT 9.6 10^3/uL (4.0-10.5)
[2019-04-04 05:00] LABS: ANION GAP 8 (5-19); BLOOD UREA NITROGEN 40 mg/dL (7-20); CALCIUM 8.9 mg/dL (8.4-10.2); CARBON DIOXIDE 24 mmol/L (22-30); CHLORIDE 106 mmol/L (98-107); GLUCOSE 154 mg/dL (75-110)
[2019-04-04] MEDS: HEPARIN SOD (PORCINE) 5,000 UNIT/ML 1 ML VIAL SUBCUT SCH ×3 (06:49→21:28)
[2019-04-04] MEDS ORDERED: HYDRALAZINE HCL INJ/PF 20 MG/1 ML SDV IV PRN (08:00)
--- NOTE | 2019-04-04 08:15 | PDOC PROGRESS REPORT ---
Subjective Progress Note for:: 04/04/19 Subjective:: Patient is currently doing well Patient seen by the nephrology Patient's blood pressure is still high today's we will add the Coreg His potassium is 5.0 Patient is waiting for the psych evaluations And is without the sitters I think the next 24-hour patient able to go to the nursing facilities Reason For Visit: HYPERTENSIVE EMERGENCY Physical Exam Vital Signs: Temp Pulse Resp BP Pulse Ox 98.5 F 69 17 161/65 H 98 04/04/19 04:00 04/04/19 07:00 04/04/19 04:00 04/04/19 04:00 04/04/19 04:00 Intake & Output 04/03/19 04/04/19 04/05/19 06:59 06:59 06:59 Intake Total 2238 1010 Balance 2238 1010 Weight 70.7 kg 75 kg General appearance: PRESENT: no acute distress, well-developed, well-nourished Head exam: PRESENT: atraumatic, normocephalic Eye exam: PRESENT: conjunctiva pink, EOMI, PERRLA. ABSENT: scleral icterus Ear exam: PRESENT: normal external ear exam Mouth exam: PRESENT: moist, tongue midline Neck exam: PRESENT: full ROM. ABSENT: carotid bruit, JVD, lymphadenopathy, th yromegaly Respiratory exam: PRESENT: clear to auscultation lyn Cardiovascular exam: PRESENT: RRR. ABSENT: diastolic murmur, rubs, systolic murmur Pulses: PRESENT: normal dorsalis pedis pul, +2 pedal pulses bilateral Vascular exam: PRESENT: normal capillary refill GI/Abdominal exam: PRESENT: normal bowel sounds, soft. ABSENT: distended, guarding, mass, organolmegaly, rebound, tenderness Rectal exam: PRESENT: deferred Musculoskeletal exam: PRESENT: ambulatory Neurological exam: PRESENT: alert, awake, oriented to person, oriented to place, oriented to time, oriented to situation. ABSENT: motor sensory deficit Psychiatric exam: PRESENT: appropriate affect, normal mood. ABSENT: homicidal ideation, suicidal ideation Skin exam: PRESENT: dry, intact, warm. ABSENT: cyanosis, rash Results Laboratory Results: 04/04/19 04:11 04/04/19 04:11 04/03/19 04/04/19 04/04/19 04:29 04:11 04:11 WBC 9.6 RBC 4.24 L Hgb 12.5 L Hct 37.6 L MCV 89 MCH 29.5 MCHC 33.3 RDW 17.0 H Plt Count 395 Seg Neutrophils % 73.1 Sodium 136.3 L 138.1 Potassium 4.7 5.0 Chloride 107 106 Carbon Dioxide 22 24 Anion Gap 7 8 BUN 41 H 40 H Creatinine 1.86 H 2.03 H Est GFR ( Amer) 44 L 40 L Glucose 154 H 154 H Calcium 8.1 L 8.9 04/01/19 01:55 Clean Catch Midstream Urine Culture - Final NO GROWTH 2 DAYS 03/31/19 03/31/19 03/31/19 23:14 23:14 23:14 Creatine Kinase 41 L CK-MB (CK-2) 2.17 Troponin I 0.025 NT-Pro-B Natriuret Pep 2660 H 04/01/19 04/01/19 04/01/19 05:23 05:23 12:33 Creatine Kinase 41 L 50 L CK-MB (CK-2) 2.08 Troponin I 0.024 NT-Pro-B Natriuret Pep 04/01/19 12:33 Creatine Kinase CK-MB (CK-2) 3.09 Troponin I 0.017 NT-Pro-B Natriuret Pep Impressions: Renal Ultrasound 03/31/19 00:00 IMPRESSION: Normal study. Head CT 03/31/19 16:46 IMPRESSION: 1. No acute intracranial hemorrhage, mass, or evidence of acute territorial infarct. 2. Mild chronic small vessel ischemic change and intracranial atherosclerosis. EVIDENCE OF ACUTE STROKE: NO. Venous Doppler Study 03/31/19 19:28 IMPRESSION: No DVT is identified. Assessment & Plan - Diagnosis (1) Hypertensive urgency Is this a current diagnosis for this admission?: Yes Plan: Add the Coreg 6.25 mg twice a day we will watch the blood pressure next 24 hours adjust the dose check the Chem-7 again follow with the nephrology (2) Schizophrenia Qualifiers: Schizophrenia type: unspecified Qualified Code(s): F20.9 - Schizophrenia, unspecified Is this a current diagnosis for this admission?: Yes Plan: And a combination of the bipolar schizophrenia type of the disorders currently all stable will wait for the psych evaluations (3) CKD stage 3 due to type 2 diabetes mellitus Is this a current diagnosis for this admission?: Yes Plan: Currently all stable's follow with the nephrology (4) Gastritis Qualifiers: Gastritis type: unspecified gastritis Chronicity: acute Gastritis bleeding: without bleeding Qualified Code(s): K29.00 - Acute gastritis without bleeding Is this a current diagnosis for this admission?: Yes Plan: Continues the Pepcid twice a day - Time Time Spent with patient: 25-34 minutes Level of Care: TELE Medications reviewed and adjusted accordingly: Yes Anticipated discharge: SNF - Plan Summary Plan Summary: Add the Coreg 6.25 mg twice a day repeat the Chem-7 in the morning physical therapy psych evaluations
[2019-04-04] MEDS: INSULIN REG, HUMAN 100 UNIT/ML 3 ML VIAL (PYX) SUBCUT SCH ×4 (09:03→21:29)
[2019-04-04] MEDS: AMLODIPINE BESYLATE 10 MG TABLET PO SCH (09:07)
[2019-04-04] MEDS: GLIPIZIDE XL 2.5 MG TAB.ER.24 PO SCH ×2 (09:07→18:14)
[2019-04-04] MEDS: LOSARTAN POTASSIUM 50 MG TABLET PO SCH ×2 (09:07→21:37)
[2019-04-04] MEDS: CARVEDILOL 6.25 MG TABLET PO SCH ×2 (09:08→21:37)
--- NOTE | 2019-04-04 19:29 | PSYCHOLOGICAL NOTE ---
Psych Note - Psych Note Date seen by psych provider: 04/04/19 Time seen by psych provider: 16:00 Psych Note: Reason for consult: Possible Psych Issue Patient is a 63 year old male admitted into the hospital due to medical concerns. Patient was last seen by behavioral health on February 12, 2019 for similar etiology. Chart review conducted. Per verbal nurse report, the main concern is noncompliance with medications. Patient states "Dr. Venegas told me to get off my medications and then told me to get back on it." When asked if patient would be compliant with medications at discharge patient states he did not know. Patient states the medications cost money, and reported "I like my money." Patient spoke of being forgetful regarding eating and taking medications. Mood is normal with congruent affect. There is no observed behavior that suggests patient is responding to internal stimuli. Eye contact is appropriate. Conversational speech is pressured and mumbled. Clinician notes tangential thought processes. Impression/Plan: Patient is cleared from acute psychiatric services. Patient denies SI/HI. Head CT scan conducted on 03/31/2019 contains language that is suggestive of neurodegenerative processes. There is extensive history of patient's noncompliance with mental health medications and medications to manage medical concerns. An adult protective service report was filed due to concerns patient may need community support such as Meals on Wheels and visits from home health while attempting to live independently. Dr. Burns was consulted on the care and management of this patient.
[2019-04-04] MEDS: FAMOTIDINE 20 MG TABLET PO SCH (21:32)
[2019-04-05] MEDS: HEPARIN SOD (PORCINE) 5,000 UNIT/ML 1 ML VIAL SUBCUT SCH ×3 (05:06→21:24)
[2019-04-05] MEDS: INSULIN REG, HUMAN 100 UNIT/ML 3 ML VIAL (PYX) SUBCUT SCH ×4 (08:18→21:46)
--- NOTE | 2019-04-05 08:29 | PDOC PROGRESS REPORT ---
Subjective Progress Note for:: 04/05/19 Subjective:: Patient is currently doing fair Is walking the hallway without any problems Patient's denied any chest pain no short of breath Patient seen by the psych I think patient have underlying some memory issues or just the patient's behavior issues which patient is persistently refused for the medications and patients always said that his money go behind the medications so I think patients probably more safer to go to the some supervised place Reason For Visit: HYPERTENSIVE EMERGENCY Physical Exam Vital Signs: Temp Pulse Resp BP Pulse Ox 97.3 F 60 16 181/65 H 95 04/05/19 03:59 04/05/19 07:00 04/05/19 03:59 04/05/19 03:59 04/05/19 03:59 Intake & Output 04/04/19 04/05/19 04/06/19 06:59 06:59 06:59 Intake Total 1010 1096 Balance 1010 1096 Weight 75 kg 77.6 kg General appearance: PRESENT: no acute distress, well-developed, well-nourished Head exam: PRESENT: atraumatic, normocephalic Eye exam: PRESENT: conjunctiva pink, EOMI, PERRLA. ABSENT: scleral icterus Ear exam: PRESENT: normal external ear exam Mouth exam: PRESENT: moist, tongue midline Neck exam: PRESENT: full ROM. ABSENT: carotid bruit, JVD, lymphadenopathy, thyromegaly Respiratory exam: PRESENT: clear to auscultation lyn Cardiovascular exam: PRESENT: RRR. ABSENT: diastolic murmur, rubs, systolic murmur Vascular exam: PRESENT: normal capillary refill GI/Abdominal exam: PRESENT: normal bowel sounds, soft. ABSENT: distended, guarding, mass, organolmegaly, rebound, tenderness Rectal exam: PRESENT: deferred Musculoskeletal exam: PRESENT: ambulatory Neurological exam: PRESENT: alert, awake, oriented to person, oriented to place, oriented to time, oriented to situation, CN II-XII grossly intact. ABSENT: motor sensory deficit Psychiatric exam: PRESENT: appropriate affect, normal mood. ABSENT: homicidal ideation, suicidal ideation Skin exam: PRESENT: dry, intact, warm. ABSENT: cyanosis, rash Results Laboratory Results: 04/04/19 04:11 03/31/19 03/31/19 03/31/19 23:14 23:14 23:14 Creatine Kinase 41 L CK-MB (CK-2) 2.17 Troponin I 0.025 NT-Pro-B Natriuret Pep 2660 H 04/01/19 04/01/19 04/01/19 05:23 05:23 12:33 Creatine Kinase 41 L 50 L CK-MB (CK-2) 2.08 Troponin I 0.024 NT-Pro-B Natriuret Pep 04/01/19 12:33 Creatine Kinase CK-MB (CK-2) 3.09 Troponin I 0.017 NT-Pro-B Natriuret Pep Impressions: Renal Ultrasound 03/31/19 00:00 IMPRESSION: Normal study. Head CT 03/31/19 16:46 IMPRESSION: 1. No acute intracranial hemorrhage, mass, or evidence of acute territorial infarct. 2. Mild chronic small vessel ischemic change and intracranial atherosclerosis. EVIDENCE OF ACUTE STROKE: NO. Venous Doppler Study 03/31/19 19:28 IMPRESSION: No DVT is identified. Assessment & Plan - Diagnosis (1) Hypertensive urgency Is this a current diagnosis for this admission?: Yes Plan: Increase the Coreg 12.5 mg twice a day (2) Schizophrenia Qualifiers: Schizophrenia type: unspecified Qualified Code(s): F20.9 - Schizophrenia, unspecified Is this a current diagnosis for this admission?: Yes Plan: As per the psych patient having some current upper neurological psych issues we will get the MRI of the head (3) CKD stage 3 due to type 2 diabetes mellitus Is this a current diagnosis for this admission?: Yes Plan: Follow-up with the nephrology (4) Gastritis Qualifiers: Gastritis type: unspecified gastritis Chronicity: acute Gastritis bleeding: without bleeding Qualified Code(s): K29.00 - Acute gastritis without bleeding Is this a current diagnosis for this admission?: Yes Plan: Continues the Pepcid twice a day - Time Time Spent with patient: 15-24 minutes Level of Care: TELE Medications reviewed and adjusted accordingly: Yes Anticipated discharge: SNF Within: Other - Plan Summary Plan Summary: We will get the MRI of the head to rule out the other etiology about the memory and behavior things continues to current medications adjust the blood pressure medications follow-up with the nephrology
[2019-04-05 08:57] LABS: ANION GAP 12 (5-19); BLOOD UREA NITROGEN 44 mg/dL (7-20); CALCIUM 8.6 mg/dL (8.4-10.2); CARBON DIOXIDE 17 mmol/L (22-30); CHLORIDE 108 mmol/L (98-107); GLUCOSE 102 mg/dL (75-110); POTASSIUM 4.9 mmol/L (3.6-5.0)
[2019-04-05] MEDS: LOSARTAN POTASSIUM 50 MG TABLET PO SCH ×2 (09:24→21:23)
[2019-04-05] MEDS: AMLODIPINE BESYLATE 10 MG TABLET PO SCH (09:24)
[2019-04-05] MEDS: CARVEDILOL 6.25 MG TABLET PO SCH ×2 (09:25→21:21)
[2019-04-05] MEDS: GLIPIZIDE XL 2.5 MG TAB.ER.24 PO SCH ×2 (09:25→15:39)
[2019-04-05] MEDS: OXYCODONE-ACETAMINOPHEN 5-325 MG TABLET PO PRN (21:21)
[2019-04-05] MEDS: ASPIRIN 81 MG TABLET, CHEWABLE PO SCH (21:21)
[2019-04-05] MEDS: SODIUM BICARBONATE 650 MG TABLET PO SCH (21:21)
[2019-04-05] MEDS: FAMOTIDINE 20 MG TABLET PO SCH (21:21)
[2019-04-06] MEDS: HEPARIN SOD (PORCINE) 5,000 UNIT/ML 1 ML VIAL SUBCUT SCH ×3 (05:40→22:06)
[2019-04-06 06:56] LABS: ANION GAP 12 (5-19); BLOOD UREA NITROGEN 46 mg/dL (7-20); CALCIUM 9.1 mg/dL (8.4-10.2); CARBON DIOXIDE 19 mmol/L (22-30); CHLORIDE 107 mmol/L (98-107); GLUCOSE 165 mg/dL (75-110); POTASSIUM 5.5 mmol/L (3.6-5.0)
--- NOTE | 2019-04-06 08:55 | RADIOLOGY REPORT (SQ) ---
EXAM DESCRIPTION: MRI HEAD WITHOUT COMPLETED DATE/TIME: 04/06/2019 8:35 am REASON FOR STUDY: Memory issue/ams COMPARISON: CT dated 03/31/2019. TECHNIQUE: Multiplanar imaging includes non-contrasted T1, T2, FLAIR, and Diffusion with ADC map seq uences. Images stored on PACS. LIMITATIONS: None. FINDINGS: ANATOMY: No anomalies. Normal vascular flow voids. Pituitary fossa normal. CSF SPACES: Normal in size and contour. No hemorrhage. CEREBRUM: A few high-signal intensity lesions scattered throughout the white matter on FLAIR imaging with distribution suggesting chronic micro-vascular ischemic change. Sulci and gyri normal in size a nd contour. No evidence of hemorrhage, mass or extraaxial fluid collection. 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 No hemorrhage. No edema, masses or mass e ffect. Internal auditory canals, cerebello-pontine angles, mastoids normal. DIFFUSION: Negative for acute or sub-acute infarction. ORBITS: No masses. Globes normal. PARANASAL SINUSES: No fluid levels. Mucosa normal. OTHER: No other significant finding. IMPRESSION: MILD CHRONIC MICROVASCULAR ISCHEMIC CHANGE. 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 NO ACUTE FINDINGS. EVIDENCE OF ACUTE STROKE: NO. TECHNICAL DOCUMENTATION: JOB ID: [id number] [employer]- All Rights Reserved Reading location - IP/workstation name: [email or web address]
[2019-04-06] MEDS: SODIUM BICARBONATE 650 MG TABLET PO SCH ×2 (09:30→22:05)
[2019-04-06] MEDS: CARVEDILOL 12.5 MG TABLET PO SCH ×2 (09:30→22:05)
[2019-04-06] MEDS: INSULIN REG, HUMAN 100 UNIT/ML 3 ML VIAL (PYX) SUBCUT SCH ×4 (09:30→22:06)
[2019-04-06] MEDS: LOSARTAN POTASSIUM 50 MG TABLET PO SCH ×2 (09:31→22:05)
[2019-04-06] MEDS: GLIPIZIDE XL 2.5 MG TAB.ER.24 PO SCH ×2 (09:31→17:15)
[2019-04-06] MEDS: AMLODIPINE BESYLATE 10 MG TABLET PO SCH (09:31)
[2019-04-06] MEDS ORDERED: SODIUM POLYSTYRENE SULFONATE 15 GM/60 ML PO ONE (10:00)
--- NOTE | 2019-04-06 10:34 | PDOC PROGRESS REPORT ---
Subjective Progress Note for:: 04/06/19 Subjective:: Patient is currently doing fair Patient is currently on MRI with initial reports did not show any acute changes with a history of the old strokes Patient is actually alert awake does not have any dementia patient does not need to go to the dementia unit patient needs to go to the regular assisted living facilities or nursing facilities but somebody can take care of the patient's and provide the medications Reason For Visit: HYPERTENSIVE EMERGENCY Physical Exam Vital Signs: Temp Pulse Resp BP Pulse Ox 97.6 F 77 18 125/68 99 04/06/19 07:51 04/06/19 07:51 04/06/19 07:51 04/06/19 07:51 04/06/19 07:51 Intake & Output 04/05/19 04/06/19 04/07/19 06:59 06:59 06:59 Intake Total 1096 1927 Balance 1096 1927 Weight 77.6 kg 76 kg General appearance: PRESENT: no acute distress, well-developed, well-nourished Head exam: PRESENT: atraumatic, normocephalic Eye exam: PRESENT: conjunctiva pink, EOMI, PERRLA. ABSENT: scleral icterus Ear exam: PRESENT: normal external ear exam Mouth exam: PRESENT: moist, tongue midline Neck exam: PRESENT: full ROM. ABSENT: carotid bruit, JVD, lymphadenopathy, thyromegaly Respiratory exam: PRESENT: clear to auscultation lyn Cardiovascular exam: PRESENT: RRR. ABSENT: diastolic murmur, rubs, systolic murmur Vascular exam: PRESENT: normal capillary refill GI/Abdominal exam: PRESENT: normal bowel sounds, soft. ABSENT: distended, guarding, mass, organolmegaly, rebound, tenderness Rectal exam: PRESENT: deferred Musculoskeletal exam: PRESENT: ambulatory Neurological exam: PRESENT: alert, awake, oriented to person, oriented to place, oriented to time, oriented to situation, CN II-XII grossly intact. ABSENT: motor sensory deficit Psychiatric exam: PRESENT: appropriate affect, normal mood. ABSENT: homicidal ideation, suicidal ideation Skin exam: PRESENT: dry, intact, warm. ABSENT: cyanosis, rash Results Laboratory Results: 04/04/19 04:11 04/06/19 06:16 04/06/19 06:16 Sodium 137.7 Potassium 5.5 H Chloride 107 Carbon Dioxide 19 L Anion Gap 12 BUN 46 H Creatinine 2.33 H Est GFR ( Amer) 34 L Glucose 165 H Calcium 9.1 03/31/19 23:52 Blood Blood Culture - Final NO GROWTH IN 5 DAYS 03/31/19 23:14 Blood Blood Culture - Final NO GROWTH IN 5 DAYS 03/31/19 03/31/19 03/31/19 23:14 23:14 23:14 Creatine Kinase 41 L CK-MB (CK-2) 2.17 Troponin I 0.025 NT-Pro-B Natriuret Pep 2660 H 04/01/19 04/01/19 04/01/19 05:23 05:23 12:33 Creatine Kinase 41 L 50 L CK-MB (CK-2) 2.08 Troponin I 0.024 NT-Pro-B Natriuret Pep 04/01/19 12:33 Creatine Kinase CK-MB (CK-2) 3.09 Troponin I 0.017 NT-Pro-B Natriuret Pep Impressions: Renal Ultrasound 03/31/19 00:00 IMPRESSION: Normal study. Head CT 03/31/19 16:46 IMPRESSION: 1. No acute intracranial hemorrhage, mass, or evidence of acute territorial infarct. 2. Mild chronic small vessel ischemic change and intracranial atherosclerosis. EVIDENCE OF ACUTE STROKE: NO. Venous Doppler Study 03/31/19 19:28 IMPRESSION: No DVT is identified. Head MRI 04/06/19 00:00 IMPRESSION: MILD CHRONIC MICROVASCULAR ISCHEMIC CHANGE. 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 NO ACUTE FINDINGS. EVIDENCE OF ACUTE STROKE: NO. Assessment & Plan - Diagnosis (1) Hypertensive urgency Is this a current diagnosis for this admission?: Yes Plan: Adjust the blood pressure medications (2) Schizophrenia Qualifiers: Schizophrenia type: unspecified Qualified Code(s): F20.9 - Schizophrenia, unspecified Is this a current diagnosis for this admission?: Yes (3) CKD stage 3 due to type 2 diabetes mellitus Is this a current diagnosis for this admission?: Yes Plan: We will give her Kayexalate discussed with the nephrology about to adjusting the medications I think patient always have a potassium problems we might consider to change the losartan but will defer to the nephrology (4) Gastritis Qualifiers: Gastritis type: unspecified gastritis Chronicity: acute Gastritis bleeding: without bleeding Qualified Code(s): K29.00 - Acute gastritis without bleeding Is this a current diagnosis for this admission?: Yes Plan: Continues the Pepcid twice a day (5) Cerebrovascular disease Is this a current diagnosis for this admission?: Yes Plan: Patient MRI shows the old strokes some microvascular changes we will start the patient on aspirin and statin - Time Time Spent with patient: 15-24 minutes Level of Care: TELE Medications reviewed and adjusted accordingly: Yes Anticipated discharge: SNF Within: Other - Plan Summary Plan Summary: Continues to current medications
[2019-04-06] MEDS: PATIROMER 8.4 GM SUSP PACKET PO SCH (17:15)
--- NOTE | 2019-04-06 20:10 | PDOC PROGRESS REPORT ---
Subjective Progress Note for:: 04/06/19 Subjective:: Patient is eating his lunch when I saw him. He said is feeling fine and really does not have many much complaints. He just had an MRI done for which he was actually telling me about it. Report showed no acute findings. His blood pressure is now very well controlled. His urine output is not being quantified. His oral intake of fluids is about 1+ liter. He really does not have much complaints. Reason For Visit: HYPERTENSIVE EMERGENCY Physical Exam Vital Signs: Temp Pulse Resp BP Pulse Ox 97.6 F 77 18 125/68 99 04/06/19 07:51 04/06/19 07:51 04/06/19 07:51 04/06/19 07:51 04/06/19 07:51 Intake & Output 04/05/19 04/06/19 04/07/19 06:59 06:59 06:59 Intake Total 1096 1927 Balance 1096 1927 Weight 77.6 kg 76 kg Exam: General appearance: PRESENT: no acute distress, cooperative, well-developed, w ell-nourished Head exam: PRESENT: atraumatic, normocephalic Eye exam: PRESENT: conjunctiva slightly pale, PERRLA. ABSENT: scleral icterus Neck exam: ABSENT: JVD Respiratory exam: PRESENT: Normal breath sounds. ABSENT: crackles, rales, rhonchi, unlabored, wheezes Cardiovascular exam: PRESENT: Regular rate rhythm -+S1, +S2. ABSENT: diastolic murmur, systolic murmur GI/Abdominal exam: PRESENT: normal bowel sounds, soft. ABSENT: guarding, mass, tenderness Extremities exam: ABSENT: No edema Neurological exam: PRESENT: alert, awake, oriented to person, place and time. Skin exam: PRESENT: dry, warm, Results Laboratory Results: 04/04/19 04:11 04/06/19 06:16 04/06/19 06:16 Sodium 137.7 Potassium 5.5 H Chloride 107 Carbon Dioxide 19 L Anion Gap 12 BUN 46 H Creatinine 2.33 H Est GFR ( Amer) 34 L Glucose 165 H Calcium 9.1 03/31/19 23:52 Blood Blood Culture - Final NO GROWTH IN 5 DAYS 03/31/19 23:14 Blood Blood Culture - Final NO GROWTH IN 5 DAYS 02/07/20 02/07/20 02/07/20 23:14 23:14 23:14 Creatine Kinase 41 L CK-MB (CK-2) 2.17 Troponin I 0.025 NT-Pro-B Natriuret Pep 2660 H 04/01/19 04/01/19 04/01/19 05:23 05:23 12:33 Creatine Kinase 41 L 50 L CK-MB (CK-2) 2.08 Troponin I 0.024 NT-Pro-B Natriuret Pep 04/01/19 12:33 Creatine Kinase CK-MB (CK-2) 3.09 Troponin I 0.017 NT-Pro-B Natriuret Pep Impressions: Renal Ultrasound 03/31/19 00:00 IMPRESSION: Normal study. Head CT 03/31/19 16:46 IMPRESSION: 1. No acute intracranial hemorrhage, mass, or evidence of acute territorial infarct. 2. Mild chronic small vessel ischemic change and intracranial atherosclerosis. EVIDENCE OF ACUTE STROKE: NO. Venous Doppler Study 03/31/19 19:28 IMPRESSION: No DVT is identified. Head MRI 04/06/19 00:00 IMPRESSION: MILD CHRONIC MICROVASCULAR ISCHEMIC CHANGE. 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 NO ACUTE FINDINGS. EVIDENCE OF ACUTE STROKE: NO. Assessment & Plan - Diagnosis (1) Chronic kidney disease, stage 3 Is this a current diagnosis for this admission?: Yes Plan: Patient's baseline creatinine historically ranges anywhere between 1.8-2.4. He is still within his baseline kidney function at this point. (2) Hyperkalemia Is this a current diagnosis for this admission?: Yes Plan: Patient was given Kayexalate 15 g x 1 dose today. Since he has been having issues with mild hyperkalemia historically I would start him on a maintenance Veltassa to be taken every day. (3) Hypertension Qualifiers: Hypertension type: essential hypertension Qualified Code(s): I10 - Essential (primary) hypertension Is this a current diagnosis for this admission?: Yes Plan: Continue current blood pressure regimen. I would continue the losartan for renal protective effects. (4) Diabetes mellitus type 2 in nonobese Is this a current diagnosis for this admission?: Yes Plan: Still fluctuates. Defer to Dr. Venegas. (5) Anemia in chronic kidney disease (CKD) Is this a current diagnosis for this admission?: Yes Plan: Stable. (6) Reducible left inguinal hernia Is this a current diagnosis for this admission?: Yes (7) Schizophrenia Qualifiers: Schizophrenia type: unspecified Qualified Code(s): F20.9 - Schizophrenia, unspecified Is this a current diagnosis for this admission?: Yes - Time Time with patient: 15-25 minutes
[2019-04-06] MEDS: OXYCODONE-ACETAMINOPHEN 5-325 MG TABLET PO PRN (22:05)
[2019-04-06] MEDS: FAMOTIDINE 20 MG TABLET PO SCH (22:05)
[2019-04-06] MEDS: ATORVASTATIN CALCIUM 40 MG TABLET PO SCH (22:05)
[2019-04-06] MEDS: ASPIRIN 81 MG TABLET, CHEWABLE PO SCH (22:05)
[2019-04-07] MEDS: HEPARIN SOD (PORCINE) 5,000 UNIT/ML 1 ML VIAL SUBCUT SCH ×3 (05:23→21:47)
[2019-04-07 06:41] LABS: ANION GAP 12 (5-19); BLOOD UREA NITROGEN 58 mg/dL (7-20); CALCIUM 8.4 mg/dL (8.4-10.2); CARBON DIOXIDE 17 mmol/L (22-30); CHLORIDE 108 mmol/L (98-107); GLUCOSE 84 mg/dL (75-110); POTASSIUM 4.8 mmol/L (3.6-5.0)
--- NOTE | 2019-04-07 09:12 | PDOC PROGRESS REPORT ---
Subjective Progress Note for:: 04/07/19 Subjective:: Patient is currently doing well No complaints today Seen by the guest experience specialist suggested continues to current medications Waiting for the discharge to the rehab facilities for assisted living facilities Reason For Visit: HYPERTENSIVE EMERGENCY Physical Exam Vital Signs: Temp Pulse Resp BP Pulse Ox 97.6 F 68 16 117/63 96 04/07/19 07:32 04/07/19 07:32 04/07/19 07:32 04/07/19 07:32 04/07/19 07:32 Intake & Output 04/06/19 04/07/19 04/08/19 06:59 06:59 06:59 Intake Total 1926 2050 Balance 1926 2050 Weight 76 kg 73.1 kg General appearance: PRESENT: no acute distress, well-developed, well-nourished Head exam: PRESENT: atraumatic, normocephalic Eye exam: PRESENT: conjunctiva pink, EOMI, PERRLA. ABSENT: scleral icterus Ear exam: PRESENT: normal external ear exam Mouth exam: PRESENT: moist, tongue midline Neck exam: PRESENT: full ROM. ABSENT: carotid bruit, JVD, lymphadenopathy, thyromegaly Respiratory exam: PRESENT: clear to auscultation lyn Cardiovascular exam: PRESENT: RRR. ABSENT: diastolic murmur, rubs, systolic murmur Pulses: PRESENT: normal dorsalis pedis pul, +2 pedal pulses bilateral Vascular exam: PRESENT: normal capillary refill GI/Abdominal exam: PRESENT: normal bowel sounds, soft. ABSENT: distended, guarding, mass, organolmegaly, rebound, tenderness Rectal exam: PRESENT: deferred Musculoskeletal exam: PRESENT: ambulatory Neurological exam: PRESENT: alert, awake, oriented to person, oriented to place, oriented to time, oriented to situation, CN II-XII grossly intact. ABSENT: motor sensory deficit Psychiatric exam: PRESENT: appropriate affect, normal mood. ABSENT: homicidal ideation, suicidal ideation Skin exam: PRESENT: dry, intact, warm. ABSENT: cyanosis, rash Results Laboratory Results: 04/04/19 04:11 04/07/19 05:55 04/07/19 05:55 Sodium 136.6 L Potassium 4.8 Chloride 108 H Carbon Dioxide 17 L Anion Gap 12 BUN 58 H Creatinine 2.69 H Est GFR ( Amer) 29 L Glucose 84 Calcium 8.4 03/31/19 03/31/19 03/31/19 23:14 23:14 23:14 Creatine Kinase 41 L CK-MB (CK-2) 2.17 Troponin I 0.025 NT-Pro-B Natriuret Pep 2660 H 04/01/19 04/01/19 04/01/19 05:23 05:23 12:33 Creatine Kinase 41 L 50 L CK-MB (CK-2) 2.08 Troponin I 0.024 NT-Pro-B Natriuret Pep 04/01/19 12:33 Creatine Kinase CK-MB (CK-2) 3.09 Troponin I 0.017 NT-Pro-B Natriuret Pep Impressions: Renal Ultrasound 03/31/19 00:00 IMPRESSION: Normal study. Head CT 03/31/19 16:46 IMPRESSION: 1. No acute intracranial hemorrhage, mass, or evidence of acute territorial infarct. 2. Mild chronic small vessel ischemic change and intracranial atherosclerosis. EVIDENCE OF ACUTE STROKE: NO. Venous Doppler Study 03/31/19 19:28 IMPRESSION: No DVT is identified. Head MRI 04/06/19 00:00 IMPRESSION: MILD CHRONIC MICROVASCULAR ISCHEMIC CHANGE. 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 NO ACUTE FINDINGS. EVIDENCE OF ACUTE STROKE: NO. Assessment & Plan - Diagnosis (1) Hypertensive urgency Is this a current diagnosis for this admission?: Yes Plan: Currently all stable (2) Schizophrenia Qualifiers: Schizophrenia type: unspecified Qualified Code(s): F20.9 - Schizophrenia, unspecified Is this a current diagnosis for this admission?: Yes (3) CKD stage 3 due to type 2 diabetes mellitus Is this a current diagnosis for this admission?: Yes Plan: Currently all stable patients follow with the nephrology (4) Gastritis Qualifiers: Gastritis type: unspecified gastritis Chronicity: acute Gastritis bleeding: without bleeding Qualified Code(s): K29.00 - Acute gastritis without bleeding Is this a current diagnosis for this admission?: Yes Plan: Continues the Pepcid twice a day (5) Cerebrovascular disease Is this a current diagnosis for this admission?: Yes Plan: Patient MRI shows the old strokes some microvascular changes we will start the patient on aspirin and statin - Time Time Spent with patient: 15-24 minutes Level of Care: TELE Medications reviewed and adjusted accordingly: Yes Anticipated discharge: SNF Within: when bed available - Plan Summary Plan Summary: Continues to current medications
[2019-04-07] MEDS: INSULIN REG, HUMAN 100 UNIT/ML 3 ML VIAL (PYX) SUBCUT SCH ×4 (09:21→21:46)
[2019-04-07] MEDS: GLIPIZIDE XL 2.5 MG TAB.ER.24 PO SCH ×2 (09:35→17:30)
[2019-04-07] MEDS: AMLODIPINE BESYLATE 10 MG TABLET PO SCH (09:54)
[2019-04-07] MEDS: LOSARTAN POTASSIUM 50 MG TABLET PO SCH ×2 (09:54→21:46)
[2019-04-07] MEDS: CARVEDILOL 12.5 MG TABLET PO SCH ×2 (09:55→21:44)
[2019-04-07] MEDS: SODIUM BICARBONATE 650 MG TABLET PO SCH ×2 (09:55→21:46)
[2019-04-07] MEDS ORDERED: NORMAL SALINE 1000 ML 1,000 ML IV ONE (16:15)
[2019-04-07] MEDS: PATIROMER 8.4 GM SUSP PACKET PO SCH (17:30)
--- NOTE | 2019-04-07 17:41 | PDOC PROGRESS REPORT ---
Subjective Progress Note for:: 04/07/19 Subjective:: Patient is doing fine and lying down in bed comfortably. He does not really have much complaints. However he continues to tell me that he has ongoing diarrhea every day. He does not have any nausea nor vomiting. His urine output is not quantified. Reason For Visit: HYPERTENSIVE EMERGENCY Physical Exam Vital Signs: Temp Pulse Resp BP Pulse Ox 98.3 F 73 20 113/60 97 04/07/19 11:05 04/07/19 14:00 04/07/19 11:05 04/07/19 11:05 04/07/19 11:05 Intake & Output 04/06/19 04/07/19 04/08/19 06:59 06:59 06:59 Intake Total 1926 2050 620 Balance 1926 2050 620 Weight 76 kg 73.1 kg 73.1 kg Exam: General appearance: PRESENT: no acute distress, cooperative, well-developed, well-nourished Head exam: PRESENT: atraumatic, normocephalic Eye exam: PRESENT: conjunctiva slightly pale, PERRLA. ABSENT: scleral icterus Neck exam: ABSENT: JVD Respiratory exam: PRESENT: Diminished breath sounds. ABSENT: crackles, rales, rhonchi, unlabored, wheezes Cardiovascular exam: PRESENT: Regular rate rhythm -+S1, +S2. ABSENT: diastolic murmur, systolic murmur GI/Abdominal exam: PRESENT: normal bowel sounds, soft. ABSENT: guarding, mass, tenderness Extremities exam: ABSENT: No edema Neurological exam: PRESENT: alert, awake, oriented to person, place and time. Skin exam: PRESENT: dry, warm, Results Laboratory Results: 04/04/19 04:11 04/07/19 05:55 04/07/19 05:55 Sodium 136.6 L Potassium 4.8 Chloride 108 H Carbon Dioxide 17 L Anion Gap 12 BUN 58 H Creatinine 2.69 H Est GFR ( Amer) 29 L Glucose 84 Calcium 8.4 03/31/19 03/31/19 03/31/19 23:14 23:14 23:14 Creatine Kinase 41 L CK-MB (CK-2) 2.17 Troponin I 0.025 NT-Pro-B Natriuret Pep 2660 H 04/01/19 04/01/19 04/01/19 05:23 05:23 12:33 Creatine Kinase 41 L 50 L CK-MB (CK-2) 2.08 Troponin I 0.024 NT-Pro-B Natriuret Pep 04/01/19 12:33 Creatine Kinase CK-MB (CK-2) 3.09 Troponin I 0.017 NT-Pro-B Natriuret Pep Impressions: Renal Ultrasound 03/31/19 00:00 IMPRESSION: Normal study. Head CT 03/31/19 16:46 IMPRESSION: 1. No acute intracranial hemorrhage, mass, or evidence of acute territorial infarct. 2. Mild chronic small vessel ischemic change and intracranial atherosclerosis. EVIDENCE OF ACUTE STROKE: NO. Venous Doppler Study 03/31/19 19:28 IMPRESSION: No DVT is identified. Head MRI 04/06/19 00:00 IMPRESSION: MILD CHRONIC MICROVASCULAR ISCHEMIC CHANGE. 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 NO ACUTE FINDINGS. EVIDENCE OF ACUTE STROKE: NO. Assessment & Plan - Diagnosis (1) Acute kidney injury superimposed on chronic kidney disease Is this a current diagnosis for this admission?: Yes Plan: Patient's creatinine is mildly elevated and his baseline today at 2.69. This may be due to ongoing diarrhea. I am going to give the patient a liter of IV fluids with normal saline. I also encouraged him to continue to drink adequate ly every day. (2) Chronic kidney disease, stage 3 Is this a current diagnosis for this admission?: Yes Plan: Patient's baseline creatinine historically ranges anywhere between 1.8-2.4. (3) Hyperkalemia Is this a current diagnosis for this admission?: Yes Plan: Patient's potassium is now within normal limits. She was given a dose of Kayexalate yesterday and I started him on Veltassa. He probably needs to go home with Veltassa. (4) Hypertension Qualifiers: Hypertension type: essential hypertension Qualified Code(s): I10 - Essential (primary) hypertension Is this a current diagnosis for this admission?: Yes Plan: Continue current blood pressure regimen. I would continue the losartan for renal protective effects. (5) Diabetes mellitus type 2 in nonobese Is this a current diagnosis for this admission?: Yes Plan: Still fluctuates. Defer to Dr. Venegas. (6) Anemia in chronic kidney disease (CKD) Is this a current diagnosis for this admission?: Yes Plan: Stable. (7) Reducible left inguinal hernia Is this a current diagnosis for this admission?: Yes (8) Schizophrenia Qualifiers: Schizophrenia type: unspecified Qualified Code(s): F20.9 - Schizophrenia, unspecified Is this a current diagnosis for this admission?: Yes - Time Time with patient: 15-25 minutes
[2019-04-07] MEDS: ATORVASTATIN CALCIUM 40 MG TABLET PO SCH (21:44)
[2019-04-07] MEDS: OXYCODONE-ACETAMINOPHEN 5-325 MG TABLET PO PRN (21:45)
[2019-04-07] MEDS: ASPIRIN 81 MG TABLET, CHEWABLE PO SCH (21:45)
[2019-04-07] MEDS: FAMOTIDINE 20 MG TABLET PO SCH (21:46)
[2019-04-08] MEDS: HEPARIN SOD (PORCINE) 5,000 UNIT/ML 1 ML VIAL SUBCUT SCH ×3 (05:56→22:16)
[2019-04-08 06:03] LABS: ANION GAP 9 (5-19); BLOOD UREA NITROGEN 53 mg/dL (7-20); CALCIUM 8.3 mg/dL (8.4-10.2); CARBON DIOXIDE 18 mmol/L (22-30); CHLORIDE 108 mmol/L (98-107); GLUCOSE 118 mg/dL (75-110); POTASSIUM 4.8 mmol/L (3.6-5.0)
[2019-04-08] MEDS: INSULIN REG, HUMAN 100 UNIT/ML 3 ML VIAL (PYX) SUBCUT SCH ×3 (09:49→22:17)
[2019-04-08] MEDS: GLIPIZIDE XL 2.5 MG TAB.ER.24 PO SCH ×2 (09:50→19:49)
[2019-04-08] MEDS: SODIUM BICARBONATE 650 MG TABLET PO SCH ×2 (09:51→22:15)
[2019-04-08] MEDS: AMLODIPINE BESYLATE 10 MG TABLET PO SCH (09:51)
[2019-04-08] MEDS: CARVEDILOL 12.5 MG TABLET PO SCH ×2 (09:51→22:16)
[2019-04-08] MEDS: LOSARTAN POTASSIUM 50 MG TABLET PO SCH ×2 (09:51→22:15)
[2019-04-08] MEDS: OXYCODONE-ACETAMINOPHEN 5-325 MG TABLET PO PRN (15:49)
--- NOTE | 2019-04-08 16:25 | PDOC PROGRESS REPORT ---
Subjective Progress Note for:: 04/08/19 Subjective:: No new issue except request for shower. No chest pain or difficulty with breathing. No reported fever or chills. Awaiting placement. Reason For Visit: HYPERTENSIVE EMERGENCY Physical Exam Vital Signs: Temp Pulse Resp BP Pulse Ox 98.7 F 70 18 145/59 H 97 04/08/19 12:00 04/08/19 12:00 04/08/19 12:00 04/08/19 12:00 04/08/19 12:00 Intake & Output 04/07/19 04/08/19 04/09/19 06:59 06:59 06:59 Intake Total 2050 Balance 2050 Weight 73.1 kg 76.4 kg General appearance: PRESENT: no acute distress Head exam: PRESENT: atraumatic, normocephalic Eye exam: PRESENT: conjunctiva pink. ABSENT: scleral icterus Ear exam: PRESENT: normal external ear exam Mouth exam: PRESENT: moist Respiratory exam: PRESENT: clear to auscultation lyn Cardiovascular exam: PRESENT: RRR. ABSENT: diastolic murmur, rubs, systolic murmur Vascular exam: ABSENT: pallor GI/Abdominal exam: PRESENT: normal bowel sounds, soft. ABSENT: distended, guarding, mass, organolmegaly, rebound, tenderness Extremities exam: ABSENT: pedal edema Neurological exam: PRESENT: alert, awake Psychiatric exam: PRESENT: appropriate affect, normal mood. ABSENT: homicidal ideation, suicidal ideation Skin exam: PRESENT: dry, warm Results Laboratory Results: 04/04/19 04:11 04/08/19 05:11 04/08/19 05:11 Sodium 135.2 L Potassium 4.8 Chloride 108 H Carbon Dioxide 18 L Anion Gap 9 BUN 53 H Creatinine 2.25 H Est GFR ( Amer) 36 L Glucose 118 H Calcium 8.3 L 03/31/19 03/31/19 03/31/19 23:14 23:14 23:14 Creatine Kinase 41 L CK-MB (CK-2) 2.17 Troponin I 0.025 NT-Pro-B Natriuret Pep 2660 H 04/01/19 04/01/19 04/01/19 05:23 05:23 12:33 Creatine Kinase 41 L 50 L CK-MB (CK-2) 2.08 Troponin I 0.024 NT-Pro-B Natriuret Pep 04/01/19 12:33 Creatine Kinase CK-MB (CK-2) 3.09 Troponin I 0.017 NT-Pro-B Natriuret Pep Impressions: Renal Ultrasound 03/31/19 00:00 IMPRESSION: Normal study. Head CT 03/31/19 16:46 IMPRESSION: 1. No acute intracranial hemorrhage, mass, or evidence of acute territorial inf arct. 2. Mild chronic small vessel ischemic change and intracranial atherosclerosis. EVIDENCE OF ACUTE STROKE: NO. Venous Doppler Study 03/31/19 19:28 IMPRESSION: No DVT is identified. Head MRI 04/06/19 00:00 IMPRESSION: MILD CHRONIC MICROVASCULAR ISCHEMIC CHANGE. 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 NO ACUTE FINDINGS. EVIDENCE OF ACUTE STROKE: NO. Assessment & Plan - Diagnosis (1) Hypertensive emergency Is this a current diagnosis for this admission?: Yes Plan: Much better controlled blood pressure. Continue current medication management. (2) Diabetes mellitus type 2 in nonobese Is this a current diagnosis for this admission?: Yes Plan: Continue current medication management. (3) Hypertension Qualifiers: Hypertension type: essential hypertension Qualified Code(s): I10 - Essential (primary) hypertension Is this a current diagnosis for this admission?: Yes Plan: Continue current medication management. (4) Anemia in chronic kidney disease (CKD) Qualifiers: Chronic kidney disease stage: stage 3 (moderate) Qualified Code(s): N18.3 - Chronic kidney disease, stage 3 (moderate); D63.1 - Anemia in chronic kidney disease Is this a current diagnosis for this admission?: Yes Plan: Continue current medication management. (5) CKD (chronic kidney disease) stage 4, GFR 15-29 ml/min Is this a current diagnosis for this admission?: Yes Plan: Continue current medication management. - Time Time Spent with patient: 25-34 minutes Level of Care: TELE Medications reviewed and adjusted accordingly: Yes Anticipated discharge: SNF Within: Other - Inpatient Certification Based on my medical assessment, after consideration of the patient's comorbidities, presenting symptoms, or acuity I expect that the services needed warrant INPATIENT care.: Yes I certify that my determination is in accordance with my understanding of Medicare's requirements for reasonable and necessary INPATIENT services [42 CFR 412.3e].: Yes Medical Necessity: Significant Comorbidiites Make Outpatient Treatment Too R isky, Need Close Monitoring Due to Risk of Patient Decompensation, Need For Continuous Telemetry Monitoring, Risk of Complication if Not Cared For in Hospital, Risk of Diagnosis Which Will Require Inpatient Eval/Care/Monitoring Post Hospital Care: D/C or Transfer Summary - Plan Summary Plan Summary: Continue current medication management. Follow up on placement efforts.
[2019-04-08] MEDS: ATORVASTATIN CALCIUM 40 MG TABLET PO SCH (22:15)
[2019-04-08] MEDS: FAMOTIDINE 20 MG TABLET PO SCH (22:15)
[2019-04-08] MEDS: ASPIRIN 81 MG TABLET, CHEWABLE PO SCH (22:16)
[2019-04-09] MEDS: HEPARIN SOD (PORCINE) 5,000 UNIT/ML 1 ML VIAL SUBCUT SCH ×3 (06:39→23:15)
[2019-04-09 07:31] LABS: ANION GAP 9 (5-19); BLOOD UREA NITROGEN 59 mg/dL (7-20); CALCIUM 8.1 mg/dL (8.4-10.2); CARBON DIOXIDE 18 mmol/L (22-30); CHLORIDE 109 mmol/L (98-107); GLUCOSE 117 mg/dL (75-110); POTASSIUM 4.7 mmol/L (3.6-5.0)
[2019-04-09] MEDS: AMLODIPINE BESYLATE 10 MG TABLET PO SCH (10:46)
[2019-04-09] MEDS: LOSARTAN POTASSIUM 50 MG TABLET PO SCH ×2 (10:46→23:14)
[2019-04-09] MEDS: SODIUM BICARBONATE 650 MG TABLET PO SCH ×2 (10:46→23:15)
[2019-04-09] MEDS: CARVEDILOL 12.5 MG TABLET PO SCH ×2 (10:46→23:14)
[2019-04-09] MEDS: GLIPIZIDE XL 2.5 MG TAB.ER.24 PO SCH ×2 (10:48→16:16)
[2019-04-09] MEDS: INSULIN REG, HUMAN 100 UNIT/ML 3 ML VIAL (PYX) SUBCUT SCH ×3 (13:28→23:14)
[2019-04-09] MEDS: PATIROMER 8.4 GM SUSP PACKET PO SCH (16:15)
--- NOTE | 2019-04-09 18:44 | PDOC PROGRESS REPORT ---
Subjective Progress Note for:: 04/09/19 Subjective:: Patient denied any chest pain or difficulty with breathing. No fever or chills. No nausea, vomiting, or abdominal pain. Awaiting placement. Reason For Visit: HYPERTENSIVE EMERGENCY Physical Exam Vital Signs: Temp Pulse Resp BP Pulse Ox 98.4 F 64 19 116/68 100 04/09/19 08:00 04/09/19 08:00 04/09/19 08:00 04/09/19 08:00 04/09/19 08:00 Intake & Output 04/08/19 04/09/19 04/10/19 06:59 06:59 06:59 Intake Total 1959 1979 Balance 1959 1979 Weight 76.4 kg 75.7 kg Physical Exam: General appearance: PRESENT: no acute distress Head exam: PRESENT: atraumatic, normocephalic Eye exam: PRESENT: conjunctiva pink. ABSENT: pallor, scleral icterus Ear exam: PRESENT: normal external ear exam Mouth exam: PRESENT: moist Respiratory exam: PRESENT: clear to auscultation lyn Cardiovascular exam: PRESENT: RRR. ABSENT: diastolic murmur, rubs, systolic murmur GI/Abdominal exam: PRESENT: normal bowel sounds, soft. ABSENT: distended, guarding, mass, organomegaly, rebound, tenderness Extremities exam: ABSENT: pedal edema Neurological exam: PRESENT: alert, awake Psychiatric exam: PRESENT: appropriate affect, normal mood. ABSENT: homicidal ideation, suicidal ideation Skin exam: PRESENT: dry, warm Results Laboratory Results: 04/04/19 04:11 04/09/19 06:45 04/09/19 06:45 Sodium 135.6 L Potassium 4.7 Chloride 109 H Carbon Dioxide 18 L Anion Gap 9 BUN 59 H Creatinine 2.58 H Est GFR ( Amer) 30 L Glucose 117 H Calcium 8.1 L 03/31/19 03/31/19 03/31/19 23:14 23:14 23:14 Creatine Kinase 41 L CK-MB (CK-2) 2.17 Troponin I 0.025 NT-Pro-B Natriuret Pep 2660 H 04/01/19 04/01/19 04/01/19 05:23 05:23 12:33 Creatine Kinase 41 L 50 L CK-MB (CK-2) 2.08 Troponin I 0.024 NT-Pro-B Natriuret Pep 04/01/19 12:33 Creatine Kinase CK-MB (CK-2) 3.09 Troponin I 0.017 NT-Pro-B Natriuret Pep Impressions: Renal Ultrasound 03/31/19 00:00 IMPRESSION: Normal study. Head CT 03/31/19 16:46 IMPRESSION: 1. No acute intracranial hemorrhage, mass, or evidence of acute territorial infarct. 2. Mild chronic small vessel ischemic change and intracranial atherosclerosis. EVIDENCE OF ACUTE STROKE: NO. Venous Doppler Study 03/31/19 19:28 IMPRESSION: No DVT is identified. Head MRI 04/06/19 00:00 IMPRESSION: MILD CHRONIC MICROVASCULAR ISCHEMIC CHANGE. 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 NO ACUTE FINDINGS. EVIDENCE OF ACUTE STROKE: NO. Assessment & Plan - Diagnosis (1) Hypertensive emergency Is this a current diagnosis for this admission?: Yes (2) Diabetes mellitus type 2 in nonobese Is this a current diagnosis for this admission?: Yes (3) Hypertension Qualifiers: Hypertension type: essential hypertension Qualified Code(s): I10 - Essential (primary) hypertension Is this a current diagnosis for this admission?: Yes (4) Anemia in chronic kidney disease (CKD) Qualifiers: Chronic kidney disease stage: stage 3 (moderate) Qualified Code(s): N18.3 - Chronic kidney disease, stage 3 (moderate); D63.1 - Anemia in chronic kidney disease Is this a current diagnosis for this admission?: Yes (5) CKD (chronic kidney disease) stage 4, GFR 15-29 ml/min Is this a current diagnosis for this admission?: Yes - Time Time Spent with patient: 25-34 minutes Level of Care: TELE Medications reviewed and adjusted accordingly: Yes Anticipated discharge: SNF Within: Other - Inpatient Certification Based on my medical assessment, after consideration of the patient's comorbidities, presenting symptoms, or acuity I expect that the services needed warrant INPATIENT care.: Yes I certify that my determination is in accordance with my understanding of Medicare's requirements for reasonable and necessary INPATIENT services [42 CFR 412.3e].: Yes Medical Necessity: Significant Comorbidiites Make Outpatient Treatment Too Risky, Need Close Monitoring Due to Risk of Patient Decompensation, Risk of Complication if Not Cared For in Hospital, Risk of Diagnosis Which Will Require Inpatient Eval/Care/Monitoring Post Hospital Care: D/C or Transfer Summary - Plan Summary Plan Summary: Continue current medication management. Follow up on placement efforts.
[2019-04-09] MEDS: ASPIRIN 81 MG TABLET, CHEWABLE PO SCH (23:14)
[2019-04-09] MEDS: ATORVASTATIN CALCIUM 40 MG TABLET PO SCH (23:15)
[2019-04-09] MEDS: FAMOTIDINE 20 MG TABLET PO SCH (23:15)
[2019-04-10] MEDS: HEPARIN SOD (PORCINE) 5,000 UNIT/ML 1 ML VIAL SUBCUT SCH ×2 (05:30→16:44)
--- NOTE | 2019-04-10 09:15 | PDOC PROGRESS REPORT ---
Subjective Progress Note for:: 04/10/19 Subjective:: Patient is currently doing well Patient was complaining some loose stool last night but not anymore Had any abdominal pain no nausea no vomiting Reason For Visit: HYPERTENSIVE EMERGENCY Physical Exam Vital Signs: Temp Pulse Resp BP Pulse Ox 97.9 F 66 17 124/61 95 04/10/19 01:01 04/10/19 07:00 04/10/19 01:01 04/10/19 01:01 04/10/19 01:01 Intake & Output 04/09/19 04/10/19 04/11/19 06:59 06:59 06:59 Intake Total 1979 180 Balance 1979 180 Weight 75.7 kg 75.1 kg General appearance: PRESENT: no acute distress, well-developed, well-nourished Head exam: PRESENT: atraumatic, normocephalic Eye exam: PRESENT: conjunctiva pink, EOMI, PERRLA. ABSENT: scleral icterus Ear exam: PRESENT: normal external ear exam Mouth exam: PRESENT: moist, tongue midline Neck exam: PRESENT: full ROM. ABSENT: carotid bruit, JVD, lymphadenopathy, thyromegaly Respiratory exam: PRESENT: clear to auscultation lyn Cardiovascular exam: PRESENT: RRR. ABSENT: diastolic murmur, rubs, systolic murmur Pulses: PRESENT: normal dorsalis pedis pul, +2 pedal pulses bilateral Vascular exam: PRESENT: normal capillary refill GI/Abdominal exam: PRESENT: normal bowel sounds, soft. ABSENT: distended, guarding, mass, organolmegaly, rebound, tenderness Rectal exam: PRESENT: deferred Extremities exam: ABSENT: pedal edema Musculoskeletal exam: PRESENT: ambulatory Neurological exam: PRESENT: alert, awake, oriented to person, oriented to place, oriented to time, oriented to situation, CN II-XII grossly intact. ABSENT: motor sensory deficit Psychiatric exam: PRESENT: appropriate affect, normal mood. ABSENT: homicidal ideation, suicidal ideation Skin exam: PRESENT: dry, intact, warm. ABSENT: cyanosis, rash Results Laboratory Results: 04/04/19 04:11 04/09/19 06:45 03/31/19 03/31/19 03/31/19 23:14 23:14 23:14 Creatine Kinase 41 L CK-MB (CK-2) 2.17 Troponin I 0.025 NT-Pro-B Natriuret Pep 2660 H 04/01/19 04/01/19 04/01/19 05:23 05:23 12:33 Creatine Kinase 41 L 50 L CK-MB (CK-2) 2.08 Troponin I 0.024 NT-Pro-B Natriuret Pep 04/01/19 12:33 Creatine Kinase CK-MB (CK-2) 3.09 Troponin I 0.017 NT-Pro-B Natriuret Pep Impressions: Renal Ultrasound 03/31/19 00:00 IMPRESSION: Normal study. Head CT 03/31/19 16:46 IMPRESSION: 1. No acute intracranial hemorrhage, mass, or evidence of acute territorial infarct. 2. Mild chronic small vessel ischemic change and intracranial atherosclerosis. EVIDENCE OF ACUTE STROKE: NO. Venous Doppler Study 03/31/19 19:28 IMPRESSION: No DVT is identified. Head MRI 04/06/19 00:00 IMPRESSION: MILD CHRONIC MICROVASCULAR ISCHEMIC CHANGE. 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 NO ACUTE FINDINGS. EVIDENCE OF ACUTE STROKE: NO. Assessment & Plan - Diagnosis (1) Hypertensive urgency Is this a current diagnosis for this admission?: Yes (2) Schizophrenia Qualifiers: Schizophrenia type: unspecified Qualified Code(s): F20.9 - Schizophrenia, unspecified Is this a current diagnosis for this admission?: Yes (3) CKD stage 3 due to type 2 diabetes mellitus Is this a current diagnosis for this admission?: Yes (4) Gastritis Qualifiers: Gastritis type: unspecified gastritis Chronicity: acute Gastritis bleeding: without bleeding Qualified Code(s): K29.00 - Acute gastritis without bleeding Is this a current diagnosis for this admission?: Yes (5) Cerebrovascular disease Is this a current diagnosis for this admission?: Yes - Time Time Spent with patient: 15-24 minutes Level of Care: TELE Medications reviewed and adjusted accordingly: Yes Anticipated discharge: SNF Within: when bed available - Plan Summary Plan Summary: Continues to current medications waiting for the bed for placement
--- NOTE | 2019-04-10 11:07 | PDOC TRANSFER SUMMARY ---
Impression - Admit/DC Date/PCP Admission Date/Primary Care Provider: 03/31/19 19:46 POOJA TAYLOR MD Discharge Date: 04/10/19 - Discharge Diagnosis (1) Hypertensive urgency Is this a current diagnosis for this admission?: Yes (2) Schizophrenia Is this a current diagnosis for this admission?: Yes (3) CKD stage 3 due to type 2 diabetes mellitus Is this a current diagnosis for this admission?: Yes (4) Gastritis Is this a current diagnosis for this admission?: Yes (5) Cerebrovascular disease Is this a current diagnosis for this admission?: Yes - Additional Information Discharge Diet: Diabetic Discharge Activity: Activity As Tolerated Referrals: [facility] [Outside] POOJA TAYLOR MD [Primary Care Provider] - Follow up as needed (Patient is to follow with the nephrology in 1 week) Prescriptions: Aspirin [Aspirin 81 mg Chewable Tablet] 81 mg PO QHS #30 tab.chew Carvedilol [Coreg 12.5 mg Tablet] 12.5 mg PO Q12 #60 tablet Losartan Potassium [Cozaar 50 mg Tablet] 50 mg PO DAILY #30 tablet Glipizide [Glucotrol Xl 2.5 mg Tab.er] 2.5 mg PO BIDACBS #60 tab.er.24 Atorvastatin Calcium [Lipitor 40 mg Tablet] 40 mg PO QHS #30 tablet Famotidine [Pepcid 20 mg Tablet] 20 mg PO QHS #60 tablet Sodium Bicarbonate [Sodium Bicarbonate 650 mg Tablet] 650 mg PO Q12 #60 tablet Patiromer Calcium Sorbitex [Veltassa 8.4 gm Susp Packet] 8.4 gm PO WSUPPER #15 packet Home Medications: Amlodipine Besylate [Norvasc 10 mg Tablet] 10 mg PO DAILY 03/31/19 Aspirin [Aspirin 81 mg Chewable Tablet] 81 mg PO QHS #30 tab.chew 04/10/19 Atorvastatin Calcium [Lipitor 40 mg Tablet] 40 mg PO QHS #30 tablet 04/10/19 Carvedilol [Coreg 12.5 mg Tablet] 12.5 mg PO Q12 #60 tablet 04/10/19 Famotidine [Pepcid 20 mg Tablet] 20 mg PO QHS #60 tablet 04/10/19 Glipizide [Glucotrol Xl 2.5 mg Tab.er] 2.5 mg PO BIDACBS #60 tab.er.24 04/10/19 Losartan Potassium [Cozaar 50 mg Tablet] 50 mg PO DAILY #30 tablet 04/10/19 Patiromer Calcium Sorbitex [[place]elt[place] 8.4 gm Susp Packet] 8.4 gm PO WSUPPER #15 packet 04/10/19 Sodium Bicarbonate [Sodium Bicarbonate 650 mg Tablet] 650 mg PO Q12 #60 tablet 04/10/19 History of Present Illiness History of Present Illness: QUANG VELAZQUEZ is a 63 year old male This is a 63-year-old male's presented emergency department with altered mental status and patient was admitting in the hospital was for further evaluation as usual but he noncompliance patient discharged from my practice alreadyDue to the noncompliance issues Patient's not taking the medicine as prescribed even the social worker psychiatric involved Patient's admitting in the hospital for the further evaluations including the CT head was negative MRI and other testing was done Hospital Course Hospital Course: This 63-year-old male's with a significant history of the type 2 diabetes hypertension hyperlipidemia chronic kidney disease and top of that patient is not taking any medication as usual patient was discharged from my practice because of the noncompliance not able to take any medications and even the APS is involved in the patient at this point came to the emergency department because of the altered mental status not feeling well patient diagnosed with a renal failure dehydration's and patient underwent for the CT of the head was all negative She underwent for the MRI of the head which showed old strokes but no acute findings Patient is also seen by the nephrology and patients at this point suggest the continues the dictation for hyperkalemia baseline creatinine is 2.5 continues to monitor Positive hypertension urgency which is controlled with the current medications Patient's diabetes under control with the blood sugar is running less than 200 Patient's at this point is currently doing well denied any other symptoms no chest pain no short of breath Patient's needs to follow-up with the nephrology in a 1 week for further evaluate Check the CBC and Chem-7 at least twice a month Adjust the sodium bicarb with the patient's having some diarrhea issues Continues a sliding scale with [facility] protocol Hydralazine 10 mg p.o. every 6 as needed hemoglobin that is more than 70 Again patient's biggest concern was all this noncompliance so many years with this the diabetes hypertension's underlying chronic kidney disease overall prognosis is poor I hope the patient have a some placement issue and continues current medications Physical Exam Vital Signs: Temp Pulse Resp BP Pulse Ox 97.7 F 65 18 107/57 L 96 04/10/19 07:47 04/10/19 07:47 04/10/19 07:47 04/10/19 07:47 04/10/19 07:47 Intake & Output 04/09/19 04/10/19 04/11/19 06:59 06:59 06:59 Intake Total 1979 1801 Balance 1979 1801 Weight 75.7 kg 75.1 kg General appearance: PRESENT: no acute distress, well-developed, well-nourished Head exam: PRESENT: atraumatic, normocephalic Eye exam: PRESENT: conjunctiva pink, EOMI, PERRLA. ABSENT: scleral icterus Ear exam: PRESENT: normal external ear exam Mouth exam: PRESENT: moist, tongue midline Neck exam: ABSENT: carotid bruit, JVD, lymphadenopathy, thyromegaly Respiratory exam: PRESENT: clear to auscultation lyn. ABSENT: rales, rhonchi, wheezes Cardiovascular exam: PRESENT: RRR. ABSENT: diastolic murmur, rubs, systolic murmur Pulses: PRESENT: normal dorsalis pedis pul Vascular exam: PRESENT: normal capillary refill GI/Abdominal exam: PRESENT: normal bowel sounds, soft. ABSENT: distended, guarding, mass, organolmegaly, rebound, tenderness Rectal exam: PRESENT: deferred Extremities exam: PRESENT: full ROM. ABSENT: calf tenderness, clubbing, pedal edema Neurological exam: PRESENT: alert, awake, oriented to person, oriented to place, oriented to time, oriented to situation, CN II-XII grossly intact. ABSENT: motor sensory deficit Psychiatric exam: PRESENT: appropriate affect, normal mood. ABSENT: homicidal ideation, suicidal ideation Skin exam: PRESENT: dry, intact, warm. ABSENT: cyanosis, rash Results Laboratory Results: WBC 9.6 10^3/uL (4.0-10.5) 04/04/19 04:11 RBC 4.24 10^6/uL (4.35-5.55) L 04/04/19 04:11 Hgb 12.5 g/dL (13.5-17.0) L 04/04/19 04:11 Hct 37.6 % (37.9-51.0) L 04/04/19 04:11 MCV 89 fl (80-97) 04/04/19 04:11 MCH 29.5 pg (27.0-33.4) 04/04/19 04:11 MCHC 33.3 g/dL (32.0-36.0) 04/04/19 04:11 RDW 17.0 % (11.5-14.0) H 04/04/19 04:11 Plt Count 395 10^3/uL (150-450) 04/04/19 04:11 Lymph % (Auto) 9.6 % (13-45) L 04/04/19 04:11 [place] % (Auto) 10.1 % (3-13) 04/04/19 04:11 Eos % (Auto) 6.7 % (0-6) H 04/04/19 04:11 Baso % (Auto) 0.5 % (0-2) 04/04/19 04:11 Absolute Neuts (auto) 7.0 10^3/uL (1.7-8.2) 04/04/19 04:11 Absolute Lymphs (auto) 0.9 10^3/uL (0.5-4.7) 04/04/19 04:11 Absolute Monos (auto) 1.0 10^3/uL (0.1-1.4) 04/04/19 04:11 Absolute Eos (auto) 0.6 10^3/uL (0.0-0.6) 04/04/19 04:11 Absolute Basos (auto) 0.0 10^3/uL (0.0-0.2) 04/04/19 04:11 Seg Neutrophils % 73.1 % (42-78) 04/04/19 04:11 PT 12.2 SEC (11.4-15.4) 03/31/19 23:14 INR 0.91 03/31/19 23:14 APTT 37.1 SEC (23.5-35.8) H 03/31/19 23:14 Carbonic Acid 1.30 mmol/L (1.05-1.35) 04/01/19 01:55 HCO3/H2CO3 Ratio 18:1 04/01/19 01:55 ABG pH 7.36 (7.35-7.45) 04/01/19 01:55 ABG pCO2 43.3 mmHg (35-45) 04/01/19 01:55 ABG pO2 76.0 mmHg (80-100) L 04/01/19 01:55 ABG HCO3 24.1 mmol/L (20-24) H 04/01/19 01:55 ABG Total CO2 25.4 mmol/L (23-27) 04/01/19 01:55 ABG O2 Saturation 94.8 % (94-98) 04/01/19 01:55 ABG Base Excess -1.4 mmol/L 04/01/19 01:55 FiO2 ROOM AIR 04/01/19 01:55 Sodium 135.6 mmol/L (137-145) L 04/09/19 06:45 Potassium 4.7 mmol/L (3.6-5.0) 04/09/19 06:45 Chloride 109 mmol/L (98-107) H 04/09/19 06:45 Carbon Dioxide 18 mmol/L (22-30) L 04/09/19 06:45 Anion Gap 9 (5-19) 04/09/19 06:45 BUN 59 mg/dL (7-20) H 04/09/19 06:45 Creatinine 2.58 mg/dL (0.52-1.25) H 04/09/19 06:45 Est GFR ( Amer) 30 (>60) L 04/09/19 06:45 Est GFR (MDRD) Non-Af 25 (>60) L 04/09/19 06:45 Glucose 117 mg/dL (75-110) H 04/09/19 06:45 POC Glucose 75 mg/dL (70-110) 04/10/19 07:52 Hemoglobin A1c % 7.5 % (4.7-6.0) H 04/01/19 12:23 Calcium 8.1 mg/dL (8.4-10.2) L 04/09/19 06:45 Phosphorus 3.9 mg/dL (2.5-4.5) 03/31/19 23:14 Magnesium 1.7 mg/dL (1.6-2.3) 03/31/19 23:14 Total Bilirubin 0.3 mg/dL (0.2-1.3) 03/31/19 16:30 Direct Bilirubin 0.1 mg/dL (0.0-0.4) 03/31/19 16:30 Neonat Total Bilirubin Not Reportable 03/31/19 16:30 Neonat Direct Bilirubin Not Reportable 03/31/19 16:30 Neonat Indirect Bili Not Reportable 03/31/19 16:30 AST 20 U/L (17-59) 03/31/19 16:30 ALT 12 U/L (<50) 03/31/19 16:30 Alkaline Phosphatase 95 U/L (38-126) 03/31/19 16:30 Ammonia 12.8 umol/L (9-33) 03/31/19 17:25 Creatine Kinase 50 U/L (55-170) L 04/01/19 12:33 CK-MB (CK-2) 3.09 ng/mL (<4.55) 04/01/19 12:33 Troponin I 0.017 ng/mL 04/01/19 12:33 NT-Pro-B Natriuret Pep 2660 pg/mL (<125) H 03/31/19 23:14 Total Protein 7.2 g/dL (6.3-8.2) 03/31/19 16:30 Albumin 3.8 g/dL (3.5-5.0) 03/31/19 16:30 Triglycerides 153 mg/dL (<150) H 04/01/19 05:23 Cholesterol 128.99 mg/dL (0-200) 04/01/19 05:23 LDL Cholesterol Direct 88 mg/dL (<100) 04/01/19 05:23 VLDL Cholesterol 30.6 mg/dL (10-31) 04/01/19 05:23 HDL Cholesterol 31 mg/dL (>40) L 04/01/19 05:23 Amylase 79 U/L (30-110) 03/31/19 23:14 Lipase 420.9 U/L (23-300) H 03/31/19 23:14 TSH 2.14 uIU/mL (0.47-4.68) 03/31/19 23:14 Free T4 0.97 ng/dL (0.78-2.19) 03/31/19 23:14 Urine Color YELLOW 04/01/19 01:55 Urine Appearance CLEAR 04/01/19 01:55 Urine pH 5.0 (5.0-9.0) 04/01/19 01:55 Ur Specific [place] 1.012 04/01/19 01:55 Urine Protein 100 mg/dL (NEGATIVE) H 04/01/19 01:55 Urine Glucose (UA) 50 mg/dL (NEGATIVE) H 04/01/19 01:55 Urine Ketones NEGATIVE mg/dL (NEGATIVE) 04/01/19 01:55 Urine Blood SMALL (NEGATIVE) H 04/01/19 01:55 Urine Nitrite NEGATIVE (NEGATIVE) 04/01/19 01:55 Urine Nitrite (Reflex) NEGATIVE (NEGATIVE) 03/31/19 17:20 Urine Bilirubin NEGATIVE (NEGATIVE) 04/01/19 01:55 Urine Urobilinogen NEGATIVE mg/dL (<2.0) 04/01/19 01:55 Ur Leukocyte Esterase NEGATIVE (NEGATIVE) 04/01/19 01:55 Leukocyte Esterase Rfl NEGATIVE (NEGATIVE) 03/31/19 17:20 Urine WBC (Auto) 1 /HPF 04/01/19 01:55 Urine RBC (Auto) 1 /HPF 04/01/19 01:55 Urine WBC (Reflex) < 1 /HPF 03/31/19 17:20 Squamous Epi Cells Auto <1 /HPF 03/31/19 17:20 Urine Mucus (Auto) RARE /LPF 04/01/19 01:55 Urine Creatinine 28.5 mg/dL (22-328) 03/31/19 17:20 Protein/Creatinin Ratio 2.4 mg/mg (0.0-0.2) H 03/31/19 17:20 Urine Total Protein 67.8 mg/dL (<12) H 03/31/19 17:20 Urine Ascorbic Acid NEGATIVE (NEGATIVE) 04/01/19 01:55 Urine Opiates Screen NEGATIVE 04/01/19 01:55 Urine Methadone Screen NEGATIVE 04/01/19 01:55 Ur Barbiturates Screen NEGATIVE 04/01/19 01:55 Ur Phencyclidine Scrn NEGATIVE 04/01/19 01:55 Ur Amphetamines Screen NEGATIVE 04/01/19 01:55 U Benzodiazepines Scrn NEGATIVE 04/01/19 01:55 Urine Cocaine Screen NEGATIVE 04/01/19 01:55 U Marijuana (THC) Screen NEGATIVE 04/01/19 01:55 Serum Alcohol < 10 mg/dL (NONE DETECTED) 03/31/19 16:30 03/31/19 03/31/19 04/01/19 23:14 23:14 05:23 CK-MB (CK-2) 2.17 2.08 Troponin I 0.025 0.024 NT-Pro-B Natriuret Pep 2660 H 04/01/19 12:33 CK-MB (CK-2) 3.09 Troponin I 0.017 NT-Pro-B Natriuret Pep Impressions: Renal Ultrasound 03/31/19 00:00 IMPRESSION: Normal study. Head CT 03/31/19 16:46 IMPRESSION: 1. No acute intracranial hemorrhage, mass, or evidence of acute territorial infarct. 2. Mild chronic small vessel ischemic change and intracranial atherosclerosis. EVIDENCE OF ACUTE STROKE: NO. Venous Doppler Study 03/31/19 19:28 IMPRESSION: No DVT is identified. Head MRI 04/06/19 00:00 IMPRESSION: MILD CHRONIC MICROVASCULAR ISCHEMIC CHANGE. 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 NO ACUTE FINDINGS. EVIDENCE OF ACUTE STROKE: NO. Plan Time Spent: Greater than 30 Minutes - Check a CBC and Chem-7 every 2 weeks and follow-up with the nephrology in 1 week Patient is already discharged from my practice I think patients next admission in a hospital should be the hospitalist service and need to find another primary care doctor Stroke Is this a Stroke Patient?: No Acute Heart Failure - Is this a Heart Failure Patient?: No
[2019-04-10] MEDS: AMLODIPINE BESYLATE 10 MG TABLET PO SCH (12:15)
[2019-04-10] MEDS: LOSARTAN POTASSIUM 50 MG TABLET PO SCH ×2 (12:15→22:20)
[2019-04-10] MEDS: CARVEDILOL 12.5 MG TABLET PO SCH ×2 (12:15→22:20)
[2019-04-10] MEDS: SODIUM BICARBONATE 650 MG TABLET PO SCH ×2 (12:15→22:20)
[2019-04-10] MEDS: GLIPIZIDE XL 2.5 MG TAB.ER.24 PO SCH ×2 (12:17→17:06)
[2019-04-10] MEDS: INSULIN REG, HUMAN 100 UNIT/ML 3 ML VIAL (PYX) SUBCUT SCH ×2 (16:43→16:44)
[2019-04-10] MEDS: ATORVASTATIN CALCIUM 40 MG TABLET PO SCH (22:20)
[2019-04-10] MEDS: ASPIRIN 81 MG TABLET, CHEWABLE PO SCH (22:20)
[2019-04-10] MEDS: FAMOTIDINE 20 MG TABLET PO SCH (22:20)
[2019-04-11] MEDS: INSULIN REG, HUMAN 100 UNIT/ML 3 ML VIAL (PYX) SUBCUT SCH ×5 (08:29→22:05)
[2019-04-11] MEDS: HEPARIN SOD (PORCINE) 5,000 UNIT/ML 1 ML VIAL SUBCUT SCH ×3 (08:29→22:56)
[2019-04-11] MEDS: SODIUM BICARBONATE 650 MG TABLET PO SCH ×2 (10:01→22:21)
[2019-04-11] MEDS: LOSARTAN POTASSIUM 50 MG TABLET PO SCH (10:01)
[2019-04-11] MEDS: GLIPIZIDE XL 2.5 MG TAB.ER.24 PO SCH ×2 (10:01→17:18)
[2019-04-11] MEDS: CARVEDILOL 12.5 MG TABLET PO SCH ×2 (10:02→22:21)
[2019-04-11] MEDS: AMLODIPINE BESYLATE 10 MG TABLET PO SCH (10:02)
--- NOTE | 2019-04-11 10:03 | PDOC PROGRESS REPORT ---
Subjective Progress Note for:: 04/11/19 Subjective:: Patient is currently doing well Patient was complaining some loose stool last night but not anymore Had any abdominal pain no nausea no vomiting Reason For Visit: HYPERTENSIVE EMERGENCY Physical Exam Vital Signs: Temp Pulse Resp BP Pulse Ox 97.4 F 62 17 112/55 L 94 04/11/19 03:57 04/11/19 03:57 04/11/19 03:57 04/11/19 03:57 04/11/19 03:57 Intake & Output 04/10/19 04/11/19 04/12/19 06:59 06:59 06:59 Intake Total 1802 1440 Balance 1802 1440 Weight 75.1 kg 73.8 kg 73.8 kg General appearance: PRESENT: no acute distress, well-developed, well-nourished Head exam: PRESENT: atraumatic, normocephalic Eye exam: PRESENT: conjunctiva pink, EOMI, PERRLA. ABSENT: scleral icterus Ear exam: PRESENT: normal external ear exam Mouth exam: PRESENT: moist, tongue midline Neck exam: PRESENT: full ROM. ABSENT: carotid bruit, JVD, lymphadenopathy, thyromegaly Respiratory exam: PRESENT: clear to auscultation lyn Cardiovascular exam: PRESENT: RRR. ABSENT: diastolic murmur, rubs, systolic murmur Pulses: PRESENT: normal dorsalis pedis pul, +2 pedal pulses bilateral Vascular exam: PRESENT: normal capillary refill GI/Abdominal exam: PRESENT: normal bowel sounds, soft. ABSENT: distended, guarding, mass, organolmegaly, rebound, tenderness Rectal exam: PRESENT: deferred Musculoskeletal exam: PRESENT: ambulatory Neurological exam: PRESENT: alert, awake, oriented to person, oriented to place, oriented to time, oriented to situation, CN II-XII grossly intact. ABSENT: motor sensory deficit Psychiatric exam: PRESENT: appropriate affect, normal mood. ABSENT: homicidal ideation, suicidal ideation Skin exam: PRESENT: dry, intact, warm. ABSENT: cyanosis, rash Results Laboratory Results: 04/04/19 04:11 04/09/19 06:45 03/31/19 03/31/19 03/31/19 23:14 23:14 23:14 Creatine Kinase 41 L CK-MB (CK-2) 2.17 Troponin I 0.025 NT-Pro-B Natriuret Pep 2660 H 04/01/19 04/01/19 04/01/19 05:23 05:23 12:33 Creatine Kinase 41 L 50 L CK-MB (CK-2) 2.08 Troponin I 0.024 NT-Pro-B Natriuret Pep 04/01/19 12:33 Creatine Kinase CK-MB (CK-2) 3.09 Troponin I 0.017 NT-Pro-B Natriuret Pep Impressions: Renal Ultrasound 03/31/19 00:00 IMPRESSION: Normal study. Head CT 03/31/19 16:46 IMPRESSION: 1. No acute intracranial hemorrhage, mass, or evidence of acute territorial infarct. 2. Mild chronic small vessel ischemic change and intracranial atherosclerosis. EVIDENCE OF ACUTE STROKE: NO. Venous Doppler Study 03/31/19 19:28 IMPRESSION: No DVT is identified. Head MRI 04/06/19 00:00 IMPRESSION: MILD CHRONIC MICROVASCULAR ISCHEMIC CHANGE. 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 NO ACUTE FINDINGS. EVIDENCE OF ACUTE STROKE: NO. Assessment & Plan - Diagnosis (1) Hypertensive urgency Is this a current diagnosis for this admission?: Yes (2) Schizophrenia Qualifiers: Schizophrenia type: unspecified Qualified Code(s): F20.9 - Schizophrenia, unspecified Is this a current diagnosis for this admission?: Yes (3) CKD stage 3 due to type 2 diabetes mellitus Is this a current diagnosis for this admission?: Yes (4) Gastritis Qualifiers: Gastritis type: unspecified gastritis Chronicity: acute Gastritis b leeding: without bleeding Qualified Code(s): K29.00 - Acute gastritis without bleeding Is this a current diagnosis for this admission?: Yes (5) Cerebrovascular disease Is this a current diagnosis for this admission?: Yes - Time Time Spent with patient: 15-24 minutes Level of Care: TELE Medications reviewed and adjusted accordingly: Yes Anticipated discharge: SNF Within: when bed available - Plan Summary Plan Summary: Continues to current medications
[2019-04-11 11:54] LABS: ALBUMIN 2.8 g/dL (3.5-5.0); ALKALINE PHOSPHATASE 80 U/L (38-126); ANION GAP 12 (5-19); ASPARTATE AMINO TRANSFERASE 13 U/L (17-59); BILIRUBIN,TOTAL 0.2 mg/dL (0.2-1.3); BLOOD UREA NITROGEN 75 mg/dL (7-20); CALCIUM 8.2 mg/dL (8.4-10.2); CARBON DIOXIDE 17 mmol/L (22-30); CHLORIDE 109 mmol/L (98-107); GLUCOSE 179 mg/dL (75-110); POTASSIUM 4.7 mmol/L (3.6-5.0); TOTAL PROTEIN 5.9 g/dL (6.3-8.2)
[2019-04-11] MEDS: PATIROMER 8.4 GM SUSP PACKET PO SCH (17:17)
[2019-04-11] MEDS ORDERED: 1/2 NORMAL SALINE 1,000 ML IV PRN ×2 (17:33→23:26)
[2019-04-11] MEDS ORDERED: MAG HYDROX/AL HYDROX/SIMETH SUSP 30 ML UDCUP PO PRN (20:17)
[2019-04-11] MEDS: ONDANSETRON HCL INJ/PF 4 MG/2 ML SDV IV PRN (20:57)
--- NOTE | 2019-04-11 21:53 | RADIOLOGY REPORT (SQ) ---
EXAM DESCRIPTION: CT scan of the abdomen and pelvis without contrast. CLINICAL HISTORY: 63 years Male; abd pain TECHNIQUE: CT of the abdomen and pelvis without intravenous contrast. All CT scans at this facility use dose modulation, iterative reconstruction, and/or weight based dosing when appropriate to reduce radiation dose to as low as reasonably achievable. This exam was performed according to our department optimization program which includes automated exposure control, adjustment of the mA and/or kv according to patient size and/or use of iterative reconstruction technique. COMPARISON: CT scan of the abdomen and pelvis dated February 09, 2019 FINDINGS: Lower chest: Lungs appear to the previous examination lung volumes and aeration have improved and there is been resolution of the previously identified bilateral pleural effusions and bibasilar lung infiltrate/consolidation. Coronary artery calcifications. The descending thoracic aorta is prominent and measures 3.4 cm. Abdomen: Liver and biliary tree: The gallbladder is distended. No definitive stones. The unenhanced liver is unremarkable. Pancreas: Normal Spleen:Within normal limits Kidneys: Multiple calcifications are present within the renal arteries. No obvious renal stones. No hydronephrosis. Adrenal glands:Within normal limits Vascular structures: Vascular calcification is identified in the aorta as well as the visceral vessels. Retroperitoneum: Nonspecific retroperitoneal lymph nodes are unchanged. No definitive mass. Abdominal wall: Large left inguinal hernia is identified which contains a loop of sigmoid colon. GI: Bowel gas pattern is abnormal with multiple distended fluid-filled loops of small bowel seen throughout the abdomen. The right colon is distended. The findings suggest that the loop of colon in the left inguinal hernia may result in partial obstruction of the bowel. Appendix: The appendix is not clearly seen. General: No free air. No free fluid Pelvis: Lymph nodes: No mass or lymphadenopathy Bladder: The bladder is mostly empty. Pelvis: No pelvic mass or adenopathy. Bones: No acute bone findings. IMPRESSION: 1. Abnormal bowel gas pattern suggestive of partial bowel obstruction. This appears to be at the level of the left inguinal hernia which contains a loop of colon. 2. 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
[2019-04-11] MEDS: ASPIRIN 81 MG TABLET, CHEWABLE PO SCH (22:21)
[2019-04-11] MEDS: ATORVASTATIN CALCIUM 40 MG TABLET PO SCH (22:21)
[2019-04-11] MEDS: FAMOTIDINE 20 MG TABLET PO SCH (22:21)
--- NOTE | 2019-04-11 23:47 | PDOC CONSULTATION ---
Consultation Consult Date: 04/11/19 Provider Consulted: GAYLA EVANS Consult reason:: Evaluate for bowel obstruction History of Present Illness Admission Date/PCP: 03/31/19 19:46 POOJA TAYLOR MD Patient complains of: Vomiting earlier today History of Present Illness: QUANG VELAZQUEZ is a 63 year old male currently in the hospital for treatment of hypertension with multiple year history of left inguinal hernia with no prior repairs in the past noted with an episode of emesis after eating this afternoon. No bilious emesis. He has been experiencing some diarrhea for several weeks now and has had some loose bowel movements this evening. Patient has had no further episode of emesis and he denies any abdominal pain and denies any pain at his left inguinal hernia. No history of abdominal surgeries. Past Medical History Cardiac Medical History: Reports: Hypertension Pulmonary Medical History: Reports: Pneumonia Neurological Medical History: Denies: Seizures Endocrine Medical History: Reports: Diabetes Mellitus Type 2 Renal/ Medical History: Reports: Chronic Kidney Disease, End Stage Renal Disease Musculoskeltal Medical History: Reports: Arthritis Psychiatric Medical History: Reports: Bipolar Disorder, Schizoaffective Disorder Hematology: Reports: Anemia Past Surgical History Past Surgical History: Reports: Orthopedic Surgery - Bilateral knee laparoscopies Social History Lives with: Alone Smoking Status: Current Every Day Smoker Frequency of Alcohol Use: None Hx Recreational Drug Use: No Drugs: None Hx Prescription Drug Abuse: No Family History Family History: Reviewed & Not Pertinent Parental Family History Reviewed: No Children Family History Reviewed: No Sibling(s) Family History Reviewed.: No Medication/Allergy Home Medications: Amlodipine Besylate [Norvasc 10 mg Tablet] 10 mg PO DAILY 03/31/19 Aspirin [Aspirin 81 mg Chewable Tablet] 81 mg PO QHS #30 tab.chew 04/10/19 Atorvastatin Calcium [Lipitor 40 mg Tablet] 40 mg PO QHS #30 tablet 04/10/19 Carvedilol [Coreg 12.5 mg Tablet] 12.5 mg PO Q12 #60 tablet 04/10/19 Famotidine [Pepcid 20 mg Tablet] 20 mg PO QHS #60 tablet 04/10/19 Glipizide [Glucotrol Xl 2.5 mg Tab.er] 2.5 mg PO BIDACBS #60 tab.er.24 04/10/19 Losartan Potassium [Cozaar 50 mg Tablet] 50 mg PO DAILY #30 tablet 04/10/19 Patiromer Calcium Sorbitex [Veltassa 8.4 gm Susp Packet] 8.4 gm PO WSUPPER #15 packet 04/10/19 Sodium Bicarbonate [Sodium Bicarbonate 650 mg Tablet] 650 mg PO Q12 #60 tablet 04/10/19 Allergies/Adverse Reactions: Penicillins Allergy (Verified 03/21/19 10:54) Physical Exam Vital Signs: Temp Pulse Resp BP Pulse Ox 97.7 F 69 19 111/56 L 100 04/11/19 17:22 04/11/19 17:22 04/11/19 17:22 04/11/19 17:22 04/11/19 12:27 Intake & Output 04/10/19 04/11/19 04/12/19 06:59 06:59 06:59 Intake Total 1802 1440 1230 Output Total 500 Balance 1802 1440 730 Weight 75.1 kg 73.8 kg 73.8 kg General appearance: PRESENT: cooperative Eye exam: PRESENT: conjunctiva pink Neck exam: PRESENT: other - Supple with no tenderness Respiratory exam: PRESENT: clear to auscultation lyn Cardiovascular exam: PRESENT: RRR GI/Abdominal exam: PRESENT: other - Soft, nondistended, nontender to palpation, normal bowel sounds. Large left scrotal hernia that feels soft but is incarcerated and only partially reducible. No tenderness and no erythema and no induration. The groin and the scrotal portion of the herniation feels soft. Neurological exam: PRESENT: alert, awake Psychiatric exam: PRESENT: appropriate affect Skin exam: PRESENT: warm Results Laboratory Results: 04/04/19 04:11 04/11/19 11:24 04/11/19 11:24 Sodium 138.4 Potassium 4.7 Chloride 109 H Carbon Dioxide 17 L Anion Gap 12 BUN 75 H Creatinine 3.90 H Est GFR ( Amer) 19 L Glucose 179 H Calcium 8.2 L Total Bilirubin 0.2 AST 13 L Alkaline Phosphatase 80 Total Protein 5.9 L Albumin 2.8 L 03/31/19 03/31/19 03/31/19 23:14 23:14 23:14 Creatine Kinase 41 L CK-MB (CK-2) 2.17 Troponin I 0.025 NT-Pro-B Natriuret Pep 2660 H 04/01/19 04/01/19 04/01/19 05:23 05:23 12:33 Creatine Kinase 41 L 50 L CK-MB (CK-2) 2.08 Troponin I 0.024 NT-Pro-B Natriuret Pep 04/01/19 12:33 Creatine Kinase CK-MB (CK-2) 3.09 Troponin I 0.017 NT-Pro-B Natriuret Pep Impressions: Renal Ultrasound 03/31/19 00:00 IMPRESSION: Normal study. Head CT 03/31/19 16:46 IMPRESSION: 1. No acute intracranial hemorrhage, mass, or evidence of acute territorial infarct. 2. Mild chronic small vessel ischemic change and intracranial atherosclerosis. EVIDENCE OF ACUTE STROKE: NO. Venous Doppler Study 03/31/19 19:28 IMPRESSION: No DVT is identified. Head MRI 04/06/19 00:00 IMPRESSION: MILD CHRONIC MICROVASCULAR ISCHEMIC CHANGE. 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 NO ACUTE FINDINGS. EVIDENCE OF ACUTE STROKE: NO. Abdomen/Pelvis CT 04/11/19 00:00 IMPRESSION: 1. Abnormal bowel gas pattern suggestive of partial bowel obstruction. This appears to be at the level of the left inguinal hernia which contains a loop of colon. 2. 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 Assessment & Plan - Diagnosis (1) Left inguinal hernia Is this a current diagnosis for this admission?: Yes Plan: Chronically incarcerated left inguinal hernia with herniation of sigmoid colon and this herniation does not appear any different from couple of months ago on CT scan. He does have some dilated loops of small bowel but there is no transition point and there is no evidence of small bowel incarceration in the hernia. There is air throughout the GI tract although the rectum appears decompressed. The left colon is not distended and I do not think he has a large bowel obstruction at the sigmoid colon at the point of herniation. He continues to have loose bowel movements. His abdomen is very soft and nondistended. He had an isolated episode of emesis after eating solid food. No bilious emesis. In light of all of the above, I do not think his chronically incarcerated left inguinal hernia is causing an acute problem. Will observe overnight on n.p.o. status and obtain abdominal x-rays tomorrow. May consider an oral contrast study if there is still concerns about a possible bowel obstruction. Patient does appear dehydrated and maintenance IV fluids have been started. (2) Diarrhea Is this a current diagnosis for this admission?: Yes Plan: Patient complains of diarrhea for the last several weeks. Will obtain stool studies.
[2019-04-12 04:07] LABS: C DIFFICILE GDH NEGATIVE (NEGATIVE)
[2019-04-12 04:24] LABS: ABSOLUTE BASOPHILS # (AUTO) 0.1 10^3/uL (0.0-0.2); ABSOLUTE EOSINOPHILS # (AUTO) 3.2 10^3/uL (0.0-0.6); ABSOLUTE LYMPHOCYTES (AUTO) 1.8 10^3/uL (0.5-4.7); ABSOLUTE MONOCYTES (AUTO) 1.6 10^3/uL (0.1-1.4); ABSOLUTE NEUT (AUTO) 8.9 10^3/uL (1.7-8.2); BASOPHILS % (AUTO) 0.6 % (0-2); EOSINOPHILS % (AUTO) 20.6 % (0-6); HEMOGLOBIN 11.7 g/dL (13.5-17.0); LYMPHOCYTES % (AUTO) 11.6 % (13-45); MEAN CORPUSCULAR HEMOGLOBIN 28.6 pg (27.0-33.4); MEAN CORPUSCULAR HGB CONC 32.6 g/dL (32.0-36.0); MEAN CORPUSCULAR VOLUME 88 fl (80-97); MONOCYTES % (AUTO) 10.4 % (3-13); PLATELET COUNT 433 10^3/uL (150-450); RED BLOOD COUNT 4.09 10^6/uL (4.35-5.55); RED CELL DISTRIBUTION WIDTH 16.3 % (11.5-14.0); SEGMENTED NEUTROPHILS % (AUTO) 56.8 % (42-78); TOTAL CELLS COUNTED % (AUTO) 100 %; WHITE BLOOD COUNT 15.7 10^3/uL (4.0-10.5)
[2019-04-12 04:59] LABS: ANION GAP 11 (5-19); BLOOD UREA NITROGEN 80 mg/dL (7-20); CALCIUM 7.5 mg/dL (8.4-10.2); CARBON DIOXIDE 13 mmol/L (22-30); CHLORIDE 109 mmol/L (98-107); GLUCOSE 76 mg/dL (75-110); POTASSIUM 4.2 mmol/L (3.6-5.0)
[2019-04-12] MEDS: HEPARIN SOD (PORCINE) 5,000 UNIT/ML 1 ML VIAL SUBCUT SCH ×3 (05:55→22:36)
[2019-04-12] MEDS: INSULIN REG, HUMAN 100 UNIT/ML 3 ML VIAL (PYX) SUBCUT SCH ×4 (08:45→22:36)
[2019-04-12] MEDS: AMLODIPINE BESYLATE 10 MG TABLET PO SCH (09:04)
[2019-04-12] MEDS: CARVEDILOL 12.5 MG TABLET PO SCH (09:04)
[2019-04-12] MEDS: SODIUM BICARBONATE 650 MG TABLET PO SCH ×2 (09:06→22:42)
[2019-04-12] MEDS: GLIPIZIDE XL 2.5 MG TAB.ER.24 PO SCH (09:06)
[2019-04-12] MEDS: CIPROFLOXACIN 200 MG/D5W RTU 200 MG/100 ML RTUPB IV SCH (09:06)
--- NOTE | 2019-04-12 09:34 | RADIOLOGY REPORT (SQ) ---
EXAM DESCRIPTION: ABDOMEN 2 VIEWS COMPLETED DATE/TIME: 04/12/2019 9:22 am REASON FOR STUDY: emesis COMPARISON: None. NUMBER OF VIEWS: Two views. TECHNIQUE: Supine and erect/decubitus radiographic images of the abdomen acquired. LIMITATIONS: None. FINDINGS: FREE AIR: None. No abnormal gas collections. LUNG BASES: Clear. BOWEL GAS PATTERN: Gas pattern is nonspecific. Infrequent air-fluid levels on the upright view. CALCIFICATIONS: No suspicious calcifications. SOFT TISSUES: No gross mass or suggestion of organomegaly. HARDWARE: None in the abdomen. BONES: No acute fracture. No worrisome bone lesions. OTHER: No other significant finding. IMPRESSION: Nonspecific gas pattern. TECHNICAL DOCUMENTATION: JOB ID: [id number] 2010 [employer]- All Rights Reserved Reading location - IP/workstation name: [email or web address]
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
--- NOTE | 2019-04-12 09:56 | PDOC PROGRESS REPORT ---
Subjective Progress Note for:: 04/12/19 Subjective:: Patient will start complaining some abdominal discomfort and nausea and vomiting yesterday night order the CT scan of the abdomen and pelvis with suggest the patient have a small bowel obstructions and inguinal hernia sites and discuss with the Dr. Agrawal the general surgeryAnd he came to see the patient's and suggest the continues to IV fluid and continues to monitor Patient's stool C. difficile is negative And is a very weak complain nurse according to the nurses very difficult to evaluate the patient's with the patient's complaints pt denied any chest pain no short of breath no abdominal pain today Patient's denied any loose stools Patient's kidney function is getting worse discuss with the Dr. Goodwin today's regarding the patient's kidney functions he is going to evaluate Reason For Visit: HYPERTENSIVE EMERGENCY Physical Exam Vital Signs: Temp Pulse Resp BP Pulse Ox 97.4 F 61 17 100/60 97 04/12/19 08:01 04/12/19 08:01 04/12/19 04:26 04/12/19 08:01 04/12/19 08:01 Intake & Output 04/11/19 04/12/19 04/13/19 06:59 06:59 06:59 Intake Total 1440 1350 Output Total 500 Balance 1440 850 Weight 73.8 kg 71.4 kg General appearance: PRESENT: no acute distress, well-developed, well-nourished Head exam: PRESENT: atraumatic, normocephalic Eye exam: PRESENT: conjunctiva pink, EOMI, PERRLA. ABSENT: scleral icterus Ear exam: PRESENT: normal external ear exam Mouth exam: PRESENT: moist, tongue midline Neck exam: PRESENT: full ROM. ABSENT: carotid bruit, JVD, lymphadenopathy, thyromegaly Respiratory exam: PRESENT: clear to auscultation lyn Cardiovascular exam: PRESENT: RRR. ABSENT: diastolic murmur, rubs, systolic murmur Pulses: PRESENT: normal dorsalis pedis pul, +2 pedal pulses bilateral Vascular exam: PRESENT: normal capillary refill GI/Abdominal exam: PRESENT: normal bowel sounds, soft. ABSENT: distended, guarding, mass, organolmegaly, rebound, tenderness Rectal exam: PRESENT: deferred Musculoskeletal exam: PRESENT: ambulatory Neurological exam: PRESENT: alert, awake, oriented to person, oriented to place, oriented to time, oriented to situation, CN II-XII grossly intact. ABSENT: motor sensory deficit Psychiatric exam: PRESENT: appropriate affect, normal mood. ABSENT: homicidal ideation, suicidal ideation Skin exam: PRESENT: dry, intact, warm. ABSENT: cyanosis, rash Results Laboratory Results: 04/12/19 04:11 04/12/19 04:11 04/11/19 04/12/19 04/12/19 11:24 04:11 04:11 WBC 15.7 H RBC 4.09 L Hgb 11.7 L Hct 36.0 L MCV 88 MCH 28.6 MCHC 32.6 RDW 16.3 H Plt Count 433 Seg Neutrophils % 56.8 Sodium 138.4 133.2 L Potassium 4.7 4.2 Chloride 109 H 109 H Carbon Dioxide 17 L 13 L Anion Gap 12 11 BUN 75 H 80 H Creatinine 3.90 H 4.31 H Est GFR ( Amer) 19 L 17 L Glucose 179 H 76 Lactic Acid Calcium 8.2 L 7.5 L Total Bilirubin 0.2 AST 13 L Alkaline Phosphatase 80 Total Protein 5.9 L Albumin 2.8 L 04/12/19 08:17 WBC RBC Hgb Hct MCV MCH MCHC RDW Plt Count Seg Neutrophils % Sodium Potassium Chloride Carbon Dioxide Anion Gap BUN Creatinine Est GFR ( Amer) Glucose Lactic Acid < 0.5 L Calcium Total Bilirubin AST Alkaline Phosphatase Total Protein Albumin 03/31/19 03/31/19 03/31/19 23:14 23:14 23:14 Creatine Kinase 41 L CK-MB (CK-2) 2.17 Troponin I 0.025 NT-Pro-B Natriuret Pep 2660 H 04/01/19 04/01/19 04/01/19 05:23 05:23 12:33 Creatine Kinase 41 L 50 L CK-MB (CK-2) 2.08 Troponin I 0.024 NT-Pro-B Natriuret Pep 04/01/19 12:33 Creatine Kinase CK-MB (CK-2) 3.09 Troponin I 0.017 NT-Pro-B Natriuret Pep Impressions: Renal Ultrasound 03/31/19 00:00 IMPRESSION: Normal study. Head CT 03/31/19 16:46 IMPRESSION: 1. No acute intracranial hemorrhage, mass, or evidence of acute territorial infarct. 2. Mild chronic small vessel ischemic change and intracranial atherosclerosis. EVIDENCE OF ACUTE STROKE: NO. Venous Doppler Study 03/31/19 19:28 IMPRESSION: No DVT is identified. Head MRI 04/06/19 00:00 IMPRESSION: MILD CHRONIC MICROVASCULAR ISCHEMIC CHANGE. 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 NO ACUTE FINDINGS. EVIDENCE OF ACUTE STROKE: NO. Abdomen/Pelvis CT 04/11/19 00:00 IMPRESSION: 1. Abnormal bowel gas pattern suggestive of partial bowel obstruction. This appears to be at the level of the left inguinal hernia which contains a loop of colon. 2. 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 Abdomen X-Ray 04/12/19 07:00 IMPRESSION: Nonspecific gas pattern. Assessment & Plan - Diagnosis (1) Hypertensive urgency Is this a current diagnosis for this admission?: Yes (2) Schizophrenia Qualifiers: Qualified Code(s): F20.9 - Schizophrenia, unspecified Is this a current diagnosis for this admission?: Yes (3) CKD stage 3 due to type 2 diabetes mellitus Is this a current diagnosis for this admission?: Yes Plan: Currently in a acute renal failure start on IV fluid hold the losartanFollow with the nephrology (4) Gastritis Qualifiers: Qualified Code(s): K29.00 - Acute gastritis without bleeding Is this a current diagnosis for this admission?: Yes (5) Cerebrovascular disease Is this a current diagnosis for this admission?: Yes - Time Time Spent with patient: 25-34 minutes Level of Care: TELE Medications reviewed and adjusted accordingly: Yes Anticipated discharge: Other Within: Other - Plan Summary Plan Summary: Patient have a inguinal hernia with possible obstructions currently follow with the surgery continues to IV fluids repeat the blood work start the patient on the Cipro with the elevated white counts get the culture urine
[2019-04-12] MEDS ORDERED: NORMAL SALINE 1000 ML 1,000 ML IV PRN (14:31)
[2019-04-12] MEDS: PATIROMER 8.4 GM SUSP PACKET PO SCH (14:36)
--- NOTE | 2019-04-12 14:44 | PDOC PROGRESS REPORT ---
Subjective Progress Note for:: 04/12/19 Reason For Visit: Patient seen today in the hospital. He seems very vague and not very forthcoming with his history. He is very ambiguous about his complaints. Initially he said he had some diarrhea and some abdominal pain yesterday and then he said he did not have it. Denies any history of fever or chills. He denies any abdominal pains or diarrhea at the moment. He denies any history of chest pain shortness of breath or coughing spells. He says he has inguinal hernia which is not causing problems at the moment. Labs and medications were reviewed. He is n.p.o. since yesterday and is on half-normal saline. Labs and medications were reviewed. Physical Exam Vital Signs: Temp Pulse Resp BP Pulse Ox 97.4 F 61 17 100/60 97 04/12/19 08:01 04/12/19 08:01 04/12/19 04:26 04/12/19 08:01 04/12/19 08:01 Intake & Output 04/11/19 04/12/19 04/13/19 06:59 06:59 06:59 Intake Total 1440 1350 1005 Output Total 500 Balance 4595 786 7639 Weight 73.8 kg 71.4 kg General appearance: PRESENT: no acute distress Eye exam: PRESENT: EOMI, PERRLA Mouth exam: ABSENT: moist Neck exam: ABSENT: meningismus, tenderness Respiratory exam: PRESENT: clear to auscultation lyn. ABSENT: crackles Cardiovascular exam: PRESENT: +S1, +S2 GI/Abdominal exam: PRESENT: normal bowel sounds, soft. ABSENT: organomegaly, tenderness Extremities exam: ABSENT: pedal edema Neurological exam: PRESENT: alert, awake, oriented to person Psychiatric exam: PRESENT: flat affect Skin exam: ABSENT: cyanosis, erythema, mottled Results Laboratory Results: 04/12/19 04:11 04/12/19 04:11 04/12/19 04/12/19 04/12/19 04:11 04:11 08:17 WBC 15.7 H RBC 4.09 L Hgb 11.7 L Hct 36.0 L MCV 88 MCH 28.6 MCHC 32.6 RDW 16.3 H Plt Count 433 Seg Neutrophils % 56.8 Sodium 133.2 L Potassium 4.2 Chloride 109 H Carbon Dioxide 13 L Anion Gap 11 BUN 80 H Creatinine 4.31 H Est GFR ( Amer) 17 L Glucose 76 Lactic Acid < 0.5 L Calcium 7.5 L Stool for White Cells 04/12/19 10:11 WBC RBC Hgb Hct MCV MCH MCHC RDW Plt Count Seg Neutrophils % Sodium Potassium Chloride Carbon Dioxide Anion Gap BUN Creatinine Est GFR ( Amer) Glucose Lactic Acid Calcium Stool for White Cells NO WBCs SEEN 03/31/19 03/31/19 03/31/19 23:14 23:14 23:14 Creatine Kinase 41 L CK-MB (CK-2) 2.17 Troponin I 0.025 NT-Pro-B Natriuret Pep 2660 H 04/01/19 04/01/19 04/01/19 05:23 05:23 12:33 Creatine Kinase 41 L 50 L CK-MB (CK-2) 2.08 Troponin I 0.024 NT-Pro-B Natriuret Pep 04/01/19 12:33 Creatine Kinase CK-MB (CK-2) 3.09 Troponin I 0.017 NT-Pro-B Natriuret Pep Impressions: Renal Ultrasound 03/31/19 00:00 IMPRESSION: Normal study. Head CT 03/31/19 16:46 IMPRESSION: 1. No acute intracranial hemorrhage, mass, or evidence of acute territorial infarct. 2. Mild chronic small vessel ischemic change and intracranial atherosclerosis. EVIDENCE OF ACUTE STROKE: NO. Venous Doppler Study 03/31/19 19:28 IMPRESSION: No DVT is identified. Head MRI 04/06/19 00:00 IMPRESSION: MILD CHRONIC MICROVASCULAR ISCHEMIC CHANGE. 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 NO ACUTE FINDINGS. EVIDENCE OF ACUTE STROKE: NO. Abdomen/Pelvis CT 04/11/19 00:00 IMPRESSION: 1. Abnormal bowel gas pattern suggestive of partial bowel obstruction. This appears to be at the level of the left inguinal hernia which contains a loop of colon. 2. 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 Abdomen X-Ray 04/12/19 07:00 IMPRESSION: Nonspecific gas pattern. Assessment & Plan - Diagnosis (1) Acute kidney injury superimposed on chronic kidney disease Is this a current diagnosis for this admission?: Yes Plan: Patient's baseline creatinine is around 2-2.5/CKD 4. Currently he is worsening. Patient clinically dehydrated. Will adjust fluids. His blood pressure is also getting low normal. DC some of his antihypertensives and adjust his medications.Monitor for any possible sepsis given his leukocytosis. However his differential shows predominantly snow failure. (2) Eosinophilia Plan: Unknown etiology. His stools are being checked for ova and parasites. Possible drug-induced. DC some of his medications and monitor. (3) CKD (chronic kidney disease) stage 4, GFR 15-29 ml/min Is this a current diagnosis for this admission?: Yes Plan: Background diabetic nephropathy. Presently showing acute decompensation. Monitor. (4) Hypertension Qualifiers: Hypertension type: essential hypertension Qualified Code(s): I10 - Essential (primary) hypertension Is this a current diagnosis for this admission?: Yes Plan: Presently low normal. Titrate down some of his medications. Monitor. Rule out sepsis.
[2019-04-12] MEDS ORDERED: CARVEDILOL 12.5 MG TABLET PO SCH (22:00)
[2019-04-12] MEDS: FAMOTIDINE 20 MG TABLET PO SCH (22:42)
[2019-04-12] MEDS: ATORVASTATIN CALCIUM 40 MG TABLET PO SCH (22:42)
[2019-04-12] MEDS: ASPIRIN 81 MG TABLET, CHEWABLE PO SCH (22:42)
[2019-04-12] MEDS: CARVEDILOL 6.25 MG TABLET PO SCH (22:42)
[2019-04-12] MEDS: DEXTROSE 5%-1/2 NORMAL SALINE 1,000 ML IV PRN (22:44)
[2019-04-13] MEDS: CIPROFLOXACIN 200 MG/D5W RTU 200 MG/100 ML RTUPB IV SCH ×2 (02:14→22:45)
[2019-04-13] MEDS: HEPARIN SOD (PORCINE) 5,000 UNIT/ML 1 ML VIAL SUBCUT SCH ×3 (06:01→22:42)
[2019-04-13 06:21] LABS: MEAN CORPUSCULAR HEMOGLOBIN 28.3 pg (27.0-33.4); MEAN CORPUSCULAR HGB CONC 32.4 g/dL (32.0-36.0); MEAN CORPUSCULAR VOLUME 88 fl (80-97); PLATELET COUNT 434 10^3/uL (150-450); RED BLOOD COUNT 4.23 10^6/uL (4.35-5.55); RED CELL DISTRIBUTION WIDTH 16.4 % (11.5-14.0); WHITE BLOOD COUNT 13.2 10^3/uL (4.0-10.5)
[2019-04-13 06:51] LABS: CALCIUM 7.6 mg/dL (8.4-10.2)
[2019-04-13 06:52] LABS: ANION GAP 9 (5-19); BLOOD UREA NITROGEN 78 mg/dL (7-20); CARBON DIOXIDE 17 mmol/L (22-30); CHLORIDE 112 mmol/L (98-107); POTASSIUM 4.4 mmol/L (3.6-5.0)
[2019-04-13 06:53] LABS: GLUCOSE 65 mg/dL (75-110)
[2019-04-13 07:11] LABS: ABSOLUTE LYMPHOCYTES# (MANUAL) 1.2 10^3/uL (0.5-4.7); ABSOLUTE MONOCYTES # (MANUAL) 0.9 10^3/uL (0.1-1.4); BAND NEUTROPHILS % (MANUAL) 2 % (3-5); BASOPHILS % (MANUAL) 0 % (0-2); EOSINOPHILS % (MANUAL) 10 % (0-6); LYMPHOCYTES % (MANUAL) 9 % (13-45); MONOCYTES % (MANUAL) 7 % (3-13); SEGMENTED NEUTROPHILS % (MAN) 72 % (42-78); TOTAL CELLS COUNTED 100
[2019-04-13 07:13] LABS: ANISOCYTOSIS SLIGHT; BURR CELLS SLIGHT; OVALOCYTES SLIGHT; PLATELET COMMENT ADEQUATE; POIKILOCYTOSIS SLIGHT; POLYCHROMASIA SLIGHT; TOXIC GRANULATION SLIGHT; TOXIC VACUOLATION PRESENT
--- NOTE | 2019-04-13 08:26 | PDOC PROGRESS REPORT ---
Subjective Progress Note for:: 04/13/19 Subjective:: Patient is currently doing fair denied any abdominal pain no nausea no vomiting having some loose stool yesterday Patient have a low blood sugars switch to the normal saline to D5 one half normal saline Patient's glipizide is currently stopped since yesterday\ Patient seen by the Dr. Goodwin adjust the IV fluid and medications Reason For Visit: HYPERTENSIVE EMERGENCY Physical Exam Vital Signs: Temp Pulse Resp BP Pulse Ox 97.6 F 75 16 124/50 L 98 04/12/19 16:54 04/13/19 07:00 04/12/19 16:54 04/12/19 16:54 04/12/19 16:54 Intake & Output 04/12/19 04/13/19 04/14/19 06:59 06:59 06:59 Intake Total 1350 3315 Output Total 500 Balance 850 3315 Weight 71.4 kg 73.6 kg General appearance: PRESENT: no acute distress, well-developed, well-nourished Head exam: PRESENT: atraumatic, normocephalic Eye exam: PRESENT: conjunctiva pink, EOMI, PERRLA. ABSENT: scleral icterus Ear exam: PRESENT: normal external ear exam Mouth exam: PRESENT: moist, tongue midline Neck exam: PRESENT: full ROM. ABSENT: carotid bruit, JVD, lymphadenopathy, thyromegaly Respiratory exam: PRESENT: clear to auscultation lyn Cardiovascular exam: PRESENT: RRR. ABSENT: diastolic murmur, rubs, systolic murmur Pulses: PRESENT: normal dorsalis pedis pul, +2 pedal pulses bilateral Vascular exam: PRESENT: normal capillary refill GI/Abdominal exam: PRESENT: normal bowel sounds, soft. ABSENT: distended, guarding, mass, organolmegaly, rebound, tenderness Rectal exam: PRESENT: deferred Musculoskeletal exam: PRESENT: ambulatory Neurological exam: PRESENT: alert, awake, oriented to person, oriented to place, oriented to time, oriented to situation, CN II-XII grossly intact. ABSENT: motor sensory deficit Psychiatric exam: PRESENT: appropriate affect, normal mood. ABSENT: homicidal ideation, suicidal ideation Skin exam: PRESENT: dry, intact, warm. ABSENT: cyanosis, rash Results Laboratory Results: 04/13/19 04:54 04/13/19 04:54 04/12/19 04/12/19 04/13/19 08:17 10:11 04:54 WBC RBC Hgb Hct MCV MCH MCHC RDW Plt Count Seg Neutrophils % Sodium 138.2 Potassium 4.4 Chloride 112 H Carbon Dioxide 17 L Anion Gap 9 BUN 78 H Creatinine 4.04 H Est GFR ( Amer) 18 L Glucose 65 L Lactic Acid < 0.5 L Calcium 7.6 L Stool for White Cells NO WBCs SEEN 04/13/19 04:54 WBC 13.2 H RBC 4.23 L Hgb 12.0 L Hct 37.0 L MCV 88 MCH 28.3 MCHC 32.4 RDW 16.4 H Plt Count 434 Seg Neutrophils % Not Reportable Sodium Potassium Chloride Carbon Dioxide Anion Gap BUN Creatinine Est GFR ( Amer) Glucose Lactic Acid Calcium Stool for White Cells 03/31/19 03/31/19 03/31/19 23:14 23:14 23:14 Creatine Kinase 41 L CK-MB (CK-2) 2.17 Troponin I 0.025 NT-Pro-B Natriuret Pep 2660 H 04/01/19 04/01/19 04/01/19 05:23 05:23 12:33 Creatine Kinase 41 L 50 L CK-MB (CK-2) 2.08 Troponin I 0.024 NT-Pro-B Natriuret Pep 04/01/19 12:33 Creatine Kinase CK-MB (CK-2) 3.09 Troponin I 0.017 NT-Pro-B Natriuret Pep Impressions: Renal Ultrasound 03/31/19 00:00 IMPRESSION: Normal study. Head CT 03/31/19 16:46 IMPRESSION: 1. No acute intracranial hemorrhage, mass, or evidence of acute territorial infarct. 2. Mild chronic small vessel ischemic change and intracranial atherosclerosis. EVIDENCE OF ACUTE STROKE: NO. Venous Doppler Study 03/31/19 19:28 IMPRESSION: No DVT is identified. Head MRI 04/06/19 00:00 IMPRESSION: MILD CHRONIC MICROVASCULAR ISCHEMIC CHANGE. 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 NO ACUTE FINDINGS. EVIDENCE OF ACUTE STROKE: NO. Abdomen/Pelvis CT 04/11/19 00:00 IMPRESSION: 1. Abnormal bowel gas pattern suggestive of partial bowel obstruction. This appears to be at the level of the left inguinal hernia which contains a loop of colon. 2. 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 Abdomen X-Ray 04/12/19 07:00 IMPRESSION: Nonspecific gas pattern. Assessment & Plan - Diagnosis (1) Hypertensive urgency Is this a current diagnosis for this admission?: Yes (2) Schizophrenia Qualifiers: Schizophrenia type: unspecified Qualified Code(s): F20.9 - Schizophrenia, unspecified Is this a current diagnosis for this admission?: Yes (3) CKD stage 3 due to type 2 diabetes mellitus Is this a current diagnosis for this admission?: Yes (4) Gastritis Qualifiers: Gastritis type: unspecified gastritis Chronicity: acute Gastritis bleeding: without bleeding Qualified Code(s): K29.00 - Acute gastritis without bleeding Is this a current diagnosis for this admission?: Yes (5) Cerebrovascular disease Is this a current diagnosis for this admission?: Yes (6) Hypoglycemia Is this a current diagnosis for this admission?: Yes Plan: Discontinues the glipizide most likely due to the renal failure with the sulfonylurea hypoglycemia continues to D5 continues the p.o. intake (7) Diabetes mellitus type 2 in nonobese Is this a current diagnosis for this admission?: Yes Plan: His cover with the sliding scale currently running hypoglycemia - Time Time Spent with patient: 25-34 minutes Level of Care: TELE Medications reviewed and adjusted accordingly: Yes Anticipated discharge: Other Within: Other - Plan Summary Plan Summary: Follow-up with the nephrology continues to D5 until the blood sugars stabilize discontinues the glipizide
[2019-04-13] MEDS: INSULIN REG, HUMAN 100 UNIT/ML 3 ML VIAL (PYX) SUBCUT SCH ×3 (08:41→22:40)
[2019-04-13] MEDS: SODIUM BICARBONATE 650 MG TABLET PO SCH ×2 (09:38→22:46)
[2019-04-13] MEDS: CARVEDILOL 6.25 MG TABLET PO SCH ×2 (09:38→22:47)
[2019-04-13] MEDS: DEXTROSE 5%-1/2 NORMAL SALINE 1,000 ML IV PRN (09:38)
[2019-04-13] MEDS: FAMOTIDINE 20 MG TABLET PO SCH (22:46)
[2019-04-13] MEDS: ATORVASTATIN CALCIUM 40 MG TABLET PO SCH (22:46)
[2019-04-13] MEDS: ASPIRIN 81 MG TABLET, CHEWABLE PO SCH (22:46)
[2019-04-14] MEDS: ONDANSETRON HCL INJ/PF 4 MG/2 ML SDV IV PRN ×2 (00:08→06:17)
[2019-04-14] MEDS: OXYCODONE-ACETAMINOPHEN 5-325 MG TABLET PO PRN (00:08)
[2019-04-14] MEDS: HEPARIN SOD (PORCINE) 5,000 UNIT/ML 1 ML VIAL SUBCUT SCH ×3 (05:04→21:45)
[2019-04-14 05:43] LABS: ANION GAP 15 (5-19); BLOOD UREA NITROGEN 76 mg/dL (7-20); CALCIUM 8.1 mg/dL (8.4-10.2); CARBON DIOXIDE 12 mmol/L (22-30); CHLORIDE 110 mmol/L (98-107); GLUCOSE 194 mg/dL (75-110); POTASSIUM 4.9 mmol/L (3.6-5.0)
[2019-04-14] MEDS: DEXTROSE 5%-1/2 NORMAL SALINE 1,000 ML IV PRN (06:17)
[2019-04-14] MEDS: INSULIN REG, HUMAN 100 UNIT/ML 3 ML VIAL (PYX) SUBCUT SCH ×5 (10:25→22:00)
[2019-04-14] MEDS: SODIUM BICARBONATE 650 MG TABLET PO SCH ×2 (10:26→21:45)
[2019-04-14] MEDS: CARVEDILOL 6.25 MG TABLET PO SCH ×2 (10:26→21:45)
--- NOTE | 2019-04-14 11:17 | RADIOLOGY REPORT (SQ) ---
EXAM DESCRIPTION: KUB/ABDOMEN (SINGLE VIEW) COMPLETED DATE/TIME: 04/14/2019 8:55 am REASON FOR STUDY: nausea, hx obstruction COMPARISON: None. NUMBER OF VIEWS: One view. TECHNIQUE: Supine radiographic image of the abdomen acquired. LIMITATIONS: None. FINDINGS: BOWEL GAS PATTERN: Normal bowel gas pattern. No dilated loops. CALCIFICATIONS: No suspicious calcifications. SOFT TISSUES: No gross mass or suggestion of organomegaly. HARDWARE: None in the abdomen. BONES: No acute fracture. No worrisome bone lesions. OTHER: No other significant finding. IMPRESSION: NO RADIOGRAPHIC EVIDENCE FOR ACUTE ABDOMINAL DISEASE. TECHNICAL DOCUMENTATION: JOB ID: [id number] 2010 [employer]- All Rights Reserved Reading location - IP/workstation name: [email or web address]
[2019-04-14] MEDS: NORMAL SALINE 1000 ML 1,000 ML IV PRN (12:08)
--- NOTE | 2019-04-14 13:01 | PDOC PROGRESS REPORT ---
Subjective Progress Note for:: 04/14/19 Subjective:: Patient is currently doing same some couple of loose stools yesterday Patient's blood sugar is getting better no hypoglycemic anymore currently D5 one half normal saline Patient's kidney function is still not improving Is denied any chest pain no short of breath Reason For Visit: HYPERTENSIVE EMERGENCY Physical Exam Vital Signs: Temp Pulse Resp BP Pulse Ox 98.4 F 63 18 111/46 L 99 04/14/19 07:33 04/14/19 07:33 04/14/19 07:33 04/14/19 07:33 04/14/19 07:33 Intake & Output 04/13/19 04/14/19 04/15/19 06:59 06:59 06:59 Intake Total 3315 3998 Balance 3315 3998 Weight 73.6 kg 73.5 kg General appearance: PRESENT: no acute distress, well-developed, well-nourished Head exam: PRESENT: atraumatic, normocephalic Eye exam: PRESENT: conjunctiva pink, EOMI, PERRLA. ABSENT: scleral icterus Ear exam: PRESENT: normal external ear exam Mouth exam: PRESENT: moist, tongue midline Neck exam: PRESENT: full ROM. ABSENT: carotid bruit, JVD, lymphadenopathy, thyromegaly Respiratory exam: PRESENT: clear to auscultation lyn Cardiovascular exam: PRESENT: RRR. ABSENT: diastolic murmur, rubs, systolic murmur Pulses: PRESENT: normal dorsalis pedis pul, +2 pedal pulses bilateral Vascular exam: PRESENT: normal capillary refill GI/Abdominal exam: PRESENT: normal bowel sounds, soft. ABSENT: distended, guarding, mass, organolmegaly, rebound, tenderness Rectal exam: PRESENT: deferred Musculoskeletal exam: PRESENT: ambulatory Neurological exam: PRESENT: alert, awake, oriented to person, oriented to place, oriented to time, oriented to situation, CN II-XII grossly intact. ABSENT: motor sensory deficit Psychiatric exam: PRESENT: appropriate affect, normal mood. ABSENT: homicidal ideation, suicidal ideation Skin exam: PRESENT: dry, intact, warm. ABSENT: cyanosis, rash Results Laboratory Results: 04/13/19 04:54 04/14/19 04:14 04/14/19 04:14 Sodium 136.7 L Potassium 4.9 Chloride 110 H Carbon Dioxide 12 L Anion Gap 15 BUN 76 H Creatinine 4.72 H Est GFR ( Amer) 15 L Glucose 194 H Calcium 8.1 L 04/12/19 07:55 Clean Catch Midstream Urine Culture - Final NO GROWTH 2 DAYS 03/31/19 03/31/19 03/31/19 23:14 23:14 23:14 Creatine Kinase 41 L CK-MB (CK-2) 2.17 Troponin I 0.025 NT-Pro-B Natriuret Pep 2660 H 04/01/19 04/01/19 04/01/19 05:23 05:23 12:33 Creatine Kinase 41 L 50 L CK-MB (CK-2) 2.08 Troponin I 0.024 NT-Pro-B Natriuret Pep 04/01/19 12:33 Creatine Kinase CK-MB (CK-2) 3.09 Troponin I 0.017 NT-Pro-B Natriuret Pep Impressions: Renal Ultrasound 03/31/19 00:00 IMPRESSION: Normal study. Head CT 03/31/19 16:46 IMPRESSION: 1. No acute intracranial hemorrhage, mass, or evidence of acute territorial infarct. 2. Mild chronic small vessel ischemic change and intracranial atherosclerosis. EVIDENCE OF ACUTE STROKE: NO. Venous Doppler Study 03/31/19 19:28 IMPRESSION: No DVT is identified. Head MRI 04/06/19 00:00 IMPRESSION: MILD CHRONIC MICROVASCULAR ISCHEMIC CHANGE. 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 NO ACUTE FINDINGS. EVIDENCE OF ACUTE STROKE: NO. Abdomen/Pelvis CT 04/11/19 00:00 IMPRESSION: 1. Abnormal bowel gas pattern suggestive of partial bowel obstruction. This appears to be at the level of the left inguinal hernia which contains a loop of colon. 2. 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 Abdomen X-Ray 04/12/19 07:00 IMPRESSION: Nonspecific gas pattern. KUB X-Ray 04/14/19 00:00 IMPRESSION: NO RADIOGRAPHIC EVIDENCE FOR ACUTE ABDOMINAL DISEASE. Assessment & Plan - Diagnosis (1) Hypertensive urgency Is this a current diagnosis for this admission?: Yes (2) Schizophrenia Qualifiers: Qualified Code(s): F20.9 - Schizophrenia, unspecified Is this a current diagnosis for this admission?: Yes (3) CKD stage 3 due to type 2 diabetes mellitus Is this a current diagnosis for this admission?: Yes (4) Gastritis Qualifiers: Qualified Code(s): K29.00 - Acute gastritis without bleeding Is this a current diagnosis for this admission?: Yes (5) Cerebrovascular disease Is this a current diagnosis for this admission?: Yes (6) Hypoglycemia Is this a current diagnosis for this admission?: Yes (7) Diabetes mellitus type 2 in nonobese Is this a current diagnosis for this admission?: Yes - Time Time Spent with patient: 15-24 minutes Level of Care: TELE Medications reviewed and adjusted accordingly: Yes Anticipated discharge: Other Within: Other - Plan Summary Plan Summary: Patient's renal failure is still not improving will discuss with the Dr. Goodwin discussed with the nursing staff to change to the IV fluid D5 to normal saline if the patient blood sugar remains stable about 150 Patient is otherwise denied any other complaints
[2019-04-14] MEDS: CIPROFLOXACIN 200 MG/D5W RTU 200 MG/100 ML RTUPB IV SCH (15:19)
[2019-04-14] MEDS: FAMOTIDINE 20 MG TABLET PO SCH (21:45)
[2019-04-14] MEDS: ATORVASTATIN CALCIUM 40 MG TABLET PO SCH (21:45)
[2019-04-14] MEDS: ASPIRIN 81 MG TABLET, CHEWABLE PO SCH (21:45)
[2019-04-15 04:47] LABS: ABSOLUTE BASOPHILS # (AUTO) 0.1 10^3/uL (0.0-0.2); ABSOLUTE EOSINOPHILS # (AUTO) 1.4 10^3/uL (0.0-0.6); ABSOLUTE LYMPHOCYTES (AUTO) 1.5 10^3/uL (0.5-4.7); ABSOLUTE MONOCYTES (AUTO) 1.6 10^3/uL (0.1-1.4); ABSOLUTE NEUT (AUTO) 11.2 10^3/uL (1.7-8.2); BASOPHILS % (AUTO) 0.3 % (0-2); EOSINOPHILS % (AUTO) 8.9 % (0-6); HEMATOCRIT 36.4 % (37.9-51.0); HEMOGLOBIN 11.8 g/dL (13.5-17.0); LYMPHOCYTES % (AUTO) 9.6 % (13-45); MEAN CORPUSCULAR HEMOGLOBIN 28.3 pg (27.0-33.4); MEAN CORPUSCULAR HGB CONC 32.4 g/dL (32.0-36.0); MEAN CORPUSCULAR VOLUME 87 fl (80-97); MONOCYTES % (AUTO) 10.1 % (3-13); PLATELET COUNT 413 10^3/uL (150-450); RED BLOOD COUNT 4.17 10^6/uL (4.35-5.55); RED CELL DISTRIBUTION WIDTH 16.7 % (11.5-14.0); SEGMENTED NEUTROPHILS % (AUTO) 71.1 % (42-78); TOTAL CELLS COUNTED % (AUTO) 100 %; WHITE BLOOD COUNT 15.8 10^3/uL (4.0-10.5)
[2019-04-15 05:08] LABS: ANION GAP 13 (5-19); BLOOD UREA NITROGEN 77 mg/dL (7-20); CALCIUM 7.2 mg/dL (8.4-10.2); CARBON DIOXIDE 11 mmol/L (22-30); CHLORIDE 111 mmol/L (98-107); GLUCOSE 141 mg/dL (75-110); POTASSIUM 4.2 mmol/L (3.6-5.0)
[2019-04-15] MEDS: HEPARIN SOD (PORCINE) 5,000 UNIT/ML 1 ML VIAL SUBCUT SCH ×2 (06:41→14:05)
[2019-04-15] MEDS: INSULIN REG, HUMAN 100 UNIT/ML 3 ML VIAL (PYX) SUBCUT SCH ×4 (10:06→23:31)
[2019-04-15] MEDS: CIPROFLOXACIN 200 MG/D5W RTU 200 MG/100 ML RTUPB IV SCH (10:07)
[2019-04-15] MEDS: CARVEDILOL 6.25 MG TABLET PO SCH ×2 (10:12→10:36)
[2019-04-15] MEDS: SODIUM BICARBONATE 650 MG TABLET PO SCH (10:12)
--- NOTE | 2019-04-15 10:31 | PDOC PROGRESS REPORT ---
Subjective Progress Note for:: 04/15/19 Subjective:: Patient is currently doing same Patient still having some on and off little loose stools Patient have a Gomez catheter Patient's kidney function is stable Patient's denied any chest pain no short of breath No nausea no vomiting Reason For Visit: HYPERTENSIVE EMERGENCY Physical Exam Vital Signs: Temp Pulse Resp BP Pulse Ox 97.7 F 61 17 87/53 L 99 04/15/19 00:18 04/15/19 00:18 04/15/19 00:18 04/15/19 00:18 04/15/19 00:18 Intake & Output 04/14/19 04/15/19 04/16/19 06:59 06:59 06:59 Intake Total 3998 999 Output Total 350 Balance 3998 649 Weight 73.5 kg 72.8 kg General appearance: PRESENT: no acute distress, well-developed, well-nourished Head exam: PRESENT: atraumatic, normocephalic Eye exam: PRESENT: conjunctiva pink, EOMI, PERRLA. ABSENT: scleral icterus Ear exam: PRESENT: normal external ear exam Mouth exam: PRESENT: moist, tongue midline Neck exam: PRESENT: full ROM. ABSENT: carotid bruit, JVD, lymphadenopathy, thyromegaly Respiratory exam: PRESENT: clear to auscultation lyn Cardiovascular exam: PRESENT: RRR. ABSENT: diastolic murmur, rubs, systolic murmur Pulses: PRESENT: normal dorsalis pedis pul, +2 pedal pulses bilateral Vascular exam: PRESENT: normal capillary refill GI/Abdominal exam: PRESENT: normal bowel sounds, soft. ABSENT: distended, guarding, mass, organolmegaly, rebound, tenderness Rectal exam: PRESENT: deferred Musculoskeletal exam: PRESENT: ambulatory Neurological exam: PRESENT: alert, awake, oriented to person, oriented to place, oriented to time, oriented to situation, CN II-XII grossly intact. ABSENT: motor sensory deficit Psychiatric exam: PRESENT: appropriate affect, normal mood. ABSENT: homicidal ideation, suicidal ideation Skin exam: PRESENT: dry, intact, warm. ABSENT: cyanosis, rash Results Laboratory Results: 04/15/19 04:09 04/15/19 04:09 04/15/19 04/15/19 04/15/19 04:09 04:09 09:52 WBC 15.8 H RBC 4.17 L Hgb 11.8 L Hct 36.4 L MCV 87 MCH 28.3 MCHC 32.4 RDW 16.7 H Plt Count 413 Seg Neutrophils % 71.1 Sodium 134.9 L Potassium 4.2 Chloride 111 H Carbon Dioxide 11 L Anion Gap 13 BUN 77 H Creatinine 4.63 H Est GFR ( Amer) 15 L Glucose 141 H Lactic Acid 0.8 Calcium 7.2 L 04/12/19 10:11 Stool - Stool - Final 04/12/19 10:11 Stool - Stool Stool Culture - Final Yeast, Not Sherie Albicans 04/12/19 07:55 Clean Catch Midstream Urine Culture - Final NO GROWTH 2 DAYS 03/31/19 03/31/19 03/31/19 23:14 23:14 23:14 Creatine Kinase 41 L CK-MB (CK-2) 2.17 Troponin I 0.025 NT-Pro-B Natriuret Pep 2660 H 04/01/19 04/01/19 04/01/19 05:23 05:23 12:33 Creatine Kinase 41 L 50 L CK-MB (CK-2) 2.08 Troponin I 0.024 NT-Pro-B Natriuret Pep 04/01/19 12:33 Creatine Kinase CK-MB (CK-2) 3.09 Troponin I 0.017 NT-Pro-B Natriuret Pep Impressions: Renal Ultrasound 03/31/19 00:00 IMPRESSION: Normal study. Head CT 03/31/19 16:46 IMPRESSION: 1. No acute intracranial hemorrhage, mass, or evidence of acute territorial infarct. 2. Mild chronic small vessel ischemic change and intracranial atherosclerosis. EVIDENCE OF ACUTE STROKE: NO. Venous Doppler Study 03/31/19 19:28 IMPRESSION: No DVT is identified. Head MRI 04/06/19 00:00 IMPRESSION: MILD CHRONIC MICROVASCULAR ISCHEMIC CHANGE. 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 NO ACUTE FINDINGS. EVIDENCE OF ACUTE STROKE: NO. Abdomen/Pelvis CT 04/11/19 00:00 IMPRESSION: 1. Abnormal bowel gas pattern suggestive of partial bowel obstruction. This appears to be at the level of the left inguinal hernia which contains a loop of colon. 2. 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 Abdomen X-Ray 04/12/19 07:00 IMPRESSION: Nonspecific gas pattern. KUB X-Ray 04/14/19 00:00 IMPRESSION: NO RADIOGRAPHIC EVIDENCE FOR ACUTE ABDOMINAL DISEASE. Assessment & Plan - Diagnosis (1) Hypertensive urgency Is this a current diagnosis for this admission?: Yes Plan: Currently in the lower range discontinues to several medications continues to IV fluid (2) Schizophrenia Qualifiers: Qualified Code(s): F20.9 - Schizophrenia, unspecified Is this a current diagnosis for this admission?: Yes (3) CKD stage 3 due to type 2 diabetes mellitus Is this a current diagnosis for this admission?: Yes Plan: Worsening the kidney function as per discussed with the Dr. Goodwin continues to IV fluid through the weekends (4) Gastritis Qualifiers: Qualified Code(s): K29.00 - Acute gastritis without bleeding Is this a current diagnosis for this admission?: Yes (5) Cerebrovascular disease Is this a current diagnosis for this admission?: Yes (6) Hypoglycemia Is this a current diagnosis for this admission?: Yes (7) Diabetes mellitus type 2 in nonobese Is this a current diagnosis for this admission?: Yes - Time Time Spent with patient: 15-24 minutes Level of Care: TELE Medications reviewed and adjusted accordingly: Yes Anticipated discharge: Other Within: Other - Plan Summary Plan Summary: We will check the lactic acids while the patient's white count is elevated Continues to Cipro Recheck the stool
--- NOTE | 2019-04-15 11:31 | RADIOLOGY REPORT (SQ) ---
EXAM DESCRIPTION: CHEST SINGLE VIEW COMPLETED DATE/TIME: 04/15/2019 10:01 am REASON FOR STUDY: cough COMPARISON: None. EXAM PARAMETERS: NUMBER OF VIEWS: One view. TECHNIQUE: Single frontal radiographic view of the chest acquired. RADIATION DOSE: NA LIMITATIONS: None. FINDINGS: LUNGS AND PLEURA: No opacities, masses or pneumothorax. No pleural effusion. MEDIASTINUM AND HILAR STRUCTURES: No masses. Contour normal. HEART AND VASCULAR STRUCTURES: Heart normal in size. Normal vasculature. BONES: No acute findings. HARDWARE: None in the chest. OTHER: No other significant finding. IMPRESSION: NO ACUTE RADIOGRAPHIC FINDING IN THE CHEST. TECHNICAL DOCUMENTATION: JOB ID: [id number] 2010 [employer]- All Rights Reserved Reading location - IP/workstation name: [email or web address]
[2019-04-15] MEDS: NORMAL SALINE 1000 ML 1,000 ML IV PRN (14:04)
--- NOTE | 2019-04-15 18:30 | Progress Note ---
Provider Note Provider Note: Is reviewing the patient's labs patient's stool guaiac is positive and reviewing the last patient's chart patient in January have endoscopy done and discussed with the Dr. Sewell today general surgery regarding the guaiac stool positive and see may be needed patient need a colonoscopy or not and Dr. Sewell suggest the hemoglobin is currently stable and and thinks you need a colonoscopy right now needs to continue to monitor We will follow-up with the nephrology about this metabolic acidosis currently on a sodium bicarb The CT scan of the abdomen and pelvis Still waiting for the C. difficile
[2019-04-15] MEDS ORDERED: NORMAL SALINE 1000 ML 1,000 ML IV PRN (18:44)
--- NOTE | 2019-04-15 19:02 | Progress Note ---
Provider Note Provider Note: Patient seen and examined again at 7:00 Patient is alert awake oriented denied any complaint Patient still having some loose stool No blood in the stools Patient's denied any abdominal pain no nausea no vomiting Discussed with the Dr. Goodwin regarding the current patient's kidney functions suggest to start the bicarb drip with the CO2 is low Patient's lactic acid is 0.8 no fever no chills chest x-ray is negative recent blood culture urine culture is also negative We will get the ABG We will get the CT scan of the abdomen pelvis repeat again We will get the echocardiogram We will do some sepsis work-up again As per discussed with the Dr. Goodwin increase the IV fluid to 150 cc and at the bicarb drips Discussed with the nursing staff Patient is currently denied any complaints
[2019-04-15 19:13] LABS: ARTERIAL BLOOD BASE EXCESS -10.3 mmol/L; ARTERIAL BLOOD H2CO3 0.92 mmol/L (1.05-1.35); ARTERIAL BLOOD HCO3 14.8 mmol/L (20-24); ARTERIAL BLOOD O2 SATURATION 96.8 % (94-98); ARTERIAL BLOOD PCO2 30.6 mmHg (35-45); ARTERIAL BLOOD TOTAL CO2 15.8 mmol/L (23-27)
[2019-04-15 19:14] LABS: ARTERIAL BLOOD FIO2 ROOM AIR
[2019-04-15 20:01] LABS: C DIFFICILE GDH NEGATIVE (NEGATIVE)
[2019-04-15] MEDS: ATORVASTATIN CALCIUM 40 MG TABLET PO SCH (21:34)
[2019-04-15] MEDS: FAMOTIDINE 20 MG TABLET PO SCH (21:34)
[2019-04-15] MEDS: ASPIRIN 81 MG TABLET, CHEWABLE PO SCH (21:35)
[2019-04-15] MEDS ORDERED: SODIUM BICARBONATE 8.4% INJ 50 MEQ/50 ML DISP.SYRIN ONE (23:03)
[2019-04-15] MEDS: METRONIDAZOLE 500 MG/NS RTU 500 MG/100 ML RTUPB IV SCH (23:30)
[2019-04-15] MEDS: DEXTROSE 5%-WATER 1000 ML 1,000 ML with SODIUM BICARBONATE 50 MEQ IV PRN ×2 (23:32)
--- NOTE | 2019-04-15 23:43 | XCELERA REPORT ---
[address] [address] Transthoracic Echocardiogram Report Name: QUANG VELAZQUEZ Age: 63 yrs Gender: Male : 1955 Patient Status: [facility] Study Date: 04/15/2019 10:24 PM Height: 71 in Weight: 160 lb BSA: 1.9 m2 Procedure: A complete two-dimensional transthoracic echocardiogram was performed (2D, M-mode, spectral and color flow Doppler). The study was technically adequate with some images being suboptimal in quality. Reason For Study: sepsis Ordering Physician: POOJA TAYLOR Performed By: Odalis Martínez Interpretation Summary The left ventricular ejection fraction is within normal limits. There is borderline concentric left ventricular hypertrophy. The left ventricle is grossly normal size. Doppler measurements suggest pseudonormalized left ventricular relaxation, which is associated with grade II/IV or mild to moderate diastolic dysfunction Wall motion cannot be accurately commented on, but no definite regional wall motion abnormalities noted. The right ventricular systolic function is normal. Borderline left atrial enlargement. The right atrium is normal in size There is a trace amount of mitral regurgitation There is no mitral valve stenosis. There is a trace amount of aortic regurgitation There is no aortic valve stenosis Tricuspid regurgitation jet envelope not well defined to measure RV systolic pressure accurately. There is a trace to mild amount of tricuspid regurgitation There is no tricuspid stenosis. The aortic root is not well visualized but is probably normal size. The inferior vena cava appeared normal and decreased > 50% with respiration (RAP 5-10 mmHg) There is no pericardial effusion. MMode/2D Measurements & Calculations RVDd: 3.7 cm LVIDd: 4.4 cm FS: 24.9 % Ao root diam: 3.2 cm IVSd: 1.2 cm LVIDs: 3.3 cm EDV(Teich): 89.4 ml Ao root area: 8.2 cm2 LVPWd: 1.2 cm ESV(Teich): 45.1 ml LA dimension: 4.0 cm EF(Teich): 49.5 % Doppler Measurements & Calculations MV E max pawan: MV P1/2t max pawan: Ao V2 max: LV V1 max P.8 cm/sec 107.0 cm/sec 180.7 cm/sec 5.7 mmHg MV A max pawan: MV P1/2t: 82.4 msec Ao max PG: LV V1 max: 100.2 cm/sec MVA(P1/2t): 2.7 cm2 13.1 mmHg 119.4 cm/sec MV E/A: 0.90 MV dec slope: 380.5 cm/sec2 MV dec time: 0.28 sec PA V2 max: MV P1/2t-pr_phl: 66.6 cm/sec 82.4 msec PA max P.8 mmHg Left Ventricle The left ventricle is grossly normal size. There is borderline concentric left ventricular hypertrophy. The left ventricular ejection fraction is within normal limits. Doppler measurements suggest pseudonormalized left ventricular relaxation, which is associated with grade II/IV or mild to moderate diastolic dysfunction. Wall motion cannot be accurately commented on, but no definite regional wall motion abnormalities noted. Right Ventricle The right ventricle is grossly normal size. The right ventricular systolic function is normal. Atria The right atrium is normal in size. Borderline left atrial enlargement. Mitral Valve The mitral valve leaflets are sclerotic, but show no functional abnormalities. There is no mitral valve stenosis. There is a trace amount of mitral regurgitation. Aortic Valve The aortic valve is sclerotic, but shows no functional abnormality. The aortic valve is mildly calcified. There is no aortic valve stenosis. There is a trace amount of aortic regurgitation. Tricuspid Valve The tricuspid valve is not well visualized secondary to technical limitations. There is no tricuspid stenosis. There is a trace to mild amount of tricuspid regurgitation. Tricuspid regurgitation jet envelope not well defined to measure RV systolic pressure accurately. Pulmonic Valve The pulmonic valve is not well visualized. Great Vessels The aortic root is not well visualized but is probably normal size. The inferior vena cava appeared normal and decreased > 50% with respiration (RAP 5-10 mmHg). Effusions There is no pericardial effusion. : POOJA TAYLOR Shyamal
[2019-04-16] MEDS: CIPROFLOXACIN 200 MG/D5W RTU 200 MG/100 ML RTUPB IV SCH ×2 (02:31→21:48)
[2019-04-16 06:10] LABS: ABSOLUTE BASOPHILS # (AUTO) 0.1 10^3/uL (0.0-0.2); ABSOLUTE EOSINOPHILS # (AUTO) 1.2 10^3/uL (0.0-0.6); ABSOLUTE LYMPHOCYTES (AUTO) 1.4 10^3/uL (0.5-4.7); ABSOLUTE MONOCYTES (AUTO) 1.4 10^3/uL (0.1-1.4); ABSOLUTE NEUT (AUTO) 7.7 10^3/uL (1.7-8.2); BASOPHILS % (AUTO) 1.1 % (0-2); EOSINOPHILS % (AUTO) 10.2 % (0-6); HEMATOCRIT 32.8 % (37.9-51.0); LYMPHOCYTES % (AUTO) 11.5 % (13-45); MEAN CORPUSCULAR HGB CONC 33.5 g/dL (32.0-36.0); MEAN CORPUSCULAR VOLUME 87 fl (80-97); MONOCYTES % (AUTO) 12.3 % (3-13); PLATELET COUNT 393 10^3/uL (150-450); RED BLOOD COUNT 3.79 10^6/uL (4.35-5.55); RED CELL DISTRIBUTION WIDTH 16.5 % (11.5-14.0); SEGMENTED NEUTROPHILS % (AUTO) 64.9 % (42-78); TOTAL CELLS COUNTED % (AUTO) 100 %; WHITE BLOOD COUNT 11.8 10^3/uL (4.0-10.5)
[2019-04-16] MEDS: METRONIDAZOLE 500 MG/NS RTU 500 MG/100 ML RTUPB IV SCH ×4 (06:10→23:37)
[2019-04-16 06:34] LABS: ANION GAP 8 (5-19); BLOOD UREA NITROGEN 61 mg/dL (7-20); CARBON DIOXIDE 14 mmol/L (22-30); CHLORIDE 116 mmol/L (98-107); GLUCOSE 112 mg/dL (75-110); POTASSIUM 4.1 mmol/L (3.6-5.0)
--- NOTE | 2019-04-16 07:32 | RADIOLOGY REPORT (SQ) ---
CT ABDOMEN AND PELVIS WITHOUT INTRAVENOUS CONTRAST: 04/16/2019 6:28 AM CLINICAL CARE LEADER HISTORY: 63-year old with abdominal pain. COMPARISON: CT of abdomen and pelvis from 04/11/2019 TECHNIQUE: Axial contiguous images were obtained from the lung bases to the proximal femurs without oral or intravenous contrast administered. Sagittal and coronal reconstructions were also obtained and reviewed. This exam was performed according to our departmental dose-optimization program, which includes automated exposure control, adjustment of the mA and/or KV according to the patient's size and/or use of iterative reconstruction technique. FINDINGS: The lung bases appear clear without evidence of a focal consolidative airspace opacity or effusions. Evaluation of the solid organs is limited by the lack of intravenous contrast. The visualized hepatic parenchyma is unremarkable. There is increased density within the gallbladder lumen which is likely due to sludge or punctate cholelithiasis. The spleen, pancreas, and adrenals are normal in size and contour. The kidneys demonstrate no evidence of hydronephrosis. Renal vascular calcifications are seen. Bladder is minimally distended, but grossly appears unremarkable. There is a large left inguinal hernia containing portions of the colon. The stomach is moderately distended. There is mild prominence of the small bowel without evidence for gross transition point. This could reflect evidence of an ileus or enteritis. No pericolonic inflammatory stranding is seen. The appendix appears unremarkable. There is no evidence of pneumoperitoneum or free fluid. The aorta and IVC appear normal in size. There is moderate atherosclerotic calcification of the aorta and into the iliac arteries. No significantly enlarged lymph nodes are seen in the abdomen or pelvis. Review of the bone show no evidence of any suspicious lytic or blastic lesions. IMPRESSION: There is a left inguinal hernia containing portions of the bowel, similar to prior imaging. Mild gaseous distention of the small bowel and colon is seen which could reflect an ileus or enteritis. This is similar to prior imaging. A low-grade obstruction is not fully excluded.
[2019-04-16] MEDS ORDERED: CALCIUM GLUCONATE 1 GM/NS 50 ML RTU IV ONE (08:00)
[2019-04-16] MEDS: INSULIN REG, HUMAN 100 UNIT/ML 3 ML VIAL (PYX) SUBCUT SCH ×3 (08:25→17:30)
--- NOTE | 2019-04-16 10:05 | PDOC PROGRESS REPORT ---
Subjective Progress Note for:: 04/16/19 Subjective:: Patient is currently doing better After increase the IV fluid adding the sodium bicarb patient's kidney function is also improving Patient echocardiogram is all stable patient CT abdomen and pelvis suggest the questionable enteritis ileus Reason For Visit: HYPERTENSIVE EMERGENCY Physical Exam Vital Signs: Temp Pulse Resp BP Pulse Ox 98.4 F 65 17 106/59 L 98 04/16/19 08:00 04/16/19 08:00 04/16/19 08:00 04/16/19 08:00 04/16/19 08:00 Intake & Output 04/15/19 04/16/19 04/17/19 06:59 06:59 06:59 Intake Total 1998 2734 100 Output Total 350 1850 Balance 1649 884 100 Weight 72.8 kg 74.3 kg General appearance: PRESENT: no acute distress, well-developed, well-nourished Head exam: PRESENT: atraumatic, normocephalic Eye exam: PRESENT: conjunctiva pink, EOMI, PERRLA. ABSENT: scleral icterus Ear exam: PRESENT: normal external ear exam Mouth exam: PRESENT: moist, tongue midline Neck exam: PRESENT: full ROM. ABSENT: carotid bruit, JVD, lymphadenopathy, thyromegaly Respiratory exam: PRESENT: clear to auscultation lyn Cardiovascular exam: PRESENT: RRR. ABSENT: diastolic murmur, rubs, systolic murmur Pulses: PRESENT: normal dorsalis pedis pul, +2 pedal pulses bilateral Vascular exam: PRESENT: normal capillary refill GI/Abdominal exam: PRESENT: normal bowel sounds, soft. ABSENT: distended, guarding, mass, organolmegaly, rebound, tenderness Rectal exam: PRESENT: deferred Neurological exam: PRESENT: alert, awake, oriented to person, oriented to place, oriented to time, oriented to situation, CN II-XII grossly intact. ABSENT: motor sensory deficit Psychiatric exam: PRESENT: appropriate affect, normal mood. ABSENT: homicidal ideation, suicidal ideation Skin exam: PRESENT: dry, intact, warm. ABSENT: cyanosis, rash Results Laboratory Results: 04/16/19 05:53 04/16/19 05:53 04/15/19 04/15/19 04/15/19 09:52 16:10 19:09 WBC RBC Hgb Hct MCV MCH MCHC RDW Plt Count Seg Neutrophils % Carbonic Acid 0.92 L HCO3/H2CO3 Ratio 16:1 ABG pH 7.30 L ABG pCO2 30.6 L ABG pO2 96.0 ABG HCO3 14.8 L ABG O2 Saturation 96.8 ABG Base Excess -10.3 FiO2 ROOM AIR Sodium Potassium Chloride Carbon Dioxide Anion Gap BUN Creatinine Est GFR ( Amer) Glucose Lactic Acid 0.8 Calcium Stool Occult Blood POSITIVE 04/16/19 04/16/19 04/16/19 05:53 05:53 05:53 WBC 11.8 H RBC 3.79 L Hgb 11.0 L Hct 32.8 L MCV 87 MCH 29.0 MCHC 33.5 RDW 16.5 H Plt Count 393 Seg Neutrophils % 64.9 Carbonic Acid HCO3/H2CO3 Ratio ABG pH ABG pCO2 ABG pO2 ABG HCO3 ABG O2 Saturation ABG Base Excess FiO2 Sodium 138.1 Potassium 4.1 Chloride 116 H Carbon Dioxide 14 L Anion Gap 8 BUN 61 H Creatinine 3.05 H Est GFR ( Amer) 25 L Glucose 112 H Lactic Acid 0.8 Calcium 7.0 L* Stool Occult Blood 04/12/19 10:11 Stool - Stool - Final 04/12/19 10:11 Stool - Stool Stool Culture - Final Yeast, Not Sherie Albicans 03/31/19 03/31/19 03/31/19 23:14 23:14 23:14 Creatine Kinase 41 L CK-MB (CK-2) 2.17 Troponin I 0.025 NT-Pro-B Natriuret Pep 2660 H 04/01/19 04/01/19 04/01/19 05:23 05:23 12:33 Creatine Kinase 41 L 50 L CK-MB (CK-2) 2.08 Troponin I 0.024 NT-Pro-B Natriuret Pep 04/01/19 12:33 Creatine Kinase CK-MB (CK-2) 3.09 Troponin I 0.017 NT-Pro-B Natriuret Pep Impressions: Renal Ultrasound 03/31/19 00:00 IMPRESSION: Normal study. Head CT 03/31/19 16:46 IMPRESSION: 1. No acute intracranial hemorrhage, mass, or evidence of acute territorial infarct. 2. Mild chronic small vessel ischemic change and intracranial atherosclerosis. EVIDENCE OF ACUTE STROKE: NO. Venous Doppler Study 03/31/19 19:28 IMPRESSION: No DVT is identified. Head MRI 04/06/19 00:00 IMPRESSION: MILD CHRONIC MICROVASCULAR ISCHEMIC CHANGE. 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 NO ACUTE FINDINGS. EVIDENCE OF ACUTE STROKE: NO. Abdomen X-Ray 04/12/19 07:00 IMPRESSION: Nonspecific gas pattern. KUB X-Ray 04/14/19 00:00 IMPRESSION: NO RADIOGRAPHIC EVIDENCE FOR ACUTE ABDOMINAL DISEASE. Abdomen/Pelvis CT 04/15/19 00:00 IMPRESSION: There is a left inguinal hernia containing portions of the bowel, similar to prior imaging. Mild gaseous distention of the small bowel and colon is seen which could reflect an ileus or enteritis. This is similar to prior imaging. A low-grade obstruction is not fully excluded. Chest X-Ray 04/15/19 00:00 IMPRESSION: NO ACUTE RADIOGRAPHIC FINDING IN THE CHEST. Assessment & Plan - Diagnosis (1) Hypertensive urgency Is this a current diagnosis for this admission?: Yes (2) Schizophrenia Qualifiers: Qualified Code(s): F20.9 - Schizophrenia, unspecified Is this a current diagnosis for this admission?: Yes (3) CKD stage 3 due to type 2 diabetes mellitus Is this a current diagnosis for this admission?: Yes (4) Gastritis Qualifiers: Qualified Code(s): K29.00 - Acute gastritis without bleeding Is this a current diagnosis for this admission?: Yes (5) Cerebrovascular disease Is this a current diagnosis for this admission?: Yes (6) Hypoglycemia Is this a current diagnosis for this admission?: Yes (7) Diabetes mellitus type 2 in nonobese Is this a current diagnosis for this admission?: Yes - Time Time Spent with patient: 25-34 minutes Level of Care: TELE Medications reviewed and adjusted accordingly: Yes Anticipated discharge: Other Within: Other - Plan Summary Plan Summary: Most likely metabolic acidosis Patient ABG with PCO2 is normal pH was 7.[address] scan abdomen pelvis Discussed with the Dr. Sewell no need for any colonoscopy right now Patient's white count is improving after adding the Flagyl Continues to follow with the nephrology Echocardiogram report is reviewed pt Currently denied any complaints
--- NOTE | 2019-04-16 10:45 | PDOC CONSULTATION ---
Consultation Consult Date: 04/16/19 Attending physician:: BI TAYLOR Provider Consulted: MADIHA ALEXANDER Consult reason:: Anemia, renal failure, positive stools History of Present Illness Admission Date/PCP: 03/31/19 19:46 POOJA TAYLOR MD History of Present Illness: QUANG VELAZQUEZ is a 63 year old male Hospitalized for 3 weeks and also more hospital for failure to thrive, rest of renal failure, and diarrhea. Surgery has been consulted multiple times for various abdominal issues, including a GI bleed, left inguinal hernia, chronically incarcerated. Patient has had progressive renal failure, etiology unclear. Dr. Taylor is concerned about a chronic GI bleed the need for repeat colonoscopy. At bedside patient just ate a massive breakfast, feels fine has no abdominal complaints. Past Medical History Cardiac Medical History: Reports: Hypertension Pulmonary Medical History: Reports: Pneumonia Neurological Medical History: Denies: Seizures Endocrine Medical History: Reports: Diabetes Mellitus Type 2 Renal/ Medical History: Reports: Chronic Kidney Disease, End Stage Renal Disease Musculoskeltal Medical History: Reports: Arthritis Psychiatric Medical History: Reports: Bipolar Disorder, Schizoaffective Disorder Hematology: Reports: Anemia Past Surgical History Past Surgical History: Reports: Orthopedic Surgery - Bilateral knee laparoscopies Social History Lives with: Alone Smoking Status: Current Every Day Smoker Frequency of Alcohol Use: None Hx Recreational Drug Use: No Drugs: None Hx Prescription Drug Abuse: No Family History Family History: Reviewed & Not Pertinent Parental Family History Reviewed: No Children Family History Reviewed: No Sibling(s) Family History Reviewed.: No Medication/Allergy Home Medications: Amlodipine Besylate [Norvasc 10 mg Tablet] 10 mg PO DAILY 03/31/19 Aspirin [Aspirin 81 mg Chewable Tablet] 81 mg PO QHS #30 tab.chew 04/10/19 Atorvastatin Calcium [Lipitor 40 mg Tablet] 40 mg PO QHS #30 tablet 04/10/19 Carvedilol [Coreg 12.5 mg Tablet] 12.5 mg PO Q12 #60 tablet 04/10/19 Famotidine [Pepcid 20 mg Tablet] 20 mg PO QHS #60 tablet 04/10/19 Glipizide [Glucotrol Xl 2.5 mg Tab.er] 2.5 mg PO BIDACBS #60 tab.er.24 04/10/19 Losartan Potassium [Cozaar 50 mg Tablet] 50 mg PO DAILY #30 tablet 04/10/19 Patiromer Calcium Sorbitex [Veltassa 8.4 gm Susp Packet] 8.4 gm PO WSUPPER #15 packet 04/10/19 Sodium Bicarbonate [Sodium Bicarbonate 650 mg Tablet] 650 mg PO Q12 #60 tablet 04/10/19 Allergies/Adverse Reactions: Penicillins Allergy (Verified 03/21/19 10:54) Review of Systems ROS unobtainable: Due to mental status - Patient is pleasantly demented Physical Exam Vital Signs: Temp Pulse Resp BP Pulse Ox 98.4 F 65 17 106/59 L 98 04/16/19 08:00 04/16/19 08:00 04/16/19 08:00 04/16/19 08:00 04/16/19 08:00 Intake & Output 04/15/19 04/16/19 04/17/19 06:59 06:59 06:59 Intake Total 1999 2734 100 Output Total 350 1850 Balance 1649 884 100 Weight 72.8 kg 74.3 kg General appearance: PRESENT: no acute distress Eye exam: PRESENT: EOMI Mouth exam: PRESENT: dry mucosa Respiratory exam: PRESENT: rhonchi Cardiovascular exam: PRESENT: RRR GI/Abdominal exam: PRESENT: other - Abdomen examined, soft, nontender no peritoneal signs no rigidity; left inguinal hernia, moderate sized, partially incarcerated. Rectal exam: PRESENT: deferred Gentrourinary exam: PRESENT: indwelling catheter Extremities exam: PRESENT: +1 edema Musculoskeletal exam: PRESENT: other - Patient at bedrest Neurological exam: PRESENT: oriented to place Results Laboratory Results: 04/16/19 05:53 04/16/19 05:53 04/15/19 04/15/19 04/16/19 16:10 19:09 05:53 WBC RBC Hgb Hct MCV MCH MCHC RDW Plt Count Seg Neutrophils % Carbonic Acid 0.92 L HCO3/H2CO3 Ratio 16:1 ABG pH 7.30 L ABG pCO2 30.6 L ABG pO2 96.0 ABG HCO3 14.8 L ABG O2 Saturation 96.8 ABG Base Excess -10.3 FiO2 ROOM AIR Sodium 138.1 Potassium 4.1 Chloride 116 H Carbon Dioxide 14 L Anion Gap 8 BUN 61 H Creatinine 3.05 H Est GFR ( Amer) 25 L Glucose 112 H Lactic Acid Calcium 7.0 L* Stool Occult Blood POSITIVE 04/16/19 04/16/19 05:53 05:53 WBC 11.8 H RBC 3.79 L Hgb 11.0 L Hct 32.8 L MCV 87 MCH 29.0 MCHC 33.5 RDW 16.5 H Plt Count 393 Seg Neutrophils % 64.9 Carbonic Acid HCO3/H2CO3 Ratio ABG pH ABG pCO2 ABG pO2 ABG HCO3 ABG O2 Saturation ABG Base Excess FiO2 Sodium Potassium Chloride Carbon Dioxide Anion Gap BUN Creatinine Est GFR ( Amer) Glucose Lactic Acid 0.8 Calcium Stool Occult Blood 04/12/19 10:11 Stool - Stool - Final 04/12/19 10:11 Stool - Stool Stool Culture - Final Yeast, Not Sherie Albicans 03/31/19 03/31/19 03/31/19 23:14 23:14 23:14 Creatine Kinase 41 L CK-MB (CK-2) 2.17 Troponin I 0.025 NT-Pro-B Natriuret Pep 2660 H 04/01/19 04/01/19 04/01/19 05:23 05:23 12:33 Creatine Kinase 41 L 50 L CK-MB (CK-2) 2.08 Troponin I 0.024 NT-Pro-B Natriuret Pep 04/01/19 12:33 Creatine Kinase CK-MB (CK-2) 3.09 Troponin I 0.017 NT-Pro-B Natriuret Pep Impressions: Renal Ultrasound 03/31/19 00:00 IMPRESSION: Normal study. Head CT 03/31/19 16:46 IMPRESSION: 1. No acute intracranial hemorrhage, mass, or evidence of acute territorial infarct. 2. Mild chronic small vessel ischemic change and intracranial atherosclerosis. EVIDENCE OF ACUTE STROKE: NO. Venous Doppler Study 03/31/19 19:28 IMPRESSION: No DVT is identified. Head MRI 04/06/19 00:00 IMPRESSION: MILD CHRONIC MICROVASCULAR ISCHEMIC CHANGE. 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 NO ACUTE FINDINGS. EVIDENCE OF ACUTE STROKE: NO. Abdomen X-Ray 04/12/19 07:00 IMPRESSION: Nonspecific gas pattern. KUB X-Ray 04/14/19 00:00 IMPRESSION: NO RADIOGRAPHIC EVIDENCE FOR ACUTE ABDOMINAL DISEASE. Abdomen/Pelvis CT 04/15/19 00:00 IMPRESSION: There is a left inguinal hernia containing portions of the bowel, similar to prior imaging. Mild gaseous distention of the small bowel and colon is seen which could reflect an ileus or enteritis. This is similar to prior imaging. A low-grade obstruction is not fully excluded. Chest X-Ray 04/15/19 00:00 IMPRESSION: NO ACUTE RADIOGRAPHIC FINDING IN THE CHEST. Assessment & Plan - Diagnosis (1) Anemia in chronic kidney disease (CKD) Qualifiers: Chronic kidney disease stage: stage 3 (moderate) Qualified Code(s): N18.3 - Chronic kidney disease, stage 3 (moderate); D63.1 - Anemia in chronic kidney disease Is this a current diagnosis for this admission?: Yes Plan: Impression: Creatinine stabilizing; no medical evidence of GI bleeding, despite heme positive stool. C. difficile titer is negative. Patient tolerating regular diet without any complaints. Recommendations: 1. I would adopt a nonaggressive, cautious approach to patients gastrointestinal issues. Kidney function appears to be recovering. Continue medical management with hydration. 2. No indication for surgical intervention regarding left inguinal hernia 3. Surgery will sign off; reconsult if clinically indicated. (2) Cerebrovascular disease Is this a current diagnosis for this admission?: Yes (3) Left inguinal hernia Is this a current diagnosis for this admission?: Yes (4) Schizophrenia Qualifiers: Schizophrenia type: unspecified Qualified Code(s): F20.9 - Schizophrenia, unspecified Is this a current diagnosis for this admission?: Yes (5) Left lower lobe pneumonia Qualifiers: Pneumonia type: due to unspecified organism Is this a current diagnosis for this admission?: Yes - Time Time Spent: 30 to 50 Minutes Smoking Cessation Education: 3 to 10 minutes Medications reviewed and adjusted accordingly: Yes Anticipated discharge: Home
--- NOTE | 2019-04-16 11:55 | EKG REPORT ---
SEVERITY:- NORMAL ECG - SINUS RHYTHM : Confirmed by: Madalyn Walker 16-Apr-2019 11:54:59
[2019-04-16] MEDS: ASPIRIN 81 MG TABLET, CHEWABLE PO SCH (21:48)
[2019-04-16] MEDS: ATORVASTATIN CALCIUM 40 MG TABLET PO SCH (21:48)
[2019-04-16] MEDS: FAMOTIDINE 20 MG TABLET PO SCH (21:48)
[2019-04-16] MEDS ORDERED: SODIUM BICARBONATE 8.4% INJ 50 MEQ/50 ML DISP.SYRIN ONE (22:15)
[2019-04-16] MEDS: DEXTROSE 5%-WATER 1000 ML 1,000 ML with SODIUM BICARBONATE 50 MEQ IV PRN ×2 (22:20)
--- NOTE | 2019-04-16 23:29 | PDOC CONSULTATION ---
Consultation Consult Date: 04/16/19 Attending physician:: POOJA TAYLOR Provider Consulted: MARIXA CORRAL Consult reason:: Evaluate for CHF, sepsis, evaluate for endocarditis History of Present Illness Admission Date/PCP: 03/31/19 19:46 POOJA TAYLOR MD Patient complains of: Generalized weakness History of Present Illness: QUANG VELAZQUEZ is a 63 year old male, who was admitted few weeks ago with generalized weakness and elevated blood pressure. There was some concern about congestive heart failure and possible endocarditis. I was therefore asked to evaluate patient. A 2D echocardiogram was performed which did not show any obvious vegetation. Blood cultures so far has been negative. Patient noted to be comfortable. On questioning he denied any chest pain or shortness of breath. He also denied any prior myocardial infarction. His EKG is noted to be unremarkable. It is noted that patient has dementia and therefore history may not be adequate or accurate. Past Medical History Cardiac Medical History: Reports: Hypertension Pulmonary Medical History: Reports: Pneumonia Neurological Medical History: Denies: Seizures Endocrine Medical History: Reports: Diabetes Mellitus Type 2 Renal/ Medical History: Reports: Chronic Kidney Disease, End Stage Renal Disease Musculoskeltal Medical History: Reports: Arthritis Psychiatric Medical History: Reports: Bipolar Disorder, Schizoaffective Disorder Hematology: Reports: Anemia Past Surgical History Past Surgical History: Reports: Orthopedic Surgery - Bilateral knee laparoscopies Social History Information Source: Patient Lives with: Alone Smoking Status: Current Every Day Smoker Frequency of Alcohol Use: None Hx Recreational Drug Use: No Drugs: None Hx Prescription Drug Abuse: No Family History Family History: Reviewed & Not Pertinent Parental Family History Reviewed: No Children Family History Reviewed: No Sibling(s) Family History Reviewed.: No - Family history not available from patient Medication/Allergy Home Medications: Amlodipine Besylate [Norvasc 10 mg Tablet] 10 mg PO DAILY 03/31/19 Aspirin [Aspirin 81 mg Chewable Tablet] 81 mg PO QHS #30 tab.chew 04/10/19 Atorvastatin Calcium [Lipitor 40 mg Tablet] 40 mg PO QHS #30 tablet 04/10/19 Carvedilol [Coreg 12.5 mg Tablet] 12.5 mg PO Q12 #60 tablet 04/10/19 Famotidine [Pepcid 20 mg Tablet] 20 mg PO QHS #60 tablet 04/10/19 Glipizide [Glucotrol Xl 2.5 mg Tab.er] 2.5 mg PO BIDACBS #60 tab.er.24 04/10/19 Losartan Potassium [Cozaar 50 mg Tablet] 50 mg PO DAILY #30 tablet 04/10/19 Patiromer Calcium Sorbitex [Veltassa 8.4 gm Susp Packet] 8.4 gm PO WSUPPER #15 packet 04/10/19 Sodium Bicarbonate [Sodium Bicarbonate 650 mg Tablet] 650 mg PO Q12 #60 tablet 04/10/19 Allergies/Adverse Reactions: Penicillins Allergy (Verified 03/21/19 10:54) Review of Systems Constitutional: ABSENT: chills, fever(s), headache(s), weight gain, weight loss Eyes: ABSENT: visual disturbances Ears: ABSENT: hearing changes Cardiovascular: ABSENT: chest pain, dyspnea on exertion, edema, orthropnea, palpitations Respiratory: ABSENT: cough, hemoptysis Gastrointestinal: ABSENT: abdominal pain, constipation, diarrhea, hematemesis, hematochezia, nausea, vomiting Genitourinary: ABSENT: dysuria, hematuria Musculoskeletal: ABSENT: joint swelling Integumentary: ABSENT: rash, wounds Neurological: ABSENT: abnormal gait, abnormal speech, confusion, dizziness, focal weakness, syncope Psychiatric: ABSENT: anxiety, depression, homidical ideation, suicidal ideation Endocrine: ABSENT: cold intolerance, heat intolerance, polydipsia, polyuria Hematologic/Lymphatic: ABSENT: easy bleeding, easy bruising Physical Exam Vital Signs: Temp Pulse Resp BP Pulse Ox 97.5 F 63 17 109/67 100 04/16/19 15:23 04/16/19 15:23 04/16/19 15:23 04/16/19 15:23 04/16/19 15:23 Intake & Output 04/15/19 04/16/19 04/17/19 06:59 06:59 06:59 Intake Total 19987 1558 Output Total 350 1850 1000 Balance 1649 884 558 Weight 72.8 kg 74.3 kg General appearance: PRESENT: no acute distress, well-developed, well-nourished Head exam: PRESENT: atraumatic, normocephalic Eye exam: PRESENT: conjunctiva pink, EOMI, PERRLA. ABSENT: scleral icterus Ear exam: PRESENT: normal external ear exam Mouth exam: PRESENT: moist, tongue midline Neck exam: ABSENT: carotid bruit, JVD, lymphadenopathy, thyromegaly Respiratory exam: PRESENT: clear to auscultation lyn. ABSENT: rales, rhonchi, wheezes Cardiovascular exam: PRESENT: RRR, +S1, +S2, systolic murmur - 2/6 ejection mu rmur noted in the aortic area. ABSENT: diastolic murmur, rubs Pulses: PRESENT: normal dorsalis pedis pul Vascular exam: PRESENT: normal capillary refill GI/Abdominal exam: PRESENT: normal bowel sounds, soft. ABSENT: distended, guarding, mass, organolmegaly, rebound, tenderness Rectal exam: PRESENT: deferred Extremities exam: PRESENT: full ROM. ABSENT: calf tenderness, clubbing, pedal edema Neurological exam: PRESENT: alert, awake, oriented to person, oriented to place, oriented to time, oriented to situation, CN II-XII grossly intact. ABSENT: motor sensory deficit Psychiatric exam: PRESENT: appropriate affect, normal mood, other - Patient has dementia. ABSENT: homicidal ideation, suicidal ideation Skin exam: PRESENT: dry, intact, warm. ABSENT: cyanosis, rash Results Laboratory Results: 04/16/19 05:53 04/16/19 05:53 04/16/19 04/16/19 04/16/19 05:53 05:53 05:53 WBC 11.8 H RBC 3.79 L Hgb 11.0 L Hct 32.8 L MCV 87 MCH 29.0 MCHC 33.5 RDW 16.5 H Plt Count 393 Seg Neutrophils % 64.9 Sodium 138.1 Potassium 4.1 Chloride 116 H Carbon Dioxide 14 L Anion Gap 8 BUN 61 H Creatinine 3.05 H Est GFR ( Amer) 25 L Glucose 112 H Lactic Acid 0.8 Calcium 7.0 L* 03/31/19 03/31/19 03/31/19 23:14 23:14 23:14 Creatine Kinase 41 L CK-MB (CK-2) 2.17 Troponin I 0.025 NT-Pro-B Natriuret Pep 2660 H 04/01/19 04/01/19 04/01/19 05:23 05:23 12:33 Creatine Kinase 41 L 50 L CK-MB (CK-2) 2.08 Troponin I 0.024 NT-Pro-B Natriuret Pep 04/01/19 12:33 Creatine Kinase CK-MB (CK-2) 3.09 Troponin I 0.017 NT-Pro-B Natriuret Pep EKG Comments: Twelve-lead EKG shows sinus rhythm. No acute ST-T wave changes are noted. Impressions: Renal Ultrasound 03/31/19 00:00 IMPRESSION: Normal study. Head CT 03/31/19 16:46 IMPRESSION: 1. No acute intracranial hemorrhage, mass, or evidence of acute territorial infarct. 2. Mild chronic small vessel ischemic change and intracranial atherosclerosis. EVIDENCE OF ACUTE STROKE: NO. Venous Doppler Study 03/31/19 19:28 IMPRESSION: No DVT is identified. Head MRI 04/06/19 00:00 IMPRESSION: MILD CHRONIC MICROVASCULAR ISCHEMIC CHANGE. 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 NO ACUTE FINDINGS. EVIDENCE OF ACUTE STROKE: NO. Abdomen X-Ray 04/12/19 07:00 IMPRESSION: Nonspecific gas pattern. KUB X-Ray 04/14/19 00:00 IMPRESSION: NO RADIOGRAPHIC EVIDENCE FOR ACUTE ABDOMINAL DISEASE. Abdomen/Pelvis CT 04/15/19 00:00 IMPRESSION: There is a left inguinal hernia containing portions of the bowel, similar to prior imaging. Mild gaseous distention of the small bowel and colon is seen which could reflect an ileus or enteritis. This is similar to prior imaging. A low-grade obstruction is not fully excluded. Chest X-Ray 04/15/19 00:00 IMPRESSION: NO ACUTE RADIOGRAPHIC FINDING IN THE CHEST. Assessment & Plan - Diagnosis (1) CKD (chronic kidney disease) stage 4, GFR 15-29 ml/min Is this a current diagnosis for this admission?: Yes (2) Cerebrovascular disease Is this a current diagnosis for this admission?: Yes (3) Diabetes mellitus type 2 in nonobese Is this a current diagnosis for this admission?: Yes - Notes Notes: Patient was seen this afternoon. He is noted to be comfortable laying in bed. Is getting some IV fluids. There is no evidence of volume overload or any CHF. Patient 2D echo reviewed. Lab work reviewed. There is no evidence to suggest any ongoing endocarditis. Agree with other subspecialty involvement. Recommend cautious fluid infusion. We will continue to follow patient. As usual I thank Dr. Taylor very much for the kind referral. - Time Time Spent: 30 to 50 Minutes Medications reviewed and adjusted accordingly: Yes
[2019-04-17] MEDS: INSULIN REG, HUMAN 100 UNIT/ML 3 ML VIAL (PYX) SUBCUT SCH ×5 (00:40→21:46)
[2019-04-17] MEDS: METRONIDAZOLE 500 MG/NS RTU 500 MG/100 ML RTUPB IV SCH ×4 (05:46→23:54)
[2019-04-17 06:53] LABS: HEMATOCRIT 32.6 % (37.9-51.0); HEMOGLOBIN 10.9 g/dL (13.5-17.0); MEAN CORPUSCULAR HGB CONC 33.4 g/dL (32.0-36.0); MEAN CORPUSCULAR VOLUME 87 fl (80-97); PLATELET COUNT 395 10^3/uL (150-450); RED BLOOD COUNT 3.74 10^6/uL (4.35-5.55); RED CELL DISTRIBUTION WIDTH 16.6 % (11.5-14.0); WHITE BLOOD COUNT 12.2 10^3/uL (4.0-10.5)
[2019-04-17 07:24] LABS: ALBUMIN 2.1 g/dL (3.5-5.0); ALKALINE PHOSPHATASE 71 U/L (38-126); ANION GAP 6 (5-19); ASPARTATE AMINO TRANSFERASE 23 U/L (17-59); BLOOD UREA NITROGEN 47 mg/dL (7-20); CARBON DIOXIDE 18 mmol/L (22-30); CHLORIDE 114 mmol/L (98-107); GLUCOSE 156 mg/dL (75-110); POTASSIUM 4.3 mmol/L (3.6-5.0); TOTAL PROTEIN 4.6 g/dL (6.3-8.2)
[2019-04-17 07:47] LABS: BILIRUBIN,TOTAL < 0.1 mg/dL (0.2-1.3)
[2019-04-17 08:18] LABS: ABSOLUTE LYMPHOCYTES# (MANUAL) 1.5 10^3/uL (0.5-4.7); ABSOLUTE MONOCYTES # (MANUAL) 1.5 10^3/uL (0.1-1.4); BASOPHILS % (MANUAL) 2 % (0-2); EOSINOPHILS % (MANUAL) 6 % (0-6); LYMPHOCYTES % (MANUAL) 9 % (13-45); MONOCYTES % (MANUAL) 12 % (3-13); SEGMENTED NEUTROPHILS % (MAN) 68 % (42-78); TOTAL CELLS COUNTED 100
[2019-04-17 08:20] LABS: ANISOCYTOSIS 1+; OVALOCYTES SLIGHT; PLATELET COMMENT ADEQUATE; POLYCHROMASIA SLIGHT; TEAR DROP CELLS SLIGHT
--- NOTE | 2019-04-17 09:02 | PDOC PROGRESS REPORT ---
Subjective Progress Note for:: 04/17/19 Subjective:: Patient is currently doing better Patient's denied any chest pain no short of breath No abdominal pain No loose stools since yesterday Patient's kidney function is all improving Patient's calcium is low Reason For Visit: HYPERTENSIVE EMERGENCY Physical Exam Vital Signs: Temp Pulse Resp BP Pulse Ox 97.9 F 63 18 154/67 H 97 04/17/19 08:00 04/17/19 08:00 04/17/19 08:00 04/17/19 08:00 04/17/19 08:00 Intake & Output 04/16/19 04/17/19 04/18/19 06:59 06:59 06:59 Intake Total 2734 2378 Output Total 1850 2525 Balance 884 -147 Weight 74.3 kg 75.4 kg General appearance: PRESENT: no acute distress, well-developed, well-nourished Head exam: PRESENT: atraumatic, normocephalic Eye exam: PRESENT: conjunctiva pink, EOMI, PERRLA. ABSENT: scleral icterus Ear exam: PRESENT: normal external ear exam Mouth exam: PRESENT: moist, tongue midline Neck exam: PRESENT: full ROM. ABSENT: carotid bruit, JVD, lymphadenopathy, thyromegaly Respiratory exam: PRESENT: clear to auscultation lyn Cardiovascular exam: PRESENT: RRR. ABSENT: diastolic murmur, rubs, systolic murmur Pulses: PRESENT: normal dorsalis pedis pul, +2 pedal pulses bilateral Vascular exam: PRESENT: normal capillary refill GI/Abdominal exam: PRESENT: normal bowel sounds, soft. ABSENT: distended, guarding, mass, organolmegaly, rebound, tenderness Rectal exam: PRESENT: deferred Neurological exam: PRESENT: alert, awake, oriented to person, oriented to place, oriented to time, oriented to situation, CN II-XII grossly intact. ABSENT: motor sensory deficit Psychiatric exam: PRESENT: appropriate affect, normal mood. ABSENT: homicidal ideation, suicidal ideation Skin exam: PRESENT: dry, intact, warm. ABSENT: cyanosis, rash Results Laboratory Results: 04/17/19 06:10 04/17/19 06:10 04/17/19 04/17/19 06:10 06:10 WBC 12.2 H RBC 3.74 L Hgb 10.9 L Hct 32.6 L MCV 87 MCH 29.0 MCHC 33.4 RDW 16.6 H Plt Count 395 Seg Neutrophils % Not Reportable Sodium 138.0 Potassium 4.3 Chloride 114 H Carbon Dioxide 18 L Anion Gap 6 BUN 47 H Creatinine 2.19 H Est GFR ( Amer) 37 L Glucose 156 H Calcium 7.0 L* Total Bilirubin < 0.1 L AST 23 Alkaline Phosphatase 71 Total Protein 4.6 L Albumin 2.1 L 03/31/19 03/31/19 03/31/19 23:14 23:14 23:14 Creatine Kinase 41 L CK-MB (CK-2) 2.17 Troponin I 0.025 NT-Pro-B Natriuret Pep 2660 H 04/01/19 04/01/19 04/01/19 05:23 05:23 12:33 Creatine Kinase 41 L 50 L CK-MB (CK-2) 2.08 Troponin I 0.024 NT-Pro-B Natriuret Pep 04/01/19 12:33 Creatine Kinase CK-MB (CK-2) 3.09 Troponin I 0.017 NT-Pro-B Natriuret Pep Impressions: Renal Ultrasound 03/31/19 00:00 IMPRESSION: Normal study. Head CT 03/31/19 16:46 IMPRESSION: 1. No acute intracranial hemorrhage, mass, or evidence of acute territorial infarct. 2. Mild chronic small vessel ischemic change and intracranial atherosclerosis. EVIDENCE OF ACUTE STROKE: NO. Venous Doppler Study 03/31/19 19:28 IMPRESSION: No DVT is identified. Head MRI 04/06/19 00:00 IMPRESSION: MILD CHRONIC MICROVASCULAR ISCHEMIC CHANGE. 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 NO ACUTE FINDINGS. EVIDENCE OF ACUTE STROKE: NO. Abdomen X-Ray 04/12/19 07:00 IMPRESSION: Nonspecific gas pattern. KUB X-Ray 04/14/19 00:00 IMPRESSION: NO RADIOGRAPHIC EVIDENCE FOR ACUTE ABDOMINAL DISEASE. Abdomen/Pelvis CT 04/15/19 00:00 IMPRESSION: There is a left inguinal hernia containing portions of the bowel, similar to prior imaging. Mild gaseous distention of the small bowel and colon is seen which could reflect an ileus or enteritis. This is similar to prior imaging. A low-grade obstruction is not fully excluded. Chest X-Ray 04/15/19 00:00 IMPRESSION: NO ACUTE RADIOGRAPHIC FINDING IN THE CHEST. Assessment & Plan - Diagnosis (1) Hypertensive urgency Is this a current diagnosis for this admission?: Yes (2) Schizophrenia Qualifiers: Schizophrenia type: unspecified Qualified Code(s): F20.9 - Schizophrenia, unspecified Is this a current diagnosis for this admission?: Yes (3) CKD stage 3 due to type 2 diabetes mellitus Is this a current diagnosis for this admission?: Yes Plan: With acute renal failure currently all improving (4) Gastritis Qualifiers: Gastritis type: unspecified gastritis Chronicity: acute Gastritis bleeding: without bleeding Qualified Code(s): K29.00 - Acute gastritis without bleeding Is this a current diagnosis for this admission?: Yes (5) Cerebrovascular disease Is this a current diagnosis for this admission?: Yes (6) Hypoglycemia Is this a current diagnosis for this admission?: Yes (7) Diabetes mellitus type 2 in nonobese Is this a current diagnosis for this admission?: Yes (8) Acute renal failure Qualifiers: Acute renal failure type: unspecified Qualified Code(s): N17.9 - Acute kidney failure, unspecified Is this a current diagnosis for this admission?: Yes Plan: Currently all improving discussed with the Dr. sherwood (9) Metabolic acidosis Is this a current diagnosis for this admission?: Yes Plan: Also improving'sCurrently on a bicarb drip (10) Enteritis Is this a current diagnosis for this admission?: Yes Plan: Continues to Syd (11) Hypocalcemia Is this a current diagnosis for this admission?: Yes Plan: We will check the albumin continues the supplement of the calciums - Time Time Spent with patient: 25-34 minutes Level of Care: TELE Medications reviewed and adjusted accordingly: Yes Anticipated discharge: Other Within: Other - Plan Summary Plan Summary: Continues to current medications physical therapy Cut down the IV fluids Follow-up with the nephrology
[2019-04-17] MEDS ORDERED: NORMAL SALINE 1000 ML 1,000 ML IV PRN (09:03)
[2019-04-17] MEDS ORDERED: CALCIUM GLUCONATE 1 GM/NS 50 ML RTU IV ONE (09:30)
[2019-04-17] MEDS: CIPROFLOXACIN 200 MG/D5W RTU 200 MG/100 ML RTUPB IV SCH (18:08)
--- NOTE | 2019-04-17 20:40 | PDOC PROGRESS REPORT ---
Subjective Progress Note for:: 04/17/19 Subjective:: I saw the patient this morning lying down comfortably in his bed. He denies any diarrhea today and could not even tell me when was his last bowel movement but then he describes his stool as diarrhea stool. He denies any shortness of breath. He denies any nausea, vomiting or abdominal pain this morning. His reliability is really poor. Review of records indicate that last week the patient had an elevated white count of up to 15.7. His kidney function has also gotten worse with creatinine peaking at 4.7. He also had worsening metabolic acidosis last week with serum bicarbonate of 11. Patient's blood cultures and urine cultures were negative. An echocardiogram showed no vegetation and was cleared by box office agent Dr. Walker. He was also seen by surgeon, Dr. Sewell and just indicated the patient has chronic left inguinal hernia without any indication of surgical intervention. His chest x-ray on April 15 showed no acute pulmonary findings. He also had an abdominal CT which showed the finding of the left inguinal hernia. There was no hydroureter or hydronephrosis. His C. difficile was also negative. He had one occult blood positive. Patient is currently being given ciprofloxacin and metronidazole IV. He was also started on sodium bicarbonate drip. Reason For Visit: HYPERTENSIVE EMERGENCY Physical Exam Vital Signs: Temp Pulse Resp BP Pulse Ox 97.9 F 63 18 154/67 H 97 04/17/19 08:00 04/17/19 08:00 04/17/19 08:00 04/17/19 08:00 04/17/19 08:00 Intake & Output 04/16/19 04/17/19 04/18/19 06:59 06:59 06:59 Intake Total 1114 2378 Output Total 2184 7195 Balance 884 -147 Weight 74.3 kg 75.4 kg Exam: General appearance: PRESENT: no acute distress, cooperative, well-developed, well-nourished Head exam: PRESENT: atraumatic, normocephalic Eye exam: PRESENT: conjunctiva mildly pale, PERRLA. ABSENT: scleral icterus Neck exam: ABSENT: JVD Respiratory exam: PRESENT: Normal breath sounds. ABSENT: crackles, rales, rhonchi, unlabored, wheezes Cardiovascular exam: PRESENT: Regular rate rhythm -+S1, +S2. ABSENT: diastolic murmur, systolic murmur GI/Abdominal exam: PRESENT: normal bowel sounds, soft. Left inguinal hernia ABSENT: guarding, mass, tenderness Extremities exam: ABSENT: No edema Neurological exam: PRESENT: alert, awake, oriented to person, place and time. Skin exam: PRESENT: dry, warm, Cardiovascular exam: PRESENT: +S1, +S2 GI/Abdominal exam: PRESENT: normal bowel sounds, soft. ABSENT: organomegaly, tenderness Results Laboratory Results: 04/17/19 06:10 04/17/19 06:10 04/17/19 04/17/19 06:10 06:10 WBC 12.2 H RBC 3.74 L Hgb 10.9 L Hct 32.6 L MCV 87 MCH 29.0 MCHC 33.4 RDW 16.6 H Plt Count 395 Seg Neutrophils % Not Reportable Sodium 138.0 Potassium 4.3 Chloride 114 H Carbon Dioxide 18 L Anion Gap 6 BUN 47 H Creatinine 2.19 H Est GFR ( Amer) 37 L Glucose 156 H Calcium 7.0 L* Total Bilirubin < 0.1 L AST 23 Alkaline Phosphatase 71 Total Protein 4.6 L Albumin 2.1 L 04/15/19 19:21 Gomez Catheter Urine Culture - Final NO GROWTH 2 DAYS 03/31/19 03/31/19 03/31/19 23:14 23:14 23:14 Creatine Kinase 41 L CK-MB (CK-2) 2.17 Troponin I 0.025 NT-Pro-B Natriuret Pep 2660 H 04/01/19 04/01/19 04/01/19 05:23 05:23 12:33 Creatine Kinase 41 L 50 L CK-MB (CK-2) 2.08 Troponin I 0.024 NT-Pro-B Natriuret Pep 04/01/19 12:33 Creatine Kinase CK-MB (CK-2) 3.09 Troponin I 0.017 NT-Pro-B Natriuret Pep Impressions: Renal Ultrasound 03/31/19 00:00 IMPRESSION: Normal study. Head CT 03/31/19 16:46 IMPRESSION: 1. No acute intracranial hemorrhage, mass, or evidence of acute territorial infarct. 2. Mild chronic small vessel ischemic change and intracranial atherosclerosis. EVIDENCE OF ACUTE STROKE: NO. Venous Doppler Study 03/31/19 19:28 IMPRESSION: No DVT is identified. Head MRI 04/06/19 00:00 IMPRESSION: MILD CHRONIC MICROVASCULAR ISCHEMIC CHANGE. 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 NO ACUTE FINDINGS. EVIDENCE OF ACUTE STROKE: NO. Abdomen X-Ray 04/12/19 07:00 IMPRESSION: Nonspecific gas pattern. KUB X-Ray 04/14/19 00:00 IMPRESSION: NO RADIOGRAPHIC EVIDENCE FOR ACUTE ABDOMINAL DISEASE. Abdomen/Pelvis CT 04/15/19 00:00 IMPRESSION: There is a left inguinal hernia containing portions of the bowel, similar to prior imaging. Mild gaseous distention of the small bowel and colon is seen which could reflect an ileus or enteritis. This is similar to prior imaging. A low-grade obstruction is not fully excluded. Chest X-Ray 04/15/19 00:00 IMPRESSION: NO ACUTE RADIOGRAPHIC FINDING IN THE CHEST. Assessment & Plan - Diagnosis (1) Acute kidney injury superimposed on chronic kidney disease Is this a current diagnosis for this admission?: Yes Plan: Patient is currently nonoliguric with pretty good urine output. His kidney function is currently improving with initiation of some IV fluids in the form of a bicarb drip for the last few days. Creatinine peaked 4.7 and is currently now 2.19. Baseline kidney function is around creatinine of 1.8-2.4. There is no indication for any acute renal replacement therapy at this time. Continue current management and monitoring of the kidney function and electrolytes. (2) Chronic kidney disease, stage 3 Is this a current diagnosis for this admission?: Yes Plan: Patient's baseline creatinine historically ranges anywhere between 1.8-2.4. (3) Metabolic acidosis Is this a current diagnosis for this admission?: Yes Plan: This could be due to acute kidney injury. If he truly has been having diarrhea, this could be contributory as well. This is is slowly improving with a bicarb drip. Continue the same bicarb drip for now. Once the acidosis has been normalized then the bicarbonate drip can be discontinued. I think this will happen in the next couple of days. (4) Hypertension Qualifiers: Hypertension type: essential hypertension Qualified Code(s): I10 - Essential (primary) hypertension Is this a current diagnosis for this admission?: Yes Plan: Currently with no blood pressure medication. His blood pressure has been ranging from as low as 106/59 and is high of 154/67. He was previously on losartan but because of worsening kidney function last week this was discontinued. If the blood pressure becomes a little bit more constant starts to being elevated I think it is a blood pressure medication. (5) Anemia in chronic kidney disease (CKD) Qualifiers: Chronic kidney disease stage: stage 3 (moderate) Qualified Code(s): N18.3 - Chronic kidney disease, stage 3 (moderate); D63.1 - Anemia in chronic kidney disease Is this a current diagnosis for this admission?: Yes Plan: Stable. (6) Diabetes mellitus type 2 in nonobese Is this a current diagnosis for this admission?: Yes Plan: Defer to Dr. Venegas. (7) Reducible left inguinal hernia Is this a current diagnosis for this admission?: Yes Plan: Chronic and no surgical intervention was recommended by surgery. (8) Leukocytosis Is this a current diagnosis for this admission?: Yes Plan: Currently improving. On antibiotics. (9) Enteritis Is this a current diagnosis for this admission?: Yes Plan: On IV ciprofloxacin and IV metronidazole. Defer to Dr. Venegas. (10) Hypocalcemia Is this a current diagnosis for this admission?: Yes Plan: Patient's corrected calcium is actually 8.52 which is within normal limits. This is based on the albumin being 2.1. (11) Schizophrenia Qualifiers: Schizophrenia type: unspecified Qualified Code(s): F20.9 - Schizophrenia, unspecified Is this a current diagnosis for this admission?: Yes - Notes Notes: Discussed the case with Dr. Venegas this morning. - Time Time with patient: Greater than 35 minutes
[2019-04-17] MEDS: FAMOTIDINE 20 MG TABLET PO SCH (21:46)
[2019-04-17] MEDS: ATORVASTATIN CALCIUM 40 MG TABLET PO SCH (21:46)
[2019-04-17] MEDS: ASPIRIN 81 MG TABLET, CHEWABLE PO SCH (21:46)
[2019-04-17] MEDS: DEXTROSE 5%-WATER 1000 ML 1,000 ML with SODIUM BICARBONATE 50 MEQ IV PRN ×2 (22:33)
[2019-04-18] MEDS: METRONIDAZOLE 500 MG/NS RTU 500 MG/100 ML RTUPB IV SCH ×4 (05:14→23:05)
[2019-04-18] MEDS ORDERED: NORMAL SALINE 1000 ML 1,000 ML IV PRN (07:08)
[2019-04-18 07:10] LABS: HEMATOCRIT 33.4 % (37.9-51.0); HEMOGLOBIN 11.1 g/dL (13.5-17.0); MEAN CORPUSCULAR HEMOGLOBIN 28.7 pg (27.0-33.4); MEAN CORPUSCULAR HGB CONC 33.3 g/dL (32.0-36.0); MEAN CORPUSCULAR VOLUME 86 fl (80-97); PLATELET COUNT 394 10^3/uL (150-450); RED BLOOD COUNT 3.87 10^6/uL (4.35-5.55); RED CELL DISTRIBUTION WIDTH 16.5 % (11.5-14.0); WHITE BLOOD COUNT 16.4 10^3/uL (4.0-10.5)
[2019-04-18 07:18] LABS: ANION GAP 6 (5-19); BLOOD UREA NITROGEN 40 mg/dL (7-20); CARBON DIOXIDE 21 mmol/L (22-30); CHLORIDE 111 mmol/L (98-107); GLUCOSE 189 mg/dL (75-110); POTASSIUM 4.4 mmol/L (3.6-5.0)
[2019-04-18 08:35] LABS: ABSOLUTE MONOCYTES # (MANUAL) 1.6 10^3/uL (0.1-1.4); BASOPHILS % (MANUAL) 0 % (0-2); EOSINOPHILS % (MANUAL) 9 % (0-6); LYMPHOCYTES % (MANUAL) 5 % (13-45); MONOCYTES % (MANUAL) 10 % (3-13); SEGMENTED NEUTROPHILS % (MAN) 75 % (42-78); TOTAL CELLS COUNTED 100
[2019-04-18 08:37] LABS: ANISOCYTOSIS 1+; BURR CELLS SLIGHT; OVALOCYTES SLIGHT; POLYCHROMASIA SLIGHT
[2019-04-18 08:38] LABS: PLATELET COMMENT ADEQUATE
[2019-04-18] MEDS: INSULIN REG, HUMAN 100 UNIT/ML 3 ML VIAL (PYX) SUBCUT SCH ×4 (11:11→22:29)
[2019-04-18] MEDS: CALCIUM CARBONATE 600 MG TABLET PO SCH ×2 (11:13→17:59)
[2019-04-18] MEDS: CIPROFLOXACIN 200 MG/D5W RTU 200 MG/100 ML RTUPB IV SCH (11:13)
--- NOTE | 2019-04-18 11:38 | PDOC PROGRESS REPORT ---
Subjective Progress Note for:: 04/18/19 Subjective:: Patient is currently doing fair denied any abdominal pain no nausea no vomiting Patient's kidney function is all improving His white count is elevated No fever no chills No diarrhea Reason For Visit: HYPERTENSIVE EMERGENCY Physical Exam Vital Signs: Temp Pulse Resp BP Pulse Ox 97.9 F 69 14 135/64 H 96 04/18/19 08:00 04/18/19 08:00 04/18/19 08:00 04/18/19 08:00 04/18/19 08:00 Intake & Output 04/17/19 04/18/19 04/19/19 06:59 06:59 06:59 Intake Total 2378 1760 Output Total 2525 1450 Balance -147 310 Weight 75.4 kg 77.4 kg General appearance: PRESENT: no acute distress, well-developed, well-nourished Head exam: PRESENT: atraumatic, normocephalic Eye exam: PRESENT: conjunctiva pink, EOMI, PERRLA. ABSENT: scleral icterus Ear exam: PRESENT: normal external ear exam Mouth exam: PRESENT: moist, tongue midline Neck exam: PRESENT: full ROM. ABSENT: carotid bruit, JVD, lymphadenopathy, thyromegaly Respiratory exam: PRESENT: clear to auscultation lyn Cardiovascular exam: PRESENT: RRR. ABSENT: diastolic murmur, rubs, systolic murmur Pulses: PRESENT: normal dorsalis pedis pul, +2 pedal pulses bilateral Vascular exam: PRESENT: normal capillary refill GI/Abdominal exam: PRESENT: normal bowel sounds, soft. ABSENT: distended, guarding, mass, organolmegaly, rebound, tenderness Rectal exam: PRESENT: deferred Musculoskeletal exam: PRESENT: ambulatory Neurological exam: PRESENT: alert, awake, oriented to person, oriented to place, oriented to time, oriented to situation, CN II-XII grossly intact. ABSENT: motor sensory deficit Psychiatric exam: PRESENT: appropriate affect, normal mood. ABSENT: homicidal ideation, suicidal ideation Skin exam: PRESENT: dry, intact, warm. ABSENT: cyanosis, rash Results Laboratory Results: 04/18/19 05:52 04/18/19 05:52 04/18/19 04/18/19 05:52 05:52 WBC 16.4 H RBC 3.87 L Hgb 11.1 L Hct 33.4 L MCV 86 MCH 28.7 MCHC 33.3 RDW 16.5 H Plt Count 394 Seg Neutrophils % Not Reportable Sodium 137.5 Potassium 4.4 Chloride 111 H Carbon Dioxide 21 L Anion Gap 6 BUN 40 H Creatinine 1.85 H Est GFR ( Amer) 45 L Glucose 189 H Calcium 7.0 L* 04/15/19 19:21 Gomez Catheter Urine Culture - Final NO GROWTH 2 DAYS 03/31/19 03/31/19 03/31/19 23:14 23:14 23:14 Creatine Kinase 41 L CK-MB (CK-2) 2.17 Troponin I 0.025 NT-Pro-B Natriuret Pep 2660 H 04/01/19 04/01/19 04/01/19 05:23 05:23 12:33 Creatine Kinase 41 L 50 L CK-MB (CK-2) 2.08 Troponin I 0.024 NT-Pro-B Natriuret Pep 04/01/19 12:33 Creatine Kinase CK-MB (CK-2) 3.09 Troponin I 0.017 NT-Pro-B Natriuret Pep Impressions: Renal Ultrasound 03/31/19 00:00 IMPRESSION: Normal study. Head CT 03/31/19 16:46 IMPRESSION: 1. No acute intracranial hemorrhage, mass, or evidence of acute territorial infarct. 2. Mild chronic small vessel ischemic change and intracranial atherosclerosis. EVIDENCE OF ACUTE STROKE: NO. Venous Doppler Study 03/31/19 19:28 IMPRESSION: No DVT is identified. Head MRI 04/06/19 00:00 IMPRESSION: MILD CHRONIC MICROVASCULAR ISCHEMIC CHANGE. 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 NO ACUTE FINDINGS. EVIDENCE OF ACUTE STROKE: NO. Abdomen X-Ray 04/12/19 07:00 IMPRESSION: Nonspecific gas pattern. KUB X-Ray 04/14/19 00:00 IMPRESSION: NO RADIOGRAPHIC EVIDENCE FOR ACUTE ABDOMINAL DISEASE. Abdomen/Pelvis CT 04/15/19 00:00 IMPRESSION: There is a left inguinal hernia containing portions of the bowel, similar to prior imaging. Mild gaseous distention of the small bowel and colon is seen which could reflect an ileus or enteritis. This is similar to prior imaging. A low-grade obstruction is not fully excluded. Chest X-Ray 04/15/19 00:00 IMPRESSION: NO ACUTE RADIOGRAPHIC FINDING IN THE CHEST. Assessment & Plan - Diagnosis (1) Hypertensive urgency Is this a current diagnosis for this admission?: Yes (2) Schizophrenia Qualifiers: Qualified Code(s): F20.9 - Schizophrenia, unspecified Is this a current diagnosis for this admission?: Yes (3) CKD stage 3 due to type 2 diabetes mellitus Is this a current diagnosis for this admission?: Yes (4) Gastritis Qualifiers: Qualified Code(s): K29.00 - Acute gastritis without bleeding Is this a current diagnosis for this admission?: Yes (5) Cerebrovascular disease Is this a current diagnosis for this admission?: Yes (6) Hypoglycemia Is this a current diagnosis for this admission?: Yes (7) Diabetes mellitus type 2 in nonobese Is this a current diagnosis for this admission?: Yes (8) Acute renal failure Qualifiers: Qualified Code(s): N17.9 - Acute kidney failure, unspecified Is this a current diagnosis for this admission?: Yes (9) Metabolic acidosis Is this a current diagnosis for this admission?: Yes (10) Enteritis Is this a current diagnosis for this admission?: Yes (11) Hypocalcemia Is this a current diagnosis for this admission?: Yes - Time Time Spent with patient: 15-24 minutes Level of Care: TELE Anticipated discharge: SNF Within: Other - Plan Summary Plan Summary: Patient so far all culture is negative again Elevated white count unclear etiology possible most likely GI possible u nderlying enteritis currently on Cipro and Flagyl Patient's kidney function is improving 7 metabolic acidosis is improving We will stop the bicarb drip repeat the CBC in the morning Patient's walk with the physical therapy without any problems
--- NOTE | 2019-04-18 11:39 | PDOC PROGRESS REPORT ---
Subjective Progress Note for:: 04/18/19 Subjective:: Patient is seen today lying comfortably in bed. He does not have any complaints. He made about 1450 mL of urine for the past 24 hours. His blood pressure is also well controlled. Reason For Visit: HYPERTENSIVE EMERGENCY Physical Exam Vital Signs: Temp Pulse Resp BP Pulse Ox 97.9 F 69 14 135/64 H 96 04/18/19 08:00 04/18/19 08:00 04/18/19 08:00 04/18/19 08:00 04/18/19 08:00 Intake & Output 04/17/19 04/18/19 04/19/19 06:59 06:59 06:59 Intake Total 2378 1760 Output Total 2525 1450 Balance -147 310 Weight 75.4 kg 77.4 kg Exam: General appearance: PRESENT: no acute distress, cooperative, well-developed, well-nourished Head exam: PRESENT: atraumatic, normocephalic Eye exam: PRESENT: conjunctiva pale PERRLA. ABSENT: scleral icterus Neck exam: ABSENT: JVD Respiratory exam: PRESENT: Normal breath sounds. ABSENT: crackles, rales, rhonchi, unlabored, wheezes Cardiovascular exam: PRESENT: Regular rate rhythm -+S1, +S2. ABSENT: diastolic murmur, systolic murmur GI/Abdominal exam: PRESENT: normal bowel sounds, soft. Left inguinal hernia ABSENT: guarding, mass, tenderness Extremities exam: ABSENT: No edema Neurological exam: PRESENT: alert, awake, oriented to person, place and time. Skin exam: PRESENT: dry, warm, Cardiovascular exam: PRESENT: +S1, +S2 GI/Abdominal exam: PRESENT: normal bowel sounds, soft. ABSENT: organomegaly, tenderness Results Laboratory Results: 04/18/19 05:52 04/18/19 05:52 04/18/19 04/18/19 05:52 05:52 WBC 16.4 H RBC 3.87 L Hgb 11.1 L Hct 33.4 L MCV 86 MCH 28.7 MCHC 33.3 RDW 16.5 H Plt Count 394 Seg Neutrophils % Not Reportable Sodium 137.5 Potassium 4.4 Chloride 111 H Carbon Dioxide 21 L Anion Gap 6 BUN 40 H Creatinine 1.85 H Est GFR ( Amer) 45 L Glucose 189 H Calcium 7.0 L* 04/15/19 19:21 Gomez Catheter Urine Culture - Final NO GROWTH 2 DAYS 03/31/19 03/31/19 03/31/19 23:14 23:14 23:14 Creatine Kinase 41 L CK-MB (CK-2) 2.17 Troponin I 0.025 NT-Pro-B Natriuret Pep 2660 H 04/01/19 04/01/19 04/01/19 05:23 05:23 12:33 Creatine Kinase 41 L 50 L CK-MB (CK-2) 2.08 Troponin I 0.024 NT-Pro-B Natriuret Pep 04/01/19 12:33 Creatine Kinase CK-MB (CK-2) 3.09 Troponin I 0.017 NT-Pro-B Natriuret Pep Impressions: Renal Ultrasound 03/31/19 00:00 IMPRESSION: Normal study. Head CT 03/31/19 16:46 IMPRESSION: 1. No acute intracranial hemorrhage, mass, or evidence of acute territorial infarct. 2. Mild chronic small vessel ischemic change and intracranial atherosclerosis. EVIDENCE OF ACUTE STROKE: NO. Venous Doppler Study 03/31/19 19:28 IMPRESSION: No DVT is identified. Head MRI 04/06/19 00:00 IMPRESSION: MILD CHRONIC MICROVASCULAR ISCHEMIC CHANGE. 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 NO ACUTE FINDINGS. EVIDENCE OF ACUTE STROKE: NO. Abdomen X-Ray 04/12/19 07:00 IMPRESSION: Nonspecific gas pattern. KUB X-Ray 04/14/19 00:00 IMPRESSION: NO RADIOGRAPHIC EVIDENCE FOR ACUTE ABDOMINAL DISEASE. Abdomen/Pelvis CT 04/15/19 00:00 IMPRESSION: There is a left inguinal hernia containing portions of the bowel, similar to prior imaging. Mild gaseous distention of the small bowel and colon is seen which could reflect an ileus or enteritis. This is similar to prior imaging. A low-grade obstruction is not fully excluded. Chest X-Ray 04/15/19 00:00 IMPRESSION: NO ACUTE RADIOGRAPHIC FINDING IN THE CHEST. Assessment & Plan - Diagnosis (1) Acute kidney injury superimposed on chronic kidney disease Is this a current diagnosis for this admission?: Yes Plan: Patient is currently nonoliguric with pretty good urine output. Kidney function is much improved today with IV fluids. The sodium bicarbonate drip is been discontinued and now replaced with maintenance fluids by Dr. Venegas. Creatinine peaked 4.7 and is currently now 1.85. Baseline kidney function is around creati nine of 1.8-2.4. There is no indication for any acute renal replacement therapy at this time. Continue current management and monitoring of the kidney function and electrolytes. (2) Chronic kidney disease, stage 3 Is this a current diagnosis for this admission?: Yes Plan: Patient's baseline creatinine historically ranges anywhere between 1.8-2.4. (3) Metabolic acidosis Is this a current diagnosis for this admission?: Yes Plan: This could be due to acute kidney injury. Sodium bicarbonate has been discontinued. This is resolving. (4) Hypertension Qualifiers: Hypertension type: essential hypertension Qualified Code(s): I10 - Essential (primary) hypertension Is this a current diagnosis for this admission?: Yes Plan: Currently with no blood pressure medication except for as needed hydralazine. His blood pressure this morning is within acceptable limits. He was previously on losartan but because of worsening kidney function last week this was discontinued. If the blood pressure becomes a little bit more constant starts to being elevated I think it is a blood pressure medication. For renal protection I think since the patient is at his baseline kidney function, losartan can still be resumed when this patient if his blood pressure started to go up. (5) Anemia in chronic kidney disease (CKD) Qualifiers: Chronic kidney disease stage: stage 3 (moderate) Qualified Code(s): N18.3 - Chronic kidney disease, stage 3 (moderate); D63.1 - Anemia in chronic kidney disease Is this a current diagnosis for this admission?: Yes Plan: Stable. (6) Diabetes mellitus type 2 in nonobese Is this a current diagnosis for this admission?: Yes Plan: Defer to Dr. Venegas. (7) Reducible left inguinal hernia Is this a current diagnosis for this admission?: Yes Plan: Chronic and no surgical intervention was recommended by surgery. (8) Leukocytosis Is this a current diagnosis for this admission?: Yes Plan: On antibiotics. (9) Enteritis Is this a current diagnosis for this admission?: Yes Plan: On IV ciprofloxacin and IV metronidazole. Defer to Dr. Venegas. (10) Hypocalcemia Is this a current diagnosis for this admission?: Yes Plan: Patient's corrected calcium is actually 8.52 which is within normal limits. This is based on the albumin being 2.1. (11) Schizophrenia Qualifiers: Schizophrenia type: unspecified Qualified Code(s): F20.9 - Schizophrenia, unspecified Is this a current diagnosis for this admission?: Yes - Notes Notes: No further recommendation from nephrology standpoint. We will sign off at this time. Please call us if we can be of any other help. - Time Time with patient: 15-25 minutes
[2019-04-18] MEDS: ASPIRIN 81 MG TABLET, CHEWABLE PO SCH (22:28)
[2019-04-18] MEDS: FAMOTIDINE 20 MG TABLET PO SCH (22:28)
[2019-04-18] MEDS: ATORVASTATIN CALCIUM 40 MG TABLET PO SCH (22:28)
[2019-04-19] MEDS: CIPROFLOXACIN 200 MG/D5W RTU 200 MG/100 ML RTUPB IV SCH (02:17)
[2019-04-19] MEDS: METRONIDAZOLE 500 MG/NS RTU 500 MG/100 ML RTUPB IV SCH (05:15)
[2019-04-19 06:37] LABS: ANION GAP 8 (5-19); BLOOD UREA NITROGEN 34 mg/dL (7-20); CALCIUM 7.3 mg/dL (8.4-10.2); CARBON DIOXIDE 20 mmol/L (22-30); CHLORIDE 111 mmol/L (98-107); GLUCOSE 147 mg/dL (75-110); POTASSIUM 4.5 mmol/L (3.6-5.0)
[2019-04-19 08:28] LABS: HEMATOCRIT 34.1 % (37.9-51.0); HEMOGLOBIN 10.9 g/dL (13.5-17.0); MEAN CORPUSCULAR HEMOGLOBIN 27.8 pg (27.0-33.4); MEAN CORPUSCULAR VOLUME 87 fl (80-97); PLATELET COUNT 393 10^3/uL (150-450); RED BLOOD COUNT 3.93 10^6/uL (4.35-5.55); RED CELL DISTRIBUTION WIDTH 16.7 % (11.5-14.0); WHITE BLOOD COUNT 17.4 10^3/uL (4.0-10.5)
[2019-04-19 08:57] LABS: ABSOLUTE LYMPHOCYTES# (MANUAL) 0.7 10^3/uL (0.5-4.7); ABSOLUTE MONOCYTES # (MANUAL) 1.2 10^3/uL (0.1-1.4); BASOPHILS % (MANUAL) 0 % (0-2); EOSINOPHILS % (MANUAL) 6 % (0-6); LYMPHOCYTES % (MANUAL) 3 % (13-45); MONOCYTES % (MANUAL) 7 % (3-13); SEGMENTED NEUTROPHILS % (MAN) 83 % (42-78); TOTAL CELLS COUNTED 100
[2019-04-19 09:03] LABS: ANISOCYTOSIS 1+; PLATELET COMMENT ADEQUATE; POLYCHROMASIA SLIGHT
--- NOTE | 2019-04-19 09:15 | PDOC PROGRESS REPORT ---
Subjective Progress Note for:: 04/19/19 Subjective:: Patient is currently doing well patient's denied any chest pain no short of breath no nausea no vomiting no abdominal pain His white count is still persistently elevated no fever all cuture neg Reason For Visit: HYPERTENSIVE EMERGENCY Physical Exam Vital Signs: Temp Pulse Resp BP Pulse Ox 98.4 F 58 L 18 174/62 H 95 04/19/19 07:45 04/19/19 07:45 04/19/19 07:45 04/19/19 07:45 04/19/19 07:45 Intake & Output 04/18/19 04/19/19 04/20/19 06:59 06:59 06:59 Intake Total 1760 2260 100 Output Total 1450 3166 Balance 310 -906 100 Weight 77.4 kg 78 kg General appearance: PRESENT: no acute distress, well-developed, well-nourished Head exam: PRESENT: atraumatic, normocephalic Eye exam: PRESENT: conjunctiva pink, EOMI, PERRLA. ABSENT: scleral icterus Ear exam: PRESENT: normal external ear exam Mouth exam: PRESENT: moist, tongue midline Neck exam: PRESENT: full ROM. ABSENT: carotid bruit, JVD, lymphadenopathy, thyromegaly Respiratory exam: PRESENT: clear to auscultation lyn Cardiovascular exam: PRESENT: RRR. ABSENT: diastolic murmur, rubs, systolic murmur Pulses: PRESENT: normal dorsalis pedis pul, +2 pedal pulses bilateral Vascular exam: PRESENT: normal capillary refill GI/Abdominal exam: PRESENT: normal bowel sounds, soft. ABSENT: distended, gua rding, mass, organolmegaly, rebound, tenderness Rectal exam: PRESENT: deferred Musculoskeletal exam: PRESENT: ambulatory Neurological exam: PRESENT: alert, awake, oriented to person, oriented to place, oriented to time, oriented to situation, CN II-XII grossly intact. ABSENT: motor sensory deficit Psychiatric exam: PRESENT: appropriate affect, normal mood. ABSENT: homicidal ideation, suicidal ideation Skin exam: PRESENT: dry, intact, warm. ABSENT: cyanosis, rash Results Laboratory Results: 04/19/19 05:23 04/19/19 05:23 04/19/19 04/19/19 05:23 05:23 WBC 17.4 H RBC 3.93 L Hgb 10.9 L Hct 34.1 L MCV 87 MCH 27.8 MCHC 32.0 RDW 16.7 H Plt Count 393 Seg Neutrophils % Not Reportable Sodium 139.3 Potassium 4.5 Chloride 111 H Carbon Dioxide 20 L Anion Gap 8 BUN 34 H Creatinine 1.61 H Est GFR ( Amer) 52 L Glucose 147 H Calcium 7.3 L 03/31/19 03/31/19 03/31/19 23:14 23:14 23:14 Creatine Kinase 41 L CK-MB (CK-2) 2.17 Troponin I 0.025 NT-Pro-B Natriuret Pep 2660 H 04/01/19 04/01/19 04/01/19 05:23 05:23 12:33 Creatine Kinase 41 L 50 L CK-MB (CK-2) 2.08 Troponin I 0.024 NT-Pro-B Natriuret Pep 04/01/19 12:33 Creatine Kinase CK-MB (CK-2) 3.09 Troponin I 0.017 NT-Pro-B Natriuret Pep Impressions: Renal Ultrasound 03/31/19 00:00 IMPRESSION: Normal study. Head CT 03/31/19 16:46 IMPRESSION: 1. No acute intracranial hemorrhage, mass, or evidence of acute territorial infarct. 2. Mild chronic small vessel ischemic change and intracranial atherosclerosis. EVIDENCE OF ACUTE STROKE: NO. Venous Doppler Study 03/31/19 19:28 IMPRESSION: No DVT is identified. Head MRI 04/06/19 00:00 IMPRESSION: MILD CHRONIC MICROVASCULAR ISCHEMIC CHANGE. 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 NO ACUTE FINDINGS. EVIDENCE OF ACUTE STROKE: NO. Abdomen X-Ray 04/12/19 07:00 IMPRESSION: Nonspecific gas pattern. KUB X-Ray 04/14/19 00:00 IMPRESSION: NO RADIOGRAPHIC EVIDENCE FOR ACUTE ABDOMINAL DISEASE. Abdomen/Pelvis CT 04/15/19 00:00 IMPRESSION: There is a left inguinal hernia containing portions of the bowel, similar to prior imaging. Mild gaseous distention of the small bowel and colon is seen which could reflect an ileus or enteritis. This is similar to prior imaging. A low-grade obstruction is not fully excluded. Chest X-Ray 04/15/19 00:00 IMPRESSION: NO ACUTE RADIOGRAPHIC FINDING IN THE CHEST. Assessment & Plan - Diagnosis (1) Hypertensive urgency Is this a current diagnosis for this admission?: Yes (2) Schizophrenia Qualifiers: Schizophrenia type: unspecified Qualified Code(s): F20.9 - Schizophrenia, unspecified Is this a current diagnosis for this admission?: Yes (3) CKD stage 3 due to type 2 diabetes mellitus Is this a current diagnosis for this admission?: Yes (4) Gastritis Qualifiers: Gastritis type: unspecified gastritis Chronicity: acute Gastritis bleeding: without bleeding Qualified Code(s): K29.00 - Acute gastritis without bleeding Is this a current diagnosis for this admission?: Yes (5) Cerebrovascular disease Is this a current diagnosis for this admission?: Yes (6) Hypoglycemia Is this a current diagnosis for this admission?: Yes (7) Diabetes mellitus type 2 in nonobese Is this a current diagnosis for this admission?: Yes (8) Acute renal failure Qualifiers: Acute renal failure type: unspecified Qualified Code(s): N17.9 - Acute kidney failure, unspecified Is this a current diagnosis for this admission?: Yes (9) Metabolic acidosis Is this a current diagnosis for this admission?: Yes (10) Enteritis Is this a current diagnosis for this admission?: Yes (11) Hypocalcemia Is this a current diagnosis for this admission?: Yes - Time Time Spent with patient: 15-24 minutes Level of Care: TELE Medications reviewed and adjusted accordingly: Yes Anticipated discharge: Other Within: Other - Plan Summary Plan Summary: Patient's kidney function is also improving clinically get better but persistent elevated white count will DC the IV antibiotics with no clear source of infections We will get the CT scan of the abdomen and pelvis with the p.o. contrast to further evaluate about this introduced consult the GI discont to Gomez catheter
[2019-04-19] MEDS: INSULIN REG, HUMAN 100 UNIT/ML 3 ML VIAL (PYX) SUBCUT SCH ×4 (10:30→22:15)
[2019-04-19] MEDS: CARVEDILOL 6.25 MG TABLET PO SCH ×2 (10:34→21:42)
[2019-04-19] MEDS: METRONIDAZOLE 500 MG TABLET PO SCH ×2 (10:34→21:42)
[2019-04-19] MEDS: CALCIUM CARBONATE 600 MG TABLET PO SCH ×2 (10:34→17:27)
[2019-04-19] MEDS: CIPROFLOXACIN HCL 500 MG TABLET PO SCH ×2 (10:34→21:41)
--- NOTE | 2019-04-19 11:05 | PDOC CONSULTATION ---
Consultation Consult Date: 04/19/19 Provider Consulted: KEN BAGLEY Consult reason:: elevated WBC History of Present Illness Admission Date/PCP: 03/31/19 19:46 POOJA VENEGAS MD History of Present Illness: QUANG VELAZQUEZ is a 63 year old male patient admitted by Dr Venegas has been having elevation in WBC, source is unknown spoke with the patient denies having any abdominal issues denies any nausea or vomiting just had a BM prior to seeing him, denies any blood no abdominal pain states Dr Riojas did colonoscopy on him and is insistent on that was told that he was good until he was 78 no documentation of a colonoscopy however there is an EGD from last year EGD was done in the ICU some gastritis is noted no nausea or vomiting having a CT scan with oral contrast today patient does not have want to have any procedures done Past Medical History Cardiac Medical History: Reports: Hypertension Pulmonary Medical History: Reports: Pneumonia Neurological Medical History: Denies: Seizures Endocrine Medical History: Reports: Diabetes Mellitus Type 2 Renal/ Medical History: Reports: Chronic Kidney Disease, End Stage Renal Disease Musculoskeltal Medical History: Reports: Arthritis Psychiatric Medical History: Reports: Bipolar Disorder, Schizoaffective Disorder Hematology: Reports: Anemia Past Surgical History Past Surgical History: Reports: Orthopedic Surgery - Bilateral knee laparoscopies Social History Lives with: Alone Smoking Status: Current Every Day Smoker Frequency of Alcohol Use: None Hx Recreational Drug Use: No Drugs: None Hx Prescription Drug Abuse: No Family History Family History: Reviewed & Not Pertinent Parental Family History Reviewed: Yes Children Family History Reviewed: Unknown Sibling(s) Family History Reviewed.: Unknown Medication/Allergy Home Medications: Amlodipine Besylate [Norvasc 10 mg Tablet] 10 mg PO DAILY 03/31/19 Aspirin [Aspirin 81 mg Chewable Tablet] 81 mg PO QHS #30 tab.chew 04/10/19 Atorvastatin Calcium [Lipitor 40 mg Tablet] 40 mg PO QHS #30 tablet 04/10/19 Carvedilol [Coreg 12.5 mg Tablet] 12.5 mg PO Q12 #60 tablet 04/10/19 Famotidine [Pepcid 20 mg Tablet] 20 mg PO QHS #60 tablet 04/10/19 Glipizide [Glucotrol Xl 2.5 mg Tab.er] 2.5 mg PO BIDACBS #60 tab.er.24 04/10/19 Losartan Potassium [Cozaar 50 mg Tablet] 50 mg PO DAILY #30 tablet 04/10/19 Patiromer Calcium Sorbitex [Veltassa 8.4 gm Susp Packet] 8.4 gm PO WSUPPER #15 packet 04/10/19 Sodium Bicarbonate [Sodium Bicarbonate 650 mg Tablet] 650 mg PO Q12 #60 tablet 04/10/19 Allergies/Adverse Reactions: Penicillins Allergy (Verified 03/21/19 10:54) Review of Systems Constitutional: ABSENT: fever(s), headache(s), night sweats, weakness Eyes: ABSENT: visual disturbances Ears: ABSENT: hearing changes Nose, Mouth, and Throat: ABSENT: mouth pain Cardiovascular: ABSENT: edema, orthropnea Respiratory: ABSENT: dyspnea, hemoptysis Gastrointestinal: ABSENT: diarrhea, dysphagia, heartburn, melena Genitourinary: ABSENT: dysuria, hematuria Musculoskeletal: ABSENT: deformity, joint swelling Neurological: ABSENT: syncope, tingling, tremor(s), vertigo Endocrine: ABSENT: polydipsia, polyphagia, polyuria Hematologic/Lymphatic: ABSENT: easy bruising Physical Exam Vital Signs: Temp Pulse Resp BP Pulse Ox 98.4 F 58 L 18 174/62 H 95 04/19/19 07:45 04/19/19 07:45 04/19/19 07:45 04/19/19 07:45 04/19/19 07:45 Intake & Output 04/18/19 04/19/19 04/20/19 06:59 06:59 06:59 Intake Total 1760 2260 100 Output Total 1450 3166 Balance 310 -906 100 Weight 77.4 kg 78 kg General appearance: PRESENT: no acute distress, well-developed, well-nourished Head exam: PRESENT: atraumatic, normocephalic Eye exam: PRESENT: EOMI, PERRLA. ABSENT: nystagmus, periorbital swelling, scle ral icterus Mouth exam: PRESENT: moist, neck supple Throat exam: ABSENT: tonsillar exudate, tonsillogmegaly Neck exam: ABSENT: meningismus, tenderness, thyromegaly Cardiovascular exam: PRESENT: RRR, +S1, +S2 GI/Abdominal exam: PRESENT: soft. ABSENT: rebound, rigid, tenderness Extremities exam: ABSENT: joint swelling Musculoskeletal exam: PRESENT: full ROM Neurological exam: PRESENT: oriented to time, oriented to situation, CN II-XII grossly intact Focused psych exam: ABSENT: restlessness Skin exam: PRESENT: normal color. ABSENT: mottled, pallor, urticaria, vesicles Results Laboratory Results: 04/19/19 05:23 04/19/19 05:23 04/19/19 04/19/19 05:23 05:23 WBC 17.4 H RBC 3.93 L Hgb 10.9 L Hct 34.1 L MCV 87 MCH 27.8 MCHC 32.0 RDW 16.7 H Plt Count 393 Seg Neutrophils % Not Reportable Sodium 139.3 Potassium 4.5 Chloride 111 H Carbon Dioxide 20 L Anion Gap 8 BUN 34 H Creatinine 1.61 H Est GFR ( Amer) 52 L Glucose 147 H Calcium 7.3 L 03/31/19 03/31/19 03/31/19 23:14 23:14 23:14 Creatine Kinase 41 L CK-MB (CK-2) 2.17 Troponin I 0.025 NT-Pro-B Natriuret Pep 2660 H 04/01/19 04/01/19 04/01/19 05:23 05:23 12:33 Creatine Kinase 41 L 50 L CK-MB (CK-2) 2.08 Troponin I 0.024 NT-Pro-B Natriuret Pep 04/01/19 12:33 Creatine Kinase CK-MB (CK-2) 3.09 Troponin I 0.017 NT-Pro-B Natriuret Pep Impressions: Renal Ultrasound 03/31/19 00:00 IMPRESSION: Normal study. Head CT 03/31/19 16:46 IMPRESSION: 1. No acute intracranial hemorrhage, mass, or evidence of acute territorial infarct. 2. Mild chronic small vessel ischemic change and intracranial atherosclerosis. EVIDENCE OF ACUTE STROKE: NO. Venous Doppler Study 03/31/19 19:28 IMPRESSION: No DVT is identified. Head MRI 04/06/19 00:00 IMPRESSION: MILD CHRONIC MICROVASCULAR ISCHEMIC CHANGE. 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 NO ACUTE FINDINGS. EVIDENCE OF ACUTE STROKE: NO. Abdomen X-Ray 04/12/19 07:00 IMPRESSION: Nonspecific gas pattern. KUB X-Ray 04/14/19 00:00 IMPRESSION: NO RADIOGRAPHIC EVIDENCE FOR ACUTE ABDOMINAL DISEASE. Abdomen/Pelvis CT 04/15/19 00:00 IMPRESSION: There is a left inguinal hernia containing portions of the bowel, similar to prior imaging. Mild gaseous distention of the small bowel and colon is seen which could reflect an ileus or enteritis. This is similar to prior imaging. A low-grade obstruction is not fully excluded. Chest X-Ray 04/15/19 00:00 IMPRESSION: NO ACUTE RADIOGRAPHIC FINDING IN THE CHEST. Assessment & Plan - Diagnosis (1) Enteritis Is this a current diagnosis for this admission?: Yes Plan: very non specific finding on a non contrasted CT scan will get better data today with oral contrast CT however patient is asymptomatic his GI care has been assumed by Dr Garcia patient states has had colonoscopy and EGD done although I do not see any objective evidence of the former however patient is insistent and at this point does not want to proceed with any other evaluation except for the CT scan that has been ordered will sign off Have spoken with Dr Venegas he can follow up in surgery clinic with Dr Riojas - Time Time Spent: 50 to 70 Minutes
--- NOTE | 2019-04-19 15:00 | RADIOLOGY REPORT (SQ) ---
EXAM DESCRIPTION: CT ABD/PELVIS ORAL ONLY COMPLETED DATE/TIME: 04/19/2019 12:59 pm REASON FOR STUDY: abd pain/leucocytosis COMPARISON: 04/15/2019 TECHNIQUE: CT scan of the abdomen and pelvis performed without intravenous contrast. Patient was gi koko oral contrast. Images reviewed with lung, soft tissue, and bone windows. Reconstructed coronal an d sagittal MPR images reviewed. All images stored on PACS. All CT scanners at this facility use dose modulation, iterative reconstruction, and/or weight based d osing when appropriate to reduce radiation dose to as low as reasonably achievable (ALARA). [facility]: Dose Right [facility]: CareDose [facility]: Dose Right [facility]: Teradose 4D [facility]: Smart [employer] RADIATION DOSE: CT Rad equipment meets quality standard of care and radiation dose reduction techniq ues were employed. CTDIvol: 5.4 mGy. DLP: 300 mGy-cm.mGy. LIMITATIONS: None. FINDINGS: LOWER CHEST: Small bilateral pleural effusions, left greater than right. Coronary atheros clerosis. Aortic atherosclerosis with mild dilation of the descending aorta measuring up to 3.8 cm. NON-CONTRASTED LIVER, SPLEEN, ADRENALS: Evaluation limited by lack of IV contrast. No identified sign ificant masses. PANCREAS: No masses. No peripancreatic inflammatory changes. GALLBLADDER: No identified stones by CT criteria. No inflammatory changes to suggest cholecystitis. RIGHT KIDNEY AND URETER: Assessment limited by lack of IV contrast. Indeterminate Exophytic subcenti meter hyperdense lesion extending off the lower pole, stable and likely proteinaceous/hemorrhagic cys t. Vascular calcifications. No definite stones. No hydronephrosis or hydroureter. LEFT KIDNEY AND URETER: No suspicious masses. Assessment limited by lack of IV contrast. Vascular c alcifications. No definite stones. No hydronephrosis or hydroureter. AORTA AND RETROPERITONEUM: Aortoiliac atherosclerosis. Mild dilation of the infrarenal aorta measuri ng up to 2.8 cm, stable. BOWEL AND PERITONEAL CAVITY: No evidence of high-grade obstruction. Again seen are mildly dilated lo ops of small bowel within the central abdomen measuring up to 2.7 cm with scattered gas fluid levels. Contrast traverses to the level of the colon. Gas and stool throughout the colon. Stable left ing uinal hernia containing loops of sigmoid colon. Scattered colonic diverticula. APPENDIX: Not identified. PELVIS, BLADDER, AND ABDOMINAL WALL:Intraluminal Gomez catheter within the urinary bladder. Left ing uinal hernia containing fat and a portion of the sigmoid colon. No discrete mass BONES: No acute bony abnormality. No suspicious osseous lesions. OTHER: No other significant finding. IMPRESSION: 1. Stable large left inguinal hernia containing fat and a loop of sigmoid colon. No ev idence of high-grade obstruction. 2. Small bilateral pleural effusions. 3. Mild dilation of the abdominal aorta measuring up to 2.7 cm. Follow-up as below. 4. No other evidence of acute intra-abdominal/pelvic process. Additional chronic findings as above. COMMENT: AAA Size: Follow-up Recommendation 2.6-2.9 cm Every 5 years* *Based upon the Society for Vascular Surgery Guidelines: J Vasc Surg. 2009 Nov;50(4 Suppl):S2-49 *For aortas of maximum diameter of 2.6-2.9 cm meeting the criteria for AAA (?1.5 x proximal normal se gment) Quality ID # 436: Final reports with documentation of one or more dose reduction techniques (e.g., Au tomated exposure control, adjustment of the mA and/or kV according to patient size, use of iterative reconstruction technique) TECHNICAL DOCUMENTATION: JOB ID: [id number] 2010 [email or web address]- All Rights Reserved Reading location - IP/workstation name: [email or web address]
[2019-04-19] MEDS: TAMSULOSIN HCL 0.4 MG CAP.SR.24H PO SCH (16:53)
[2019-04-19] MEDS: ASPIRIN 81 MG TABLET, CHEWABLE PO SCH (21:41)
[2019-04-19] MEDS: FAMOTIDINE 20 MG TABLET PO SCH (21:42)
[2019-04-19] MEDS: ATORVASTATIN CALCIUM 40 MG TABLET PO SCH (21:43)
[2019-04-20 07:06] LABS: ABSOLUTE BASOPHILS # (AUTO) 0.2 10^3/uL (0.0-0.2); ABSOLUTE EOSINOPHILS # (AUTO) 1.1 10^3/uL (0.0-0.6); ABSOLUTE LYMPHOCYTES (AUTO) 1.2 10^3/uL (0.5-4.7); ABSOLUTE MONOCYTES (AUTO) 1.5 10^3/uL (0.1-1.4); ABSOLUTE NEUT (AUTO) 10.1 10^3/uL (1.7-8.2); BASOPHILS % (AUTO) 1.3 % (0-2); EOSINOPHILS % (AUTO) 7.5 % (0-6); HEMATOCRIT 37.4 % (37.9-51.0); HEMOGLOBIN 12.2 g/dL (13.5-17.0); LYMPHOCYTES % (AUTO) 8.3 % (13-45); MEAN CORPUSCULAR HEMOGLOBIN 28.2 pg (27.0-33.4); MEAN CORPUSCULAR HGB CONC 32.6 g/dL (32.0-36.0); MEAN CORPUSCULAR VOLUME 87 fl (80-97); MONOCYTES % (AUTO) 10.8 % (3-13); PLATELET COUNT 408 10^3/uL (150-450); RED BLOOD COUNT 4.31 10^6/uL (4.35-5.55); SEGMENTED NEUTROPHILS % (AUTO) 72.1 % (42-78); TOTAL CELLS COUNTED % (AUTO) 100 %
[2019-04-20 07:27] LABS: BLOOD UREA NITROGEN 30 mg/dL (7-20); CARBON DIOXIDE 24 mmol/L (22-30); GLUCOSE 183 mg/dL (75-110)
[2019-04-20 07:35] LABS: ANION GAP 6 (5-19); CHLORIDE 108 mmol/L (98-107); POTASSIUM 5.5 mmol/L (3.6-5.0)
[2019-04-20] MEDS: INSULIN REG, HUMAN 100 UNIT/ML 3 ML VIAL (PYX) SUBCUT SCH ×4 (08:33→21:53)
[2019-04-20] MEDS: SITAGLIPTIN PHOSPHATE 50 MG TABLET PO SCH (09:37)
[2019-04-20] MEDS: CIPROFLOXACIN HCL 500 MG TABLET PO SCH ×2 (09:37→21:54)
[2019-04-20] MEDS: CARVEDILOL 6.25 MG TABLET PO SCH ×2 (09:38→21:54)
[2019-04-20] MEDS: METRONIDAZOLE 500 MG TABLET PO SCH ×2 (09:41→21:54)
--- NOTE | 2019-04-20 11:29 | PDOC PROGRESS REPORT ---
Subjective Progress Note for:: 04/20/19 Subjective:: Patient is feeling much better Patient CT abdomen pelvis with p.o. oral contrast did not show any significant finding His white count is also improving Potassium is slightly elevated Otherwise denied any other complaints Reason For Visit: HYPERTENSIVE EMERGENCY Physical Exam Vital Signs: Temp Pulse Resp BP Pulse Ox 98.9 F 58 L 16 144/63 H 95 04/20/19 01:03 04/20/19 07:00 04/20/19 01:03 04/20/19 09:41 04/20/19 01:03 Intake & Output 04/19/19 04/20/19 04/21/19 06:59 06:59 06:59 Intake Total 2260 1160 Output Total 3166 300 Balance -906 860 Weight 78 kg 78.3 kg General appearance: PRESENT: no acute distress, well-developed, well-nourished Head exam: PRESENT: atraumatic, normocephalic Eye exam: PRESENT: conjunctiva pink, EOMI, PERRLA. ABSENT: scleral icterus Ear exam: PRESENT: normal external ear exam Mouth exam: PRESENT: moist, tongue midline Neck exam: PRESENT: full ROM. ABSENT: carotid bruit, JVD, lymphadenopathy, thyromegaly Respiratory exam: PRESENT: clear to auscultation lyn Cardiovascular exam: PRESENT: RRR. ABSENT: diastolic murmur, rubs, systolic murmur Pulses: PRESENT: normal dorsalis pedis pul, +2 pedal pulses bilateral Vascular exam: PRESENT: normal capillary refill GI/Abdominal exam: PRESENT: normal bowel sounds, soft. ABSENT: distended, guarding, mass, organolmegaly, rebound, tenderness Rectal exam: PRESENT: deferred Musculoskeletal exam: PRESENT: ambulatory Neurological exam: PRESENT: alert, awake, oriented to person, oriented to place, oriented to time, oriented to situation, CN II-XII grossly intact. ABSENT: motor sensory deficit Psychiatric exam: PRESENT: appropriate affect, normal mood. ABSENT: homicidal ideation, suicidal ideation Skin exam: PRESENT: dry, intact, warm. ABSENT: cyanosis, rash Results Laboratory Results: 04/20/19 06:34 04/20/19 06:34 04/20/19 04/20/19 06:34 06:34 WBC 14.0 H RBC 4.31 L Hgb 12.2 L Hct 37.4 L MCV 87 MCH 28.2 MCHC 32.6 RDW 17.0 H Plt Count 408 Seg Neutrophils % 72.1 Sodium 137.7 Potassium 5.5 H Chloride 108 H Carbon Dioxide 24 Anion Gap 6 BUN 30 H Creatinine 1.75 H Est GFR ( Amer) 48 L Glucose 183 H Calcium 8.0 L 03/31/19 03/31/19 03/31/19 23:14 23:14 23:14 Creatine Kinase 41 L CK-MB (CK-2) 2.17 Troponin I 0.025 NT-Pro-B Natriuret Pep 2660 H 04/01/19 04/01/19 04/01/19 05:23 05:23 12:33 Creatine Kinase 41 L 50 L CK-MB (CK-2) 2.08 Troponin I 0.024 NT-Pro-B Natriuret Pep 04/01/19 12:33 Creatine Kinase CK-MB (CK-2) 3.09 Troponin I 0.017 NT-Pro-B Natriuret Pep Impressions: Renal Ultrasound 03/31/19 00:00 IMPRESSION: Normal study. Head CT 03/31/19 16:46 IMPRESSION: 1. No acute intracranial hemorrhage, mass, or evidence of acute territorial infarct. 2. Mild chronic small vessel ischemic change and intracranial atherosclerosis. EVIDENCE OF ACUTE STROKE: NO. Venous Doppler Study 03/31/19 19:28 IMPRESSION: No DVT is identified. Head MRI 04/06/19 00:00 IMPRESSION: MILD CHRONIC MICROVASCULAR ISCHEMIC CHANGE. 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 NO ACUTE FINDINGS. EVIDENCE OF ACUTE STROKE: NO. Abdomen X-Ray 04/12/19 07:00 IMPRESSION: Nonspecific gas pattern. KUB X-Ray 04/14/19 00:00 IMPRESSION: NO RADIOGRAPHIC EVIDENCE FOR ACUTE ABDOMINAL DISEASE. Chest X-Ray 04/15/19 00:00 IMPRESSION: NO ACUTE RADIOGRAPHIC FINDING IN THE CHEST. Abdomen/Pelvis CT 04/19/19 00:00 IMPRESSION: 1. Stable large left inguinal hernia containing fat and a loop of sigmoid colon. No evidence of high-grade obstruction. 2. Small bilateral pleural effusions. 3. Mild dilation of the abdominal aorta measuring up to 2.7 cm. Follow-up as below. 4. No other evidence of acute intra-abdominal/pelvic process. Additional chronic findings as above. Assessment & Plan - Diagnosis (1) Hypertensive urgency Is this a current diagnosis for this admission?: Yes Plan: Currently all stable with the Coreg (2) Schizophrenia Qualifiers: Schizophrenia type: unspecified Qualified Code(s): F20.9 - Schizophrenia, unspecified Is this a current diagnosis for this admission?: Yes (3) CKD stage 3 due to type 2 diabetes mellitus Is this a current diagnosis for this admission?: Yes Plan: Follow with the Dr. Goodwin (4) Gastritis Qualifiers: Gastritis type: unspecified gastritis Chronicity: acute Gastritis b leeding: without bleeding Qualified Code(s): K29.00 - Acute gastritis without bleeding Is this a current diagnosis for this admission?: Yes (5) Cerebrovascular disease Is this a current diagnosis for this admission?: Yes (6) Hypoglycemia Is this a current diagnosis for this admission?: Yes (7) Diabetes mellitus type 2 in nonobese Is this a current diagnosis for this admission?: Yes Plan: Start the patient on Januvia 50 mg p.o. daily (8) Acute renal failure Qualifiers: Acute renal failure type: unspecified Qualified Code(s): N17.9 - Acute kidney failure, unspecified Is this a current diagnosis for this admission?: Yes (9) Metabolic acidosis Is this a current diagnosis for this admission?: Yes Plan: Currently all resolved (10) Enteritis Is this a current diagnosis for this admission?: Yes Plan: Patient is refused for colonoscopy patient CT scan is all stable (11) Hypocalcemia Is this a current diagnosis for this admission?: Yes Plan: Currently all resolved - Time Time Spent with patient: 15-24 minutes Level of Care: TELE Medications reviewed and adjusted accordingly: Yes Anticipated discharge: SNF Within: within 24 hours - Plan Summary Plan Summary: I think patient is currently getting better patient's Gomez is discontinued patient's white count is also improving I think patients probably at this point if he remains stable next 24-hour go back to the nursing facilities and follow outpatients for continued further evaluations
[2019-04-20] MEDS: PATIROMER 8.4 GM SUSP PACKET PO SCH (16:01)
[2019-04-20] MEDS: CALCIUM CARBONATE 600 MG TABLET PO SCH (16:01)
[2019-04-20] MEDS: TAMSULOSIN HCL 0.4 MG CAP.SR.24H PO SCH (16:01)
[2019-04-20] MEDS: ASPIRIN 81 MG TABLET, CHEWABLE PO SCH (21:54)
[2019-04-20] MEDS: ATORVASTATIN CALCIUM 40 MG TABLET PO SCH (21:54)
[2019-04-20] MEDS: FAMOTIDINE 20 MG TABLET PO SCH (21:55)
[2019-04-21 07:18] LABS: ABSOLUTE BASOPHILS # (AUTO) 0.2 10^3/uL (0.0-0.2); ABSOLUTE MONOCYTES (AUTO) 1.4 10^3/uL (0.1-1.4); ABSOLUTE NEUT (AUTO) 9.2 10^3/uL (1.7-8.2); BASOPHILS % (AUTO) 1.5 % (0-2); HEMATOCRIT 32.6 % (37.9-51.0); HEMOGLOBIN 10.8 g/dL (13.5-17.0); LYMPHOCYTES % (AUTO) 7.8 % (13-45); MEAN CORPUSCULAR HEMOGLOBIN 28.7 pg (27.0-33.4); MEAN CORPUSCULAR HGB CONC 33.2 g/dL (32.0-36.0); MEAN CORPUSCULAR VOLUME 87 fl (80-97); MONOCYTES % (AUTO) 11.3 % (3-13); PLATELET COUNT 380 10^3/uL (150-450); RED BLOOD COUNT 3.77 10^6/uL (4.35-5.55); RED CELL DISTRIBUTION WIDTH 16.9 % (11.5-14.0); SEGMENTED NEUTROPHILS % (AUTO) 71.4 % (42-78); TOTAL CELLS COUNTED % (AUTO) 100 %; WHITE BLOOD COUNT 12.8 10^3/uL (4.0-10.5)
[2019-04-21 07:33] LABS: ANION GAP 9 (5-19); BLOOD UREA NITROGEN 31 mg/dL (7-20); CALCIUM 7.8 mg/dL (8.4-10.2); CARBON DIOXIDE 22 mmol/L (22-30); CHLORIDE 106 mmol/L (98-107); GLUCOSE 157 mg/dL (75-110); POTASSIUM 5.1 mmol/L (3.6-5.0)
[2019-04-21] MEDS: CALCIUM CARBONATE 600 MG TABLET PO SCH ×2 (07:50→16:36)
[2019-04-21] MEDS: INSULIN REG, HUMAN 100 UNIT/ML 3 ML VIAL (PYX) SUBCUT SCH ×3 (08:12→16:36)
[2019-04-21 08:13] VITALS: BP 158/73
[2019-04-21] MEDS: CARVEDILOL 6.25 MG TABLET PO SCH (09:18)
[2019-04-21] MEDS: CIPROFLOXACIN HCL 500 MG TABLET PO SCH (09:18)
[2019-04-21] MEDS: METRONIDAZOLE 500 MG TABLET PO SCH (09:18)
[2019-04-21] MEDS: SITAGLIPTIN PHOSPHATE 50 MG TABLET PO SCH (09:19)
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
[2019-04-21] MEDS: TAMSULOSIN HCL 0.4 MG CAP.SR.24H PO SCH (16:36)
[2019-04-21] MEDS: PATIROMER 8.4 GM SUSP PACKET PO SCH (17:50)
== END 2019-04-21 17:50 | DRG 305 ==
LOC: ER 16:01 → EH 19:46 → 5 21:22
PROVIDERS: ADMIT Family Medicine; ATTEND Family Medicine
DX: I16.0 Hypertensive urgency (principal); N17.9 Acute kidney failure, unspecified; E87.2 Acidosis; N18.4 Chronic kidney disease, stage 4 (severe); I12.9 Hypertensive chronic kidney disease with stage 1 through stage 4 chronic kidney disease, or unspecified chronic kidney disease; E11.22 Type 2 diabetes mellitus with diabetic chronic kidney disease; F20.9 Schizophrenia, unspecified; E11.649 Type 2 diabetes mellitus with hypoglycemia without coma; K52.9 Noninfective gastroenteritis and colitis, unspecified; E78.5 Hyperlipidemia, unspecified; E83.51 Hypocalcemia; E86.0 Dehydration; D63.1 Anemia in chronic kidney disease; F17.210 Nicotine dependence, cigarettes, uncomplicated; F03.90 Unspecified dementia, unspecified severity, without behavioral disturbance, psychotic disturbance, mood disturbance, and anxiety; K40.90 Unilateral inguinal hernia, without obstruction or gangrene, not specified as recurrent; K29.00 Acute gastritis without bleeding; E11.21 Type 2 diabetes mellitus with diabetic nephropathy; D72.1 Eosinophilia; R62.7 Adult failure to thrive; Z60.2 Problems related to living alone; Z23 Encounter for immunization; Z79.4 Long term (current) use of insulin; Z79.899 Other long term (current) drug therapy; Z79.82 Long term (current) use of aspirin; Z86.73 Personal history of transient ischemic attack (TIA), and cerebral infarction without residual deficits; Z88.0 Allergy status to penicillin
CPT/HCPCS: 36415; 36600; 70450; 70551; 71045; 74018; 74019; 74176; 76775; 80048; 80053; 80061; 80076; 80307; 81001; 82140; 82150; 82272; 82550; 82553; 82570; 82803; 82962; 83036; 83605; 83690; 83735; 83880; 84100; 84156; 84439; 84443; 84484; 85025; 85610; 85730; 87040; 87045; 87086; 87205; 87324; 87449; 89055; 90686; 93005; 93010; 93306; 93971; 99285; J0610; J0360; J0744; J1644; J1815; J2405; J3490; J7030; J7060